=== PATIENT | male | born 1950 | race Caucasian/White ===

== ENCOUNTER 2017-06-26 09:49 | Inpatient (IN) | payer MEDICARE, OTHER ==
[2017-05-31 14:14] VITALS: BMI 41.0
--- NOTE | 2017-05-31 14:45 | PAT Medication Instructions ---
Service Date May 31, 2017. Current Home Medication List Acetaminophen (Tylenol), 2 TABS PO TID PRN for Pain Bupropion Hcl (Wellbutrin Xl), 300 MG PO QAM Cholecalciferol (Vitamin D3), 1 CAP PO BID Losartan Potassium (Cozaar), 50 MG PO BID Metoprolol Succ (Toprol Xl) (Toprol-Xl), 50 MG PO QAM Simvastatin (Zocor), 20 MG PO QPM Tramadol (Ultram), 50 MG PO Q6 PRN for Pain Medication Instructions For Your Scheduled Surgery - Hold the following medications the morning of surgery: Cholecalciferol (Vitamin D3), 1 CAP PO BID Losartan Potassium (Cozaar), 50 MG PO BID - Take the following medications the morning of surgery with a sip of water: Acetaminophen (Tylenol), 2 TABS PO TID PRN for Pain (if needed, can be taken up to four hours before surgery) Bupropion Hcl (Wellbutrin Xl), 300 MG PO QAM Metoprolol Succ (Toprol Xl) (Toprol-Xl), 50 MG PO QAM Tramadol (Ultram), 50 MG PO Q6 PRN for Pain (if needed, can be taken up to four hours before surgery) - Take the following medications as scheduled the night before surgery: Cholecalciferol (Vitamin D3), 1 CAP PO BID Losartan Potassium (Cozaar), 50 MG PO BID Simvastatin (Zocor), 20 MG PO QPM (if needed) Tramadol (Ultram), 50 MG PO Q6 PRN for Pain (if needed) If you have any questions please call us at [phone] or [phone] or [phone]
--- NOTE | 2017-05-31 15:22 | DIAGNOSTIC IMAGING REPORT ---
CHEST 2 VIEWS ROUTINE CLINICAL HISTORY: 66 years-old Male presenting with preoperative assessment. TECHNIQUE: PA and lateral views of the chest were obtained. COMPARISON: 06/16/2014. FINDINGS: Atherosclerosis of the aortic arch. Tortuosity of the descending thoracic aorta. Cardiac silhouette normal in size. Minimal basilar opacities. No pleural effusion or pneumothorax. Partially visualized right shoulder arthroplasty. Posterior lumbar fusion hardware also partially visualized with focal kyphotic deformity at the thoracolumbar junction. Cholecystectomy clips noted. IMPRESSION: 1. Minimal bibasilar atelectasis suspected. Otherwise no acute cardiopulmonary disease. Electronically signed by: Cody Alcala M.D. 05/31/2017 3:20 PM Dictated Date/Time: 05/31/2017 3:19 PM
[2017-05-31 17:01] LABS: BASO % 0.5 %; BASO ABS # 0.03 K/uL (0-0.2); EOS % 6.2 %; EOS ABS # 0.35 K/uL (0-0.5); HEMATOCRIT 42.1 % (42-52); HEMOGLOBIN 14.4 g/dL (14.0-18.0); IG# 0.01 K/uL (0.00-0.02); LYMPH % 23.7 %; LYMPH ABS # 1.35 K/uL (1.2-3.4); MEAN CELL VOLUME 87.3 fL (80-100); MEAN CORPUSCULAR HEMOGLOBIN 29.9 pg (25-34); MEAN CORPUSCULAR HGB CONC 34.2 g/dl (32-36); MEAN PLATELET VOLUME 9.1 fL (7.4-10.4); MONO % 7.6 %; MONO ABS # 0.43 K/uL (0.11-0.59); NEUT % 61.8 %; NEUT ABS # 3.52 K/uL (1.4-6.5); PLATELET COUNT 180 K/uL (130-400); RED CELL DISTRIBUTION WIDTH CV 13.6 % (11.5-14.5); RED CELL DISTRIBUTION WIDTH SD 43.2 fL (36.4-46.3); WHITE BLOOD COUNT 5.69 K/uL (4.8-10.8)
[2017-05-31 17:11] LABS: PTT PATIENT 25.6 SECONDS (21.0-31.0)
[2017-05-31 17:18] LABS: ALBUMIN 3.7 gm/dl (3.4-5.0); CALCIUM 9.3 mg/dl (8.5-10.1); CREATININE 1.17 mg/dl (0.60-1.40); POTASSIUM 3.9 mmol/L (3.5-5.1)
[2017-06-01 07:57] LABS: HEMOGLOBIN A1C 5.3 % (4.5-5.6)
--- NOTE | 2017-06-25 22:05 | HISTORY & PHYSICAL EXAMINATION ---
DATE OF ADMISSION: 06/26/2017 CHIEF COMPLAINT: Chronic left shoulder pain. HISTORY OF PRESENT ILLNESS: This is a 66-year-old male patient of Dr. Thomas'grey complaining of chronic left shoulder pain, longstanding, now progressively getting worse. The patient has failed conservative treatment. He has been diagnosed with end-stage osteoarthritis in his shoulder joint, rotator cuff tear, impingement and AC arthritis. The patient wished to proceed with a left total shoulder arthroplasty, rotator cuff repair, subacromial decompression and distal clavicle excision. PAST MEDICAL HISTORY: Hypertension, hypercholesterolemia, osteoarthritis, spine problems, sciatica, hiatal hernia, obesity. SOCIAL HISTORY: Nonsmoker, occasional drinker. PAST SURGICAL HISTORY: Hip replacement x2, right shoulder surgery, lower spine surgery, hernia and neck surgery. REVIEW OF SYSTEMS: The patient complains of chronic left shoulder pain. Otherwise, denies any shortness of breath, chest pain, nausea, vomiting or any other joint complaints. MEDICATIONS: 1. Bupropion 300 mg daily. 2. Simvastatin 20 mg daily. 3. Losartan 50 mg every other day. 4. Tylenol Arthritis as needed. 5. Metoprolol 50 mg daily. 6. Tylenol again as needed. 7. Metoprolol 25 mg daily. 8. Ultram 50 mg daily. ALLERGIES: No known drug allergies. PHYSICAL EXAMINATION: GENERAL: Well-developed, well-nourished 66-year-old male in no acute distress. He is alert and oriented x3 and pleasant. HEENT: Normocephalic, atraumatic. Extraocular motions are intact. Pupils are equal, reactive to light. HEART: Regular rate and rhythm. No murmurs appreciated. LUNGS: Clear. ABDOMEN: Soft, nontender, bowel sounds present. EXTREMITIES: Left shoulder reveals full range of motion with pain. He has 4/5 strength with pain. He has crepitation with passive range of motion. NEUROLOGIC: Neurovascularly he is intact in his left upper extremity. DIAGNOSES: Left shoulder end-stage osteoarthritis with a rotator cuff tear, acromioclavicular arthritis and impingement. He also has a history of hypertension, hypercholesterolemia, osteoarthritis, spine problems, sciatica, hiatal hernia, obesity. PLAN: The patient was advised of his diagnosis. Indications, risks, benefits, postop course have all been reviewed. The patient wished to proceed with a left total shoulder arthroplasty, rotator cuff repair, subacromial decompression and distal clavicle excision. Necessary consent forms, preoperative testing and clearances will be obtained.
[~2017-06-26] VITALS: Ht 182.9 cm; Wt 136.9 kg
[2017-06-26] VITALS (7 sets, daily range): BP systolic 109–146; BP diastolic 67–88; PULSE 59–95; TEMP 36.5–36.9; O2SAT 91–94; Ht 182.9 cm; Wt 136.9 kg
[~2017-06-26 09:49] MED LIST: ACET650S10 PO; ACETAMINOPHEN 500 MG TAB PO SCH; BUPRTAB51 PO; CEFAZOLIN 3000MG IV PUSH 22.5 ML IV SCH; CHOL2000 PO; CeleBREX 200 MG CAP PO SCH; DEXAMETHASONE 4 MG TAB PO SCH; FAMOTIDINE 20 MG TAB PO SCH; GABAPENTIN 300 MG CAP PO SCH; LACTATED RINGER'S 1000ML 1,000 ML IV SCH; LOSA50TA6 PO; METO50TA8 PO; METOCLOPRAMIDE HCL 10 MG TAB PO SCH; ROPIVACAINE 0.5% 5 MG/ML 30 ML VIAL ONE; SIMV20TA2 PO; TRAM-10 PO
--- NOTE | 2017-06-26 11:07 | History & Physical Bridge Note ---
H&P Re-Evaluation Bridge Note: I have examined the patient, reviewed the History & Physical and in the interval since the performance of the History & Physical I have noted the following changes of clinical significance: No changes noted
[2017-06-26] MEDS ORDERED: MIDAZOLAM HCL 1 MG/ML 2ML VIAL ONE (11:29)
[2017-06-26] MEDS ORDERED: FENTANYL CITRATE INJ 50 MCG/1 ML 2 ML VIAL ONE (11:30)
[2017-06-26] MEDS ORDERED: EpINEphrine HCL INJ 1 MG/ML 1ML SYRINGE ONE (11:43)
[2017-06-26] MEDS ORDERED: BACITRACIN 50000 UNIT VIAL ONE (11:43)
[2017-06-26] MEDS ORDERED: ROCURONIUM BROMIDE 10 MG/ML 5 ML VIAL IV ONE (15:24)
[2017-06-26] MEDS ORDERED: DEXAMETHASONE SOD INJ 4 MG/ML VIAL ONE (15:24)
[2017-06-26] MEDS ORDERED: EpHEDrine SULFATE INJ 50 MG/ML AMP ONE (15:24)
[2017-06-26] MEDS ORDERED: PROPOFOL IV EMULSION 10 MG/ML 20 ML VIAL IV ONE (15:24)
[2017-06-26] MEDS ORDERED: ONDANSETRON INJ 2 MG/ML 2 ML VIAL ONE (15:24)
[2017-06-26] MEDS ORDERED: EpHEDrine SULFATE 50MG/5ML SYR ONE (15:24)
[2017-06-26] MEDS ORDERED: BISACODYL 10 MG SUPP PR PRN (17:15)
[2017-06-26] MEDS ORDERED: ALUMINUM/MAGNESIUM SUSP 30 ML UDC PO PRN (17:15)
[2017-06-26] MEDS ORDERED: MoRPHine SULFATE 4 MG/ML 1 ML CARP\\VIAL IV PRN (17:15)
[2017-06-26] MEDS ORDERED: ONDANSETRON INJ 2 MG/ML 2 ML VIAL IV PRN (17:15)
[2017-06-26] MEDS ORDERED: MAGNESIUM HYDROXIDE SUSP 30 ML UDC PO PRN (17:15)
--- NOTE | 2017-06-26 17:18 | [facility] Post Operative Brief Note ---
Immediate Operative Summary Operative Date Jun 26, 2017. Pre-Operative Diagnosis Left shoulder end stage osteoarthritis with rotator cuff tear, acrominoclavicular arthritis,biceps tenosynovitis and multiple loose bodies biceps tendon sheath,possible impingent. Post-Operative Diagnosis end stage osteoarthritis with rotator cuff tendinopathy without tear and no impingement, biceps tendinopathy tenosynovitis marked with multiple loose bodies. Procedure(s) Performed Total Shoulder arthroplasty,bicep tenodesis, removal multiple loose bodies, left shoulder Surgeon Dr Thomas Bonus Clerk Surgeon(s) Harry Kidd PA-C Estimated Blood Loss 250ml Findings Consistent with Post-Op Diagnosis Specimens A. left humeral head and loose bodies left shoulder Drains 2 hemovac Anesthesia Type General Regional Complication(s) none Disposition Disposition: Recovery Room / PACU
--- NOTE | 2017-06-26 17:40 | DIAGNOSTIC IMAGING REPORT ---
L SHOULDER MIN 2 VIEWS ROUTINE CLINICAL HISTORY: Post shoulder surgery COMPARISON: None. FINDINGS: Alignment of the left shoulder arthroplasty is anatomic. Drains and skin jerry are present. There is no periprosthetic fracture or unexpected radiopaque foreign body. IMPRESSION: Expected findings following left shoulder arthroplasty. Electronically signed by: Roderick Armas M.D. 06/26/2017 5:39 PM Dictated Date/Time: 06/26/2017 5:38 PM
--- NOTE | 2017-06-26 18:04 | Anesthesiology Progress Note ---
Anesthesia Post Op Note Date & Time Jun 26, 2017 at 18:01 Vital Signs Pain Intensity: 0 Vital Signs Past 12 Hours Date Time Temp Pulse Resp B/P (MAP) Pulse Ox O2 Delivery O2 Flow Rate FiO2 06/26/17 17:48 85 18 06/26/17 17:48 85 18 92 06/26/17 17:46 111/83 06/26/17 17:43 88 14 06/26/17 17:43 88 14 93 06/26/17 17:41 122/75 06/26/17 17:38 90 24 06/26/17 17:38 89 24 92 06/26/17 17:37 87 14 93 06/26/17 17:37 88 14 06/26/17 17:36 117/76 06/26/17 17:32 83 21 06/26/17 17:32 84 21 94 06/26/17 17:31 116/77 06/26/17 17:27 86 15 06/26/17 17:27 15 06/26/17 17:26 12 06/26/17 17:26 85 12 119/80 06/26/17 17:21 12 06/26/17 17:21 86 12 96/77 06/26/17 17:16 85 15 94 06/26/17 17:16 84 15 06/26/17 17:11 88 15 06/26/17 17:11 36.5 88 16 101/60 94 Oxymask 10 06/26/17 17:11 88 15 101/60 94 06/26/17 10:30 36.5 59 20 139/88 93 Room Air Notes Mental Status: alert / awake / arousable, participated in evaluation Pt Amnestic to Procedure: Yes Nausea / Vomiting: adequately controlled Pain: adequately controlled Airway Patency, RR, SpO2: stable & adequate BP & HR: stable & adequate Hydration State: stable & adequate Anesthetic Complications: no major complications apparent Block working well in PACU. Patient has dense block with ptosis and some diaphagmatic block, oxygen saturations maintaining low 90s with supplemental O2 by nasal cannula. Encouraged ISB and cough and patient will be monitored on the floor with continuous pulse oxymetry.
[2017-06-26] MEDS: D5W AND 1/2NSS + 20MEQ KCL 1,000 ML IV SCH (19:02)
--- NOTE | 2017-06-26 21:09 | Medical Consult ---
Consultation Date of Consultation: Jun 26, 2017. Attending Physician: Marcel Thomas M.D. History of Present Illness 66 y/o M hx HTN, HPL, obese, DJD - presented for elective L shoulder replacement. Post-op the pt is recovering well. denies excessive pain at the surgical site. Denies CP, SOP, N/V, dysuria, fevers. Past Medical/Surgical History 1) HTN 2) Osteoarthritis 3) HPL 4) Obese Family History Noncontributory Social History Does not smoke - occasional ETOH Smoking Status: Never Smoker Marital Status: Housing Status: lives with family Occupation Status: retired Allergies Coded Allergies: Cat Dander (Verified Allergy, Unknown, difficulty breathing, 06/26/17) Dog Dander (Verified Allergy, Unknown, difficulty breathing, 06/26/17) Shrimp (Verified Allergy, Unknown, difficulty breathing, 06/26/17) Current Inpatient Medications Current Inpatient Medications Medications (Trade) Dose Ordered Sig/Esha Route Start Time Stop Time Status Last Admin Dose Admin Lactated Ringer's 1,000 ml @ 15 mls/hr Q24H IV 06/26/17 06:00 06/27/17 05:59 06/26/17 10:34 15 MLS/HR Bupropion HCl (Wellbutrin-Xl Tab) 300 mg QAM PO 06/27/17 09:00 07/27/17 08:59 Losartan Potassium (coZAAR TAB) 50 mg BID PO 06/26/17 21:00 07/26/17 20:59 Metoprolol Succinate (Toprol Xl Tab) 50 mg QAM PO 06/27/17 09:00 07/27/17 08:59 Simvastatin (Zocor Tab) 20 mg QPM PO 06/26/17 21:00 07/26/17 20:59 Morphine Sulfate (MoRPHine SULFATE INJ) 4 mg Q4HWA PRN IV 06/26/17 17:15 07/10/17 17:14 Ondansetron HCl (Zofran Inj) 4 mg Q6H PRN IV 06/26/17 17:15 07/26/17 17:14 Al Hydroxide/Mg Hydroxide (Maalox Susp) 30 ml Q4H PRN PO 06/26/17 17:15 07/26/17 17:14 Potassium Chloride/Dextrose/ Sod Cl 1,000 ml @ 100 mls/hr Q10H IV 06/26/17 18:45 07/26/17 18:44 06/26/17 19:02 100 MLS/HR Celecoxib (CeleBREX CAP) 200 mg BID PO 06/26/17 21:00 07/26/17 20:59 Oxycodone HCl (Roxicodone Immediate Rel Tab) `1-2 TABS FOR PAIN `1 TAB... Q4H PRN PO 06/26/17 17:15 07/10/17 17:14 Acetaminophen (Tylenol Tab) 1,000 mg Q8 PO 06/26/17 22:00 07/26/17 21:59 Magnesium Hydroxide (Milk Of Magnesia Susp) 30 ml Q6H PRN PO 06/26/17 17:15 07/26/17 17:14 Bisacodyl (Dulcolax Supp) 10 mg DAILY PRN ID 06/26/17 17:15 07/26/17 17:14 Senna (Senokot Tab) 17.2 mg HS PO 06/26/17 21:00 07/26/17 20:59 Docusate Sodium (coLACE CAP) 100 mg BID PO 06/26/17 21:00 07/26/17 20:59 Multivitamins (Multivitamin Tab) 1 tab DAILY PO 06/27/17 09:00 07/27/17 08:59 Cefazolin Sodium 2000 mg/Syringe 15 ml @ 3.75 mls/ min Q8H IV 06/26/17 22:00 06/27/17 06:03 Review of Systems Constitutional: No fever, No chills, No sweats Eyes: No worsening of vision ENT: No hearing loss, No unusual epistaxis, No nasal symptoms Respiratory: No cough, No sputum, No wheezing Cardiovascular: No chest pain, No orthopnea, No PND Abdomen: No pain, No nausea, No vomiting Musculoskeletal: + joint pain (L shoulder pain) Genitourinary - Male: No hematuria, No dysuria, No urinary frequency Neurologic: No memory loss, No weakness Psychiatric: No depression symptoms Endocrine: No fatigue Hematologic / Lymphatic: No abnormal bleeding/bruising Physical Exam Date Time Temp Pulse Resp B/P (MAP) Pulse Ox O2 Delivery O2 Flow Rate FiO2 06/26/17 20:10 36.6 92 17 137/82 (100) 91 Nasal Cannula 4.0 06/26/17 19:10 36.9 92 14 121/76 (91) 93 Nasal Cannula 4.0 18 18:40 36.7 89 14 146/88 (107) 93 Nasal Cannula 4.0 18 18:24 Nasal Cannula 4.0 18 18:10 Nasal Cannula 4.0 18 18:10 36.8 87 14 110/69 (83) 94 Nasal Cannula 4.0 06/26/17 18:01 36.5 06/26/17 17:59 88 16 06/26/17 17:59 89 16 93 06/26/17 17:56 103/68 06/26/17 17:54 85 13 92 06/26/17 17:54 86 13 06/26/17 17:51 103/76 06/26/17 17:49 86 15 06/26/17 17:49 86 15 92 06/26/17 17:48 85 18 06/26/17 17:48 85 18 92 06/26/17 17:46 111/83 06/26/17 17:43 88 14 06/26/17 17:43 88 14 93 06/26/17 17:41 122/75 06/26/17 17:38 90 24 06/26/17 17:38 89 24 92 06/26/17 17:37 87 14 93 06/26/17 17:37 88 14 06/26/17 17:36 117/76 06/26/17 17:32 83 21 06/26/17 17:32 84 21 94 18 17:31 116/77 18 17:27 86 15 06/26/17 17:27 15 06/26/17 17:26 12 18 17:26 85 12 119/80 18 17:21 12 18 17:21 86 12 96/77 06/26/17 17:16 85 15 94 06/26/17 17:16 84 15 18 17:11 88 15 18 17:11 36.5 88 16 101/60 94 Oxymask 10 06/26/17 17:11 88 15 101/60 94 06/26/17 10:30 36.5 59 20 139/88 93 Room Air General Appearance: WD/WN Head: normocephalic Eyes: normal inspection ENT: normal ENT inspection, pharynx normal Neck: supple, no JVD Respiratory/Chest: chest non-tender, lungs clear, normal breath sounds Cardiovascular: regular rate, rhythm, no edema, no gallop Abdomen/GI: normal bowel sounds, non tender, soft Back: normal inspection, no CVA tenderness Extremities/Musculoskelatal: normal inspection, no calf tenderness, normal capillary refill, + pertinent finding (L shoulder splinted - pulses (+) distally ) Neurologic/Psych: resident director II-XII nml as tested, no motor/sensory deficits, alert, oriented x 3 Skin: normal color Laboratory Results Last 24 Hours Test 06/26/17 10:41 Hepatitis C Antibody Screen NEG Assessment & Plan 66 y/o M hx HTN, HPL, obese, DJD - presented for elective L shoulder replacement. Post-op the pt is recovering well. denies excessive pain at the surgical site. Denies CP, SOP, N/V, dysuria, fevers. 1) Post-op - PT/OT , anticoagulation to discretion of ortho. Pain is currently well managed. 2) HTN - cont Metoprolol - Losartan can be resumed following AM evaluation. 3) HPL - cont Zocor Total time for this admit including review of labs, meds, imaging, records, ortho notes - discussion/exam of pt - 30 min The med service will sign off - we are in class special education teacher for any acute issues at all times
[2017-06-26] MEDS: LOSARTAN POTASSIUM 50 MG TAB PO SCH (21:19)
[2017-06-26] MEDS: CeleBREX 200 MG CAP PO SCH (21:19)
[2017-06-26] MEDS: DOCUSATE SODIUM 100 MG CAP PO SCH (21:19)
[2017-06-26] MEDS: SIMVASTATIN 20 MG TAB PO SCH (21:20)
[2017-06-26] MEDS: SENNA 8.6 MG TAB PO SCH (21:20)
[2017-06-26] MEDS: ACETAMINOPHEN 500 MG TAB PO SCH (21:22)
[2017-06-26] MEDS: CEFAZOLIN IV 2,000 MG in SYRINGE 0 ML IV SCH (21:23)
--- NOTE | 2017-06-26 22:13 | OPERATIVE REPORT ---
DATE OF OPERATION: 06/26/2017 INDICATION FOR PROCEDURE: A 66-year-old male with chronic pain in his left shoulder. He was diagnosed with osteoarthritis. His radiographs demonstrate [id number] in the glenohumeral joint with some glenoid bone loss due to chronic wear. He has some mild AC joint arthritis with a slightly low lying clavicle and had an MRI demonstrating some rotator cuff tendinopathy, partial tear of the rotator cuff, so that possibly may have impingement. The patient also has multiple calcified loose bodies which appear to be in the biceps tendon sheath that are outside of the joint. 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 POSTOPERATIVE DIAGNOSES: End-stage glenohumeral degenerative joint disease due to osteoarthritis with some bone loss and biceps tendon tenosynovitis with multiple loose bodies and biceps tendinopathy with largest loose bodies being seen 7 x 12 and 5 x 8 mm and rotator cuff tendinopathy with no evidence of a tear and no clear evidence of significant impingement. PROCEDURE: Left total shoulder arthroplasty, biceps tenodesis, biceps tendon tenosynovectomy and excision multiple loose bodies of biceps tendon sheath. SURGEON: Marcel Thomas MD. JOB PRINTER: AYAN Bay. ANESTHESIA: Regional block and general. OPERATIVE PROCEDURE: The patient was taken to the operating room, anesthetized with regional block and general anesthetic. The patient is a large individual about 300 pounds. He was positioned on the operating room table with a towel roll in the medial border of his left scapula. He was translated to left side of the bed so his shoulder could be manipulated off the bed as necessary. He had protective eyewear, headrest made of foam. He had TEDs and SCDs. He had a Servin catheter placed. His left shoulder exam demonstrated he had about 140 degrees of forward elevation and 90 degrees of abduction and external rotation to about 45 degrees. He had [id number] crepitation. He had moderately obese arm. The left shoulder was sterilely prepped and draped with ChloraPrep. An anterior deltopectoral approach was performed. The skin was incised longitudinally in deltopectoral interval. Subcutaneous flaps were elevated. The patient did not have a normal appearing cephalic vein. He had a very large vein across the deltopectoral interval obliquely coming from the subcutaneous tissues. He had some smaller veins and crossing veins in the deltopectoral interval, but no clear cephalic vein. So these veins had to be tied off with silk ties and divided. Deltoid retracted laterally with the pectoralis retracted medially. The upper centimeter of the pectoralis was released for inferior exposure. There was a very large fluid collection around the biceps tendon sheath extending up into the shoulder and down below the pack. We identified the conjoined tendon and the clavipectoral fascia which was divided in the lateral margin of the strap muscle and extended up to the CA ligament which was preserved. Retracted the conjoined tendon medially with a conjoined tendon retractor and then cauterized several bleeders around the area of the biceps tendon sheath. The sheath was opened up and there was a large amount of fluid evacuated. Two large loose bodies were removed. Then we dissected higher up in the bicipital groove area and there were more loose bodies which were more bone spur fragments and a different appearance in the typical cartilaginous cap loose bodies that removed previously. All these were removed from the biceps tendon sheath area. The biceps tendon was tenodesed to the pectoralis tendon with [id number] #2 FiberWire sutures. We did release the upper centimeter of the pectoralis for inferior exposure. Reminder of the biceps proximal to the tenodesis site was resected. The subscapularis bursa and subacromial bursa was resected and there was really no major subacromial bursitis and the rotator cuff looked normal and there was no sharp spurs on palpation under the subacromial space so I did not go ahead and perform any decompression type procedure. The circumflex vessels were then tied off with silk ties and divided laterally. The subscapularis muscle fibers were split at the level of the circumflex vessels down to the capsule and a Kitner elevator was used to reflect the inferior fibers of the subscapularis off the capsule and we palpated the axillary nerve and protected with a blunt Hohmann retractor. Then we placed a blunt Hohmann retractor superiorly. Rotator interval was opened up and the large joint effusion was evacuated. Incision was carried laterally and then a transtendinous incision was made leaving a cuff tissue of the subscapularis for repair on the lesser tuberosity. This incision was divided down to the bone and then a subperiosteal dissection performed to the articular surface and then traction suture of #1 Vicryl placed into the subscapularis tendon and then the release was gradually performed off the neck of the humerus to expose the large inferior humeral osteophyte. We readjusted retractors. Externally rotated the humerus to expose the osteophytes and then they removed with an artist chisel and a rongeur and a neck capsular release was performed off the inferior neck of the humerus using electrocautery on bone and a Powell elevator. The patient had very massive humeral head. He had eburnated bone on the humeral head. The humeral head was then retracted posterior to the glenoid, which had large inferior posterior and superior osteophytes. The capsule was released down to the 5 o'clock position under direct visualization, released off the anterior glenoid and rotator interval release was continued down to meet the capsular release with a 360 degree release of the subscapularis. We did a partial capsulectomy. The subscapularis was retracted anteriorly with a Bankart retractor and then the remainder of the degenerative labrum was resected and the anterior inferior, posterior inferior capsular release was performed using electrocautery on bone and a Powell elevator with the axillary nerve safely retracted inferiorly with the blunt Nova. The large posterior superior osteophytes were resected with a curved osteotome. I removed it with an angled curette. At this time, attention was taken to the humeral head. Humerus was exposed with extension, external rotation, and anatomic neck cut was made with an oscillating saw removing the articular surface. This was sized for a 54 mm diameter component. After the cut was made, we went ahead and placed retractors to retract the humeral head posterior to the glenoid to get glenoid exposure. We used the Bankart retractor anteriorly and the glenoid was fully exposed this time. Glenoid had eburnated bone concentric wear. The glenoid was sized for a 56 glenoid component. I used the Tornier Affiniti CortiLoc glenoid component and the Ascend Flex standard stem humeral component. The drill hole was made centrally for the reamer. The reamer was used for the glenoid component. Then the central drill hole was widened for the central peg of the implant and then the guide for the peripheral pegs was placed and the peripheral peg holes were drilled. Then the glenoid trial was placed and had good fit. That was removed and the glenoid was irrigated with antibiotic solution and bacitracin. Then, the epinephrine soaked tampon sponges were packed into the holes. The Palacos G cement was vacuum mixed. Then the glenoid component was cemented pressurizing the peripheral holes with cement and then cementing the base of the central peg, but the main central peg was press fit and peripheral pegs cemented back of components cemented. The implant was impacted into the glenoid with a tight fit. All excess cement was cleared. After cement cured, the attention was taken to the humeral preparation. Humerus was exposed with extension and external rotation. A centering awl was used followed by broaches to size the humeral component. We chose a 5 stem. The box osteotome was used to open up the canal and then we used sequential broaches up to a 5. Then we used the 54 x 23 mm high offset head which had the best fit. We did a trial reduction to the glenoid and there was good stability, full range of motion, good soft tissue tension on the subscap tendon. The trial was removed and 3 drill holes were made transosseously around the lesser tuberosity for repair of the subscap. #5 FiberWire sutures were passed. The final component was then assembled, it was the 54 x 23 high offset head assembled to the 5b standard stem. After irrigation with antibiotic solution, the implant was impacted into the stem. Then this was reduced to the glenoid component. We verified stability. Then subscapularis was repaired with the #5 FiberWire sutures using Hermilo-Conrad suture technique. Lateral row soft tissue fixation with ewdgyf-xk-ndwcd #2 FiberWire sutures. Rotator interval was closed in maximal external rotation with clminp-kq-fmiit #2 FiberWire sutures. The pectoralis was repaired with [id number]-vn-amezs #2 FiberWire sutures passing the sutures back through the biceps tendon to reinforce tenodesis there. Shoulder range of motion was 160 degrees forward elevation, 100 degrees of abduction and external rotation to 60 without any tension on the repair. Shoulder was stable. The wound was copiously irrigated. Two drains were brought out laterally, placed deep into the deltopectoral interval. Deltopectoral interval was repaired with ncbijz-ls-gaktb #1 Vicryl sutures. Subcutaneous tissues closed with interrupted 2-0 Vicryl sutures. Skin was closed with jerry and sterile dressings were applied and a shoulder immobilizer. AYAN Bay was my veterinary technician assistant. He functioned as veterinary technician assistant for the entire procedure including patient positioning, prepping, draping, arm positioning, soft tissue retraction, instrument management and performed the subcutaneous and skin closure and will participate in postoperative care of the patient. I attest to the content of the Intraoperative Record and any orders documented therein. Any exception s are noted below.
[2017-06-27] VITALS (7 sets, daily range): BP systolic 113–176; BP diastolic 66–104; PULSE 68–84; TEMP 36.6–37.1; O2SAT 90–94
[2017-06-27] MEDS: D5W AND 1/2NSS + 20MEQ KCL 1,000 ML IV SCH ×2 (03:26→13:34)
[2017-06-27] MEDS: OXYCODONE HCL IR 5 MG TAB (IMMEDIATE RELEASE) PO PRN ×5 (03:27→21:29)
[2017-06-27] MEDS: CEFAZOLIN IV 2,000 MG in SYRINGE 0 ML IV SCH (05:10)
[2017-06-27] MEDS: ACETAMINOPHEN 500 MG TAB PO SCH ×3 (05:11→22:07)
[2017-06-27 06:28] LABS: HEMATOCRIT 41.2 % (42-52); HEMOGLOBIN 13.8 g/dL (14.0-18.0); MEAN CELL VOLUME 87.5 fL (80-100); MEAN CORPUSCULAR HEMOGLOBIN 29.3 pg (25-34); MEAN CORPUSCULAR HGB CONC 33.5 g/dl (32-36); MEAN PLATELET VOLUME 9.1 fL (7.4-10.4); PLATELET COUNT 203 K/uL (130-400); RED CELL DISTRIBUTION WIDTH CV 13.3 % (11.5-14.5); RED CELL DISTRIBUTION WIDTH SD 42.5 fL (36.4-46.3); WHITE BLOOD COUNT 13.56 K/uL (4.8-10.8)
[2017-06-27 06:54] LABS: CALCIUM 8.9 mg/dl (8.5-10.1); CREATININE 1.24 mg/dl (0.60-1.40); POTASSIUM 3.9 mmol/L (3.5-5.1)
--- NOTE | 2017-06-27 08:20 | Orthopedic Progress Note ---
Orthopedic Progress Note Date of Service Jun 27, 2017. Subjective Post OP Day: 1 Reports: feeling well, pain controlled w PO medications, Denies: complaints, chest pain, SOB, nausea / vomiting, light headedness, calf pain Objective calves soft nontender, N/V intact, capillary refill less than 2 sec., dressing C /D/I, A&O x3, toes mobile Date Time Temp Pulse Resp B/P (MAP) Pulse Ox O2 Delivery O2 Flow Rate FiO2 06/27/17 07:40 36.7 74 18 126/66 (86) 94 Nasal Cannula 4.0 Humidified Oxygen 06/27/17 03:18 36.6 84 17 113/75 (88) 93 Nasal Cannula 4.0 Humidified Oxygen 06/27/17 00:39 Nasal Cannula 4.0 Humidified Oxygen 06/26/17 23:00 36.6 91 19 112/67 (82) 91 Nasal Cannula 4.0 06/26/17 21:09 36.7 95 17 109/77 (88) 91 Nasal Cannula 4.0 06/26/17 20:10 36.6 92 17 137/82 (100) 91 Nasal Cannula 4.0 06/26/17 19:10 36.9 92 14 121/76 (91) 93 Nasal Cannula 4.0 06/26/17 18:40 36.7 89 14 146/88 (107) 93 Nasal Cannula 4.0 06/26/17 18:24 Nasal Cannula 4.0 06/26/17 18:10 Nasal Cannula 4.0 06/26/17 18:10 36.8 87 14 110/69 (83) 94 Nasal Cannula 4.0 06/26/17 18:01 36.5 06/26/17 17:59 88 16 06/26/17 17:59 89 16 93 06/26/17 17:56 103/68 06/26/17 17:54 85 13 92 06/26/17 17:54 86 13 06/26/17 17:51 103/76 06/26/17 17:49 86 15 06/26/17 17:49 86 15 92 06/26/17 17:48 85 18 06/26/17 17:48 85 18 92 06/26/17 17:46 111/83 06/26/17 17:43 88 14 06/26/17 17:43 88 14 93 06/26/17 17:41 122/75 06/26/17 17:38 90 24 06/26/17 17:38 89 24 92 06/26/17 17:37 87 14 93 06/26/17 17:37 88 14 06/26/17 17:36 117/76 06/26/17 17:32 83 21 06/26/17 17:32 84 21 94 06/26/17 17:31 116/77 06/26/17 17:27 86 15 06/26/17 17:27 15 06/26/17 17:26 12 06/26/17 17:26 85 12 119/80 06/26/17 17:21 12 06/26/17 17:21 86 12 96/77 06/26/17 17:16 85 15 94 06/26/17 17:16 84 15 06/26/17 17:11 88 15 06/26/17 17:11 36.5 88 16 101/60 94 Oxymask 10 06/26/17 17:11 88 15 101/60 94 06/26/17 10:30 36.5 59 20 139/88 93 Room Air Laboratory Results 24 Hours: Test 06/27/17 05:52 Hematocrit 41.2 % Hemoglobin 13.8 g/dL Assessment & Plan Assessment: POD #1, Left TSA, biceps tenodesis Plan: PT/ OT D/C planning- Home w OPPT Inhouse Planning Pain Management: Morphine, PO Tylenol, Oxy IR DVT Prophylaxis: SCDs Discharge Planning Discharge Planning: home with oppt
[2017-06-27] MEDS: METOPROLOL SUCC 50MG EXT REL TAB PO SCH (08:59)
[2017-06-27] MEDS: BuPROPion XL 300 MG TABCR PO SCH (08:59)
[2017-06-27] MEDS: DOCUSATE SODIUM 100 MG CAP PO SCH ×2 (09:00→20:37)
[2017-06-27] MEDS: LOSARTAN POTASSIUM 50 MG TAB PO SCH ×2 (09:00→20:37)
[2017-06-27] MEDS: MULTIVITAMIN TAB PO SCH (09:00)
[2017-06-27] MEDS: CeleBREX 200 MG CAP PO SCH ×2 (09:03→20:37)
--- NOTE | 2017-06-27 09:58 | Anesthesiology Progress Note ---
Anesthesia Post Op Note Date & Time Jun 27, 2017 at 09:58 Vital Signs Vital Signs Past 12 Hours Date Time Temp Pulse Resp B/P (MAP) Pulse Ox O2 Delivery O2 Flow Rate FiO2 06/27/17 07:40 36.7 74 18 126/66 (86) 94 Nasal Cannula 4.0 Humidified Oxygen 06/27/17 03:18 36.6 84 17 113/75 (88) 93 Nasal Cannula 4.0 Humidified Oxygen 06/27/17 00:39 Nasal Cannula 4.0 Humidified Oxygen 06/26/17 23:00 36.6 91 19 112/67 (82) 91 Nasal Cannula 4.0 Notes Mental Status: alert / awake / arousable, participated in evaluation Pt Amnestic to Procedure: Yes Nausea / Vomiting: adequately controlled Pain: adequately controlled Airway Patency, RR, SpO2: stable & adequate BP & HR: stable & adequate Hydration State: stable & adequate Anesthetic Complications: no major complications apparent
[2017-06-27] MEDS ORDERED: NURSING VERBAL MED ORDER ONE (20:30)
[2017-06-27] MEDS: SIMVASTATIN 20 MG TAB PO SCH (20:37)
[2017-06-27] MEDS: SENNA 8.6 MG TAB PO SCH (20:37)
[2017-06-28] MEDS: OXYCODONE HCL IR 5 MG TAB (IMMEDIATE RELEASE) PO PRN ×3 (01:10→11:30)
[2017-06-28 04:05] VITALS: BP 112/71; PULSE 70; TEMP 36.7; O2SAT 94
[2017-06-28] MEDS: ACETAMINOPHEN 500 MG TAB PO SCH (05:12)
[2017-06-28 06:42] LABS: HEMATOCRIT 35.4 % (42-52); MEAN CELL VOLUME 88.1 fL (80-100); MEAN CORPUSCULAR HEMOGLOBIN 29.9 pg (25-34); MEAN CORPUSCULAR HGB CONC 33.9 g/dl (32-36); MEAN PLATELET VOLUME 8.6 fL (7.4-10.4); PLATELET COUNT 139 K/uL (130-400); RED CELL DISTRIBUTION WIDTH CV 13.8 % (11.5-14.5); RED CELL DISTRIBUTION WIDTH SD 44.5 fL (36.4-46.3); WHITE BLOOD COUNT 7.78 K/uL (4.8-10.8)
[2017-06-28 06:48] VITALS: BP 111/68; PULSE 67; TEMP 37.1; O2SAT 91
[2017-06-28 07:12] LABS: CALCIUM 8.4 mg/dl (8.5-10.1); CREATININE 1.03 mg/dl (0.60-1.40); POTASSIUM 3.9 mmol/L (3.5-5.1)
[2017-06-28] MEDS: BuPROPion XL 300 MG TABCR PO SCH (07:36)
[2017-06-28] MEDS: LOSARTAN POTASSIUM 50 MG TAB PO SCH (07:36)
[2017-06-28] MEDS: MULTIVITAMIN TAB PO SCH (07:36)
[2017-06-28] MEDS: METOPROLOL SUCC 50MG EXT REL TAB PO SCH (07:36)
[2017-06-28] MEDS: DOCUSATE SODIUM 100 MG CAP PO SCH (07:36)
[2017-06-28] MEDS: CeleBREX 200 MG CAP PO SCH (07:37)
[2017-06-28 07:45] VITALS: BP 162/98; PULSE 66; TEMP 36.8; O2SAT 90
--- NOTE | 2017-06-28 08:10 | Orthopedic Progress Note ---
Orthopedic Progress Note Date of Service Jun 28, 2017. Subjective Post OP Day: 2 Reports: feeling well, pain controlled w PO medications, Denies: complaints, chest pain, SOB, nausea / vomiting, light headedness, calf pain Objective N/V intact, capillary refill less than 2 sec., dressing C/D/I, A&O x3 SLING IN TACT, FINGERS MOBILE Date Time Temp Pulse Resp B/P (MAP) Pulse Ox O2 Delivery O2 Flow Rate FiO2 06/28/17 06:48 37.1 67 18 111/68 (82) 91 Room Air 06/28/17 00:03 Room Air 06/27/17 23:15 37.1 68 18 144/86 (105) 90 Room Air 06/27/17 15:52 Room Air 06/27/17 15:41 134/78 (96) 06/27/17 15:37 37.1 68 18 176/104 (128) 93 Room Air 06/27/17 11:27 78 93 06/27/17 11:03 36.9 76 18 135/71 (92) 92 Room Air 06/27/17 08:15 Nasal Cannula 4.0 Humidified Oxygen Laboratory Results 24 Hours: Test 06/28/17 06:10 Hematocrit 35.4 % Hemoglobin 12.0 g/dL Assessment & Plan Assessment: POD 2, Left TSA, biceps tenodesis Plan: PT/ OT D/C planning- Home w OPPT TODAY Inhouse Planning Pain Management: Morphine, PO Tylenol, Oxy IR DVT Prophylaxis: SCDs Discharge Planning Discharge Planning: home with oppt
[2017-06-28] MEDS ORDERED: RXC5 PO (08:13)
[2017-06-28] MEDS ORDERED: ACET-24 PO (08:13)
--- NOTE | 2017-06-28 08:15 | Discharge Instructions ---
Discharge Instructions Date of Service Jun 28, 2017. Admission Reason for Admission: Left Shoulder Degenerative Joint Disease Discharge Discharge Diagnosis / Problem: LEFT TSA, BICEPS TENODESIS Discharge Goals Goal(s): Improve function Activity Recommendations Activity Limitations: as noted below . Instructions / Follow-Up Instructions / Follow-Up ACTIVITY RECOMMENDATIONS: SELF CARE INSTRUCTIONS AFTER TOTAL SHOULDER ARTHROPLASTY A. You may do daily exercises as taught in physical therapy while in hospital. No lifting with the operative arm. Please schedule your outpatient physical therapy appointment to begin within 2-3 days after leaving the hospital. Specific restrictions will be written on your physical therapy prescription that is provided to you. B. You are to wear your sling/immobilizer at all times EXCEPT when performing your daily exercises, participating in physical therapy and for hygiene purposes. C. You may perform dry, daily dressing changes. Please keep your incision covered. You may shower 48 hours after surgery. Do not apply soap or any ointment/ lotions directly over incision. Do not soak incision in bath tub/swimming pool. D. You may use ice as needed to operative shoulder. SPECIAL CARE INSTRUCTIONS: MEDICATION INSTRUCTIONS: *It is recommended you take Aspirin 325mg daily for four weeks post-op. VERY IMPORTANT TO READ AND REVIEW A. There are a few signs you need to watch for after you are home. Call [facility] at [phone] if you experience any of the followin. Increased severe shoulder pain. Some pain is expected especially when you exercise. 2. Increased swelling in you shoulder or arm; pain or swelling in either upper extremity. 3. Any fluid drainage from the incision. 4. Shortness of breath or chest pain. B. Please call [facility] at [phone] if you have any questions or concerns about your operation or recovery. C. Call your physician if: 1. Temperature is greater than 101 degrees (F). 2. Pain is not relieved by prescribed pain medications. 3. Increase drainage or redness from incision. 4. Unanswered questions or concerns. FOLLOW UP VISIT: Please call [facility] at [phone] to schedule a follow up appointment with Dr. Thomas or his PA in 12-14 days from your surgery date. Current Hospital Diet Patient's current hospital diet: Regular Diet Discharge Diet Recommended Diet: Regular Diet Procedures Procedures Performed: Total Shoulder arthroplasty,bicep tenodesis, removal multiple loose bodies, left shoulder Pending Studies Studies pending at discharge: no Laboratory Results Hemoglobin A1c Test 05/31/17 14:42 Range/Units Estimated Average Glucose 105 mg/dl Hemoglobin A1c 5.3 4.5-5.6 % Medical Emergencies . Who to Call and When: Medical Emergencies: If at any time you feel your situation is an emergency, please call 911 immediately. . Non-Emergent Contact Non-Emergency issues call your: Primary Care Provider . "Provider Documentation" section prepared by Jeffy Cline. . [place] Drug Monitoring Program Search Results: patient reviewed within database, no issues identified
[2017-06-28 08:23] VITALS: BP 162/98; PULSE 66; TEMP 36.8; O2SAT 90
[2017-06-28 09:58] VITALS: O2SAT 90
--- NOTE | 2017-07-05 10:44 | Discharge Summary ---
Orthopedic Discharge Summary Admission Date/Reason Jun 26, 2017 at 17:16 Left Shoulder Degenerative Joint Disease. Discharge Date/Disposition Jun 28, 2017 Home Diagnosis Principal Diagnosis: Left Shoulder Djd Secondary Diagnoses/Problems: Hypertension, hypercholesterolemia, osteoarthritis, spine problems, sciatica, hiatal hernia, obesity. Procedure(s) Performed Left TSA; Biceps Tenodesis Medication Reconciliation New Medications: Acetaminophen (Sb Non-Aspirin Extra Stre) 500 Mg Tab 1000 MG PO Q8 for 21 Days, #126 TAB Oxycodone HCl (Oxycodone HCl) 5 Mg Tab 5-10 MG PO Q4H PRN for Pain, #60 TAB Continued Medications: Bupropion Hcl (Wellbutrin Xl) 300 Mg Tab 300 MG PO QAM, TAB Cholecalciferol (Vitamin D3) 2,000 Unit Cap 1 CAP PO BID for 30 Days, #60 CAP 3 Refills Losartan Potassium (Cozaar) 50 Mg Tab 50 MG PO BID, TAB Metoprolol Succ (Toprol Xl) (Toprol-Xl) 50 Mg Tabcr 50 MG PO QAM, #30 TAB Simvastatin (Zocor) 20 Mg Tab 20 MG PO QPM, TAB Discontinued Medications: Acetaminophen (Tylenol) 650 Mg Supp 2 TABS PO TID PRN for Pain Tramadol (Ultram) 50 Mg Tab 50 MG PO Q6 PRN for Pain, TAB Admission Physical Exam As per Admitting History & Physical. Hospital Course 66-year-old white male who underwent left total shoulder arthroplasty and biceps tenodesis on the above-noted date. Patient tolerated procedure well and was taken to recovery room in stable condition. First postoperative day the patient was remaining stable. Vital signs are stable and he was afebrile. Pain was controlled. Dressings are clean dry and intact. Patient was started PT protocol and continued on pain management and medical management per [facility] physician group hospitalist service. By second postoperative day, he was continuing to remain medically stable and orthopedically stable. Dressings are intact, and CMS was intact. Patient was remaining stable and it was felt he could be discharged home. For further review, please see chart. Lab and x-ray data as per chart. Discharge Instructions Please refer to the electronic Patient Visit Report (Discharge Instructions) for additional information.
== END 2017-06-28 11:50 | disposition home or self-care (01) | DRG 483 ==
LOC: C.ACU 09:49 → C.3E 17:16 → ENRESERV 17:38
PROVIDERS: ADMIT Orthopaedic Surgery Sports Medicine; ATTEND Orthopaedic Surgery Sports Medicine
PROC: 0RRK0JZ Replacement of Left Shoulder Joint with Synthetic Substitute, Open Approach (ICD-10-PCS; principal; 2017-06-26 12:30)
DX: M19.012 Primary osteoarthritis, left shoulder (principal); I10 Essential (primary) hypertension; E78.5 Hyperlipidemia, unspecified; E66.9 Obesity, unspecified; Z96.643 Presence of artificial hip joint, bilateral

== ENCOUNTER 2019-05-04 07:39 | Inpatient (IN) ==
--- NOTE | 2019-04-20 12:49 | PAT Medication Instructions ---
Medication Instructions Date of Service April 20, 2019 Home Medications acetaminophen 325 mg PO Q6H PRN 04/10/19 [History Confirmed 04/10/19] albuterol sulfate [Ventolin HFA] 1 puff INHALATION Q6H PRN 04/10/19 [History Confirmed 04/10/19] bupropion HCl 300 mg PO QAM 04/10/19 [History Confirmed 04/10/19] cholecalciferol (vitamin D3) [Vitamin D3] 2,000 unit PO QAM 04/10/19 [History Confirmed 04/10/19] ciclesonide [Alvesco] 1 puff INHALATION BID 04/10/19 [History Confirmed 04/10/19] losartan-hydrochlorothiazide 1 tab PO QAM 04/10/19 [History Confirmed 04/10/19] metoprolol succinate 50 mg PO HS 04/10/19 [History Confirmed 04/10/19] multivitamin 1 tab PO QAM 04/10/19 [History Confirmed 04/10/19] simvastatin 20 mg PO HS 04/10/19 [History Confirmed 04/10/19] DO NOT take the morning of surgery cholecalciferol (vitamin D3) [Vitamin D3] 2,000 unit PO QAM 04/10/19 [History Confirmed 04/10/19] losartan-hydrochlorothiazide 1 tab PO QAM 04/10/19 [History Confirmed 04/10/19] multivitamin 1 tab PO QAM 04/10/19 [History Confirmed 04/10/19] Take morning of surgery With a small sip of water, OTHERWISE NOTHING TO EAT OR DRINK AFTER MIDNIGHT: acetaminophen 325 mg PO Q6H PRN (okay to take up to 4 hours prior to surgery if needed) albuterol sulfate [Ventolin HFA] 1 puff INHALATION Q6H PRN (use if needed; please bring with you to hospital day of surgery if possible) bupropion HCl 300 mg PO QAM 04/10/19 [History Confirmed 04/10/19] ciclesonide [Alvesco] 1 puff INHALATION BID 04/10/19 [History Confirmed ] Take evening before surgery acetaminophen 325 mg PO Q6H PRN (if needed) albuterol sulfate [Ventolin HFA] 1 puff INHALATION Q6H PRN (if needed) ciclesonide [Alvesco] 1 puff INHALATION BID 04/10/19 [History Confirmed 04/10/19] metoprolol succinate 50 mg PO HS 04/10/19 [History Confirmed 04/10/19] simvastatin 20 mg PO HS 04/10/19 [History Confirmed 04/10/19] Other Notes If you have any questions please call us at [phone] or [phone] or [phone] or [phone]
--- NOTE | 2019-04-21 10:29 | Anesthesiology Consultation ---
Date of Service April 21, 2019 Assessment & Plan (1) Encounter for pre-operative examination: Hx post-op hypotension: S/P Left VICKEY (04/2013 at [facility]) had postoperatively become moderately hypotensive with systolic blood pressures in the 80s and 90s. Cardiology was consulted during admission (reviewed 2010 DSE). Hypotension resolved- felt most likely secondary to antihypertensive meds, epidural anesthesia and sedative medications/opiates. Treated conservatively/discharged without issue. Chart Review Chart Review: Acceptable Risk for Surgery and Patient seen in Pre Admission Testing Teaching & Discussion Pre-Anesthesia Teaching/Discussion Notes: Instructed NPO after midnight before surgery,except medications with 15 cc of water. Medication instructions provided according to the PAT guidelines. History Surgery Operation Date: 05/04/19 12:55 Proposed Procedures p Right Total Knee Arthroplasty - Marcel Thomas MD Height/Weight Height: 6 ft Weight: 136.3 kg Allergies Allergy/AdvReac Type Severity Reaction Status Date / Time cat dander Allergy Unknown difficulty Verified 04/10/19 10:47 breathing dog dander Allergy Unknown difficulty Verified 04/10/19 10:47 breathing shrimp Allergy Unknown difficulty Verified 04/10/19 10:47 breathing Medications Home Medications Medication Instructions Recorded Confirmed Last Taken acetaminophen 325 mg PO Q6H PRN 04/10/19 04/10/19 Unknown albuterol sulfate [Ventolin HFA] 1 puff INHALATION Q6H PRN 04/10/19 04/10/19 Unknown bupropion HCl 300 mg PO QAM 04/10/19 04/10/19 Unknown cholecalciferol (vitamin D3) 2,000 unit PO QAM 04/10/19 04/10/19 Unknown [Vitamin D3] ciclesonide [Alvesco] 1 puff INHALATION BID 04/10/19 04/10/19 Unknown losartan-hydrochlorothiazide 1 tab PO QAM 04/10/19 04/10/19 Unknown metoprolol succinate 50 mg PO HS 04/10/19 04/10/19 Unknown multivitamin 1 tab PO QAM 04/10/19 04/10/19 Unknown simvastatin 20 mg PO HS 04/10/19 04/10/19 Unknown Past Medical History Medical History Asthma controlled History of kidney stones History of sleep apnea (Inactive) "resolved"-- retesting was negative Hyperlipidemia Hypertension Morbid obesity Osteoarthritis Exercise / Class Metabolic Activity III < 4 Walking/Shop/Light housework Past Surgical History Surgical History History of cholecystectomy History of colonoscopy History of esophagogastroduodenoscopy (EGD) History of laminectomy "thoracic" History of left hip replacement History of left shoulder replacement Left TSA: 06/26/17: Grade 3 view, MAC#4, ETT 8.0 + PNB at [facility] History of lithotripsy History of neck surgery ?laminectomy (1985) History of pituitary surgery (Inactive) "tumor removed and radiation therapy" History of prostate biopsy History of right hip replacement History of right inguinal hernia repair History of right shoulder replacement History of spinal fusion S/P tonsillectomy and adenoidectomy Past Anesthesia History No Family Hx of Anesthesia Complications and Other S/P Left VICKEY (04/2013 at [facility]) had postoperatively become moderately hypotensive with systolic blood pressures in the 80s and 90s. Cardiology was consulted during admission (reviewed 2010 DSE). Hypotension resolved- felt most likely secondary to antihypertensive meds, epidural anesthesia and sedative medications/opiates. Treated conservatively/discharged without issue. History of PONV No Hx of PONV and No Hx of Motion Sickness Social History Smoking Status: Never smoker Do You Dip or Chew Tobacco: No Hx Alcohol Use: Yes Alcohol type: beer and wine alcohol intake frequency: a few times a month Hx Substance Use: No substance use type: does not use Review of Systems Patient denies chest pain, shortness of breath, cough, wheezing, palpitations. Physical Exam Vital Signs VITALS BP 109/72 P 58 TEMP 98.2 SP02 92%RA RESP 20 PHYSICAL Full neck and c-spine range of motion. Full TMJ range of motion. TMD 4 finger breaths Mallampati Score 3 Dentition: missing sides, several crowns/implants on sides/molars Lungs: clear throughout to auscultation Cardiac: regular rate and rhythm, no murmurs noted Spine: normal Carotid arteries: negative bruit Extremities: no edema Testing Laboratory Results 04/21/19 10:54 04/21/19 10:54 PT 10.7 Seconds (9.0-12.0) 04/21/19 10:54 INR 1.0 (0.9-1.1) 04/21/19 10:54 APTT 26.2 Seconds (21.0-31.0) 04/21/19 10:54 Hemoglobin A1c 5.5 % (4.5-5.6) 04/21/19 10:54 Urine Color Dark Yellow 04/21/19 10:54 Urine Appearance Clear (Clear) 04/21/19 10:54 Urine pH 5.0 (4.5-7.5) 04/21/19 10:54 Ur Specific Tennyson 1.030 (1.000-1.030) 04/21/19 10:54 Urine Protein Negative (Negative) 04/21/19 10:54 Urine Glucose (UA) Negative (Negative) 04/21/19 10:54 Urine Ketones Negative (Negative) 04/21/19 10:54 Urine Nitrite Negative (Negative) 04/21/19 10:54 Ur Leukocyte Esterase Negative (Negative) 04/21/19 10:54 Blood Type O Positive 04/21/19 10:54 Antibody Screen NEGATIVE 04/21/19 10:54 Electrocardiogram Date: 04/21/19 SR with first degree AVB at 60bpm. Otherwise "normal" ECG. Chest X-Ray Date: 04/21/19 The cardiac and mediastinal contours remain stable. There is a retrocardiac opa city likely representing a hiatal hernia. There are linear basilar parenchymal opacities consistent with subsegmental atelectatic change. There are relatively low lung volumes. There is no lobar consolidation. There is no failure. There are no significant pleural effusions.
--- NOTE | 2019-04-21 11:27 | XRay Report ---
XR chest Pre-admission PA/Lat CLINICAL HISTORY: Preoperative chest COMPARISON STUDY: 06/16/2014 FINDINGS: The cardiac and mediastinal contours remain stable. There is a retrocardiac opacity likely representing a hiatal hernia. There are linear basilar parenchymal opacities consistent with subsegme ntal atelectatic change. There are relatively low lung volumes. There is no lobar consolidation. Ther e is no failure. There are no significant pleural effusions.[ IMPRESSION: Low lung volumes with subsegmental lower lobe atelectatic change. ACT 112: Negative or not required by law. Electronically signed by: Emil Simmons M.D. 04/21/2019 11:26 AM
--- NOTE | 2019-04-21 13:55 | Electrocardiogram Report ---
Test Reason : Blood Pressure : / mmHG Vent. Rate : 060 BPM Atrial Rate : 060 BPM P-R Int : 258 ms QRS Dur : 090 ms QT Int : 444 ms P-R-T Axes : 077 049 041 degrees QTc Int : 444 ms Sinus rhythm with 1st degree A-V block Otherwise normal ECG When compared with ECG of 16-JUN-2014 12:42, IN interval has increased Confirmed by Shaggy Centeno ([id number]) on 04/21/2019 1:55:19 PM Referred By: Marcel Thomas Confirmed By:Shaggy Centeno
[2019-04-21 13:59] LABS: Basophils # (auto) 0.03 K/uL (0-0.2); Basophils % (auto) 0.5 %; Eosinophils # (auto) 0.25 K/uL (0-0.5); Eosinophils % (auto) 4.4 %; Hematocrit (blood only) 43.6 % (42-52); Hemoglobin 14.5 g/dL (14.0-18.0); Immature Granulocytes # (auto) 0.01 K/uL (0.00-0.02); Immature Granulocytes % (auto) 0.2 %; Lymphocytes # (auto) 1.21 K/uL (1.2-3.4); Lymphocytes % (auto) 21.3 %; Mean Corpuscular Hemoglobin 30.1 pg (25-34); Mean Corpuscular Hgb Conc 33.3 g/dL (32-36); Mean Corpuscular Volume 90.6 fL (80-100); Mean Platelet Volume 9.4 fL (7.4-10.4); Monocytes % (auto) 8.8 %; Neutrophils # (auto) 3.68 K/uL (1.4-6.5); Neutrophils % (auto) 64.8 %; Platelet Count 182 K/uL (130-400); RDW Coefficient of Variation 13.7 % (11.5-14.5); RDW Standard Deviation 44.9 fL (36.4-46.3); Red Blood Count 4.81 M/uL (4.7-6.1); White Blood Count 5.68 K/uL (4.8-10.8)
[2019-04-21 14:16] LABS: Partial Thromboplastin Time 26.2 Seconds (21.0-31.0); Prothrombin Time 10.7 Seconds (9.0-12.0)
[2019-04-21 14:24] LABS: Appearance Urine Clear (Clear); Bilirubin Urine Negative (Negative); Blood Urine Negative (Negative); Color Urine Dark Yellow; Glucose Urine UA Negative (Negative); Ketones Urine Negative (Negative); Leukocyte Esterase Urine Negative (Negative); Nitrite Urine Negative (Negative); Protein Urine Negative (Negative); Urobilinogen Urine Negative (Negative)
[2019-04-21 14:27] LABS: Albumin Level 3.6 gm/dl (3.4-5.0); BUN Creatinine Ratio 15.5 (10-20); Calcium 9.4 mg/dl (8.5-10.1); Est GFR (African American) 77.3; Est GFR (Non-African American) 66.7; Potassium 3.8 mmol/L (3.5-5.1)
[2019-04-21 14:33] LABS: Estimated Average Glucose 111 mg/dl; Hemoglobin A1C 5.5 % (4.5-5.6)
--- NOTE | 2019-05-03 15:33 | History and Physical Report ---
DATE OF ADMISSION: 05/04/2019 CHIEF COMPLAINT: Chronic right knee pain. HISTORY OF PRESENT ILLNESS: This is a 68-year-old male patient of Dr. Thomas'grey complaining of chronic right knee pain, longstanding, now progressively getting worse. The patient has failed conservative treatment including anti-inflammatories, home exercise program and the use of a cane. The patient has increased pain with weightbearing activities and his pain does interfere with his activities of daily living. The patient has been diagnosed with end-stage osteoarthritis per clinical and radiographic exams. The patient wished to proceed with a right total knee arthroplasty. PAST MEDICAL HISTORY: Hypertension, hypercholesterolemia, asthma, osteoarthritis, spine problems, sciatica, obesity, history of kidney stones. SOCIAL HISTORY: Nonsmoker, nondrinker. PAST SURGICAL HISTORY: Bilateral shoulders, bilateral total hip replacements, lumbar spine surgery, cholecystectomy, hernia, C-spine surgery and right foot surgery. FAMILY HISTORY: Noncontributory. REVIEW OF SYSTEMS: Chronic right knee pain and instability. Otherwise, denies any shortness of breath, chest pain, nausea, vomiting or any other joint complaints. MEDICATIONS: 1. Bupropion 300 mg daily, simvastatin 20 mg daily, losartan 100 mg daily, Tylenol Arthritis 650 mg as needed, metoprolol 50 mg daily, Ventolin inhaler 2 puffs 4 times daily as needed, vitamin D3 2000 units daily, Spiriva inhaler 60 /act/2.5 mcg 2 puffs q. 8:00 a.m. ALLERGIES: No known drug allergies. PHYSICAL EXAMINATION: GENERAL: Well-developed, well-nourished 68-year-old male in no acute distress. He is alert and oriented x3 and pleasant. HEENT: Normocephalic, atraumatic. Extraocular motions are intact. Pupils are equal and reactive to light. HEART: Regular rate and rhythm, no murmurs. LUNGS: Clear. ABDOMEN: Soft, nontender, bowel sounds present. EXTREMITIES: Right lower extremity limited range of motion at the knee of 0-115 with a valgus deformity. He has lateral joint line tenderness. He has a mild effusion. Positive crepitation 4/5 strength. Neurologically and neurovascularly intact in the right lower extremity. DIAGNOSES: Right knee end-stage osteoarthritis, hypertension, hypercholesterolemia, asthma, osteoarthritis, spine problems, sciatica, history of kidney stones, and obesity. PLAN: The patient was advised of his diagnosis. Indications, risks, benefits, postop course have all been reviewed. The patient wished to proceed with a right total knee arthroplasty. Necessary consent forms, preoperative testing and clearances will be obtained. DENIS
[~2019-05-04 07:39] MED LIST changes: -ACET650S10 PO; +BUPIVACAINE 0.25% 30 ML VIAL ONE; +BUPIVACAINE 0.5 % 5 MG/1 ML PF 10ML VIAL ONE; -BUPRTAB51 PO; +CEFAZOLIN 3000MG 72.5 ML IV SCH; -CEFAZOLIN 3000MG IV PUSH 22.5 ML IV SCH; -CHOL2000 PO; -DEXAMETHASONE 4 MG TAB PO SCH; -LACTATED RINGER'S 1000ML 1,000 ML IV SCH; -LOSA50TA6 PO; +LR 500ML BOLUS, THEN 15ML/HR IV SCH; -METO50TA8 PO; -METOCLOPRAMIDE HCL 10 MG TAB PO SCH; +METOCLOPRAMIDE HCL 10 MG TABLET PO SCH; -ROPIVACAINE 0.5% 5 MG/ML 30 ML VIAL ONE; +ROPIVACAINE 0.5% HCL/PF 150 MG, BUPIVACAINE 0.5% MPF 30 ML, EPINEPHrine 30MG/30ML (OR U... INFIL SCH; -SIMV20TA2 PO; -TRAM-10 PO; +TRANEXAMIC ACID 1,000 MG **IV Intra-op IV SCH; +TRANEXAMIC ACID 1,000 MG **IV Pre-op IV SCH; +dexAMETHasone 4 MG TAB PO SCH
--- OUTSIDE RECORDS SUMMARY | 2019-05-04 07:45 | External Medical Summary | Continuity of Care Document ---
:1950 Author Name Luc Neville, Provider Address Unavailable Unavailable , Care Team Providers Name Role Phone Unavailable Unavailable Unavailable JAZMÍN CARVER II Unavailable Unavailable Unavailable Unavailable Unavailable Problems Elevated prostate specific antigen (PSA) (790.93) (R97.20) Arthritis (716.90) (M19.90) Benign prostatic hypertrophy with urinary obstruction (600.0 1) (N40.1) Dyslipidemia (272.4) (E78.5) BPH with obstruction/lower urinary tract symptoms (600.01) ( N40.1) Benign hypertensive heart disease withou t congestive heart failure (402.10) (I11.9) Hypercholesterolemia (272.0) (E78.00) Hypertension (401.9) (I10) Allergies and Adverse Reactions No Known Drug Allergies (Allergy) No Known Allergies (Allergy) Medications Losartan Potassium TABS , M.D. Refills: 0 Simvastatin TABS , M.D. Refills: 0 Metoprolol Succinate ER TB24 , M.D. Refills: 0 Ibuprofen TABS , M.D. Refills: 0 buPROPion HCl ER (XL) 300 MG Oral Tablet Extended Release 24 Hour; TAKE 1 TABLET DAILY. , M.D. Refills: 0 Procedures History of Hip Replacement Status: Compl eted History of Shoulder Surgery Status: Comp leted Immunizations Immunizations not documented Family History Mother Family history of Bladder Cancer (V16.52) Status: Active Social History - Smoking Status Never smoker Plan of Treatment Planned Observations Planned Goals not documented Results No Known Results Results not documented
[2019-05-04] MEDS ORDERED: MIDAZOLAM HCL 1 MG/ML 2ML VIAL ONE ×2 (08:29)
[2019-05-04] MEDS ORDERED: fentaNYL citrate 100 MCG/2 ML VIAL ONE ×3 (08:30→12:02)
[2019-05-04] MEDS ORDERED: TRANEXAMIC ACID / 0.7% NACL 1000MG/100ML BAG IV ONE (08:41)
--- NOTE | 2019-05-04 08:55 | History & Physical Bridge Note ---
Date of Service May 04, 2019 History & Physical Bridge Note I have examined the patient, reviewed the History & Physical and in the interval since the performance of the History & Physical I have noted the following changes of clinical significance: no changes noted
[2019-05-04] MEDS ORDERED: ORTHO JOINT ANESTHETIC ONE (09:28)
[2019-05-04] MEDS ORDERED: BACITRACIN INJ 50,000 UNIT VIAL ONE (09:28)
[2019-05-04] MEDS ORDERED: ePHEDrine sulfate 50 MG/ML AMP IV PRN (10:38)
[2019-05-04] MEDS ORDERED: fentaNYL citrate 100 MCG/2 ML VIAL IV PRN (10:38)
[2019-05-04] MEDS ORDERED: ONDANSETRON INJ 2 MG/ML 2 ML VIAL IV PRN ×2 (10:38→14:13)
[2019-05-04] MEDS ORDERED: ATROPINE SULFATE 0.1 MG/ML 10ML SYR IV PRN (10:38)
[2019-05-04] MEDS ORDERED: PROPOFOL IV EMULSION 10 MG/ML 20 ML VIAL IV ONE (11:01)
[2019-05-04] MEDS ORDERED: KETAMINE HCL INJ 50 MG/ML 10 ML VIAL ONE (12:22)
--- NOTE | 2019-05-04 12:36 | Post Operative Brief Note ---
Immediate Post Op Note v1 Date of Surgery May 04, 2019 Pre & Post Diagnosis Operation Date: 05/04/19 10:10 Pre-Op Diagnosis: Right Knee Osteoarthritis Post-Op Diagnosis: Right Knee Osteoarthritis I identified the patient and participated in the time-out.: Yes Procedure Operation Date: 05/04/19 10:10 Actual Procedures p Right Total Knee Arthroplasty(Right) - Marcel Thomas MD Surgeon Marcel Thomas MD Line Erector Apprentice AYAN Lemon Estimated Blood Loss 5 Findings Consistent with Post-Op Diagnosis Specimens Bone cuts Drains Hemovac Drain Anesthesia Type MAC Spinal Regional Complications none Disposition Accompanied Patient To Recovery: No Overlapping Procedure I was present for: the critical portions of procedure. Back up surgeon: was not required during procedure.
--- NOTE | 2019-05-04 13:29 | Anesthesiology Progress Note ---
Date of Service May 04, 2019 Anesthesia Post Procedure Vital Signs Vital Signs: Temp Pulse Pulse Resp BP Pulse Ox 05/04/19 13:20 67 16 108/69 99 05/04/19 13:10 67 16 106/73 99 05/04/19 13:00 36.5 C 67 16 97/66 L 97 05/04/19 08:29 36.6 C 60 94 H 138/87 94 Transfer of Care Handoff Completed per policy Notes Mental Status: alert / awake / arousable and participated in evaluation Nausea / Vomiting: adequately controlled Pain: adequately controlled Airway Patency, RR, SpO2: stable & adequate BP & HR: stable & adequate Hydration State: stable & adequate Neuraxial Anesthesia: was administered and sensory block is resolving Anesthetic Complications: no major complications apparent and Pt Satisfied with anesthetic care
--- NOTE | 2019-05-04 13:34 | XRay Report ---
XR knee RT 1 or 2V routine CLINICAL HISTORY: Surgical Post Op COMPARISON: None. DISCUSSION: There are postsurgical changes of a total right knee arthroplasty and patellar resurfacin g. The femoral tibial components appear well seated. Overlying skin jerry and surgical drains are e vident. There is air within the soft tissues consistent with recent surgery. IMPRESSION: Postsurgical changes of a total right knee arthroplasty. ACT 112: Negative or not required by law. Electronically signed by: Emil Simmons M.D. 05/04/2019 1:33 PM
[2019-05-04] MEDS ORDERED: ALBUTEROL HFA 8 GM INHALER INH PRN (14:13)
[2019-05-04] MEDS ORDERED: bisacodyL 10 MG SUPP PR PRN (14:13)
[2019-05-04] MEDS ORDERED: MAGNESIUM HYDROXIDE SUSP 30 ML UDC PO PRN (14:13)
[2019-05-04] MEDS ORDERED: HYDROmorphone INJ 0.5 MG/0.5 ML SYR IV PRN (14:13)
[2019-05-04] MEDS ORDERED: NALOXONE HCL 0.4 MG/1 ML VIAL/CARP IV PRN (14:13)
[2019-05-04] MEDS ORDERED: OXYCODONE HCL IR 5 MG TAB (IMMEDIATE RELEASE) PO PRN (14:13)
[2019-05-04] MEDS: SODIUM CHLORIDE 0.9% 1000ML 1,000 ML IV SCH (14:45)
[2019-05-04] MEDS: ACETAMINOPHEN 500 MG TAB PO SCH ×2 (14:45→21:17)
--- NOTE | 2019-05-04 15:31 | Operative Report ---
Post Operative Report Pre & Post Diagnosis Operation Date: 05/04/19 10:10 Pre-Op Diagnosis: Right Knee Osteoarthritis obesity BMI 39.9 Post-Op Diagnosis: Right Knee Osteoarthritis obesity BMI 39.9 I identified the patient and participated in the time-out.: Yes Procedure Operation Date: 05/04/19 10:10 Actual Procedures p Right Total Knee Arthroplasty(Right), increased difficulty obesity BMI 39.9- Marcel Thomas MD Surgeon Marcel Thomas MD Color Print Inspector AYAN Lemon Estimated Blood Loss 5 Findings Consistent with Post-Op Diagnosis Specimens Bone cuts Drains 2 Hemovac Anesthesia Type MAC Spinal Regional Complications none Disposition Accompanied Patient To Recovery: No Disposition: Recovery Room Indications 68-year-old male with bilateral knee pain. He has end-stage bilateral knee osteoarthritis with a valgus right knee varus left knee [id number] both knees has had previous joint replacements of other joints including right hip replacement. Patient is obese BMI 39.9 Description of Procedure Patient taken to the operating room the size under spinal MAC regional anesthesia. Patient was placed supine on the operating table. A pneumatic tourniquet was placed about the right upper thigh. The right lower extremity was prepped and draped in sterile fashion. Knee exam demonstrated large heavy leg 15 degree flexion contracture flexion to 125 degrees with a valgus knee mild valgus around 5 to 10 degrees. The leg was elevated exsanguinated with an Esmarch bandage and pneumatic tourniquet was raised to 325 millimeters of mercury. Skin incised sharply in longitudinal fashion. Subcutaneous flaps elevated. Incision was made through the medial retinaculum extending up in the mid third of the quadriceps tendon and down to the medial tibial tubercle. Intra-articular findings demonstrated severe tricompartmental osteoarthritis with tricompartmental osteophytes grade 4 osteoarthritis and patellofemoral joint grade 4 lateral compartment osteoarthritis chronic lateral meniscus tear. The timeplazzan total knee arthroplasty system was used. To expose the knee the infrapatellar fat pad was resected. The meniscal remnants and cruciate ligaments were resected. The anterior fat pad over the femur in the area of the anterior flange of the femoral component was resected. Lateral synovial bands release. The femur was exposed. An intramedullary drill hole was made into the canal. A guide chanelle was placed. Distal femoral cutting guide was adjusted to resect a 6 degree valgus cut with 10 millimeters distal femur resected. The knee was extended and a subperiosteal peel lateral release was performed around the patella. Patella width was measured and width was reproduced using a freehand cut technique and a 36 x 10 symmetrical patella component. The 3 drill holes were made and the excess lateral facet was beveled off to prevent any impingement. Attention was taken back to the femur which was exposed with retractors and the femoral sizing guide was pinned in position. The drill holes were placed in 3 of external rotation to match epicondylar axis. Femur sized for a 8 component. First we use a block to change the drill holes up +1.5 mm in order to prevent notching with our anterior cut. The 4-in-1 cutting block was placed and then the anterior posterior and chamfer cuts are made. The tibia was then subluxed. The external tibial cutting guide was just to make a perpendicular cut to the long axis of the tibia below the most deficient bone loss side. A lamina embossing press operator molded goods was used and the flexion extension gaps were balanced. I did perform a subperiosteal release of the IT band lateral posterior lateral capsule release to balance ligaments. All posterior osteophytes removed. All meniscal remnants were resected. The tibia exposed and the trial tibial component size 8 was externally rotated in line with the tibial tubercle and pinned in position. The drill and punch for universal baseplate 12 by 50 mm stem was used. The notch cutting device was centered appropriately and the femoral notch cut was made. The femoral trial was inserted. Trial tibial inserts were placed and size 13 tibial trial gave balanced ligaments through flexion and extension. Patella tracking was assessed. The patella tracked centrally. The trial components were then removed and the orthomix anesthetic cocktail was injected per protocol. The knee was then copiously irrigated with pulsatile lavage antibiotic solution. Final components were then cemented with Simplex cement. Final components were triathlon size a right posterior stabilized femoral component with cement fixation pegs, universal size 8 tibial baseplate with a 12 x 50 mm cemented stem , 8 x 13 mm axial polyethylene insert and S 36 x 10 mm X3 poly-patella. While the cement cured the Betadine soak was used per protocol. After cement cured further pulsatile lavage irrigation performed and 2 Hemovac drains were brought out laterally. The quadriceps tendon and medial retinaculum were closed with figure of 8 #1 Vicryl sutures. The knee was taken through full range of motion and the repair was secure. The subcutaneous tissues were closed with 2-0 Vicryl sutures. Skin was closed with jerry. Sterile dressings were applied. Due to his large size and compromised his obesity there was increased level of difficulty during the procedure and the OR time was increased by 20 minutes. Patient procedure well with no complications noted. Jeffy BOTELLO was my physician admissions assistant who assisted in patient positioning prepping and draping,leg positioning ,soft tissue retraction and instrument management and participated in the closing and will participate in postoperative care of the patient. The patient tolerated the procedure well. I attest to the content of the Intraoperative Record and any orders documented therein. Any exceptions are noted below.
--- NOTE | 2019-05-04 15:48 | Consultation ---
Date of Consultation May 04, 2019 Assessment & Plan (1) Osteoarthritis: severe, right knee s/p TKA on 05/04/19, tolerated well pain control, DVT prophylaxis and d/c planning per ortho already off of oxygen, using bedside incentive spirometer will watch for bowel function check labs in the morning (2) Hypertension: BP stable continue home regimen check BMP in the AM (3) Hyperlipidemia: continue Zocor (4) BPH (benign prostatic hypertrophy): no current LUTS (5) Asthma: no wheezing, no distress uses Alvesco BID which has kept symptoms under control History of Present Illness Requesting Physician: Dr. Thomas Reason for Consultation: medical management Attending Physician: Marcel Thomas MD History of Present Illness 68 yo male with h/o HTN, asthma, kidney stones as well as ongoing right knee pain due to osteoarthritis. After failing conservative measures, the patient presented for elective right TKA today. No complications with the procedure, tolerated well, minimal blood loss. Transferred to the floor in stable condition. At the time of my visit he is breathing well, no chest pain or pressure, no fever, no nausea. He tolerated a diet. Right knee with some mild pain but the nerve block still in effect. His HTN is well controlled at home. He had some asthma last year but he uses Alvesco twice a day and has not had any further asthma flares. Allergies Allergy/AdvReac Type Severity Reaction Status Date / Time cat dander Allergy Unknown difficulty Verified 05/04/19 08:25 breathing dog dander Allergy Unknown difficulty Verified 05/04/19 08:25 breathing shrimp Allergy Unknown difficulty Verified 05/04/19 08:25 breathing Home Medications Home Medications Medication Instructions Recorded Confirmed Type acetaminophen 325 mg PO Q6H PRN 04/10/19 05/04/19 History albuterol sulfate [Ventolin HFA] 1 puff INHALATION Q6H PRN 04/10/19 05/04/19 History bupropion HCl 300 mg PO QAM 04/10/19 05/04/19 History cholecalciferol (vitamin D3) 2,000 unit PO QAM 04/10/19 05/04/19 History [Vitamin D3] ciclesonide [Alvesco] 1 puff INHALATION BID 04/10/19 05/04/19 History losartan-hydrochlorothiazide 1 tab PO QAM 04/10/19 05/04/19 History metoprolol succinate 50 mg PO HS 04/10/19 05/04/19 History multivitamin 1 tab PO QAM 04/10/19 05/04/19 History simvastatin 20 mg PO HS 04/10/19 05/04/19 History Patient History Medical History Asthma controlled History of kidney stones History of sleep apnea (Inactive) "resolved"-- retesting was negative Hyperlipidemia Hypertension Morbid obesity Osteoarthritis Surgical History History of cholecystectomy History of colonoscopy History of esophagogastroduodenoscopy (EGD) History of laminectomy "thoracic" History of left hip replacement History of left shoulder replacement Left TSA: 06/26/17: Grade 3 view, MAC#4, ETT 8.0 + PNB at [facility] History of lithotripsy History of neck surgery ?laminectomy (1985) History of pituitary surgery (Inactive) "tumor removed and radiation therapy" History of prostate biopsy History of right hip replacement History of right inguinal hernia repair History of right shoulder replacement History of spinal fusion S/P tonsillectomy and adenoidectomy Family History (Updated 05/04/19 @ 16:44 by Kameron Katz DO) Other Hypertension Social History Preferred Language: Kiswahili Communication Ability: Effective Sprinkler Inspector Required: No Beliefs That Will Affect Care: None Current Living Situation: Spouse Other Information That Helps Us Care for You: No Feels Safe at Home: Yes Safety Concerns: Feels Safe At This Time Smoking Status: Never smoker Do You Dip or Chew Tobacco: No ; Second Hand Exposure: No ; Hx Alcohol Use: Yes Alcohol type: beer and wine Hx Substance Use: No Review of Systems Review of Systems: All systems reviewed & are unremarkable except as noted in HPI & below Musculoskeletal: + joint pain (right knee, mild) Physical Exam Constitutional: WD/WN, vitals as above + overweight Eyes: PERRL, conjunctivae normal, anicteric sclerae ENMT: external ear and nose normal, oropharynx normal Neck: trachea midline, no thyromegaly Respiratory: normal respiratory effort, lungs clear to auscultation Cardiovascular: RRR, no murmur, no edema Gastrointestinal (Abdomen): normal bowel sounds, soft, nontender, no hepatosplenomegaly Musculoskeletal: no cyanosis or clubbing, extremities motor strength 5/5 Knee: + knee abnormal to inspection (right knee, swollen, tender), + surgical incision (right) and + limited ROM of knee (right) Skin: no rashes, warm and dry Neurologic: patellar DTR's 2+ bilat, sensation intact and PERRL, EOMI, accommodation nl, no face palsy, no dysarthria Psychiatric: A+Ox3, euthymic affect Lymphatic: no cervical or axillary lymphadenopathy Results & Data Vital Signs (Past 12 Hours) Vital Signs Temp Pulse Pulse Resp BP Pulse Ox 05/04/19 15:18 36.5 C 69 17 119/80 94 05/04/19 14:34 64 16 112/69 90 05/04/19 14:00 36.5 C 70 16 109/68 93 05/04/19 13:39 36.5 C 70 16 104/74 94 05/04/19 13:30 36.5 C 64 16 103/61 97 05/04/19 13:20 67 16 108/69 99 05/04/19 13:10 67 16 106/73 99 05/04/19 13:00 36.5 C 67 16 97/66 L 97 05/04/19 08:29 36.6 C 60 94 H 138/87 94 Medications Administered Current Inpatient Medications Acetaminophen (Tylenol) 1,000 mg PO Q8 MATI Stop: 06/03/19 14:29 Last Admin: 05/04/19 14:45 Dose: 1,000 mg Documented by: Albuterol (Ventolin Hfa) 1 puffs INH Q6H PRN PRN Reason: Wheezing Stop: 06/03/19 14:12 Bisacodyl (Dulcolax) 10 mg [place] DAILY PRN PRN Reason: Constipation Stop: 06/03/19 14:12 Bupropion HCl (Wellbutrin-Xl) 300 mg PO QAM MATI Stop: 06/04/19 08:59 Celecoxib (Celebrex) 200 mg PO BID MATI Stop: 06/03/19 20:59 Diphenhydramine HCl (Benadryl Capsule) 25 mg PO Q8H PRN PRN Reason: Itching Stop: 06/03/19 14:12 Docusate Sodium (Colace) 100 mg PO BID MATI Stop: 06/03/19 20:59 Fluticasone Furoate (Arnuity Ellipta 100mcg) [facility] Stop: 06/04/19 08:59 Hydrochlorothiazide (Hctz) 12.[facility] Stop: 06/04/19 08:59 Hydromorphone HCl (Dilaudid) 0.5 mg IV Q4H PRN PRN Reason: Pain Stop: 05/18/19 14:12 Sodium Chloride (Nss 1000ml) 1,000 mls @ 100 mls/hr IV .Q10H MATI Stop: 05/05/19 06:00 Last Admin: 05/04/19 14:45 Dose: 100 mls/hr Documented by: Cefazolin Sodium (Ancef 2000mg) 2,000 mg in 15 mls @ 3.75 mls/min IV Q8H [facility]; Protocol Stop: 05/05/19 02:03 Losartan Potassium (Cozaar) 100 mg PO [facility] Stop: 06/04/19 08:59 Magnesium Hydroxide (Milk Of Magnesia) 30 ml PO Q6H PRN PRN Reason: Constipation Stop: 06/03/19 14:12 Metoprolol Succinate (Toprol Xl) 50 mg PO [facility] Stop: 06/03/19 20:59 Multivitamins (Multivitamin Tab) 1 tab PO [facility] Stop: 06/04/19 08:59 Naloxone HCl (Narcan) 0.1 mg IV Q5M PRN PRN Reason: Oversedation/Resp Depression Stop: 06/03/19 14:12 Ondansetron HCl (Zofran) 4 mg IV Q6H PRN PRN Reason: Nausea And Vomiting Stop: 06/03/19 14:12 Oxycodone HCl (Roxicodone Immediate Rel) 5 - 10 mg PO Q4H PRN PRN Reason: Pain Stop: 05/18/19 14:12 Rivaroxaban (Xarelto) 10 mg PO DAILY [facility] Stop: 06/04/19 08:59 Sennosides (Senokot) 17.2 mg PO [facility] Stop: 06/03/19 20:59 Simvastatin (Zocor) 20 mg PO [facility] Stop: 06/03/19 20:59 Vitamin D (Vitamin D3) 2,000 [facility] Stop: 06/04/19 08:59 PG Care Time/CCT Total # of Minutes Spent Total Time Spent with Patient: Total time spent is greater than 50% in coordination of care (as documented) at patient's floor/unit and/or counseling patient:
[2019-05-04] MEDS: CEFAZOLIN 2000MG 2,000 MG/15 ML SYR IV SCH (17:49)
[2019-05-04] MEDS ORDERED: SENNA 8.6 MG TAB PO SCH (21:00)
[2019-05-04] MEDS ORDERED: SIMVASTATIN 20 MG TAB PO SCH (21:00)
[2019-05-04] MEDS ORDERED: METOPROLOL SUCC 50MG EXT REL TAB PO SCH (21:00)
[2019-05-04] MEDS: CeleBREX 200 MG CAP PO SCH (21:17)
[2019-05-04] MEDS: DOCUSATE SODIUM 100 MG CAP PO SCH (21:17)
[2019-05-05] MEDS: SODIUM CHLORIDE 0.9% 1000ML 1,000 ML IV SCH (00:23)
[2019-05-05] MEDS: CEFAZOLIN 2000MG 2,000 MG/15 ML SYR IV SCH (01:28)
[2019-05-05] MEDS: ACETAMINOPHEN 500 MG TAB PO SCH ×2 (05:35→13:54)
[2019-05-05 05:47] LABS: Hematocrit (blood only) 36.7 % (42-52); Hemoglobin 12.8 g/dL (14.0-18.0); Mean Corpuscular Hemoglobin 30.3 pg (25-34); Mean Corpuscular Hgb Conc 34.9 g/dL (32-36); Mean Platelet Volume 9.6 fL (7.4-10.4); Platelet Count 188 K/uL (130-400); RDW Coefficient of Variation 13.3 % (11.5-14.5); RDW Standard Deviation 42.3 fL (36.4-46.3); Red Blood Count 4.22 M/uL (4.7-6.1); White Blood Count 13.07 K/uL (4.8-10.8)
[2019-05-05 06:17] LABS: BUN Creatinine Ratio 15.2 (10-20); Calcium 8.6 mg/dl (8.5-10.1); Creatinine Clr Calc Pharmacy 80.8 ml/min; Est GFR (African American) 69.7; Est GFR (Non-African American) 60.1; Potassium 3.9 mmol/L (3.5-5.1)
--- NOTE | 2019-05-05 08:13 | Anesthesiology Progress Note ---
Date of Service May 05, 2019 Anesthesia Post Procedure Vital Signs Vital Signs: Temp Pulse Pulse Pulse Resp BP Pulse Ox 05/05/19 07:46 36.4 C L 64 16 110/73 92 05/05/19 03:20 36.6 C 71 18 105/68 92 05/04/19 23:05 36.9 C 86 16 102/65 94 05/04/19 21:14 89 92/54 L 05/04/19 20:25 36.7 C 86 18 100/65 92 05/04/19 17:09 36.4 C L 71 17 111/73 94 05/04/19 16:05 36.4 C L 69 17 115/78 93 05/04/19 15:18 36.5 C 69 17 119/80 94 05/04/19 14:34 64 16 112/69 90 05/04/19 14:00 36.5 C 70 16 109/68 93 05/04/19 13:39 36.5 C 70 16 104/74 94 05/04/19 13:30 36.5 C 64 16 103/61 97 05/04/19 13:20 67 16 108/69 99 05/04/19 13:10 67 16 106/73 99 05/04/19 13:00 36.5 C 67 16 97/66 L 97 05/04/19 08:29 36.6 C 60 94 H 138/87 94 Notes Mental Status: alert / awake / arousable and participated in evaluation Patient Amnestic to Procedure: Yes Nausea / Vomiting: adequately controlled Pain: adequately controlled Airway Patency, RR, SpO2: stable & adequate BP & HR: stable & adequate Hydration State: stable & adequate Neuraxial Anesthesia: was administered and sensory block resolved Anesthetic Complications: no major complications apparent and Pt Satisfied with anesthetic care
[2019-05-05] MEDS: CeleBREX 200 MG CAP PO SCH (08:46)
[2019-05-05] MEDS: DOCUSATE SODIUM 100 MG CAP PO SCH (08:46)
[2019-05-05] MEDS ORDERED: FLUTICASONE FUROATE 100MCG 14 PUFFS/INHALER INH SCH (09:00)
[2019-05-05] MEDS ORDERED: hydroCHLOROthiazide 25 MG TAB PO SCH (09:00)
[2019-05-05] MEDS ORDERED: MULTIVITAMIN TAB PO SCH (09:00)
[2019-05-05] MEDS ORDERED: RIVAROXABAN 10 MG TABLET PO SCH (09:00)
[2019-05-05] MEDS ORDERED: LOSARTAN POTASSIUM 50 MG TAB PO SCH (09:00)
[2019-05-05] MEDS ORDERED: CHOLECALCIFEROL 1,000 UNITS 25 MCG TAB PO SCH (09:00)
[2019-05-05] MEDS ORDERED: BuPROPion XL 300 MG TABCR PO SCH (09:00)
[2019-05-05] MEDS ORDERED: NON-FORMULARY MEDICATION (Losartan-Hydrochlorothiazide 1 TAB) PO SCH (09:00)
--- NOTE | 2019-05-05 09:39 | Orthopedic Progress Note ---
Date of Service May 05, 2019 Assessment & Plan (1) History of total right knee replacement: POD #1 s/p Right TKA pt/ot dvt proph with PERRY/SCD/Xarelto plan for d/c home with HHPT when stable, recheck after PT today for poss d/c appreciate medical consult input hemovac lost suction, will d/c and change dressing prior to discharge. Subjective POD #1 s/p Right TKA Review of Systems Constitutional: no fever, no chills and no sweats Respiratory: no cough and no dyspnea Cardiovascular: no chest pain and no dyspnea Gastrointestinal: no abdominal pain, no nausea and no vomiting Physical Exam Physical Exam: Vital Signs Temp 36.4 C L 05/05/19 07:46 Pulse 64 05/05/19 07:46 Resp 16 05/05/19 07:46 BP 110/73 05/05/19 07:46 Pulse Ox 92 05/05/19 07:46 Intake & Output 05/04/19 05/05/19 05/05/19 18:59 06:59 18:59 Intake Total 2372.5 / 3859.167 1486.667 / 3859.16 7 Output Total 240 / 1280 1040 / 1280 150 / 150 Balance 2132.5 / 2579.167 446.667 / 2579.167 -150 / -150 Weight 133.578 kg Intake: IV 972.5 / 2459.167 1486.667 / 2459.16 7 Ancef 3000MG 7 2.5 ml @ 130 mls/ 72.5 / 72.5 hr IV PREOP SC H Rx#:[id number] Lr 1,000 ml @ 15 mls/hr IV . 800 / 800 Q24H [facility] Rx#:[id number] Nss 1000ML 1,0 00 ml @ 100 mls/ 1486.667 / 1486.66 7 hr IV .Q10H SC H Rx#:[id number] TRANEXAMIC ACI D / 0.7% NACL 1, 100 / 100 000 mg In 100 ml @ 600 mls/hr IV TODAY@0600 [facility] Rx#:[id number] IV Perioperative 1400 / 1400 Output: Urine 225 / 925 700 / 925 150 / 150 Estimated Blood Loss 5 / 5 Drain Output 10 350 340 / 350 Right Knee Hem ovac 10 350 340 / 350 Constitutional: WD/WN, vitals as above no acute distress Musculoskeletal: Right Leg: NVDI, calf SNT, negative griffin sign. DP palpable, able to wiggle toes/ankle movement without difficulty. dressing clean dry and intact. Results & Data Vital Signs (Past 12 Hours) Vital Signs Temp Pulse Pulse Resp BP Pulse Ox 05/05/19 07:46 36.4 C L 64 16 110/73 92 05/05/19 03:20 36.6 C 71 18 105/68 92 05/04/19 23:05 36.9 C 86 16 102/65 94 Laboratory Results Laboratory Results WBC 13.07 K/uL (4.8-10.8) H 05/05/19 05:04 RBC 4.22 M/uL (4.7-6.1) L 05/05/19 05:04 Hgb 12.8 g/dL (14.0-18.0) L 05/05/19 05:04 Hct 36.7 % (42-52) L 05/05/19 05:04 MCV 87.0 fL (80-100) 05/05/19 05:04 MCH 30.3 pg (25-34) 05/05/19 05:04 MCHC 34.9 g/dL (32-36) 05/05/19 05:04 RDW Std Deviation 42.3 fL (36.4-46.3) 05/05/19 05:04 RDW Coeff of Ketty 13.3 % (11.5-14.5) 05/05/19 05:04 Plt Count 188 K/uL (130-400) 05/05/19 05:04 MPV 9.6 fL (7.4-10.4) 05/05/19 05:04 Immature Gran % (Auto) 0.2 % 04/21/19 10:54 Neut % (Auto) 64.8 % 04/21/19 10:54 Lymph % (Auto) 21.3 % 04/21/19 10:54 Snyder % (Auto) 8.8 % 04/21/19 10:54 Eos % (Auto) 4.4 % 04/21/19 10:54 Baso % (Auto) 0.5 % 04/21/19 10:54 Immature Gran # (Auto) 0.01 K/uL (0.00-0.02) 04/21/19 10:54 Neut # (Auto) 3.68 K/uL (1.4-6.5) 04/21/19 10:54 Lymph # (Auto) 1.21 K/uL (1.2-3.4) 04/21/19 10:54 Snyder # (Auto) 0.50 K/uL (0.11-0.59) 04/21/19 10:54 Eos # (Auto) 0.25 K/uL (0-0.5) 04/21/19 10:54 Baso # (Auto) 0.03 K/uL (0-0.2) 04/21/19 10:54 PT 10.7 Seconds (9.0-12.0) 04/21/19 10:54 INR 1.0 (0.9-1.1) 04/21/19 10:54 APTT 26.2 Seconds (21.0-31.0) 04/21/19 10:54 PTT Ratio 1.0 04/21/19 10:54 Sodium 142 mmol/L (136-145) 05/05/19 05:04 Potassium 3.9 mmol/L (3.5-5.1) 05/05/19 05:04 Chloride 112 mmol/L (98-107) H 05/05/19 05:04 Carbon Dioxide 23 mmol/L (21-32) 05/05/19 05:04 Anion Gap 7.0 (3-11) 05/05/19 05:04 BUN 19 mg/dl (7-18) H 05/05/19 05:04 Creatinine 1.22 mg/dl (0.6-1.4) 05/05/19 05:04 Est Cr Clr Drug Dosing 80.8 ml/min 05/05/19 05:04 Est GFR ( Amer) 69.7 05/05/19 05:04 Est GFR (Non-Af Amer) 60.1 05/05/19 05:04 BUN/Creatinine Ratio 15.2 (10-20) 05/05/19 05:04 Glucose 125 mg/dl (70-99) H 05/05/19 05:04 Estimat Average Glucose 111 mg/dl 04/21/19 10:54 Hemoglobin A1c 5.5 % (4.5-5.6) 04/21/19 10:54 Calcium 8.6 mg/dl (8.5-10.1) 05/05/19 05:04 Albumin 3.6 gm/dl (3.4-5.0) 04/21/19 10:54 Urine Color Dark Yellow 04/21/19 10:54 Urine Appearance Clear (Clear) 04/21/19 10:54 Urine pH 5.0 (4.5-7.5) 04/21/19 10:54 Ur Specific [place] 1.030 (1.000-1.030) 04/21/19 10:54 Urine Protein Negative (Negative) 04/21/19 10:54 Urine Glucose (UA) Negative (Negative) 04/21/19 10:54 Urine Ketones Negative (Negative) 04/21/19 10:54 Urine Blood Negative (Negative) 04/21/19 10:54 Urine Nitrite Negative (Negative) 04/21/19 10:54 Urine Bilirubin Negative (Negative) 04/21/19 10:54 Urine Urobilinogen Negative (Negative) 04/21/19 10:54 Ur Leukocyte Esterase Negative (Negative) 04/21/19 10:54 Hepatitis C Ab Screen Neg (Neg) 05/05/19 05:04 Blood Type O Positive 04/21/19 10:54 Antibody Screen NEGATIVE 04/21/19 10:54 Diagnostic Findings XR knee RT 1 or 2V routine CLINICAL HISTORY: Surgical Post Op COMPARISON: None. DISCUSSION: There are postsurgical changes of a total right knee arthroplasty and patellar resurfacing. The femoral tibial components appear well seated. Overlying skin jerry and surgical drains are evident. There is air within the soft tissues consistent with recent surgery. IMPRESSION: Postsurgical changes of a total right knee arthroplasty.
--- NOTE | 2019-05-05 17:21 | Hospitalist Progress Note ---
Date of Service May 05, 2019 Assessment & Plan (1) Osteoarthritis: severe, right knee s/p TKA on 05/04/19, tolerated well pain control, DVT prophylaxis and d/c planning per ortho eating well, vitals stable labs are stable, Hb down slightly at 12.8 but not concerning, Cr stable stable for d/c to home from medical perspective, continue all home medications (2) Hypertension: BP stable continue home regimen (3) Hyperlipidemia: continue Zocor (4) BPH (benign prostatic hypertrophy): no current LUTS (5) Asthma: no wheezing, no distress uses Alvesco BID which has kept symptoms under control Subjective patient doing well, pain in knee is well controlled eating well, no dyspnea, no chest pain, no fever, no nausea reviewed labs, Hb 12.8, Cr 1.22, electrolytes stable plans to go home today Review of Systems Review of Systems: All systems reviewed & are unremarkable except as noted in HPI & below Musculoskeletal: + joint pain (right knee) Physical Exam Constitutional: WD/WN, vitals as above + overweight Eyes: PERRL, conjunctivae normal, anicteric sclerae ENMT: external ear and nose normal, oropharynx normal Neck: trachea midline, no thyromegaly Respiratory: normal respiratory effort, lungs clear to auscultation Cardiovascular: RRR, no murmur, no edema Gastrointestinal (Abdomen): normal bowel sounds, soft, nontender, no hepatosplenomegaly Musculoskeletal: no cyanosis or clubbing, extremities motor strength 5/5 Knee: + knee abnormal to inspection (right knee, swollen, tender), + surgical incision (right) and + limited ROM of knee (right) Skin: no rashes, warm and dry Neurologic: patellar DTR's 2+ bilat, sensation intact and PERRL, EOMI, accommodation nl, no face palsy, no dysarthria Psychiatric: A+Ox3, euthymic affect Lymphatic: no cervical or axillary lymphadenopathy Results & Data Vital Signs (Past 12 Hours) Vital Signs Temp Pulse Resp BP Pulse Ox 05/05/19 07:46 36.4 C L 64 16 110/73 92 Laboratory Results Laboratory Results - last 24 hr 05/05/19 05/05/19 05/05/19 05:04 05:04 05:04 WBC 13.07 H RBC 4.22 L Hgb 12.8 L Hct 36.7 L MCV 87.0 MCH 30.3 MCHC 34.9 RDW Std Deviation 42.3 RDW Coeff of Ketty 13.3 Plt Count 188 MPV 9.6 Sodium 142 Potassium 3.9 Chloride 112 H Carbon Dioxide 23 Anion Gap 7.0 BUN 19 H Creatinine 1.22 Est Cr Clr Drug Dosing 80.8 Est GFR ( Amer) 69.7 Est GFR (Non-Af Amer) 60.1 BUN/Creatinine Ratio 15.2 Glucose 125 H Calcium 8.6 Hepatitis C Ab Screen Neg PG Care Time/CCT Total # of Minutes Spent Total Time Spent with Patient: Total time spent is greater than 50% in coordination of care (as documented) at patient's floor/unit and/or counseling patient:
--- NOTE | 2019-05-17 23:20 | Discharge Summary ---
HISTORY OF PRESENT ILLNESS: This is a 68-year-old male patient of Dr. Thomas'grey complaining of chronic right knee pain, longstanding now, progressively getting worse. The patient failed conservative treatment and elected to proceed with a right total knee arthroplasty. PAST MEDICAL HISTORY: Hypertension, hypercholesterolemia, asthma, osteoarthritis, spine problems, sciatica, obesity, history of kidney stones. POSTOPERATIVE COURSE: The patient underwent a right total knee arthroplasty on 05/04/2019. He was followed closely with medical consultation, DVT prophylaxis in the form of Xarelto, physical therapy, and pain control. The patient did very well postoperatively and was discharged home on postoperative day #1. PHYSICAL EXAMINATION: On discharge, right knee dressings were clean, dry, and intact. There was no redness or drainage. He had no calf tenderness. Negative Homans sign. Toes and ankles were mobile. Alert and oriented x3. Neurologically and neurovascularly was intact in his right lower extremity. DIAGNOSES: Status post right total knee arthroplasty, hypertension, hypercholesterolemia, asthma, osteoarthritis, spine problems, sciatica, obesity, kidney stones. PLAN: The patient was advised of his diagnosis. The patient was discharged home on his preadmission medications. He will continue his Xarelto for DVT prophylaxis with the addition of pain medications. The patient will follow up as an outpatient as scheduled.
== END 2019-05-05 15:41 | disposition home health service (06) | DRG 470 ==
LOC: ASU 07:39 → 3E 13:09

== ENCOUNTER 2019-05-29 14:21 | Inpatient (IN) ==
[2019-05-29] MEDS ORDERED: ZOLPIDEM TARTRATE 5 MG TAB PO PRN (14:39)
[2019-05-29] MEDS ORDERED: ONDANSETRON INJ 2 MG/ML 2 ML VIAL IV PRN (14:39)
[2019-05-29] MEDS ORDERED: VANCOMYCIN CONSULT ACTIVE PRN (14:44)
[2019-05-29] MEDS ORDERED: VANCOMYCIN HCL 1,000 MG in SODIUM CHLORIDE 0.9% 250 ML IV SCH (14:45)
[2019-05-29] MEDS ORDERED: PATIENT'S HEIGHT AND/OR WEIGHT NEEDED SCH (16:00)
--- NOTE | 2019-05-29 17:13 | XRay Report ---
XR chest 2V PA/lateral CLINICAL HISTORY: pre op COMPARISON STUDY: 04/21/2019 FINDINGS: The cardiac and mediastinal contours remain stable. There is stable bibasilar atelectasis. There is no acute lobar consolidation. There is no failure.[ IMPRESSION: No change from the prior study. Low lung volumes with stable basilar atelectasis. ACT 112: Negative or not required by law. Electronically signed by: Emil Simmons M.D. 05/29/2019 5:11 PM
[2019-05-29 17:24] LABS: Appearance Synovial Fluid Cloudy; Color Synovial Fluid AMBER; Mononuclear WBC Synovial 5.2 %; Polynuclear WBC Synovial 94.8 %; RBC Synovial Fluid (A) 36000 /uL; Source Synovial Fluid KNEE; WBC Synovial Fluid (A) 21516 /ul (0-200)
[2019-05-29] MEDS ORDERED: ALBUT/IPRATROP 3MG/0.5MG NEB 3 ML VIAL NEB STA (17:44)
[2019-05-29] MEDS ORDERED: ALBUT/IPRATROP 3MG/0.5MG NEB 3 ML VIAL NEB PRN (18:00)
--- NOTE | 2019-05-29 18:10 | Hospitalist Consultation ---
Date of Consultation May 29, 2019 Assessment & Plan (1) Postoperative infection of knee: - S/P R TKA on 05/04 - was doing well post-operatively but recently developed drainage, worsening erythema, swelling - Had joint aspiration today with studies pending - gram stain already revealing gram + cocci and will await culture -- Possibly strep vs staph - Vancomycin initiated - await culture and sensitivities to hopefully narrow down treatment - Recently stopped Xarelto as his DVT prophylaxis - unlikely DVT component given Xarelto therapy but venous doppler could be considered - ID consulted - appreciate input on antibiotic and duration - Surgical management per primary service (2) Asthma: - Mild exacerbation - C/O some SOB upon arrival and had audible wheezing and mid-lung expiratory wheeze - Supplemental O2 placed for comfort but no desaturation noted - Reports having some URI symptoms over the past couple days - CXR without infiltrates but low lung volumes and suggested atelectasis - Duoneb x 1 then PRN; Continue home inhalers - Encourage incentive spirometry - Will try and avoid systemic steroids unless needed (3) Hypertension: - Continue Metoprolol 50 mg HS; hold Lisinopril/HCTZ pre-op to prevent NIELS/dehydration can likely resume post-operatively pending labs (4) Hyperlipidemia: - Continue Simvastatin 20 mg daily (5) DVT prophylaxis: Add SCD to left leg Dispo-Admitted to Ortho service Hospital Medicine will follow along Supervising Physician Co-Signing Physician Notes PA Supervision Note: I personally saw and examined the patient. I verified all kumari points and agree with AYAN Sellers with the following exceptions and/or additions: Pt presents as a direct admission from Ortho for an infected right total knee with cellulitis. He reports leg started becoming more red and swollen the last f ew days, had chills at home. Denies CP or SOB. History and ROS reviewed VSS Obese, NAD RRR no mgr Lungs with mild exp wheezing, just finished neb treatment, otherwise clear, no rhonchi or rales ABd +BS soft NT ND Ext: RLE with significant erythema of ankle and leg but NETO wrap not removed over knee, warmth, 1+ pitting edema, NETO wrap in place over knee not removed, 2+ DP pulses Labs reviewed 68 yo male with HTN, HL, GERD< oobesity, here with recent right TKA now with infection and cellulitis of RLE/knee Admit for IV abx with Vanco FOllow cultures-blood and knee aspirate SUpportive care nebs for asthma, replace Alvesco with Arnuity ELlipta Add SCD to [facility] Holding Xarelto for surgical washout on Saturday History of Present Illness Reason for Consultation: Medical Management Attending Physician: Marcel Thomas MD History of Present Illness Mr. Maria is a 68 y/o male with PMHx of Asthma, HTN, HLD, and S/P TKA on 05/04. Patient reports he has been doing really well post-operatively. However over the past couple days he has noticed an opening in the one area of the incision and started experiencing drainage. He also notes increased swelling and redness to this area. Associated chills and "teeth chattering". He was at a follow-up appointment today and states copious amounts of pus-like drainage came from his knee. He also reports having a joint aspiration in the office. Lab called that he does have moderate gram + cocci on gram stain with culture pending. In regards to his chronic conditions, he reports stable BP and HLD. He utilizes inhalers for his asthma. He feels like he is coming down with a cold over the past couple days which is worsening his asthma. Will treat with a nebulizer x 1. States he normally does not need to utilize these and does not have them at home. He is audibly wheezing but no stridor. Able to talk in full sentences. Allergies Allergy/AdvReac Type Severity Reaction Status Date / Time cat dander Allergy Unknown difficulty Verified 05/04/19 08:25 breathing dog dander Allergy Unknown difficulty Verified 05/04/19 08:25 breathing shrimp Allergy Unknown difficulty Verified 05/04/19 08:25 breathing Home Medications Home Medications Medication Instructions Recorded Confirmed Type Alvesco 1 puff INHALATION BID 04/10/19 05/04/19 History albuterol sulfate [Ventolin HFA] 1 puff INHALATION Q6H PRN 04/10/19 05/04/19 History bupropion HCl 300 mg PO QAM 04/10/19 05/04/19 History cholecalciferol (vitamin D3) 2,000 unit PO QAM 04/10/19 05/04/19 History [Vitamin D3] losartan-hydrochlorothiazide 1 tab PO QAM 04/10/19 05/04/19 History metoprolol succinate 50 mg PO HS 04/10/19 05/04/19 History multivitamin 1 tab PO QAM 04/10/19 05/04/19 History simvastatin 20 mg PO HS 04/10/19 05/04/19 History celecoxib [Celebrex] 200 mg PO BID 30 Days #60 cap 05/05/19 Rx oxycodone 5 - 10 mg PO Q6H PRN #18 tab 05/05/19 Rx rivaroxaban [Xarelto] 10 mg PO DAILY 28 Days #28 tab 05/05/19 Rx Patient History Medical History Asthma controlled History of kidney stones History of sleep apnea (Inactive) "resolved"-- retesting was negative Hyperlipidemia Hypertension Morbid obesity Osteoarthritis Surgical History History of cholecystectomy History of colonoscopy History of esophagogastroduodenoscopy (EGD) History of laminectomy "thoracic" History of left hip replacement History of left shoulder replacement Left TSA: 06/26/17: Grade 3 view, MAC#4, ETT 8.0 + PNB at 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" History of prostate biopsy History of right hip replacement History of right inguinal hernia repair History of right shoulder replacement History of spinal fusion S/P tonsillectomy and adenoidectomy Family History Other Hypertension Social History Preferred Language: Thai Communication Ability: Effective Provisioning Analyst Required: No Beliefs That Will Affect Care: None marital status: Current Living Situation: Spouse Other Information That Helps Us Care for You: No Feels Safe at Home: Yes Safety Concerns: Feels Safe At This Time Smoking Status: Never smoker Second Hand Exposure: No ; Hx Alcohol Use: Yes Alcohol type: wine Hx Substance Use: No Review of Systems Constitutional: + chills; no fever Eyes: no worsening vision Ear, Nose, Mouth, Throat: + nasal congestion; no sore throat Respiratory: + dyspnea and + wheezing; no cough and no pain on inspiration Cardiovascular: + edema (RLE); no chest pain, no palpitations and no lightheadedness Gastrointestinal: no abdominal pain, no nausea, no vomiting, no constipation and no diarrhea/loose stools Genitourinary: no dysuria Musculoskeletal: increased knee pain, swelling redness, drainage Integumentary: + erythema and + skin swelling Physical Exam Constitutional: WD/WN, vitals as above Eyes: + anicteric sclerae ENMT: Ears: no hearing impairment Neck: trachea midline Respiratory: normal respiratory effort; no respiratory distress, does not use accessory muscles and no stridor Auscultation: + wheezes (audible; also mid- lung expiratory) Cardiovascular: Rate/Rhythm: regular rate and regular rhythm Heart Sounds: no murmur Gastrointestinal (Abdomen): Inspection/Auscultation: normal bowel sounds Percussion/Palpation: abdomen soft; abdomen nontender Musculoskeletal: Head/Neck/Chest: normocephalic and head atraumatic R knee with dressing/NETO wrap applied (applied in office prior to coming to hospital and did not remove); distal to dressing some mild erythema a 1+ pitting edema, lower extremity warm to touch Skin: no rashes, warm and dry (other than mentioned in MS section) Neurologic: moves all extremities Psychiatric: A+Ox3, euthymic affect Results & Data ([facility]) Vital Signs (Past 12 Hours) Vital Signs Temp Pulse Resp BP Pulse Ox 05/29/19 16:41 37.2 C 82 18 129/50 L 94 PG Care Time/CCT Total # of Minutes Spent Total Time Spent with Patient: Total time spent is greater than 50% in coordination of care (as documented) at patient's floor/unit and/or counseling patient: Coding Level of Care Code 51280 Inpt Consult Level 3 Diagnoses Postoperative infection of knee T81.49XA; M00.9 Asthma J45.909 Hypertension I10 Hyperlipidemia E78.5 DVT prophylaxis Z29.9
[2019-05-29] MEDS ORDERED: VANCOMYCIN HCL 2,000 MG in SODIUM CHLORIDE 0.9% 500 ML IV ONE (18:30)
[2019-05-29 18:32] LABS: Basophils # (auto) 0.03 K/uL (0-0.2); Basophils % (auto) 0.3 %; Eosinophils # (auto) 0.14 K/uL (0-0.5); Eosinophils % (auto) 1.4 %; Hematocrit (blood only) 35.2 % (42-52); Immature Granulocytes # (auto) 0.03 K/uL (0.00-0.02); Immature Granulocytes % (auto) 0.3 %; Lymphocytes # (auto) 0.55 K/uL (1.2-3.4); Lymphocytes % (auto) 5.4 %; Mean Corpuscular Hemoglobin 29.7 pg (25-34); Mean Corpuscular Volume 87.1 fL (80-100); Mean Platelet Volume 8.6 fL (7.4-10.4); Monocytes % (auto) 12.7 %; Neutrophils # (auto) 8.16 K/uL (1.4-6.5); Neutrophils % (auto) 79.9 %; Platelet Count 237 K/uL (130-400); RDW Coefficient of Variation 13.9 % (11.5-14.5); RDW Standard Deviation 44.6 fL (36.4-46.3); Red Blood Count 4.04 M/uL (4.7-6.1); White Blood Count 10.21 K/uL (4.8-10.8)
[2019-05-29 18:33] LABS: Mean Corpuscular Hgb Conc 34.1 g/dL (32-36)
[2019-05-29 18:48] LABS: BUN Creatinine Ratio 18.4 (10-20); Calcium 9.5 mg/dl (8.5-10.1); Creatinine Clr Calc Pharmacy 83.8 ml/min; Est GFR (African American) 74.1; Est GFR (Non-African American) 63.9; Potassium 3.6 mmol/L (3.5-5.1)
[2019-05-29] MEDS ORDERED: ALBUT/IPRATROP 3MG/0.5MG NEB 3 ML VIAL NEB SCH (19:00)
[2019-05-29] MEDS: SODIUM CHLORIDE 0.9% 1000ML 1,000 ML IV SCH (19:18)
[2019-05-29] MEDS: ACETAMINOPHEN 325 MG TAB PO PRN (19:30)
--- NOTE | 2019-05-29 19:45 | Pharmacy Report ---
Pharmacy Abx Dose Short Note - Date of Service May 29, 2019 - Assessment & Plan A/P Vancomycin is being started for bone and joint infection. Recent hospital admission, 05/04. Pt's habitus is strongly indicative of vancomycin accumulation. Renal fxn looks to be at baseline. Vancomycin 2000mg (15mg/kg) x1 then vancomycin 1750mg (13mg/kg) q10 trough ordered for 05/31 @0130, prior to Css. Pharmacy will continue to follow and will adjust dose/frequency as necessary. Thank you.
[2019-05-29] MEDS: SIMVASTATIN 20 MG TAB PO SCH (21:22)
[2019-05-29] MEDS: METOPROLOL SUCC 50MG EXT REL TAB PO SCH (21:33)
[2019-05-29] MEDS ORDERED: SODIUM CHLORIDE 0.9% 1000ML 500 ML IV ONE (21:35)
--- NOTE | 2019-05-29 23:20 | History and Physical Report ---
DATE OF ADMISSION: 05/29/2019 CHIEF COMPLAINT: Right knee pain, swelling and drainage. HISTORY OF PRESENT ILLNESS: This is a 68-year-old male patient of Dr. Brar who underwent a right total knee replacement approximately 1 month ago. He has been complaining of redness and drainage for approximately 48 hours. The patient complains of no fevers or chills. The patient presented to the office today on 05/29/2019 with incisional drainage proximally as well as erythema in his leg. The patient was felt to have a likely infection, so we will proceed with direct admission to the hospital with antibiotics and a likely right knee incision and drainage and poly exchange. PAST MEDICAL HISTORY: Hypertension, hypercholesterolemia, asthma, osteoarthritis, spine problems, sciatica, obesity, kidney stones. SOCIAL HISTORY: Nonsmoker, nondrinker. REVIEW OF SYSTEMS: Acute right knee pain, swelling and drainage. Otherwise, denies any shortness of breath, chest pain, nausea, vomiting or any other joint complaints. FAMILY HISTORY: Noncontributory. MEDICATIONS: 1. Losartan 100 mg daily. 2. Metoprolol 50 mg daily. 3. Simvastatin 20 mg daily. 4. Bupropion 300 mg daily. 5. Omeprazole 20 mg daily. 6. Albuterol 90 mcg 2 puffs every 4 hours as needed. 7. Alvesco 1 puff twice daily. 8. Ciclesonide 80 mcg 1 puff twice daily. 9. Montelukast 10 mg daily. 10. Spiriva 18 mcg 2 puffs daily. 11. Vitamin D3 2000 units twice daily. 12. Multivitamin daily. 13. Vitamin B complex daily. 14. Celebrex twice daily. 15. Xarelto 10 mg daily. ALLERGIES: INCLUDE PET DANDER. PHYSICAL EXAMINATION: GENERAL: Well-developed, well-nourished, 68-year-old male in no acute distress. He is alert and oriented x3 and pleasant. HEENT: Normocephalic, atraumatic. Extraocular motions are intact. Pupils are equal and reactive to light. HEART: Regular rate and rhythm, no murmurs. LUNGS: Clear. ABDOMEN: Soft, nontender, bowel sounds present. EXTREMITIES: Right knee reveals erythema and cellulitis from the knee down on the right lower extremity. Incision is dehisced proximally with purulent drainage. He has no calf tenderness. Negative Homans sign. NEUROLOGIC: Neurovascularly he is intact in the right lower extremity. DIAGNOSES: Right knee status post total knee arthroplasty with drainage and erythema, likely infection. He has a history of hypertension, hypercholesterolemia, asthma, osteoarthritis, neck problems, sciatica, obesity, kidney stones. PLAN: The patient will be direct admitted to the hospital. He will undergo a right total knee arthroplasty, I and D with poly exchange with possible revision. Infectious disease will be consulted. Medical consultation will be consulted. Postop vancomycin every 12 hours as directed per pharmacy. He will be n.p.o. for surgery on Saturday since he stopped his Xarelto about 24 hours ago. The patient has agreed to proceed with a right total knee arthroplasty, I and D, poly exchange, possible revision. Necessary consent forms, preoperative testing, and clearances will be obtained.
[2019-05-30 00:05] LABS: Appearance Urine Clear (Clear); Bacteria Urine Automated Negative (Negative); Bilirubin Urine Negative (Negative); Blood Urine Negative (Negative); Color Urine Dark Yellow; Epithelial Cell Urine Auto 0-5 /lpf (0-5); Glucose Urine UA Negative (Negative); Ketones Urine Trace (Negative); Leukocyte Esterase Urine Negative (Negative); Nitrite Urine Negative (Negative); Protein Urine Trace (Negative); RBC Urine Automated 0-4 /hpf (0-4); Specific Gravity Urine 1.031 (1.000-1.030); Urobilinogen Urine Negative (Negative); pH Urine 5.5 (4.5-7.5)
[2019-05-30] MEDS: ACETAMINOPHEN 325 MG TAB PO PRN ×3 (04:43→18:58)
[2019-05-30] MEDS: HYDROmorphone INJ 0.5 MG/0.5 ML SYR IV PRN (04:48)
[2019-05-30] MEDS: VANCOMYCIN HCL 1,750 MG in SODIUM CHLORIDE 0.9% 500 ML IV SCH ×2 (05:28→15:37)
[2019-05-30] MEDS: SODIUM CHLORIDE 0.9% 1000ML 1,000 ML IV SCH ×2 (05:30→14:04)
[2019-05-30 07:49] LABS: Hematocrit (blood only) 31.6 % (42-52); Hemoglobin 10.5 g/dL (14.0-18.0); Mean Corpuscular Hemoglobin 29.2 pg (25-34); Mean Corpuscular Hgb Conc 33.2 g/dL (32-36); Mean Corpuscular Volume 87.8 fL (80-100); Mean Platelet Volume 8.3 fL (7.4-10.4); Platelet Count 191 K/uL (130-400); RDW Coefficient of Variation 13.9 % (11.5-14.5); RDW Standard Deviation 45.3 fL (36.4-46.3); White Blood Count 8.08 K/uL (4.8-10.8)
[2019-05-30] MEDS: CHOLECALCIFEROL 1,000 UNITS 25 MCG TAB PO SCH (08:19)
[2019-05-30] MEDS: PANTOprazole 40 MG TAB PO SCH (08:19)
[2019-05-30] MEDS: BuPROPion XL 300 MG TABCR PO SCH (08:19)
[2019-05-30] MEDS: FLUTICASONE FUROATE 200MCG 14 PUFFS/INHALER INH SCH (08:19)
[2019-05-30 08:21] LABS: BUN Creatinine Ratio 14.3 (10-20); Calcium 8.9 mg/dl (8.5-10.1); Creatinine Clr Calc Pharmacy 93.5 ml/min; Est GFR (African American) 84.5; Est GFR (Non-African American) 72.9; Potassium 3.5 mmol/L (3.5-5.1)
--- NOTE | 2019-05-30 10:23 | Orthopedic Progress Note ---
Date of Service May 30, 2019 Assessment & Plan (1) Infection of total right knee replacement: Dressing changes prn. Discussed I & D and poly exchange scheduled for tomorrow. Jonerelto is now on hold. Continue IV Vanco. Medicine and ID input appreciated. NPO after midnight tonight with plan for OR in the AM tomorrow. Admission and Anticipated Discharge Date Admission Date: May 29, 2019 Supervising Physician Co-Signing Physician Notes Patient seen and examined. Agree with AYAN Luciano's note. Patient of Dr. Thomas's who had right TKA 05/04/19 and was doing well until about 5 days ago when he developed worsening pain, swelling, redness, and drainage along his incision line starting 05/25. Cultures pending, but Gram stain shows Gm + cocci. Plan for right knee I&D and poly exchange tomorrow by Dr. Thomas for this acutely infected TKA to attempt to salvage components. Briefly discussed with patient about the possible need for 2-stage revision TKA if this infection is not cleared. NPO after midnight tonight. Subjective Doing well. Pain controlled at this time. States a fair amount of drainage from the incision. Physical Exam Constitutional: WD/WN, vitals as above Musculoskeletal: Knee: + effusion (right knee), + skin erythema (Mild to moderate ) and + surgical incision (Right anterior knee with moderate serosanguinous drainage from incision.) Moderate RLE edema. NV intact but RLE parasthesias since TKA. Dorsiflexion and plantarflexion intact right ankle. Neurologic: normal touch/pain/proprioception (parasthesias RLE distally) Psychiatric: A+Ox3, euthymic affect Speech: normal rate/rhythm/volume of speech Results & Data ([facility]) Vital Signs (Past 12 Hours) Vital Signs Temp Pulse Pulse Resp BP Pulse Ox Pulse Ox 05/30/19 08:10 91 05/30/19 07:19 37.1 C 84 18 120/71 91 05/29/19 23:19 37.4 C 79 16 112/66 92
[2019-05-30] MEDS: guaiFENesin 600 MG TABCR PO SCH ×2 (10:59→20:06)
--- NOTE | 2019-05-30 11:01 | Hospitalist Progress Note ---
Date of Service May 30, 2019 Assessment & Plan (1) Postoperative infection of knee: - S/P R TKA on 05/04 - was doing well post-operatively but recently developed drainage, worsening erythema, swelling - Had joint aspiration on 05/29 with studies pending - gram stain already revealing gram + cocci and will await culture -- Possibly strep vs staph/MRSA - Vancomycin initiated - await culture and sensitivities to hopefully narrow down treatment - Recently stopped Xarelto as his DVT prophylaxis - unlikely DVT component given Xarelto therapy but venous doppler could be considered - ID consulted - appreciate input on antibiotic and duration - Surgical management per primary service (2) Asthma: - Mild exacerbation - improving with less wheezing today and on RA - did use supplemental O2 yesterday to assist with SOB but did not have desaturations - Reports having some URI symptoms over the past couple days - CXR without infiltrates but low lung volumes and suggested atelectasis - Will MATI Johnson as he feels this really helped; Add Mucinex BID; continue home inhalers - Encourage incentive spirometry - Given improvement in symptoms and exam will defer systemic steroids at this time (3) Hypertension: - Continue Metoprolol 50 mg HS; hold Lisinopril/HCTZ pre-op to prevent NIELS/dehydration can likely resume post-operatively pending labs (4) Hyperlipidemia: - Continue Simvastatin 20 mg daily (5) DVT prophylaxis: Add SCD to left leg Dispo-Admitted to Ortho service Hospital Medicine will follow along Admission and Anticipated Discharge Date Admission Date: May 29, 2019 Supervising Physician Co-Signing Physician Notes PA Supervision Note: I did not personally see or examine the patient today, but I verified all kumari points of AYAN Sellers's assessment and plan with the following exceptions/additions: None Subjective Reports doing well today. Breathing is better then yesterday but still some SOB. He also reports sinus congestion. No audible wheezing and only a small exp. wheeze b/l lower lung spaulding. He does not increased drainage of the knee which is visible on the dressing. Pain is controlled. Review of Systems Constitutional: + sweats; no fever and no chills Ear, Nose, Mouth, Throat: + nasal congestion; no sore throat Respiratory: + dyspnea (improving) and + wheezing (improving); no cough, no pain on inspiration and no sputum production Cardiovascular: + edema (RLE); no chest pain, no palpitations and no lightheadedness Gastrointestinal: no abdominal pain, no nausea, no vomiting, no constipation and no diarrhea/loose stools Genitourinary: no dysuria Musculoskeletal: + joint pain (R knee - controlled) increased knee pain, swelling redness, drainage Integumentary: + erythema and + skin swelling Neurologic: no tingling and no numbness Physical Exam Constitutional: WD/WN, vitals as above Eyes: + anicteric sclerae ENMT: Ears: no hearing impairment Neck: trachea midline Respiratory: normal respiratory effort; no respiratory distress and does not use accessory muscles Auscultation: + wheezes (minimal exp b/l lower lung spaulding) Cardiovascular: Rate/Rhythm: regular rate and regular rhythm Heart Sounds: no murmur Gastrointestinal (Abdomen): Inspection/Auscultation: normal bowel sounds Percussion/Palpation: abdomen soft; abdomen nontender Musculoskeletal: Head/Neck/Chest: normocephalic and head atraumatic R knee with wrap in place with visible drainage; lower leg still warm to touch with 1+ pitting edema and skin firm Skin: no rashes, warm and dry (other than mentioned in MS section) Neurologic: moves all extremities Psychiatric: A+Ox3, euthymic affect Results & Data ([facility]) Vital Signs (Past 12 Hours) Vital Signs Temp Pulse Pulse Resp BP Pulse Ox Pulse Ox 05/30/19 08:10 91 05/30/19 07:19 37.1 C 84 18 120/71 91 05/29/19 23:19 37.4 C 79 16 112/66 92 PG Care Time/CCT Total # of Minutes Spent Total Time Spent with Patient: Total time spent is greater than 50% in coordination of care (as documented) at patient's floor/unit and/or counseling patient: Coding Level of Care Code 32243 Subseq Hosp Care Lvl 3 Diagnoses Postoperative infection of knee T81.49XA; M00.9 Asthma J45.909 Hypertension I10 Hyperlipidemia E78.5 DVT prophylaxis Z29.9
[2019-05-30] MEDS: ALBUT/IPRATROP 3MG/0.5MG NEB 3 ML VIAL NEB SCH ×3 (11:15→19:10)
[2019-05-30] MEDS: ALBUTEROL HFA 8 GM INHALER INH PRN (17:15)
[2019-05-30] MEDS: SIMVASTATIN 20 MG TAB PO SCH (20:04)
[2019-05-30] MEDS: METOPROLOL SUCC 50MG EXT REL TAB PO SCH (20:04)
[2019-05-31] MEDS ORDERED: VANCOMYCIN TROUGH ONE (01:30)
[2019-05-31] MEDS: VANCOMYCIN HCL 1,750 MG in SODIUM CHLORIDE 0.9% 500 ML IV SCH (01:37)
[2019-05-31] MEDS: SODIUM CHLORIDE 0.9% 1000ML 1,000 ML IV SCH ×5 (01:37→23:52)
[2019-05-31 02:07] LABS: Creatinine Clr Calc Pharmacy 95.3 ml/min; Est GFR (African American) 86.5; Est GFR (Non-African American) 74.6
[2019-05-31] MEDS ORDERED: DEXAMETHASONE SOD INJ 4 MG/ML VIAL ONE (07:07)
[2019-05-31] MEDS ORDERED: MIDAZOLAM HCL 1 MG/ML 2ML VIAL ONE (07:07)
[2019-05-31] MEDS ORDERED: fentaNYL citrate 100 MCG/2 ML VIAL ONE ×2 (07:07→08:56)
[2019-05-31] MEDS ORDERED: ROCURONIUM BROMIDE 10 MG/ML 5 ML VIAL ONE (07:07)
[2019-05-31] MEDS ORDERED: LIDOCAINE HCL 2% 2 ML VIAL/AMP(20MG/ML) INFIL ONE (07:07)
[2019-05-31] MEDS ORDERED: PROPOFOL IV EMULSION 10 MG/ML 20 ML VIAL IV ONE ×2 (07:07→09:00)
[2019-05-31] MEDS ORDERED: ONDANSETRON INJ 2 MG/ML 2 ML VIAL ONE (07:07)
[2019-05-31] MEDS: ALBUT/IPRATROP 3MG/0.5MG NEB 3 ML VIAL NEB SCH ×2 (07:12→11:24)
[2019-05-31] MEDS ORDERED: ROPIVACAINE 0.5% 5 MG/ML 30 ML VIAL ONE (07:22)
--- NOTE | 2019-05-31 07:22 | Infectious Disease Consult ---
Date of Consultation May 31, 2019 Assessment & Plan (1) Postoperative infection of knee: continue abx, for OR today, please send deep cultures, follow aspirate culture, growing Staph species. blood cultures negative to date. will likely need prolonged IV abx, final cultures will determine course. (2) Infection of total right knee replacement: History of Present Illness Attending Physician: Marcel Thomas MD pt admitted with right knee pain, h/o tkr. aspirate done, >21,000 wbc, 95% neutrophils. afebrile. wbc initially 13, now 10. aspirate culture growing Staph species, final pending. for OR today for wash out and poly exchange. he states min pain in leg but c/o swelling. states he feels fatigued. no f.c, no abd pain, on vanco, tolerating well. blood cultures negative to date. Allergies Allergy/AdvReac Type Severity Reaction Status Date / Time cat dander Allergy Unknown difficulty Verified 05/04/19 08:25 breathing dog dander Allergy Unknown difficulty Verified 05/04/19 08:25 breathing shrimp Allergy Unknown difficulty Verified 05/04/19 08:25 breathing Home Medications Home Medications Medication Instructions Recorded Confirmed Type Alvesco 1 puff INHALATION BID 04/10/19 05/04/19 History albuterol sulfate [Ventolin HFA] 1 puff INHALATION Q6H PRN 04/10/19 05/04/19 History bupropion HCl 300 mg PO QAM 04/10/19 05/04/19 History cholecalciferol (vitamin D3) 2,000 unit PO QAM 04/10/19 05/04/19 History [Vitamin D3] losartan-hydrochlorothiazide 1 tab PO QAM 04/10/19 05/04/19 History metoprolol succinate 50 mg PO HS 04/10/19 05/04/19 History multivitamin 1 tab PO QAM 04/10/19 05/04/19 History simvastatin 20 mg PO HS 04/10/19 05/04/19 History celecoxib [Celebrex] 200 mg PO BID 30 Days #60 cap 05/05/19 Rx oxycodone 5 - 10 mg PO Q6H PRN #18 tab 05/05/19 Rx rivaroxaban [Xarelto] 10 mg PO DAILY 28 Days #28 tab 05/05/19 Rx Patient History Medical History Asthma controlled History of kidney stones History of sleep apnea (Inactive) "resolved"-- retesting was negative Hyperlipidemia Hypertension Morbid obesity Osteoarthritis Surgical History History of cholecystectomy History of colonoscopy History of esophagogastroduodenoscopy (EGD) History of laminectomy "thoracic" History of left hip replacement History of left shoulder replacement Left TSA: 06/26/17: Grade 3 view, MAC#4, ETT 8.0 + PNB at [facility] History of lithotripsy History of neck surgery ?laminectomy (1985) History of pituitary surgery (Inactive) "tumor removed and radiation therapy" History of prostate biopsy History of right hip replacement History of right inguinal hernia repair History of right shoulder replacement History of spinal fusion S/P tonsillectomy and adenoidectomy Family History Other Hypertension Social History Preferred Language: Malay Communication Ability: Effective 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 Beliefs That Will Affect Care: None marital status: Current Living Situation: Spouse Other Information That Helps Us Care for You: No Feels Safe at Home: Yes Safety Concerns: Feels Safe At This Time Smoking Status: Never smoker Second Hand Exposure: No ; Hx Alcohol Use: Yes Alcohol type: wine Hx Substance Use: No Review of Systems Review of Systems: All systems reviewed & are unremarkable except as noted in HPI & below Physical Exam Constitutional: WD/WN, vitals as above Eyes: PERRL, conjunctivae normal, anicteric sclerae ENMT: external ear and nose normal, oropharynx normal Neck: normal visual inspection Respiratory: normal respiratory effort, lungs clear to auscultation Cardiovascular: RRR, no murmur, no edema Gastrointestinal (Abdomen): normal bowel sounds, soft, nontender, no hepatosplenomegaly Musculoskeletal: no cyanosis or clubbing, extremities motor strength 5/5 Skin: no rashes, warm and dry + wound (right knee dressing intact, +edema, erythema warmth) Psychiatric: A+Ox3, euthymic affect Results & Data ([facility]) Vital Signs (Past 12 Hours) Vital Signs Temp Pulse Pulse Resp BP Pulse Ox 05/31/19 06:47 37.5 C 72 18 132/82 93 05/30/19 23:20 37.5 C 75 18 112/66 93 05/30/19 20:01 104 H 126/71 Laboratory Results Microbiology 05/29/19 18:08 Blood Aerobic Blood Culture - Preliminary No growth in Aerobic bottle after 24 hours. 05/29/19 18:08 Blood Anaerobic Blood Culture - Final 05/29/19 18:15 Blood Aerobic Blood Culture - Preliminary No growth in Aerobic bottle after 24 hours. 05/29/19 18:15 Blood Anaerobic Blood Culture - Preliminary No growth in Anaerobic bottle after 24 hours. 05/29/19 14:30 Knee,Right Gram Stain - Final 05/29/19 14:30 Knee,Right Aerobic and Anaerobic Culture - Preliminary Staphylococcus species PG Care Time/CCT Total # of Minutes Spent Total Time Spent with Patient: Total time spent is greater than 50% in coordination of care (as documented) at patient's floor/unit and/or counseling patient: Coding Level of Care Code 88364 Inpt Consult Level 4 Diagnoses Postoperative infection of knee T81.49XA; M00.9 Infection of total right knee replacement T84.53XA
[2019-05-31] MEDS ORDERED: BACITRACIN INJ 50,000 UNIT VIAL ONE ×3 (07:36→08:59)
--- NOTE | 2019-05-31 07:46 | History & Physical Bridge Note ---
Date of Service May 31, 2019 History & Physical Bridge Note I have examined the patient, reviewed the History & Physical and in the interval since the performance of the History & Physical I have noted the following changes of clinical significance: no changes noted
[2019-05-31] MEDS ORDERED: GENTAMICIN SULFATE 40 MG/ML 2 ML VIAL ONE (08:01)
[2019-05-31] MEDS ORDERED: VANCOMYCIN HCL 1000MG/20ML VIAL ONE (08:01)
--- NOTE | 2019-05-31 08:04 | Anesthesiology Consultation ---
Date of Service May 31, 2019 Assessment & Plan (1) Encounter for pre-operative examination: Chart Review Chart Review: Acceptable Risk for Surgery History Surgery Operation Date: 05/31/19 07:30 Proposed Procedures p Right Knee Incision and Drainage, Poly Exchange, Possible Revision - Marcel Thomas MD Height/Weight Height: 6 ft Weight: 130 kg Allergies Allergy/AdvReac Type Severity Reaction Status Date / Time cat dander Allergy Unknown difficulty Verified 05/04/19 08:25 breathing dog dander Allergy Unknown difficulty Verified 05/04/19 08:25 breathing shrimp Allergy Unknown difficulty Verified 05/04/19 08:25 breathing Medications Home Medications Medication Instructions Recorded Confirmed Last Taken Alvesco 1 puff INHALATION BID 04/10/19 05/04/19 05/03/19 09:00 albuterol sulfate [Ventolin HFA] 1 puff INHALATION Q6H PRN 04/10/19 05/04/19 05/03/19 22:30 bupropion HCl 300 mg PO QAM 04/10/19 05/04/19 05/03/19 09:00 cholecalciferol (vitamin D3) 2,000 unit PO QAM 04/10/19 05/04/19 05/03/19 09:00 [Vitamin D3] losartan-hydrochlorothiazide 1 tab PO QAM 04/10/19 05/04/19 05/03/19 09:00 metoprolol succinate 50 mg PO HS 04/10/19 05/04/19 05/03/19 22:30 multivitamin 1 tab PO QAM 04/10/19 05/04/19 05/03/19 09:00 simvastatin 20 mg PO HS 04/10/19 05/04/19 05/03/19 22:30 celecoxib [Celebrex] 200 mg PO BID 30 Days #60 cap 05/05/19 Unknown oxycodone 5 - 10 mg PO Q6H PRN #18 tab 05/05/19 Unknown rivaroxaban [Xarelto] 10 mg PO DAILY 28 Days #28 tab 05/05/19 Unknown Active Medications Generic Name Dose Route Start Last Admin Trade Name Freq PRN Reason Stop Dose Admin Acetaminophen 650 mg 05/29/19 14:39 05/30/19 18:58 Tylenol PO 06/28/19 14:38 650 mg Q6H PRN Administration Fever or Headache Albuterol 1 puffs 05/29/19 17:50 05/30/19 17:15 Ventolin Hfa INH 06/28/19 17:49 1 puffs Q6H PRN Administration Wheezing Albuterol 3 ml 05/30/19 11:00 05/31/19 07:12 Duoneb NEB 06/29/19 10:59 Not Given QIDR MATI Bupropion HCl 300 mg 05/30/19 09:00 05/30/19 08:19 Wellbutrin-Xl PO 06/29/19 08:59 300 mg QAM MATI Administration Fluticasone Furoate 1 puffs 05/30/19 09:00 05/30/19 08:19 Arnuity Ellipta 200mcg INH 06/29/19 08:59 1 puffs QAM MATI Administration Guaifenesin 1,200 mg 05/30/19 10:05 05/30/19 20:06 Mucinex PO 06/29/19 10:04 1,200 mg Q12 MATI Administration Hydromorphone HCl 0.5 mg 05/29/19 14:44 05/30/19 04:48 Dilaudid IV 06/12/19 14:43 0.5 mg Q4H PRN Administration Pain Sodium Chloride 1,000 mls @ 100 mls/hr 05/29/19 14:45 05/31/19 05:15 Nss 1000ml IV 06/28/19 14:44 0 mls/hr .Q10H MATI Infusion Vancomycin HCl 1,750 mg/ 535 mls @ 200 mls/hr 05/30/19 06:00 05/31/19 04:24 Sodium Chloride IV 07/11/19 05:59 Infused Q10H MATI Infusion Metoprolol Succinate 50 mg 05/29/19 21:00 05/30/19 20:04 Toprol Xl PO 06/28/19 20:59 50 mg HS MATI Administration Pantoprazole Sodium 40 mg 05/30/19 09:00 05/30/19 08:19 Protonix PO 06/29/19 08:59 40 mg QAM MATI Administration Simvastatin 20 mg 05/29/19 21:00 05/30/19 20:04 Zocor PO 06/28/19 20:59 20 mg HS MATI Administration Vitamin D 2,000 units 05/30/19 09:00 05/30/19 08:19 Vitamin D3 PO 06/29/19 08:59 2,000 units QAM MATI Administration NPO Date Last Intake of Fluids: 05/30/19 Time Last Intake of Fluids: 23:00 Date Last Intake of Solids: 05/30/19 Time Last Intake of Solids: 18:00 Past Medical History Medical History Asthma controlled History of kidney stones History of sleep apnea (Inactive) "resolved"-- retesting was negative Hyperlipidemia Hypertension Morbid obesity Osteoarthritis Exercise / Class Metabolic Activity II 4-5 Yardwork/Stairs/Walk up hill Past Family History Family History Other Hypertension Past Surgical History Surgical History History of cholecystectomy History of colonoscopy History of esophagogastroduodenoscopy (EGD) History of laminectomy "thoracic" History of left hip replacement History of left shoulder replacement Left TSA: 06/26/17: Grade 3 view, MAC#4, ETT 8.0 + PNB at [facility] History of lithotripsy History of neck surgery ?laminectomy (1985) History of pituitary surgery (Inactive) "tumor removed and radiation therapy" History of prostate biopsy History of right hip replacement History of right inguinal hernia repair History of right shoulder replacement History of spinal fusion S/P tonsillectomy and adenoidectomy Past Anesthesia History No Hx of Anesthesia Complications History of PONV No Hx of PONV and No Hx of Motion Sickness Social History Smoking Status: Never smoker Hx Alcohol Use: Yes Alcohol type: wine alcohol intake frequency: 0-2 drinks per day Hx Substance Use: No substance use type: does not use Physical Exam Vital Signs Last Vital Signs Temp 37.5 C 05/31/19 06:47 Pulse 72 05/31/19 06:47 Resp 18 05/31/19 06:47 BP 132/82 05/31/19 06:47 Pulse Ox 93 05/31/19 06:47 Testing Laboratory Results 05/30/19 07:35 05/31/19 01:28 Urine Color Dark Yellow 05/29/19 23:44 Urine Appearance Clear (Clear) 05/29/19 23:44 Urine pH 5.5 (4.5-7.5) 05/29/19 23:44 Ur Specific [place] 1.031 (1.000-1.030) H 05/29/19 23:44 Urine Protein Trace (Negative) H 05/29/19 23:44 Urine Glucose (UA) Negative (Negative) 05/29/19 23:44 Urine Ketones Trace (Negative) H 05/29/19 23:44 Urine Nitrite Negative (Negative) 05/29/19 23:44 Ur Leukocyte Esterase Negative (Negative) 05/29/19 23:44 Urine WBC (Auto) 1-5 /hpf (0-5) 05/29/19 23:44 Urine RBC (Auto) 0-4 /hpf (0-4) 05/29/19 23:44 U Hyaline Cast (Auto) 1-5 /lpf (0-5) 05/29/19 23:44 U Epithel Cells (Auto) 0-5 /lpf (0-5) 05/29/19 23:44 Urine Bacteria (Auto) Negative (Negative) 05/29/19 23:44 Blood Type O Positive 05/29/19 18:15 Antibody Screen NEGATIVE 05/29/19 18:15 05/29/19 18:08 Aerobic Blood Culture - Preliminary Blood No growth in Aerobic bottle after 24 hours. Anaerobic Blood Culture - Final 05/29/19 18:15 Aerobic Blood Culture - Preliminary Blood No growth in Aerobic bottle after 24 hours. Anaerobic Blood Culture - Preliminary No growth in Anaerobic bottle after 24 hours. 05/29/19 14:30 Gram Stain - Final Knee,Right Aerobic and Anaerobic Culture - Preliminary Staphylococcus species Electrocardiogram Date: 04/21/19 Findings: + NSR @ (72)
[2019-05-31] MEDS ORDERED: ONDANSETRON INJ 2 MG/ML 2 ML VIAL IV PRN ×2 (08:14→12:13)
[2019-05-31] MEDS ORDERED: ATROPINE SULFATE 0.1 MG/ML 10ML SYR IV PRN (08:14)
[2019-05-31] MEDS ORDERED: LABETALOL HCL IV 5 MG/ML 20ML IV PRN (08:14)
[2019-05-31] MEDS ORDERED: CEFAZOLIN 250 MG/ML 1 GM VIAL ONE ×2 (08:19→08:21)
[2019-05-31] MEDS ORDERED: NEOSTIGMINE METHYLSULFATE 5 MG/5 ML SYR ONE (08:50)
[2019-05-31] MEDS ORDERED: GLYCOPYRROLATE 0.2 MG/ML VIAL ONE (08:50)
--- NOTE | 2019-05-31 08:50 | Pharmacy Report ---
Pharmacy Abx Dose Short Note - Date of Service May 31, 2019 - Assessment & Plan Assessment 68 year old M receiving VANCOMYCIN for treatment of Bone/Joint infection Day # 3 of antimicrobial therapy. Plan Vancomycin * Trough level of 17.5 mcg/mL is therapeutic; however, this level is drawn prior to steady state and further vanco accumulation likely based on BMI >35. * Will empirically reduce dose and lengthen interval to prevent supratherapeutic levels with repeated dosing * Change to 1,500 mg IV every 12 hours * Goal trough level for Bone/Joint : 15 to 20 mcg/mL * Trough level ordered for: 06/02/19 @ 0200 (prior to 4th new maintenance dose) Pharmacy will continue to follow and will adjust dose/frequency as necessary. Thank you.
[2019-05-31] MEDS ORDERED: KETOROLAC TROMETHAMINE 15 MG/ML VIAL IV PRN (08:59)
[2019-05-31] MEDS ORDERED: CEFAZOLIN 3000MG/72.5 ML BAG IV SCH (10:30)
--- NOTE | 2019-05-31 10:48 | Post Operative Brief Note ---
Immediate Post Op Note v1 Date of Surgery May 31, 2019 Pre & Post Diagnosis Operation Date: 05/31/19 07:30 Pre-Op Diagnosis: INFECTED RIGHT TOTAL KNEE Post-Op Diagnosis: INFECTED RIGHT TOTAL KNEE I identified the patient and participated in the time-out.: Yes Procedure Operation Date: 05/31/19 07:30 Actual Procedures p Right Knee Incision and Drainage, Poly Exchange, antibiotic beads(Right) - Marcel Thomas MD Surgeon Marcel Thomas MD Junior Assistant Manager lemuel rodriguez Estimated Blood Loss 20 Findings Consistent with Post-Op Diagnosis Specimens cultures x2 Drains Hemovac Drain (x2) Anesthesia Type General Complications none Disposition Accompanied Patient To Recovery: No Disposition: Recovery Room Overlapping Procedure I was immediately available: during the entire case.
[2019-05-31] MEDS ORDERED: HYDROmorphone INJ 1 MG/ML SYRINGE ONE ×2 (10:54→11:23)
[2019-05-31] MEDS ORDERED: KETOROLAC 30 MG/ML VIAL ONE (10:54)
[2019-05-31] MEDS: HYDROmorphone INJ 1 MG/ML SYRINGE IV PRN ×8 (10:59→11:39)
--- NOTE | 2019-05-31 11:47 | Anesthesiology Progress Note ---
Date of Service May 31, 2019 Anesthesia Post Procedure Vital Signs Vital Signs: Temp Pulse Pulse Pulse Pulse Resp BP 05/31/19 11:44 36.3 C L 69 14 127/85 05/31/19 11:35 36.3 C L 69 14 135/84 05/31/19 11:25 67 12 130/82 05/31/19 11:15 72 16 137/81 05/31/19 11:05 75 14 130/87 05/31/19 10:55 75 14 138/55 L 05/31/19 10:47 36.8 C 74 16 111/85 05/31/19 06:47 37.5 C 72 18 05/30/19 23:20 37.5 C 75 18 05/30/19 20:01 104 H 05/30/19 19:12 103 H 16 05/30/19 15:33 95 H 05/30/19 15:14 78 18 05/30/19 14:51 37.7 C H 97 H 18 BP Pulse Ox 05/31/19 11:44 96 05/31/19 11:35 94 05/31/19 11:25 96 05/31/19 11:15 96 05/31/19 11:05 97 05/31/19 10:55 94 05/31/19 10:47 93 05/31/19 06:47 132/82 93 05/30/19 23:20 112/66 93 05/30/19 20:01 126/71 05/30/19 19:12 92 05/30/19 15:33 05/30/19 15:14 92 05/30/19 14:51 156/77 H 97 Pain Intensity Right Knee: Pain Intensity: 3 Transfer of Care Handoff Completed per policy Notes Mental Status: alert / awake / arousable Patient Amnestic to Procedure: Yes Nausea / Vomiting: adequately controlled Pain: adequately controlled Airway Patency, RR, SpO2: stable & adequate BP & HR: stable & adequate Hydration State: stable & adequate Anesthetic Complications: no major complications apparent
--- NOTE | 2019-05-31 11:58 | Operative Report (OR) ---
DATE OF OPERATION: 05/31/2019 INDICATION FOR PROCEDURE: A 68-year-old male who I performed a primary total knee replacement of his right knee on 05/04/2019. He was doing well until about 3-4 days ago when he started to have fevers, feeling a little ill and noted some redness and drainage from his incision. I presented to the office and the patient clearly had an infected appearing total knee replacement. Did aspirate his knee and get cultures from one of the draining areas in the subcutaneous tissue in the suprapatellar region in the office and admitted him on IV vancomycin pending surgery. Slight delay to surgery due to patient being on Xarelto and had to wait 72 hours to proceed with the procedure. The patient was on IV antibiotics pending the procedure. The patient continues to have drainage from his knee and erythema despite IV antibiotics. The patient had very little pain despite having an infection. PREOPERATIVE DIAGNOSIS: Acute septic right total knee replacement, status post recent right total knee arthroplasty. POSTOPERATIVE DIAGNOSIS: Acute septic right total knee replacement, status post recent right total knee arthroplasty. PROCEDURE: Right knee incision, drainage, irrigation, debridement, tibial polyethylene exchange, placement of antibiotic beads and drains. SURGEON: Marcel Thomas MD ERP CONSULTANT: AYAN Goldstein. ANESTHESIA: General. ESTIMATED BLOOD LOSS: 20 mL. COMPLICATIONS: None. SPECIMENS: Cultures x2. OPERATIVE PROCEDURE: The patient was taken to the operating room, anesthetized under general anesthetic. He was placed supine on the operating room table. A pneumatic tourniquet was placed on the right upper thigh. Right lower extremity was prepped and draped with Betadine, scrub and paint due to the draining wound. Exam demonstrated he had a draining wound from the inferior tibial tubercle area in the suprapatellar region with erythema about the knee. The patient's leg was elevated. We did not use an Esmarch. The tourniquet was raised to 350 mmHg. The previous scar was used for anterior incision to approach the knee. Incision was carried through the subcutaneous tissues and there was cloudy fluid that was cultured. All the subcutaneous sutures were removed. Subcutaneous flaps were elevated. The quadriceps tendon and medial retinacular repair was all intact. I down toward the pes anserine tendon. There was some necrotic tissue there may have had some drainage from within the joint through that area. After cultures were obtained in the space, the subcutaneous tissues and outer fascia were copiously irrigated with antibiotic solution with bacitracin with pulsatile lavage. Then, I used Versajet debridement of the subcutaneous tissue skin edges. Then, we changed the suction tips, irrigation tips and removed individual Vicryl sutures from the quadriceps tendon and medial retinacular repair. We opened up the knee joint culture that separately and sent as specimen. It appeared to be an intra-articular infection as well. There was some cloudy fluid and synovitis consistent with infection. Any fibrinous type material was resected. The knee was again copiously irrigated with more antibiotic solution and bacitracin with pulsatile lavage. I did an electrocautery synovectomy. He has a Versajet for further debridement debriding all the inflamed synovial tissue. Then we removed the tibial polyethylene using a curved osteotome and a tenaculum and that was removed without difficulty. I was able to access posterior joint and we used pituitary rongeur and Versajet to do further debridement of the posterior synovium tissue until all the inflamed synovial tissue was debrided. I used a Betadine scrub brush to scrub the surfaces of the metal. The knee was again copiously irrigated with antibiotic solution with bacitracin. The trial reduction using the Andreas Triathlon size 13 mm thick 8 tibial trial. The knee was stable through full range of motion. Trials were removed. After further irrigation with antibiotic solution with bacitracin, the final implant was placed, which was the size 8, 13 mm thick triathlon X3 polyethylene tibial bearing posterior stabilized component. I did a 3-minute Betadine soak. Then, I irrigated the knee again with more antibiotic solution with bacitracin for a total of 16 liters. Antibiotic beads with vancomycin were mixed. Antibiotic beads were placed intraarticularly. The Hemovac drains were placed into the deep joint, brought out laterally. The quadriceps tendon and medial retinaculum were then closed with interrupted [id number] #1 Vicryl bacterial resistant suture material. The knee was taken through full range of motion and repair was secure. The 2 more drains were placed into the subcutaneous space. More antibiotic beads were placed here. Subcutaneous tissues were closed with interrupted 2-0 Vicryl bacterial resistant suture. Skin was closed with jerry. A Prevena wound VAC was applied. The tourniquet was let down. Tourniquet time was just over 2 hours. The patient tolerated the procedure well. There were no complications. Aravind Luciano was my physician purchasing assistant who assisted me as sampler first through the entire procedure. Assisted in patient prepping, draping, soft tissue retraction, leg position, assisted in closure and who participated in postoperative care of the patient. I attest to the content of the Intraoperative Record and any orders documented therein. Any exception s are noted below.
[2019-05-31] MEDS ORDERED: bisacodyL 10 MG SUPP PR PRN (12:13)
[2019-05-31] MEDS ORDERED: NALOXONE HCL 0.4 MG/1 ML VIAL/CARP IV PRN (12:13)
[2019-05-31] MEDS ORDERED: METOCLOPRAMIDE HCL INJ 5 MG/ML 2 ML VIAL IV PRN (12:13)
[2019-05-31] MEDS ORDERED: MAGNESIUM HYDROXIDE SUSP 30 ML UDC PO PRN (12:13)
[2019-05-31] MEDS: BuPROPion XL 300 MG TABCR PO SCH (12:16)
[2019-05-31] MEDS: PANTOprazole 40 MG TAB PO SCH (12:16)
[2019-05-31] MEDS: CHOLECALCIFEROL 1,000 UNITS 25 MCG TAB PO SCH (12:16)
[2019-05-31] MEDS: FLUTICASONE FUROATE 200MCG 14 PUFFS/INHALER INH SCH (12:16)
[2019-05-31] MEDS: guaiFENesin 600 MG TABCR PO SCH ×2 (12:16→20:12)
[2019-05-31] MEDS: VANCOMYCIN HCL 1,500 MG in SODIUM CHLORIDE 0.9% 500 ML IV SCH (13:10)
[2019-05-31] MEDS: KETOROLAC TROMETHAMINE 15 MG/ML VIAL IV SCH ×2 (13:10→20:12)
--- NOTE | 2019-05-31 14:21 | Hospitalist Progress Note ---
Date of Service May 31, 2019 Assessment & Plan (1) Postoperative infection of knee: - S/P R TKA on 05/04 - was doing well post-operatively but recently developed drainage, worsening erythema, swelling - S/P R Knee I&D with poly-exchange and antibiotic bead placement on 05/31 - Had joint aspiration on 05/29 with studies pending - growing staph species and await further identification; deep surgical cultures obtained - Vancomycin - await culture and sensitivities to hopefully narrow down treatment - Recently stopped Xarelto as his DVT prophylaxis - unlikely DVT component given Xarelto therapy but venous doppler could be considered - ID consulted - appreciate input on antibiotic and duration - Surgical management per primary service (2) Asthma: - Mild exacerbation - improving - does use supplemental O2 for comfort but hasnt had desaturations - Reports having some URI symptoms over the past couple days - CXR without infiltrates but low lung volumes and suggested atelectasis - Can change Duonebs to PRN; Continue Mucinex BID; continue home inhalers - Encourage incentive spirometry (3) Hypertension: - Continue Metoprolol 50 mg HS; hold Lisinopril/HCTZ pre-op to prevent NIELS/dehydration can likely resume post-operatively pending labs (4) Hyperlipidemia: - Continue Simvastatin 20 mg daily (5) DVT prophylaxis: - SCD to LLE Disposition - Admitted to Ortho service Hospital Medicine will follow along Admission and Anticipated Discharge Date Admission Date: May 29, 2019 Supervising Physician Co-Signing Physician Notes PA Supervision Note: I did not personally see or examine the patient today, but I verified all kumari points of AYAN Sellers's assessment and plan with the following exceptions/additions: None Subjective Patient was seen after surgery today. States pain is pretty controlled but starting to increase. He was eating lunch on my visit. So far tolerating this. He reports his breathing is better today. Feels that he can stick to just PRN nebs and use his inhalers. Feels that the mucinex is helping as well. He is growing staph species on initial cultures with surgical cultures obtained today. He verbalizes no new complaints at this time Review of Systems Constitutional: no fever and no chills Ear, Nose, Mouth, Throat: + nasal congestion; no sore throat Respiratory: no cough, no dyspnea, no pain on inspiration and no sputum production Cardiovascular: + edema (RLE); no chest pain, no palpitations and no lightheadedness Gastrointestinal: no abdominal pain, no nausea, no vomiting, no constipation and no diarrhea/loose stools Musculoskeletal: + joint pain (R knee slightly increasing pain post-op) increased knee pain, swelling redness, drainage Integumentary: + erythema and + skin swelling Physical Exam Constitutional: WD/WN, vitals as above Eyes: + anicteric sclerae ENMT: Ears: no hearing impairment Neck: trachea midline Respiratory: normal respiratory effort; no respiratory distress and does not use accessory muscles Auscultation: no wheezes Cardiovascular: Rate/Rhythm: regular rate and regular rhythm Heart Sounds: no murmur Gastrointestinal (Abdomen): Inspection/Auscultation: normal bowel sounds Percussion/Palpation: abdomen soft; abdomen nontender Musculoskeletal: Head/Neck/Chest: normocephalic and head atraumatic Skin: no rashes, warm and dry Neurologic: moves all extremities Psychiatric: A+Ox3, euthymic affect Results & Data ([facility]) Vital Signs (Past 12 Hours) Vital Signs Temp Pulse Pulse Pulse Resp BP BP 05/31/19 13:59 36.9 C 76 18 104/66 05/31/19 13:00 69 16 111/70 05/31/19 12:35 71 16 116/75 05/31/19 12:00 36.9 C 76 16 133/77 05/31/19 11:45 36.3 C L 69 14 127/85 05/31/19 11:35 36.3 C L 69 14 135/84 05/31/19 11:25 67 12 130/82 05/31/19 11:15 72 16 137/81 05/31/19 11:05 75 14 130/87 05/31/19 10:55 75 14 138/55 L 05/31/19 10:47 36.8 C 74 16 111/85 05/31/19 06:47 37.5 C 72 18 132/82 Pulse Ox Pulse Ox 05/31/19 13:59 92 05/31/19 13:00 95 05/31/19 12:35 95 05/31/19 12:00 92 92 05/31/19 11:45 96 05/31/19 11:35 94 05/31/19 11:25 96 05/31/19 11:15 96 05/31/19 11:05 97 05/31/19 10:55 94 05/31/19 10:47 93 05/31/19 06:47 93 PG Care Time/CCT Total # of Minutes Spent Total Time Spent with Patient: Total time spent is greater than 50% in co ordination of care (as documented) at patient's floor/unit and/or counseling patient: Coding Level of Care Code 33720 Subseq Hosp Care Lvl 2 Diagnoses Postoperative infection of knee T81.49XA; M00.9 Asthma J45.909 Hypertension I10 Hyperlipidemia E78.5 DVT prophylaxis Z29.9
[2019-05-31] MEDS: HYDROmorphone INJ 0.5 MG/0.5 ML SYR IV PRN (14:40)
[2019-05-31] MEDS: METOPROLOL SUCC 50MG EXT REL TAB PO SCH (20:12)
[2019-05-31] MEDS: DOCUSATE SODIUM 100 MG CAP PO SCH (20:12)
[2019-05-31] MEDS: SENNA 8.6 MG TAB PO SCH (20:12)
[2019-05-31] MEDS: SIMVASTATIN 20 MG TAB PO SCH (20:12)
[2019-05-31] MEDS: ALBUTEROL HFA 8 GM INHALER INH PRN (20:13)
[2019-06-01] MEDS: KETOROLAC TROMETHAMINE 15 MG/ML VIAL IV SCH ×4 (02:55→20:27)
[2019-06-01] MEDS: VANCOMYCIN HCL 1,500 MG in SODIUM CHLORIDE 0.9% 500 ML IV SCH ×2 (02:55→13:20)
[2019-06-01] MEDS: SODIUM CHLORIDE 0.9% 1000ML 1,000 ML IV SCH ×3 (03:48→22:20)
[2019-06-01 05:56] LABS: Hematocrit (blood only) 29.5 % (42-52); Hemoglobin 9.7 g/dL (14.0-18.0); Mean Corpuscular Hemoglobin 29.3 pg (25-34); Mean Corpuscular Hgb Conc 32.9 g/dL (32-36); Mean Corpuscular Volume 89.1 fL (80-100); Mean Platelet Volume 8.6 fL (7.4-10.4); Nucleated RBC # (auto) 0.02 K/uL (0-0); Nucleated RBC % (auto) 0.2 %; Platelet Count 204 K/uL (130-400); Red Blood Count 3.31 M/uL (4.7-6.1); White Blood Count 7.52 K/uL (4.8-10.8)
[2019-06-01 06:21] LABS: BUN Creatinine Ratio 13.9 (10-20); Calcium 9.1 mg/dl (8.5-10.1); Creatinine Clr Calc Pharmacy 87.6 ml/min; Est GFR (African American) 78.1; Est GFR (Non-African American) 67.4; Potassium 3.9 mmol/L (3.5-5.1)
[2019-06-01] MEDS: RIVAROXABAN 10 MG TABLET PO SCH (08:32)
[2019-06-01] MEDS: BuPROPion XL 300 MG TABCR PO SCH (08:32)
[2019-06-01] MEDS: PANTOprazole 40 MG TAB PO SCH (08:32)
[2019-06-01] MEDS: FLUTICASONE FUROATE 200MCG 14 PUFFS/INHALER INH SCH (08:33)
[2019-06-01] MEDS: MULTIVITAMIN TAB PO SCH (08:33)
[2019-06-01] MEDS: DOCUSATE SODIUM 100 MG CAP PO SCH ×2 (08:33→20:22)
[2019-06-01] MEDS: CHOLECALCIFEROL 1,000 UNITS 25 MCG TAB PO SCH (08:33)
[2019-06-01] MEDS: guaiFENesin 600 MG TABCR PO SCH ×2 (08:33→20:22)
[2019-06-01] MEDS: OXYCODONE HCL IR 5 MG TAB (IMMEDIATE RELEASE) PO PRN ×4 (09:23→21:32)
--- NOTE | 2019-06-01 09:25 | Infectious Disease Progress Nt ---
Date of Service June 01, 2019 Assessment & Plan (1) Postoperative infection of knee: continue abx, follow OR and aspirate culture, growing Staph species. blood cultures negative to date. will likely need prolonged IV abx, final cultures will determine course. (2) Infection of total right knee replacement: Admission and Anticipated Discharge Date Admission Date: May 29, 2019 Subjective pt s/p OR ,cultures pending, initial culture growing Staph species, final pending, remains on vanco, tolerating well. blood cultures negative. afebrile. Results & Data ([facility]) Vital Signs (Past 12 Hours) Vital Signs Temp Pulse Pulse Resp BP Pulse Ox Pulse Ox 06/01/19 07:58 91 06/01/19 07:45 36.6 C 60 18 112/67 95 06/01/19 03:15 37.1 C 72 16 123/71 91 05/31/19 23:10 37.1 C 72 18 120/66 92 Laboratory Results Microbiology 05/31/19 09:00 Knee,Right Gram Stain - Final 05/31/19 09:00 Knee,Right Aerobic and Anaerobic Culture - Preliminary Staphylococcus species 05/31/19 08:45 Knee,Right Gram Stain - Final 05/31/19 08:45 Knee,Right Aerobic and Anaerobic Culture - Preliminary Staphylococcus species 05/29/19 18:08 Blood Aerobic Blood Culture - Preliminary No growth in Aerobic bottle after 48 hours. 05/29/19 18:08 Blood Anaerobic Blood Culture - Final 05/29/19 18:15 Blood Aerobic Blood Culture - Preliminary No growth in Aerobic bottle after 48 hours. 05/29/19 18:15 Blood Anaerobic Blood Culture - Preliminary No growth in Anaerobic bottle after 48 hours. 05/29/19 14:30 Knee,Right Gram Stain - Final 05/29/19 14:30 Knee,Right Aerobic and Anaerobic Culture - Preliminary Staphylococcus species PG Care Time/CCT Total # of Minutes Spent Total Time Spent with Patient: Total time spent is greater than 50% in coordination of care (as documented) at patient's floor/unit and/or counseling patient: Coding Level of Care Code 66414 Subseq Hosp Care Lvl 1 Diagnoses Postoperative infection of knee T81.49XA; M00.9 Infection of total right knee replacement T84.53XA
--- NOTE | 2019-06-01 12:51 | Orthopedic Progress Note ---
Date of Service June 01, 2019 Assessment & Plan (1) Infection of total right knee replacement: POD #1, Right TKA I&D, poly exchange, placement antibiotic beads. WBAT w walker. DVT proph- Xarelto D/C plans- Likely rehab As per ID- On vaco for staph species Blood cultures neg to date. As per medicine. Will concent for PICC Admission and Anticipated Discharge Date Admission Date: May 29, 2019 Subjective POD #1, Doing well. Patient is comfortable. Denies SOB, CP, N/V. Pain controlled well. Physical Exam Physical Exam: Right knee dressings/ drains c/d/i. Toes/ ankle mobile. NO calf tenderness. A&Ox3. Results & Data ([facility]) Vital Signs (Past 12 Hours) Vital Signs Temp Pulse Pulse Resp BP BP Pulse Ox 06/01/19 11:39 36.7 C 66 18 153/92 H 96 06/01/19 07:58 06/01/19 07:45 36.6 C 60 18 112/67 95 06/01/19 03:15 37.1 C 72 16 123/71 91 Pulse Ox 06/01/19 11:39 06/01/19 07:58 91 06/01/19 07:45 06/01/19 03:15
--- NOTE | 2019-06-01 13:16 | Hospitalist Progress Note ---
Date of Service June 01, 2019 Assessment & Plan (1) Postoperative infection of knee: - S/P R TKA on 05/04 - was doing well post-operatively but recently developed drainage, worsening erythema, swelling - S/P R Knee I&D with poly-exchange and antibiotic bead placement on 05/31 - Cultures with staph species - awaiting further identification -- BCx - NGTD - Vancomycin - await culture and sensitivities to hopefully narrow down treatment - DVT prophylaxis - Beatriceto - ID consulted - appreciate input on antibiotic and duration - Surgical management per primary service (2) Asthma: - Mild exacerbation - improving - does use supplemental O2 for comfort but hasnt had desaturations - Reports having some URI symptoms over the past couple days - CXR without infiltrates but low lung volumes and suggested atelectasis - Duonebs PRN; Continue Mucinex BID; continue home inhalers - Encourage incentive spirometry (3) Hypertension: - Continue Metoprolol 50 mg HS; can continue Lisinopril/HCTZ (4) Hyperlipidemia: - Continue Simvastatin 20 mg daily (5) DVT prophylaxis: - RAYMONDs; James Disposition - Admitted to [facility] Medicine will follow along Admission and Anticipated Discharge Date Admission Date: May 29, 2019 Subjective Reports weakness and increased pain with attempts at moving today. He feels that his breathing is getting closer to baseline. PRN inhaler and inhaled steroid helping. Awaiting identification of cultures. Review of Systems Constitutional: + weakness (generalized); no fever and no chills Ear, Nose, Mouth, Throat: + nasal congestion (improving) Respiratory: no cough and no dyspnea Cardiovascular: no chest pain, no palpitations and no lightheadedness Gastrointestinal: no abdominal pain, no nausea, no vomiting, no constipation and no diarrhea/loose stools Genitourinary: no dysuria Musculoskeletal: + joint pain (R knee slightly increasing pain with movement) increased knee pain, swelling redness, drainage Integumentary: + erythema and + skin swelling Neurologic: no tingling and no numbness Physical Exam Constitutional: WD/WN, vitals as above Eyes: + anicteric sclerae ENMT: Ears: no hearing impairment Neck: trachea midline Respiratory: normal respiratory effort Auscultation: no wheezes Cardiovascular: Rate/Rhythm: regular rate and regular rhythm Heart Sounds: no murmur Gastrointestinal (Abdomen): Inspection/Auscultation: normal bowel sounds Percussion/Palpation: abdomen soft; abdomen nontender Musculoskeletal: Head/Neck/Chest: normocephalic and head atraumatic RLE with NETO wrap and drains present, movement to toes Skin: no rashes, warm and dry Neurologic: moves all extremities Psychiatric: A+Ox3, euthymic affect Results & Data ([facility]) Vital Signs (Past 12 Hours) Vital Signs Temp Pulse Pulse Resp BP BP Pulse Ox 06/01/19 11:39 36.7 C 66 18 153/92 H 96 06/01/19 07:58 06/01/19 07:45 36.6 C 60 18 112/67 95 06/01/19 03:15 37.1 C 72 16 123/71 91 Pulse Ox 06/01/19 11:39 06/01/19 07:58 91 06/01/19 07:45 06/01/19 03:15 PG Care Time/CCT Total # of Minutes Spent Total Time Spent with Patient: Total time spent is greater than 50% in coordination of care (as documented) at patient's floor/unit and/or counseling patient: Coding Level of Care Code 64075 Inpt Consult Level 2 Diagnoses Postoperative infection of knee T81.49XA; M00.9 Asthma J45.909 Hypertension I10 Hyperlipidemia E78.5 DVT prophylaxis Z29.9
[2019-06-01] MEDS: LOSARTAN POTASSIUM 50 MG TAB PO SCH (16:24)
[2019-06-01] MEDS: LOSARTAN/HCTZ 50/12.5MG TAB PO SCH (16:24)
[2019-06-01] MEDS: SENNA 8.6 MG TAB PO SCH (20:22)
[2019-06-01] MEDS: METOPROLOL SUCC 50MG EXT REL TAB PO SCH (20:22)
[2019-06-01] MEDS: SIMVASTATIN 20 MG TAB PO SCH (20:23)
[2019-06-02] MEDS ORDERED: VANCOMYCIN TROUGH ONE (01:30)
[2019-06-02] MEDS: OXYCODONE HCL IR 5 MG TAB (IMMEDIATE RELEASE) PO PRN ×3 (01:31→20:29)
[2019-06-02] MEDS: VANCOMYCIN HCL 1,500 MG in SODIUM CHLORIDE 0.9% 500 ML IV SCH (01:32)
[2019-06-02] MEDS: ALBUTEROL HFA 8 GM INHALER INH PRN (01:34)
[2019-06-02] MEDS: KETOROLAC TROMETHAMINE 15 MG/ML VIAL IV SCH ×3 (01:35→09:15)
[2019-06-02] MEDS: SODIUM CHLORIDE 0.9% 1000ML 1,000 ML IV SCH (09:08)
[2019-06-02] MEDS: FLUTICASONE FUROATE 200MCG 14 PUFFS/INHALER INH SCH (09:09)
[2019-06-02] MEDS: LOSARTAN/HCTZ 50/12.5MG TAB PO SCH (09:10)
[2019-06-02] MEDS: guaiFENesin 600 MG TABCR PO SCH ×2 (09:10→20:30)
[2019-06-02] MEDS: DOCUSATE SODIUM 100 MG CAP PO SCH ×2 (09:10→20:30)
[2019-06-02] MEDS: LOSARTAN POTASSIUM 50 MG TAB PO SCH (09:10)
[2019-06-02] MEDS: CHOLECALCIFEROL 1,000 UNITS 25 MCG TAB PO SCH (09:11)
[2019-06-02] MEDS: BuPROPion XL 300 MG TABCR PO SCH (09:11)
[2019-06-02] MEDS: PANTOprazole 40 MG TAB PO SCH (09:11)
[2019-06-02] MEDS: MULTIVITAMIN TAB PO SCH (09:11)
[2019-06-02] MEDS: RIVAROXABAN 10 MG TABLET PO SCH (09:12)
[2019-06-02 09:51] LABS: Hematocrit (blood only) 32.4 % (42-52); Hemoglobin 10.4 g/dL (14.0-18.0); Mean Corpuscular Hemoglobin 28.7 pg (25-34); Mean Corpuscular Hgb Conc 32.1 g/dL (32-36); Mean Corpuscular Volume 89.5 fL (80-100); Mean Platelet Volume 8.6 fL (7.4-10.4); Nucleated RBC # (auto) 0.02 K/uL (0-0); Nucleated RBC % (auto) 0.4 %; Platelet Count 219 K/uL (130-400); RDW Coefficient of Variation 13.8 % (11.5-14.5); RDW Standard Deviation 45.6 fL (36.4-46.3); Red Blood Count 3.62 M/uL (4.7-6.1)
[2019-06-02 10:18] LABS: BUN Creatinine Ratio 13.1 (10-20); Calcium 9.5 mg/dl (8.5-10.1); Creatinine Clr Calc Pharmacy 91.7 ml/min; Est GFR (African American) 82.6; Est GFR (Non-African American) 71.3; Potassium 3.8 mmol/L (3.5-5.1)
[2019-06-02 10:20] LABS: Basophils # (auto) 0.03 K/uL (0-0.2); Basophils % (auto) 0.5 %; Eosinophils # (auto) 0.34 K/uL (0-0.5); Eosinophils % (auto) 6.2 %; Immature Granulocytes # (auto) 0.39 K/uL (0.00-0.02); Immature Granulocytes % (auto) 7.1 %; Lymphocytes # (auto) 0.82 K/uL (1.2-3.4); Lymphocytes % (auto) 14.9 %; Monocytes # (auto) 0.51 K/uL (0.11-0.59); Monocytes % (auto) 9.3 %; Neutrophils # (auto) 3.41 K/uL (1.4-6.5)
--- NOTE | 2019-06-02 10:28 | Orthopedic Progress Note ---
Date of Service June 02, 2019 Assessment & Plan (1) Infection of total right knee replacement: POD #2, Right TKA I&D, poly exchange, placement antibiotic beads. WBAT w walker. DVT proph- Xarelto D/C plans- Likely rehab As per ID- On vaco for staph species Blood cultures neg to date. As per medicine. Will concent for PICC Admission and Anticipated Discharge Date Admission Date: May 29, 2019 Subjective POD #2, Doing well. Patient is comfortable, states he is "tired" Denies SOB, CP, N/V. Pain controlled well. VSS, Hgb 10.6 Physical Exam Physical Exam: Right knee prevena wound vac c/d/i. Drains in tact. Toes/ ankle mobile. No calf tenderness. A&Ox3. Results & Data ([facility]) Vital Signs (Past 12 Hours) Vital Signs Temp Pulse Pulse Resp BP Pulse Ox 06/02/19 08:07 37 C 65 16 159/93 H 93 06/01/19 23:12 37.3 C 67 16 138/66 92
--- NOTE | 2019-06-02 13:23 | Infectious Disease Progress Nt ---
Date of Service June 02, 2019 Assessment & Plan (1) Postoperative infection of knee: will change to rocephin 2 g daily, will need prolonged IV abx, range of 6 weeks. will need weekly cbc, cmp, esr while on abx. can follow post d/c (2) Infection of total right knee replacement: Admission and Anticipated Discharge Date Admission Date: May 29, 2019 Subjective Knee cultures growing MSSA, remains on vanco, toleraitng well. vac in place. no f/c. pain well controlled. no am labs. blood cultures remain negative. no complaints. oob to chair. Review of Systems Review of Systems: All systems reviewed & are unremarkable except as noted in HPI & below Physical Exam Constitutional: WD/WN, vitals as above Eyes: PERRL, conjunctivae normal, anicteric sclerae ENMT: external ear and nose normal, oropharynx normal Neck: normal visual inspection Respiratory: normal respiratory effort, lungs clear to auscultation Cardiovascular: RRR, no murmur, no edema Gastrointestinal (Abdomen): normal bowel sounds, soft, nontender, no hepatospl enomegaly Musculoskeletal: no cyanosis or clubbing, extremities motor strength 5/5 Skin: no rashes, warm and dry + wound (right knee dressing intact, +edema, erythema warmth) Psychiatric: A+Ox3, euthymic affect Results & Data ([facility]) Vital Signs (Past 12 Hours) Vital Signs Temp Pulse Pulse Resp BP BP Pulse Ox 06/02/19 11:40 93 06/02/19 10:50 36.8 C 67 16 128/82 93 06/02/19 08:07 37 C 65 16 159/93 H 93 Laboratory Results Microbiology 05/31/19 09:00 Knee,Right Gram Stain - Final 05/31/19 09:00 Knee,Right Aerobic and Anaerobic Culture - Preliminary Staphylococcus aureus 05/31/19 08:45 Knee,Right Gram Stain - Final 05/31/19 08:45 Knee,Right Aerobic and Anaerobic Culture - Preliminary Staphylococcus aureus 05/29/19 14:30 Knee,Right Gram Stain - Final 05/29/19 14:30 Knee,Right Aerobic and Anaerobic Culture - Preliminary Staphylococcus aureus 05/29/19 18:08 Blood Aerobic Blood Culture - Preliminary No growth in Aerobic bottle after 48 hours. 05/29/19 18:08 Blood Anaerobic Blood Culture - Final 05/29/19 18:15 Blood Aerobic Blood Culture - Preliminary No growth in Aerobic bottle after 48 hours. 05/29/19 18:15 Blood Anaerobic Blood Culture - Preliminary No growth in Anaerobic bottle after 48 hours. PG Care Time/CCT Total # of Minutes Spent Total Time Spent with Patient: Total time spent is greater than 50% in coordination of care (as documented) at patient's floor/unit and/or counseling patient: Coding Level of Care Code 20652 Subseq Hosp Care Lvl 3 Diagnoses Postoperative infection of knee T81.49XA; M00.9 Infection of total right knee replacement T84.53XA
[2019-06-02] MEDS: cefTRIAXone SODIUM 2,000 MG in DEXTROSE 5% 50 ML IV SCH (14:33)
--- NOTE | 2019-06-02 15:27 | Hospitalist Progress Note ---
Date of Service June 02, 2019 Assessment & Plan (1) Postoperative infection of knee: - S/P R TKA on 05/04 - was doing well post-operatively but 2 days prior to admission developed drainage, worsening erythema, swelling - S/P R Knee I&D with poly-exchange and antibiotic bead placement on 05/31 - Cultures with MSSA -- BCx - NGTD - Convert to Rocephin 2 g IV daily - looking at possibly 6 weeks IV Abx; PICC line consent obtained - DVT prophylaxis - Xarelto - ID consulted - appreciate input on antibiotic and duration - Surgical management per primary service (2) Asthma: - Mild exacerbation - improving - does use supplemental O2 for comfort but hasnt had desaturations - Reports having some URI symptoms over the past couple days prior to admissin - CXR without infiltrates but low lung volumes and suggested atelectasis - Duonebs PRN; Continue Mucinex BID; continue home inhalers - Encourage incentive spirometry (3) Hypertension: - Continue Metoprolol 50 mg HS; can continue Lisinopril/HCTZ (4) Hyperlipidemia: - Continue Simvastatin 20 mg daily (5) DVT prophylaxis: - SCDs; Xarelto Disposition - Admitted to [facility] Medicine will follow along Admission and Anticipated Discharge Date Admission Date: May 29, 2019 Subjective Patient reports better pain control today. Sitting up in chair and leg looks much better compared to admission. Less edema, no redness, and no warmth to touch. Wound vac is in place and pt is tolerating. Continues to use O2 for comfort. Reports breathing continues to be better each day. Tolerating diet without issue. Hgb improved on AM labs Review of Systems Constitutional: + weakness (generalized - slightly improved); no fever and no chills Respiratory: no dyspnea Cardiovascular: no chest pain Gastrointestinal: no abdominal pain, no nausea, no vomiting, no constipation and no diarrhea/loose stools Musculoskeletal: + joint pain (improved today) and + swelling (RLE - improving) increased knee pain, swelling redness, drainage Integumentary: no rash Physical Exam Constitutional: WD/WN, vitals as above Eyes: + anicteric sclerae ENMT: Ears: no hearing impairment Neck: trachea midline Respiratory: normal respiratory effort Auscultation: + wheezes (minimal scattered exp. wheeze) Cardiovascular: Rate/Rhythm: regular rate and regular rhythm Heart Sounds: no murmur Gastrointestinal (Abdomen): Inspection/Auscultation: normal bowel sounds Percussion/Palpation: abdomen soft; abdomen nontender Musculoskeletal: Head/Neck/Chest: normocephalic and head atraumatic Wound vac placed to R knee; equal temperature; no erythema; slightly toughened skin with trace edema Skin: no rashes, warm and dry Neurologic: moves all extremities Psychiatric: A+Ox3, euthymic affect Results & Data ([facility]) Vital Signs (Past 12 Hours) Vital Signs Temp Pulse Pulse Resp BP BP Pulse Ox 06/02/19 11:40 93 06/02/19 10:50 36.8 C 67 16 128/82 93 06/02/19 08:07 37 C 65 16 159/93 H 93 PG Care Time/CCT Total # of Minutes Spent Total Time Spent with Patient: Total time spent is greater than 50% in sales recruiting coordinator rdination of care (as documented) at patient's floor/unit and/or counseling patient: Coding Level of Care Code 55341 Inpt Consult Level 2 Diagnoses Postoperative infection of knee T81.49XA; M00.9 Asthma J45.909 Hypertension I10 Hyperlipidemia E78.5 DVT prophylaxis Z29.9
[2019-06-02] MEDS: METOPROLOL SUCC 50MG EXT REL TAB PO SCH (20:29)
[2019-06-02] MEDS: SENNA 8.6 MG TAB PO SCH (20:29)
[2019-06-02] MEDS: SIMVASTATIN 20 MG TAB PO SCH (20:30)
[2019-06-03] MEDS: OXYCODONE HCL IR 5 MG TAB (IMMEDIATE RELEASE) PO PRN ×2 (07:34→11:52)
[2019-06-03] MEDS: FLUTICASONE FUROATE 200MCG 14 PUFFS/INHALER INH SCH (07:36)
[2019-06-03] MEDS: DOCUSATE SODIUM 100 MG CAP PO SCH (07:39)
[2019-06-03] MEDS: CHOLECALCIFEROL 1,000 UNITS 25 MCG TAB PO SCH (07:39)
[2019-06-03] MEDS: MULTIVITAMIN TAB PO SCH (07:39)
[2019-06-03] MEDS: BuPROPion XL 300 MG TABCR PO SCH (07:39)
[2019-06-03] MEDS: LOSARTAN/HCTZ 50/12.5MG TAB PO SCH (07:39)
[2019-06-03] MEDS: guaiFENesin 600 MG TABCR PO SCH (07:39)
[2019-06-03] MEDS: RIVAROXABAN 10 MG TABLET PO SCH (07:39)
[2019-06-03] MEDS: PANTOprazole 40 MG TAB PO SCH (07:39)
[2019-06-03] MEDS: LOSARTAN POTASSIUM 50 MG TAB PO SCH (07:39)
--- NOTE | 2019-06-03 09:00 | Orthopedic Progress Note ---
Date of Service June 03, 2019 Assessment & Plan (1) Infection of total right knee replacement: POD #3, Right TKA I&D, poly exchange, placement antibiotic beads. WBAT w walker. DVT proph- Xarelto D/C plans- Home w IV antibx when PICC placed likely today. As per ID- Changed to Rocephin for 6 weeks with labs Blood cultures neg to date. As per medicine. PICC ordered Admission and Anticipated Discharge Date Admission Date: May 29, 2019 Subjective POD #3, Doing well. Denies SOB CP, N/V Pain controlled well. Physical Exam Physical Exam: Right knee wound vac c/d/i. Toes/ ankle mobile. No calf tenderness. A&Ox3. Results & Data ([facility]) Vital Signs (Past 12 Hours) Vital Signs Temp Pulse Pulse Resp BP Pulse Ox 06/03/19 07:32 36.8 C 70 18 145/92 H 90 06/03/19 06:12 36.9 C 69 16 153/83 H 93 06/02/19 23:19 37.4 C 67 16 145/84 H 91
--- NOTE | 2019-06-03 14:57 | XRay Report ---
XR chest 1V portable CLINICAL HISTORY: 68 years-old Male presenting with CONFIRM PICC PLACEMENT - No [place] with VPS. TECHNIQUE: Portable upright AP view of the chest was obtained. COMPARISON: 05/29/2019. FINDINGS: Interval placement of a right upper extremity PICC, which terminates at the superior cavoatrial junct ion. Cardiomediastinal silhouette unchanged and grossly normal. Mildly low lung volumes with elevatio n of the right hemidiaphragm as on prior exam. Minimal bibasilar linear opacities. No pleural effusio n or pneumothorax. Bilateral shoulder arthroplasties. Upper abdomen normal. IMPRESSION: 1. Appropriately positioned PICC terminating at the superior cavoatrial junction. 2. Minimal bibasilar atelectasis as on prior exam. ACT 112: Negative or not required by law. Electronically signed by: Cody Alcala M.D. 06/03/2019 2:56 PM
[2019-06-03] MEDS: cefTRIAXone SODIUM 2,000 MG in DEXTROSE 5% 50 ML IV SCH (15:09)
[2019-06-03 15:12] VITALS: PULSE 80; TEMP 98.4; O2SAT 93
[2019-06-03 16:09] VITALS: BP 133/82
--- NOTE | 2019-06-03 17:36 | Hospitalist Progress Note ---
Date of Service June 03, 2019 Assessment & Plan (1) Postoperative infection of knee: - S/P R TKA on 05/04 - was doing well post-operatively but 2 days prior to admission developed drainage, worsening erythema, swelling - S/P R Knee I&D with poly-exchange and antibiotic bead placement on 05/31 - Cultures with MSSA -- BCx - NGTD - Convert to Rocephin 2 g IV daily - looking at possibly 6 weeks IV Abx; PICC line placed - DVT prophylaxis - Xarelto - ID consulted - appreciate input on antibiotic and duration - Surgical management per primary service (2) Asthma: - Mild exacerbation - resolved - does use supplemental O2 for comfort but hasnt had desaturations - Reports having some URI symptoms over the past couple days prior to admission - CXR without infiltrates but low lung volumes and suggested atelectasis - Duonebs PRN; Continue Mucinex BID; continue home inhalers - Encourage incentive spirometry (3) Hypertension: - Continue Metoprolol 50 mg HS; can continue Lisinopril/HCTZ (4) Hyperlipidemia: - Continue Simvastatin 20 mg daily (5) DVT prophylaxis: - SCDs; Xarelto Disposition - Home with IV Abx and routine lab work Admission and Anticipated Discharge Date Admission Date: May 29, 2019 Subjective Reports better controlled pain today. Drains have been removed and wound vac remains. Feels that breathng is pretty much baseline at this point. On RA during my assessment. A liaison came to teach him how to do home antibiotics. He is tolerating diet and verbalizes no new complaints Review of Systems Constitutional: no fever and no chills Respiratory: no cough and no dyspnea Cardiovascular: no chest pain Gastrointestinal: no abdominal pain, no nausea and no vomiting Genitourinary: no dysuria Musculoskeletal: + joint pain (improving R knee pain) Physical Exam Constitutional: WD/WN, vitals as above Eyes: + anicteric sclerae ENMT: Ears: no hearing impairment Neck: trachea midline Respiratory: normal respiratory effort Auscultation: no wheezes Cardiovascular: Rate/Rhythm: regular rate and regular rhythm Heart Sounds: no murmur Gastrointestinal (Abdomen): Inspection/Auscultation: normal bowel sounds Percussion/Palpation: abdomen soft; abdomen nontender Musculoskeletal: Head/Neck/Chest: normocephalic and head atraumatic wound vac placed to R knee incision; drains removed Skin: no rashes, warm and dry Neurologic: moves all extremities Psychiatric: A+Ox3, euthymic affect Results & Data ([facility]) Vital Signs (Past 12 Hours) Vital Signs Temp Pulse Pulse Pulse Pulse Resp BP 06/03/19 16:08 36.9 C 70 66 65 80 17 127/73 06/03/19 15:11 36.9 C 80 17 127/73 06/03/19 12:31 36.8 C 70 66 65 69 18 128/80 06/03/19 10:12 06/03/19 07:32 36.8 C 70 18 06/03/19 06:12 36.9 C 69 16 BP Pulse Ox 06/03/19 16:08 133/82 93 06/03/19 15:11 93 06/03/19 12:31 133/82 90 06/03/19 10:12 133/82 06/03/19 07:32 145/92 H 90 06/03/19 06:12 153/83 H 93 PG Care Time/CCT Total # of Minutes Spent Total Time Spent with Patient: Total time spent is greater than 50% in coordination of care (as documented) at patient's floor/unit and/or counseling patient: Coding Level of Care Code 33486 Inpt Consult Level 2 Diagnoses Postoperative infection of knee T81.49XA; M00.9 Asthma J45.909 Hypertension I10 Hyperlipidemia E78.5 DVT prophylaxis Z29.9
--- NOTE | 2019-06-04 11:18 | Discharge Summary ---
Date of Service June 04, 2019 Principal Diagnosis right infected TKA Discharge Exam Constitutional WD/WN, vitals as above Musculoskeletal Gait: + antalgic gait (right) Knee: + surgical incision (anterior right knee. Prevena in place and functioning); knee normal to inspection, no effusion, no skin erythema and no ecchymosis Neurologic normal touch/pain/proprioception (parasthesias RLE distally) Psychiatric A+Ox3, euthymic affect Speech: normal rate/rhythm/volume of speech Discharge Data Allergies Allergy/AdvReac Type Severity Reaction Status Date / Time cat dander Allergy Unknown difficulty Verified 05/04/19 08:25 breathing dog dander Allergy Unknown difficulty Verified 05/04/19 08:25 breathing shrimp Allergy Unknown difficulty Verified 05/04/19 08:25 breathing Consultations 05/29/19 14:39 Consult Case Management - Discharge Planning Routine Consult Internal Medicine Routine 05/29/19 14:44 Consult Infectious Diseases Routine 05/31/19 12:13 Consult Case Management - Discharge Planning Routine Procedures Performed Operation Date: 05/31/19 07:30 Actual Procedures s Right Knee Incision and Drainage,(Right) - Marcel Thomas MD p Poly Exchange, antibiotic beads(Right) - Marcel Thomas MD Ordered Studies 05/31/19 07:17 US - OR guided needle placemen Routine Hospital Course (1) Infection of total right knee replacement: The patient was admitted on 05.29.2019 for an infected right TKA done ~4 weeks prior. He was placed on IV Vanco and his Xarelto was held. Surgical I & D and poly exchange was done on 05.31.2019. Cultures and sensitivities were followed and the bacteria grown was MSSA. His antibiotic was changed to 2 gms Rocephin IV daily. He was then discharged on 06.03.2019. POD #3, Right TKA I&D, poly exchange, placement antibiotic beads. WBAT w walker. DVT proph- Xarelto D/C plans- Home w IV antibx when PICC placed likely today. As per ID- Changed to Rocephin for 6 weeks with labs Blood cultures neg to date. As per medicine. PICC ordered Total Time Total Time Spent Total Time Spent (In Minutes): 90 Total Time Includes: Examination of the Patient, Discharge Planning, Medication Reconciliation and Communication With Other Providers Discharge Plan Discharge Items Patient Disposition: Home - Home Health Services Reason For Visit: INFECTED RIGHT TOTAL KNEE Discharge Diagnosis: same Activity: Per Instructions section Non-emergency contact: Surgeon Call non-emergency contact if: you have any medication questions, your pain is concerning for you, your temperature is above 101, your wound has increased redness and your wound has increased drainage Follow-up/Referrals: Rodrigo Kat [Primary Care Provider] - 06/10/19 10:00 am Diet: Regular Addtl Attending Provider Instructions: You have a superficial wound vac over your incision, remove one week from your surgery and discard all parts, replace with dry sterile dressings daily until Follow up visit You will be on an IV medication called Rocephin 2 grams through your IV site for 6 weeks Follow up with infectious disease, call [phone] an appt with Dr. Lares. ACTIVITY RECOMMENDATIONS: SELF CARE INSTRUCTIONS AFTER TOTAL KNEE REPLACEMENT A. You may need to continue a physical therapy program after discharge from the hospital. There are several options available to you. Your doctor will assist you in selecting the best one for you. 1. An out-patient facility 2 to 3 times a week for therapy or home therapy. 2. Continue working on all exercises taught to you in the hospital. Your goals should be to increase bending of your knee to 90 degrees and beyond and to fully straighten your knee. B. You may progress at your own pace from walking with a walker or crutches to a cane; then to no assistive devices. C. Make walking a part of your daily routine. Be up as much as comfortable with rest periods throughout the day. Rest with leg elevation is very important. Use the ice wrap frequently for the first 3-4 weeks. D. There are no restrictions on activities. You may ride in a car, shop, participate in shovel mechanic and all social activities. E. Wear the long elastic stockings (PERRY hose) 20 hours a day for 2 weeks after surgery. They can be removed several times a day for laundering and for a bath. F. You may shower, no tub baths until cleared by your doctor. SPECIAL CARE INSTRUCTIONS: VERY IMPORTANT TO READ AND REVIEW A. There are a few signs you need to watch for after you are home. Call [facility] if you notice any of the followin. Increased severe knee pain. Some pain is expected especially when you exercise. 2. Increased swelling in your leg or knee; pain or swelling of the calf muscle in either lower leg. 3. Any fluid drainage from the incision. 4. Shortness of breath or chest pain. B. Please call [facility] at if you have any concerns or questions about your operation or recovery. The doctor or his nurse will return your call promptly. C. You must take antibiotics before dental work, bladder, bowel or other surgery. Your doctor will provide you with a permanent care to carry describing this precaution. IMPORTANT: * REMEMBER TO TAKE ASPIRIN, 81 MG, TWICE DAILY FOR 4 WEEKS UNLESS OTHERWISE DIRECTED. THIS IS YOUR BLOOD THINNER. * HIGH RISK PATIENTS MAY BE PRESCRIBED A STRONGER BLOOD THINNER. THIS WILL BE PROVIDED AT DISCHARGE. * CALL IF INCREASED PAIN, REDNESS, DRAINAGE OR FEVER GREATER THAT 101. * WEAR PERRY HOSE 20 HOURS PER DAY FOR 2 WEEKS. * YOU MAY HAVE A LARGE BAND-AID LIKE DRESSING (SILVERON). THIS WILL REMAIN ON YOUR INCISION FOR 7 DAYS, THEN CAN BE REMOVED. IF INCISION IS LEAKING THROUGH DRESSING, CALL THE OFFICE . FOLLOW UP VISIT: If appointment is not already scheduled: Please call [facility] to make a follow-up appointment for 2 weeks after your surgery at . Pending Studies at Discharge: No Stand-Alone Forms: My [facility], Opioid Pain Management, Smoking Cessation Medications and DC Order Prescriptions: New Xarelto 10 mg Tablet 10 mg PO DAILY 14 Days Qty: 14 RF: 0 oxycodone 5 mg Tablet 5 mg PO Q4 PRN (Reason: pain) Qty: 30 RF: 0 Continued multivitamin Tablet 1 tab PO QAM RF: 0 metoprolol succinate 50 mg Tablet Extended Release 24 Hr 50 mg PO HS RF: 0 simvastatin 20 mg Tablet 20 mg PO HS RF: 0 albuterol sulfate [Ventolin HFA] 90 mcg/actuation Hfa Aerosol Inhaler 1 puff INHALATION Q6H PRN (Reason: Wheezing) RF: 0 bupropion HCl 300 mg Tablet Extended Release 24 Hr 300 mg PO QAM RF: 0 losartan-hydrochlorothiazide 100-12.5 mg Tablet 1 tab PO QAM RF: 0 cholecalciferol (vitamin D3) [Vitamin D3] 2,000 unit Tablet 2,000 unit PO QAM RF: 0 Alvesco 80 mcg/actuation Hfa Aerosol Inhaler 1 puff INHALATION BID RF: 0 Discontinued celecoxib [Celebrex] 200 mg Capsule 200 mg PO BID 30 Days Qty: 60 RF: 0 oxycodone 5 mg Tablet 5 - 10 mg PO Q6H PRN (Reason: pain) Qty: 18 RF: 0 Xarelto 10 mg Tablet 10 mg PO DAILY 28 Days Qty: 28 RF: 0 Discharge Orders: Discharge Order (Routine); Ordered 06/03/19 Ordered By: Jeffy Lopez/Other Patient Handouts: Knee How Works, PICC, Joint Infec Abx Tx Cath Admission Data Admit Date/Time: 05/29/19 16:05 Attending Provider: Marcel Thomas Admit Provider: Marcel Thomas Primary Care Provider: Rodrigo Kat Other Providers: Allie Lares ; Kameron Katz Other Interventions: Discharge Summary Assessment (RN) Last Done: 06/03/19 16:08 DC Date/Time DO NOT enter until pt leaves facility: 06/03/19 17:25
== END 2019-06-03 17:25 | disposition home health service (06) | DRG 467 ==
LOC: 3W 16:05

== ENCOUNTER 2019-07-15 09:45 | Inpatient (IN) ==
--- NOTE | 2019-07-10 09:36 | Anesthesiology Consultation ---
Date of Service July 10, 2019 Assessment & Plan (1) Encounter for pre-operative examination: R knee I+D 05/31/19 = Rouse #2, ETT 8.0 grade view I. Chart Review Chart Review: Acceptable Risk for Surgery and Patient seen in Pre Admission Testing Teaching & Discussion Instructed NPO after midnight before surgery, except medications with 15 cc of water. Medication instructions provided according to the PAT guidelines. History Surgery Operation Date: 07/15/19 09:55 Proposed Procedures p T10-L1 Decompression and Fusion, Spinal Cord Monitoring - Stanislaw Garrett DO Height/Weight Height: 6 ft Weight: 123.2 kg Allergies Allergy/AdvReac Type Severity Reaction Status Date / Time cat dander Allergy Unknown difficulty Verified 07/09/19 15:12 breathing dog dander Allergy Unknown difficulty Verified 07/09/19 15:12 breathing shrimp Allergy Unknown difficulty Verified 07/09/19 15:12 breathing adhesive tape AdvReac Intermediate Rash/swelling/lesions Verified 07/10/19 09:30 for > 1 month Medications Home Medications Medication Instructions Recorded Confirmed Last Taken Alvesco 1 puff INHALATION BID 04/10/19 07/09/19 05/03/19 09:00 albuterol sulfate [Ventolin HFA] 1 puff INHALATION Q6H PRN 04/10/19 07/09/19 05/03/19 22:30 bupropion HCl 300 mg PO QAM 04/10/19 07/09/19 05/03/19 09:00 cholecalciferol (vitamin D3) 2,000 unit PO QAM 04/10/19 07/09/19 05/03/19 09:00 [Vitamin D3] losartan-hydrochlorothiazide 1 tab PO QAM 04/10/19 07/09/19 05/03/19 09:00 metoprolol succinate 50 mg PO HS 04/10/19 07/09/19 05/03/19 22:30 multivitamin 1 tab PO QAM 04/10/19 07/09/19 05/03/19 09:00 simvastatin 20 mg PO HS 04/10/19 07/09/19 05/03/19 22:30 oxycodone 5 mg PO Q4 PRN #30 tab 06/03/19 07/09/19 Unknown cephalexin 500 mg capsule 500 mg PO BID #60 cap 07/08/19 07/09/19 Unknown Past Medical History Medical History Asthma controlled. Alvesco BID; albuterol a couple times per week. History of kidney stones 11/2018 History of sleep apnea (Inactive) "resolved"-- retesting was negative Hyperlipidemia Controlled on meds Hypertension Controlled on meds. Morbid obesity Osteoarthritis PICC (peripherally inserted central catheter) in place For infected R TKA. To be removed 07/13 and switching to PO Keflex. Surgeon aware. Postoperative infection of knee I+D 05/31/19, discharged 06/04 with PICC; to be removed 07/13. Surgeon aware. Exercise / Class Metabolic Activity III < 4 Walking/Shop/Light housework (Using walker for stability 2/2 neurogenic claudication and LE numbness; denies SOB or CP) Past Family History Family History Other Hypertension Past Surgical History Surgical History H/O total knee replacement R knee 04/2019. Subsequent infection 3 wks later with debridement and antibiotic beads placed. Following with ID, has PICC line (to be removed 07/13) History of cholecystectomy History of colonoscopy History of esophagogastroduodenoscopy (EGD) History of laminectomy "thoracic" History of left hip replacement History of left shoulder replacement Left TSA: 06/26/17: Grade 3 view, MAC#4, ETT 8.0 + PNB at [facility] History of lithotripsy History of neck surgery ?laminectomy (1985) History of pituitary surgery (Inactive) "tumor removed and radiation therapy" History of prostate biopsy History of right hip replacement History of right inguinal hernia repair History of right shoulder replacement History of spinal fusion S/P tonsillectomy and adenoidectomy Past Anesthesia History No Family Hx of Anesthesia Complications Pt reports low BP post-op after one surgery, states was kept in PACU for prolonged period until BP OK. Review of prior anesthesia post-op records show BP at some points 90's/50's post op after several surgeries at [facility], but fluctuated between this and normotensive. No significant complications noted or any intervention. History of PONV No Hx of PONV and No Hx of Motion Sickness Social History Smoking Status: Never smoker Do You Dip or Chew Tobacco: No Hx Alcohol Use: Yes Alcohol type: wine alcohol intake frequency: a few times a month Alcohol Intake Frequency Comment: OCCASIONALLY A GLASS OF WINE WITH DINNER Hx Substance Use: No substance use type: does not use Review of Systems Pt denies any recent chest pain, shortness of breath, palpitations, cough, fever or URI. Physical Exam Vital Signs BP: 111/73 P: 54bpm SPO2: 95% RA T: 98.2 F R: 18 Constitutional + obese ENMT Mouth: + dental restorations (few crowns and implants) and + macroglossia; no chipped teeth and no loose teeth Thyromental Distance: > or= 3.5 Finger Breadths (3.5) Mallampati Class: II Neck normal visual inspection; neck extension not limited Respiratory normal respiratory effort Auscultation: lungs clear to auscultation bilaterally and + diminished lung sounds (B/L) Cardiovascular Rate/Rhythm: regular rhythm and + bradycardic Heart Sounds: no murmur Testing Laboratory Results 07/10/19 09:42 07/10/19 09:42 PT 11.3 Seconds (9.0-12.0) 07/10/19 09:42 INR 1.1 (0.9-1.1) 07/10/19 09:42 APTT 26.7 Seconds (21.0-31.0) 07/10/19 09:42 Urine Color Yellow 07/10/19 09:42 Urine Appearance Clear (Clear) 07/10/19 09:42 Urine pH 5.5 (4.5-7.5) 07/10/19 09:42 Ur Specific [place] 1.032 (1.000-1.030) H 07/10/19 09:42 Urine Protein Negative (Negative) 07/10/19 09:42 Urine Glucose (UA) Negative (Negative) 07/10/19 09:42 Urine Ketones Negative (Negative) 07/10/19 09:42 Urine Nitrite Negative (Negative) 07/10/19 09:42 Ur Leukocyte Esterase Negative (Negative) 07/10/19 09:42 Blood Type O Positive 07/10/19 09:42 Antibody Screen NEGATIVE 07/10/19 09:42 Electrocardiogram Date: 04/21/19 Findings: + NSR @ (60bpm) First degree AV block; otherwise normal EKG. Compared to EKG from 2014, CT interval has increased. Chest X-Ray Date: 06/03/19 FINDINGS: Interval placement of a right upper extremity PICC, which terminates at the superior cavoatrial junction. Cardiomediastinal silhouette unchanged and grossly normal. Mildly low lung volumes with elevation of the right hemidiaphragm as on prior exam. Minimal bibasilar linear opacities. No pleural effusion or pneumothorax. Bilateral shoulder arthroplasties. Upper abdomen normal. IMPRESSION: 1. Appropriately positioned PICC terminating at the superior cavoatrial junction. 2. Minimal bibasilar atelectasis as on prior exam.
--- NOTE | 2019-07-10 09:41 | PAT Medication Instructions ---
Medication Instructions Date of Service July 10, 2019 Home Medications Medication Instructions Recorded oxycodone 5 mg PO Q4 PRN #30 tab 06/03/19 cephalexin 500 mg capsule 500 mg PO BID #60 cap 07/08/19 Alvesco 1 puff INHALATION BID albuterol sulfate [Ventolin HFA] 1 puff INHALATION Q6H PRN bupropion HCl 300 mg PO QAM cholecalciferol (vitamin D3) 2,000 unit PO QAM losartan-hydrochlorothiazide 1 tab PO QAM metoprolol succinate 50 mg PO HS multivitamin 1 tab PO QAM simvastatin 20 mg PO HS oxycodone 5 mg PO Q4 PRN (NOT TAKING) cephalexin 500 mg capsule 500 mg PO BID Tylenol 325mg PO PRN Continue as directed cephalexin 500 mg capsule 500 mg PO BID DO NOT take the morning of surgery cholecalciferol (vitamin D3) 2,000 unit PO QAM losartan-hydrochlorothiazide 1 tab PO QAM multivitamin 1 tab PO QAM Take morning of surgery With a small sip of water, OTHERWISE NOTHING TO EAT OR DRINK AFTER MIDNIGHT: Alvesco 1 puff INHALATION BID albuterol sulfate [Ventolin HFA] 1 puff INHALATION Q6H PRN (if needed) bupropion HCl 300 mg PO QAM Tylenol 325mg PO PRN (if needed, may be taken up to four hours before surgery) Take evening before surgery Alvesco 1 puff INHALATION BID albuterol sulfate [Ventolin HFA] 1 puff INHALATION Q6H PRN (if needed) metoprolol succinate 50 mg PO HS simvastatin 20 mg PO HS Tylenol 325mg PO PRN (if needed) Other Notes If you have any questions please call us at [phone] or [phone] or [phone] or [phone]
[2019-07-10 10:11] LABS: Basophils # (auto) 0.03 K/uL (0-0.2); Basophils % (auto) 0.6 %; Eosinophils # (auto) 0.31 K/uL (0-0.5); Eosinophils % (auto) 5.8 %; Hematocrit (blood only) 41.8 % (42-52); Hemoglobin 13.2 g/dL (14.0-18.0); Immature Granulocytes # (auto) 0.01 K/uL (0.00-0.02); Immature Granulocytes % (auto) 0.2 %; Lymphocytes # (auto) 0.71 K/uL (1.2-3.4); Lymphocytes % (auto) 13.2 %; Mean Corpuscular Hemoglobin 27.9 pg (25-34); Mean Corpuscular Hgb Conc 31.6 g/dL (32-36); Mean Corpuscular Volume 88.4 fL (80-100); Mean Platelet Volume 9.1 fL (7.4-10.4); Monocytes # (auto) 0.56 K/uL (0.11-0.59); Monocytes % (auto) 10.4 %; Neutrophils # (auto) 3.75 K/uL (1.4-6.5); Neutrophils % (auto) 69.8 %; Platelet Count 196 K/uL (130-400); RDW Coefficient of Variation 13.8 % (11.5-14.5); RDW Standard Deviation 44.8 fL (36.4-46.3); Red Blood Count 4.73 M/uL (4.7-6.1); White Blood Count 5.37 K/uL (4.8-10.8)
[2019-07-10 10:13] LABS: Appearance Urine Clear (Clear); Bilirubin Urine Negative (Negative); Blood Urine Negative (Negative); Color Urine Yellow; Glucose Urine UA Negative (Negative); Ketones Urine Negative (Negative); Leukocyte Esterase Urine Negative (Negative); Nitrite Urine Negative (Negative); Protein Urine Negative (Negative); Specific Gravity Urine 1.032 (1.000-1.030); Urobilinogen Urine Negative (Negative); pH Urine 5.5 (4.5-7.5)
[2019-07-10 10:15] LABS: BUN Creatinine Ratio 19.5 (10-20); Calcium 9.7 mg/dl (8.5-10.1); Creatinine Clr Calc Pharmacy 85.9 ml/min; Est GFR (Non-African American) 68.1
[2019-07-10 10:19] LABS: INR 1.1 (0.9-1.1); Partial Thromboplastin Time 26.7 Seconds (21.0-31.0); Prothrombin Time 11.3 Seconds (9.0-12.0)
--- NOTE | 2019-07-14 12:26 | History & Physical Report ---
Date of Service July 14, 2019 Assessment & Plan (1) Thoracic spondylosis with myelopathy: This time the patient presents with a severe decline in status marked inability to ambulate and evidence of myelomalacia within the lower thoracic spinal cord. Subsequently in light of his decline over the past several weeks I am recommending urgent decompression and possible fusion involving T10-T11, T11- T12, T12 and L1. Appreciate he is currently undergoing treatment for a knee infection. We would still recommend urgent decompression of the thoracic spine to halt progression of cord damage. This may require instrumentation for the fusion but at minimum decompression is urgent to avoid long-term permanent neurologic sequela I Present on Admission?: Yes History of Present Illness Chief Complaint: Leg numbness with difficulty walking. Primary Care Provider: Rodrigo Kat This is a 68-year-old male well-known to me that presents for evaluation regarding his inability to ambulate. He is status post total knee arthroplasty earlier this year unfortunately in a postoperative infection is undergoing antibiotic treatment. He notes marked decline in his ability to stand and walk completely dependent on a walker or wheelchair for transport. Denies any specific leg pain. Does describe diffuse numbness. Allergies Allergy/AdvReac Type Severity Reaction Status Date / Time cat dander Allergy Unknown difficulty Verified 07/09/19 15:12 breathing dog dander Allergy Unknown difficulty Verified 07/09/19 15:12 breathing shrimp Allergy Unknown difficulty Verified 07/09/19 15:12 breathing adhesive tape AdvReac Intermediate Rash/swelling/lesions Verified 07/10/19 09:30 for > 1 month Home Medications Home Medications Medication Instructions Recorded Confirmed Type Alvesco 1 puff INHALATION BID 04/10/19 07/09/19 History albuterol sulfate [Ventolin HFA] 1 puff INHALATION Q6H PRN 04/10/19 07/09/19 History bupropion HCl 300 mg PO QAM 04/10/19 07/09/19 History cholecalciferol (vitamin D3) 2,000 unit PO QAM 04/10/19 07/09/19 History [Vitamin D3] losartan-hydrochlorothiazide 1 tab PO QAM 04/10/19 07/09/19 History metoprolol succinate 50 mg PO HS 04/10/19 07/09/19 History multivitamin 1 tab PO QAM 04/10/19 07/09/19 History simvastatin 20 mg PO HS 04/10/19 07/09/19 History oxycodone 5 mg PO Q4 PRN #30 tab 06/03/19 07/09/19 Rx cephalexin 500 mg capsule 500 mg PO BID #60 cap 07/08/19 07/09/19 Rx Past Med/Surg History Medical History (Updated 07/14/19 @ 12:24 by Stanislaw Garrett DO) Asthma controlled. Alvesco BID; albuterol a couple times per week. History of kidney stones 11/2018 History of sleep apnea (Inactive) "resolved"-- retesting was negative Hyperlipidemia Controlled on meds Hypertension Controlled on meds. Obesity Osteoarthritis PICC (peripherally inserted central catheter) in place For infected R TKA. To be removed 07/13 and switching to PO Keflex. Surgeon aware. Postoperative infection of knee I+D 05/31/19, discharged 06/04 with PICC; to be removed 07/13. Surgeon aware. Surgical History H/O total knee replacement R knee 04/2019. Subsequent infection 3 wks later with debridement and antibiotic beads placed. Following with ID, has PICC line (to be removed 07/13) History of cholecystectomy History of colonoscopy History of esophagogastroduodenoscopy (EGD) History of laminectomy "thoracic" History of left hip replacement History of left shoulder replacement Left TSA: 06/26/17: Grade 3 view, MAC#4, ETT 8.0 + PNB at [facility] History of lithotripsy History of neck surgery ?laminectomy (1985) History of pituitary surgery (Inactive) "tumor removed and radiation therapy" History of prostate biopsy History of right hip replacement History of right inguinal hernia repair History of right shoulder replacement History of spinal fusion S/P tonsillectomy and adenoidectomy Family History Other Hypertension Social History Preferred Language: Malagasy Communication Ability: Effective 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 He is unable to take a few steps without use of his walker. He is performing 5 unassisted gait. Bench exam reveals 4+/5 bilateral plantar flexion dorsiflexion quadriceps. He demonstrates of bilateral sustained clonus and brisk reflexes to testing the left knee. They are absent in the right knee which is status post total knee arthroplasty. He has decreased sensation to light touch bilaterally. Results & Data Diagnostic Findings MRI of the thoracic spine dated 07/03/2019 is available for review and able to review it personally. Demonstrates severe spinal stenosis at T10-T11 T11-T12 with evidence of gross myelomalacia within the cord.
[~2019-07-15 09:45] MED LIST changes: -BUPIVACAINE 0.25% 30 ML VIAL ONE; -BUPIVACAINE 0.5 % 5 MG/1 ML PF 10ML VIAL ONE; -FAMOTIDINE 20 MG TAB PO SCH; +LR 15ML/HR IV SCH; -LR 500ML BOLUS, THEN 15ML/HR IV SCH; -METOCLOPRAMIDE HCL 10 MG TABLET PO SCH; -ROPIVACAINE 0.5% HCL/PF 150 MG, BUPIVACAINE 0.5% MPF 30 ML, EPINEPHrine 30MG/30ML (OR U... INFIL SCH; -TRANEXAMIC ACID 1,000 MG **IV Intra-op IV SCH; -TRANEXAMIC ACID 1,000 MG **IV Pre-op IV SCH; -dexAMETHasone 4 MG TAB PO SCH
[2019-07-15] MEDS ORDERED: fentaNYL citrate 100 MCG/2 ML VIAL ONE (10:06)
[2019-07-15] MEDS ORDERED: LIDOCAINE HCL 2% 2 ML VIAL/AMP(20MG/ML) INFIL ONE (10:06)
[2019-07-15] MEDS ORDERED: PROPOFOL IV EMULSION 10 MG/ML 20 ML VIAL IV ONE (10:06)
[2019-07-15] MEDS ORDERED: ONDANSETRON INJ 2 MG/ML 2 ML VIAL ONE (10:06)
[2019-07-15] MEDS ORDERED: MIDAZOLAM HCL 1 MG/ML 2ML VIAL ONE (10:06)
[2019-07-15] MEDS ORDERED: DEXAMETHASONE SOD INJ 4 MG/ML VIAL ONE (10:06)
[2019-07-15] MEDS ORDERED: SUCCINYLCHOLINE 100MG/5ML SYR ONE (10:06)
[2019-07-15] MEDS ORDERED: ROCURONIUM BROMIDE 10 MG/ML 5 ML VIAL ONE (10:06)
[2019-07-15] MEDS ORDERED: LABETALOL HCL IV 5 MG/ML 20ML IV PRN (10:40)
[2019-07-15] MEDS ORDERED: ATROPINE SULFATE 0.1 MG/ML 10ML SYR IV PRN (10:40)
[2019-07-15] MEDS ORDERED: ePHEDrine sulfate 50 MG/ML AMP IV PRN (10:40)
[2019-07-15] MEDS ORDERED: PHENYLEPHRINE 100MCG/ML 5ML SYR IV PRN (10:40)
[2019-07-15] MEDS ORDERED: MEPERIDINE HCL 25 MG/ML CARP/VIAL IV PRN (10:40)
[2019-07-15] MEDS ORDERED: ONDANSETRON INJ 2 MG/ML 2 ML VIAL IV PRN ×2 (10:40→15:10)
[2019-07-15] MEDS ORDERED: HYDROmorphone INJ 1 MG/ML SYRINGE IV PRN ×2 (10:40→15:10)
--- NOTE | 2019-07-15 11:08 | History & Physical Bridge Note ---
Date of Service July 15, 2019 History & Physical Bridge Note I have examined the patient, reviewed the History & Physical and in the interval since the performance of the History & Physical I have noted the following changes of clinical significance: no changes noted
[2019-07-15] MEDS ORDERED: GENTAMICIN SULFATE 40 MG/ML 2 ML VIAL ONE (11:17)
[2019-07-15] MEDS ORDERED: BACITRACIN INJ 50,000 UNIT VIAL ONE (11:18)
[2019-07-15] MEDS ORDERED: VANCOMYCIN HCL 1000MG/20ML VIAL ONE (11:18)
[2019-07-15] MEDS ORDERED: BUPIVACAINE/EPINEPHRINE 0.5% MPF 1:200,000 10 ML VIAL ONE (11:18)
[2019-07-15] MEDS ORDERED: GLYCOPYRROLATE 0.2 MG/ML VIAL ONE ×2 (11:53→12:16)
[2019-07-15] MEDS ORDERED: NEOSTIGMINE METHYLSULFATE 5 MG/5 ML SYR ONE (11:53)
[2019-07-15] MEDS ORDERED: FLOSEAL HEMOSTATIC MATRIX 10ML TOP ONE (12:19)
--- NOTE | 2019-07-15 13:26 | Operative Report ---
Post Operative Report Pre & Post Diagnosis Operation Date: 07/15/19 11:15 Pre-Op Diagnosis: Thoracic spinal stenosis with myelopathy Post-Op Diagnosis: Same with herniated nucleus pulposus T10-T11 on the right. I identified the patient and participated in the time-out.: Yes Procedure Operation Date: 07/15/19 11:15 Actual Procedures #1 lumbar decompression with bilateral medial facetectomies T10-T11, T11-T12. #2 posterior spinal fusion T10-T11, T11-T12. #3 placement of infuse collagen sponge combined with master graft in the posterior lateral gutters. #4 placement of approximately 2 3 cc of stimulan beads impregnated with vancomycin and gentamicin within the incision and posterior gutters. Surgeon Stanislaw Garrett, Batch Trucker Radha Napoles Estimated Blood Loss 100 Findings Consistent with Post-Op Diagnosis Specimens None Indications This is a 68-year-old male that presents to my office with marked decline in ability to ambulate. Imaging demonstrates severe spinal stenosis with myelomalacia between T10 and T12. Subsequently we perform a urgent decompression. Description of Procedure Patient was met with identified informed consent obtained. Patient was then taken to the operative suite underwent intubation placed in a prone position the Krish table on top of the Umesh frame. All bony prominences well-padded eyes inspected to ensure no external pressure placed upon. This point the thoracic spine was prepped and draped in a sterile fashion. Sharp dissection with the assistance of Bovie cautery was performed down to and exposing the lamina and transverse processes of T10-T11 and T11-T12. Then performed a midline decompression complete laminectomy of T11 and T10 including bilateral medial facetectomies addressing severe spinal stenosis. I also identified a large disc herniation at T10-T11 on the right. This was removed from the lateral recess at this level. It was creating significant compression along the side. After this complete the transverse processes and facet joints of T10-T11 and T11-T12 were burred to subcortical being bone. Infuse collagen sponge and master graft was placed in the posterior gutters. 15 round DENI drain inserted. Approximately 2 to 3 cc of stimulan beads were then placed throughout the posterior gutters and the incision site. Incision was then closed with 1 Vicryl the fascia 2-0 Vicryl subcutaneously and 4 Monocryl for final skin closure. Steri-Strips dressings placed. Patient will continue PACU stable condition. Please note Radha Napoles was present at the entire procedure involved in patient positioning complex portions of the surgery and final skin coat closure. Lastly spinal cord monitoring was utilized that the procedure no changes noted. I attest to the content of the Intraoperative Record and any orders documented therein. Any exceptions are noted below.
--- NOTE | 2019-07-15 13:44 | Fluoroscopy Report ---
FL lumbar spine 2-3V CLINICAL HISTORY: 68 years-old Male presenting with T10-L1 DECOMPRESSION/FUSION. TECHNIQUE: 1 fluoroscopic image(s) recorded as part of an intraoperative procedure. COMPARISON: MR from 07/03/2019. FINDINGS/IMPRESSION: Instrumentation projects over the posterior soft tissues of the thoracolumbar junction. Please see surgical report for further details. Fluoroscopy dosage (mGy): 13.02. Fluoroscopy time: 16.7 seconds. Number or time of high level fluoroscopy (HLF), digital spot, or digital subtraction images: 0. ACT 112: Negative or not required by law. Electronically signed by: Cody Alcala M.D. 07/15/2019 1:43 PM
[2019-07-15] MEDS: fentaNYL citrate 100 MCG/2 ML VIAL IV PRN ×2 (14:04→14:10)
--- NOTE | 2019-07-15 14:29 | Anesthesiology Progress Note ---
Date of Service July 15, 2019 Anesthesia Post Procedure Vital Signs Vital Signs: Temp Pulse Pulse Resp BP BP Pulse Ox 07/15/19 14:20 58 L 10 L 107/85 98 07/15/19 14:10 57 L 12 118/81 96 07/15/19 14:00 55 L 16 122/76 93 07/15/19 13:50 64 17 122/86 96 07/15/19 13:41 36.2 C L 78 14 125/78 97 07/15/19 10:30 36.7 C 60 20 142/87 H 95 Pain Intensity Right Leg: Pain Intensity: 1 Back: Pain Intensity: 0 Transfer of Care Handoff Completed per policy Notes Mental Status: alert / awake / arousable Patient Amnestic to Procedure: Yes Nausea / Vomiting: adequately controlled Pain: adequately controlled Airway Patency, RR, SpO2: stable & adequate BP & HR: stable & adequate Hydration State: stable & adequate Anesthetic Complications: no major complications apparent and Pt Satisfied with anesthetic care
[2019-07-15] MEDS ORDERED: HYDROmorphone INJ 0.5 MG/0.5 ML SYR IV PRN (15:10)
[2019-07-15] MEDS ORDERED: ACETAMINOPHEN 500 MG TAB PO PRN (15:10)
[2019-07-15] MEDS ORDERED: LORazepam 0.5 MG TAB PO PRN (15:10)
[2019-07-15] MEDS ORDERED: ACETAMINOPHEN 1,000 MG/100 ML VIAL IV PRN (15:10)
[2019-07-15] MEDS ORDERED: NALOXONE HCL 0.4 MG/1 ML VIAL/CARP IV PRN (15:10)
[2019-07-15] MEDS ORDERED: DO NOT ADMINISTER PNEUMOCOCCAL VACCINE PRN (15:10)
[2019-07-15] MEDS ORDERED: ALBUTEROL HFA 8 GM INHALER INH PRN (15:10)
[2019-07-15] MEDS ORDERED: LORazepam 0.5 MG/1 ML VIAL IV PRN (15:10)
[2019-07-15] MEDS ORDERED: ONDANSETRON 4 MG OD TAB PO PRN (15:10)
[2019-07-15] MEDS ORDERED: FAMOTIDINE 20 MG TAB PO PRN (15:10)
[2019-07-15] MEDS ORDERED: bisacodyL 10 MG SUPP PR PRN (15:10)
[2019-07-15] MEDS ORDERED: PROMETHAZINE HCL 12.5 MG in SODIUM CHLORIDE 0.9% 50 ML IV PRN (15:10)
[2019-07-15] MEDS ORDERED: TRAMADOL HCL 50 MG TABLET PO PRN (15:10)
[2019-07-15] MEDS ORDERED: MAGNESIUM HYDROXIDE SUSP 30 ML UDC PO PRN (15:10)
[2019-07-15] MEDS ORDERED: SOD PHOSPHATE/SOD BIPHOSPHATE ENEMA 132 ML BTL PR PRN (15:10)
[2019-07-15] MEDS ORDERED: METOCLOPRAMIDE HCL INJ 5 MG/ML 2 ML VIAL IV PRN (15:10)
[2019-07-15] MEDS ORDERED: ALUMINUM/MAGNESIUM SUSP 30 ML UDC PO PRN (15:10)
[2019-07-15] MEDS ORDERED: DO NOT ADMINISTER FLU VACCINE PRN (15:10)
[2019-07-15] MEDS: SODIUM CHLORIDE 0.9% 1000ML 1,000 ML IV SCH (15:19)
[2019-07-15] MEDS ORDERED: COUGH DROP (SUGAR FREE) LOZ 24 LOZ/1 BOX BUCCAL ONE (15:23)
[2019-07-15] MEDS: OXYCODONE HCL IR 5 MG TAB (IMMEDIATE RELEASE) PO PRN (15:24)
--- NOTE | 2019-07-15 16:09 | Hospitalist Consultation ---
Date of Consultation July 15, 2019 Assessment & Plan (1) Thoracic spondylosis with myelopathy: S/p thoracic decompression with bilateral medial facetectomies T10-T11, T11-T12 on 07/[address] Garrett. - Post-operative care per primary team - At risk for acute blood loss anemia -> Will monitor CBC and consider iron infusion as needed (2) Postoperative infection of knee: Required I&D and antibiotic bead placement in right knee with orthopedics in 05/2018. Finished abx on 07/14/2019. - Monitor right knee. (3) Asthma: Well-controlled overall. No current shortness of breath. - Continue home inhaler - DuoNebs PRN (4) Hypertension: BP is 120/80 after surgery. - Continue home meds: metoprolol, losartan, & HCTZ - Monitor (5) BPH (benign prostatic hypertrophy): Will monitor for retention after narcotics needed for surgery. - Low threshold for PVRs & straight cath/Servin (6) Hyperlipidemia: - Continue statin (7) DVT prophylaxis: SCDs - Start chemoprophylaxis per primary team History of Present Illness Attending Physician: Stanislaw Garrett DO History of Present Illness 68yo M w/ hx of right TKA with infection requiring incision, drainage, irrigation, debridement, tibial polyethylene exchange, placement of antibiotic beads and drains on 05/31 who presents as a routine medical consult. The patient had thoracic spinal stenosis with myelopathy and required thoracic decompression with bilateral medial facetectomies T10-T11, T11-T12. He is post-op and is doing well overall. No present pain relatively. Allergies Allergy/AdvReac Type Severity Reaction Status Date / Time cat dander Allergy Unknown difficulty Verified 07/15/19 10:26 breathing dog dander Allergy Unknown difficulty Verified 07/15/19 10:26 breathing shrimp Allergy Unknown difficulty Verified 07/15/19 10:26 breathing adhesive tape AdvReac Intermediate Rash/swelling/lesions Verified 07/15/19 10:26 for > 1 month Home Medications Home Medications Medication Instructions Recorded Confirmed Type Alvesco 1 puff INHALATION BID 04/10/19 07/15/19 History albuterol sulfate [Ventolin HFA] 1 puff INHALATION Q6H PRN 04/10/19 07/15/19 History bupropion HCl 300 mg PO QAM 04/10/19 07/15/19 History cholecalciferol (vitamin D3) 2,000 unit PO QAM 04/10/19 07/15/19 History [Vitamin D3] losartan-hydrochlorothiazide 1 tab PO QAM 04/10/19 07/15/19 History metoprolol succinate 50 mg PO HS 04/10/19 07/15/19 History multivitamin 1 tab PO QAM 04/10/19 07/15/19 History simvastatin 20 mg PO HS 04/10/19 07/15/19 History oxycodone 5 mg PO Q4 PRN #30 tab 06/03/19 07/15/19 Rx cephalexin 500 mg capsule 500 mg PO BID #60 cap 07/08/19 07/15/19 Rx oxycodone 5 mg PO Q6H PRN #30 tab 07/16/19 Rx tramadol 50 mg PO Q6H PRN #30 tab 07/16/19 Rx Patient History Family History Other Hypertension Social History Preferred Language: Spanish Communication Ability: Effective 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 Required: No Beliefs That Will Affect Care: None marital status: Current Living Situation: Spouse Other Information That Helps Us Care for You: No Feels Safe at Home: Yes Smoking Status: Never smoker Do You Dip or Chew Tobacco: No ; Second Hand Exposure: No ; Hx Alcohol Use: Yes Alcohol type: wine Hx Substance Use: No Review of Systems Review of Systems: All systems reviewed & are unremarkable except as noted in HPI & below Physical Exam Constitutional: WD/WN, vitals as above Eyes: EOM intact bilaterally; no conjunctival abnormality ENMT: external ear and nose normal, oropharynx normal Neck: trachea midline, no thyromegaly normal visual inspection Respiratory: normal respiratory effort, lungs clear to auscultation no respiratory distress Cardiovascular: RRR, no murmur, no edema Gastrointestinal (Abdomen): Inspection/Auscultation: abdomen normal to inspection; abdomen not distended Musculoskeletal: no cyanosis or clubbing, extremities motor strength 5/5 (Drain present.) Skin: no rashes, warm and dry Neurologic: moves all extremities and awake Psychiatric: Orientation: alert, oriented to person and cooperative Results & Data Results & Data ([place]) Vital Signs (Past 12 Hours) Vital Signs Temp Pulse Pulse Resp BP BP Pulse Ox 07/15/19 15:26 36.0 C L 56 L 16 122/78 90 07/15/19 14:55 36.4 C L 63 16 134/82 92 07/15/19 14:40 57 L 16 138/76 99 07/15/19 14:30 36.3 C L 58 L 13 122/80 98 07/15/19 14:20 58 L 10 L 107/85 98 07/15/19 14:10 57 L 12 118/81 96 07/15/19 14:00 55 L 16 122/76 93 07/15/19 13:50 64 17 122/86 96 07/15/19 13:41 36.2 C L 78 14 125/78 97 07/15/19 10:30 36.7 C 60 20 142/87 H 95 Pulse Ox 07/15/19 15:26 07/15/19 14:55 92 07/15/19 14:40 07/15/19 14:30 07/15/19 14:20 07/15/19 14:10 07/15/19 14:00 07/15/19 13:50 07/15/19 13:41 07/15/19 10:30 PG Care Time/CCT Total # of Minutes Spent Total Time Spent with Patient: Total time spent is greater than 50% in coordination of care (as documented) at patient's floor/unit and/or counseling patient: Coding Level of Care Code 87383 Inpt Consult Level 4 Diagnoses Thoracic spondylosis with myelopathy M47.14 Postoperative infection of knee T81.49XA; M00.9 Asthma J45.909 Hypertension I10 BPH (benign prostatic hypertrophy) N40.0 Hyperlipidemia E78.5 DVT prophylaxis Z29.9
[2019-07-15] MEDS: CEFAZOLIN 2000MG 2,000 MG/15 ML SYR IV SCH (19:58)
[2019-07-15] MEDS: SIMVASTATIN 20 MG TAB PO SCH (20:07)
[2019-07-15] MEDS: METOPROLOL SUCC 50MG EXT REL TAB PO SCH (20:07)
[2019-07-15] MEDS: DOCUSATE SODIUM/SENNA 50/8.6MG TAB PO SCH (20:09)
[2019-07-16] MEDS: SODIUM CHLORIDE 0.9% 1000ML 1,000 ML IV SCH (00:16)
[2019-07-16] MEDS: CEFAZOLIN 2000MG 2,000 MG/15 ML SYR IV SCH (03:44)
[2019-07-16] MEDS: POLYETHYLENE (MIRALAX) 17 GM PACK PO SCH ×3 (05:58→18:28)
[2019-07-16 06:28] LABS: Basophils # (auto) 0.01 K/uL (0-0.2); Basophils % (auto) 0.1 %; Eosinophils # (auto) 0.02 K/uL (0-0.5); Eosinophils % (auto) 0.2 %; Hematocrit (blood only) 36.8 % (42-52); Immature Granulocytes # (auto) 0.03 K/uL (0.00-0.02); Immature Granulocytes % (auto) 0.3 %; Mean Corpuscular Hemoglobin 28.1 pg (25-34); Mean Corpuscular Hgb Conc 32.6 g/dL (32-36); Mean Corpuscular Volume 86.2 fL (80-100); Mean Platelet Volume 8.8 fL (7.4-10.4); Monocytes # (auto) 0.53 K/uL (0.11-0.59); Monocytes % (auto) 5.3 %; Neutrophils # (auto) 8.64 K/uL (1.4-6.5); Neutrophils % (auto) 87.1 %; Platelet Count 160 K/uL (130-400); RDW Coefficient of Variation 13.6 % (11.5-14.5); RDW Standard Deviation 42.8 fL (36.4-46.3); Red Blood Count 4.27 M/uL (4.7-6.1); White Blood Count 9.93 K/uL (4.8-10.8)
[2019-07-16 07:09] LABS: BUN Creatinine Ratio 17.6 (10-20); Calcium 8.9 mg/dl (8.5-10.1); Creatinine Clr Calc Pharmacy 116.1 ml/min; Est GFR (African American) 105.1; Est GFR (Non-African American) 90.7
--- NOTE | 2019-07-16 08:12 | Orthopedic Progress Note ---
Date of Service July 16, 2019 Assessment & Plan (1) Thoracic spondylosis with myelopathy: At this time will initiate physical therapy assess his progress over the next day. He would like to discharge home Saturday if possible. Present on Admission?: Yes Admission and Anticipated Discharge Date Admission Date: July 15, 2019 Subjective Back pain is controlled still has significant lower extremity numbness was ambulating last evening. Physical Exam Physical Exam: On exam he is good strength testing does appear comfortable. Results & Data ([facility]) Vital Signs (Past 12 Hours) Vital Signs Temp Pulse Resp BP Pulse Ox 07/16/19 07:01 36.5 C 60 18 107/69 97 07/16/19 03:00 36.3 C L 71 18 121/69 95 07/16/19 00:06 96 07/16/19 00:05 82 L 07/15/19 23:19 36.4 C L 69 18 95/55 L 91
[2019-07-16] MEDS: FLUTICASONE FUROATE 100MCG 14 PUFFS/INHALER INH SCH (08:40)
[2019-07-16] MEDS: LOSARTAN POTASSIUM 50 MG TAB PO SCH (08:41)
[2019-07-16] MEDS: MULTIVITAMIN TAB PO SCH (08:42)
[2019-07-16] MEDS: CHOLECALCIFEROL 1,000 UNITS 25 MCG TAB PO SCH (08:42)
[2019-07-16] MEDS: hydroCHLOROthiazide 25 MG TAB PO SCH (08:42)
[2019-07-16] MEDS: BuPROPion XL 300 MG TABCR PO SCH (08:42)
[2019-07-16] MEDS: DEXAMETHASONE SOD PHOSPHATE 8 MG in SYRINGE 0 ML IV SCH (08:43)
[2019-07-16] MEDS ORDERED: Nursing to Pharmacy Communication ONE (08:44)
[2019-07-16] MEDS ORDERED: NON-FORMULARY MEDICATION (Losartan-Hydrochlorothiazide 1 TAB) PO SCH (09:00)
[2019-07-16] MEDS: OXYCODONE HCL IR 5 MG TAB (IMMEDIATE RELEASE) PO PRN ×2 (10:14→18:31)
--- NOTE | 2019-07-16 16:09 | Hospitalist Progress Note ---
Date of Service July 16, 2019 Assessment & Plan (1) Thoracic spondylosis with myelopathy: S/p thoracic decompression with bilateral medial facetectomies T10-T11, T11-T12 on 07/[address] Garrett. - Post-operative care per primary team - At risk for acute blood loss anemia -> Will monitor CBC and consider iron infusion as needed. Hgb stable at 12.0 today. (2) Postoperative infection of knee: Required I&D and antibiotic bead placement in right knee with orthopedics in 05/2018. Finished abx on 07/14/2019. - Right knee looks good without any pain, swelling, or erythema. (3) Asthma: Well-controlled overall. No current shortness of breath. No wheezing. - Continue home inhaler - DuoNebs PRN (4) Hypertension: BP is 120/80 after surgery. - Continue home meds: metoprolol, losartan, & HCTZ - Monitor (5) BPH (benign prostatic hypertrophy): Will monitor for retention after narcotics needed for surgery. - Low threshold for PVRs & straight cath/Servin - Presently urinating well. No lower urinary tract symptoms. (6) Hyperlipidemia: - Continue statin (7) DVT prophylaxis: SCDs - Start chemoprophylaxis per primary team Given medical stability, Hospital Medicine team will sign off. Please re-consult with any questions or concerns. Thank you for letting us assist in the care of this patient! Admission and Anticipated Discharge Date Admission Date: July 15, 2019 Subjective Feeling well today. No major concerns. Back pain is very tolerable. Reports no fevers/chills, chest pain, shortness of breath, abdominal pain, nausea, or vomiting. Physical Exam Constitutional: WD/WN, vitals as above Eyes: EOM intact bilaterally; no conjunctival abnormality ENMT: external ear and nose normal, oropharynx normal Neck: trachea midline, no thyromegaly normal visual inspection Respiratory: normal respiratory effort, lungs clear to auscultation no respiratory distress Cardiovascular: RRR, no murmur, no edema Gastrointestinal (Abdomen): Inspection/Auscultation: abdomen normal to inspection; abdomen not distended Musculoskeletal: no cyanosis or clubbing, extremities motor strength 5/5 (Drain present with mild serosanguinous drainage.) Skin: no rashes, warm and dry Neurologic: moves all extremities and awake Psychiatric: Orientation: alert, oriented to person and cooperative Results & Data Results & Data ([facility]) Vital Signs (Past 12 Hours) Vital Signs Temp Pulse Resp BP Pulse Ox 07/16/19 15:17 36.7 C 58 L 18 109/59 L 91 07/16/19 13:45 95 07/16/19 11:02 36.7 C 59 L 18 128/71 90 07/16/19 07:01 36.5 C 60 18 107/69 97 PG Care Time/CCT Total # of Minutes Spent Total Time Spent with Patient: Total time spent is greater than 50% in coordination of care (as documented) at patient's floor/unit and/or counseling patient: Coding Level of Care Code 36474 Subseq Hosp Care Lvl 2 Diagnoses Thoracic spondylosis with myelopathy M47.14 Postoperative infection of knee T81.49XA; M00.9 Asthma J45.909 Hypertension I10 BPH (benign prostatic hypertrophy) N40.0 Hyperlipidemia E78.5 DVT prophylaxis Z29.9
[2019-07-16] MEDS: METOPROLOL SUCC 50MG EXT REL TAB PO SCH (20:26)
[2019-07-16] MEDS: SIMVASTATIN 20 MG TAB PO SCH (20:31)
[2019-07-16] MEDS: DOCUSATE SODIUM/SENNA 50/8.6MG TAB PO SCH (20:31)
[2019-07-17] MEDS: POLYETHYLENE (MIRALAX) 17 GM PACK PO SCH ×3 (00:10→11:45)
[2019-07-17] MEDS: CHOLECALCIFEROL 1,000 UNITS 25 MCG TAB PO SCH (08:26)
[2019-07-17] MEDS: BuPROPion XL 300 MG TABCR PO SCH (08:26)
[2019-07-17] MEDS: LOSARTAN POTASSIUM 50 MG TAB PO SCH (08:26)
[2019-07-17] MEDS: FLUTICASONE FUROATE 100MCG 14 PUFFS/INHALER INH SCH (08:27)
[2019-07-17] MEDS: MULTIVITAMIN TAB PO SCH (08:27)
[2019-07-17] MEDS: hydroCHLOROthiazide 25 MG TAB PO SCH (08:27)
[2019-07-17] MEDS: DEXAMETHASONE SOD PHOSPHATE 8 MG in SYRINGE 0 ML IV SCH (08:28)
[2019-07-17] MEDS: OXYCODONE HCL IR 5 MG TAB (IMMEDIATE RELEASE) PO PRN (10:06)
--- NOTE | 2019-07-17 12:39 | Discharge Summary ---
Date of Service July 17, 2019 Admission HPI Per Admitting Provider This is a 68-year-old male well-known to me that presents for evaluation regarding his inability to ambulate. He is status post total knee arthroplasty earlier this year unfortunately in a postoperative infection is undergoing antibiotic treatment. He notes marked decline in his ability to stand and walk completely dependent on a walker or wheelchair for transport. Denies any specific leg pain. Does describe diffuse numbness. Principal Diagnosis Thoracic spinal stenosis with myelopathy Discharge Data Allergies Allergy/AdvReac Type Severity Reaction Status Date / Time cat dander Allergy Unknown difficulty Verified 07/15/19 10:26 breathing dog dander Allergy Unknown difficulty Verified 07/15/19 10:26 breathing shrimp Allergy Unknown difficulty Verified 07/15/19 10:26 breathing adhesive tape AdvReac Intermediate Rash/swelling/lesions Verified 07/15/19 10:26 for > 1 month Consultations 07/15/19 15:10 Consult Case Management - Discharge Planning Routine Consult Hospitalist Routine Procedures Performed Operation Date: 07/15/19 11:15 Actual Procedures p T10-L1 Decompression, Spinal Cord Monitoring(Not Applicable) - Stanislaw Garrett DO Ordered Studies 07/15/19 11:15 FL fluoroscopy <1hr Routine FL lumbar spine 2-3V Routine Hospital Course (1) Thoracic spondylosis with myelopathy: Patient underwent thoracic decompression fusion tolerated this well was taken to orthopedic for postoperative. Postop day 1 he was up and tolerating physical therapy he progressed to postop day #2. DENI drain decreasing probably. Strength improving. Subsequently discharged home. Discharge orders instructions from the chart for further review. Total Time Total Time Spent Total Time Spent (In Minutes): 20 minutes Discharge Plan Discharge Items Patient Disposition: Home - Self-Care Reason For Visit: Spinal Stenosis, Thoracic Region Discharge Diagnosis: Thoracic spinal stenosis with myelopathy Activity: As commented below Non-emergency contact: Primary Care Provider Call non-emergency contact if: you have any medication questions Follow-up/Referrals: Rodrigo Kat [Primary Care Provider] - Diet: Regular Addtl Attending Provider Instructions: ACTIVITY RECOMMENDATIONS: SELF CARE INSTRUCTIONS AFTER THORACIC/LUMBAR FUSIONS 1. You may walk to your tolerance. It is good exercise for your legs and back. Expect some back and intermittent leg aches and pains. 2. You may perform "counter-top" level activities (make a sandwich, ivana with a project, etc.). 3. No bending or lifting of more than 10 pounds or back twisting of any nature (roll like a log when turning in bed). 4. You may ride in a car for 20-30 minutes at a time. No driving until after your first visit with your doctor. 5. Frequent changes of position and restricting sitting to 30 minutes at a time will help limit the amount of back spasms and stiffness you may experience. 6. You may discontinue the use of ambulatory aids (cane, crutches, etc.) once your strength and confidence allow. 7. You may event marketing intern the shower and let water strike your incision when you arrive home at least once daily. Do not take a tub bath, sit in a hot tub or go into a swimming pool until after your first recheck in the office. SPECIAL CARE INSTRUCTIONS: VERY IMPORTANT TO READ AND REVIEW A. Your surgical incision has been closed with a cosmetic suture under the skin that will dissolve in about 6 weeks. In 14 days, you can use a pair of clean scissors and cut the suture that is left outside of the skin at the ends of your incision. 1. The small skin tapes can be removed 7 days after surgery if they have not fallen off by that point. 2. You may keep the wound open to air as much as possible to promote healing after post-op day number 5 unless told otherwise by your doctor. 3. If you think the wound looks like it is becoming infected (redness or worsening drainage) and/or you are experiencing fever, chill or worsening back pain and muscle spasms, contact the office so that we may evaluate you as soon as possible. B. Complications are uncommon, but please contact us if you have any signs or symptoms of: 1. wound infection (fever higher than 102.5 degrees F, redness, separation of wound, drainage, or increasing pain from the incision) 2. blood clots in legs (pain, swelling, redness and warmth in legs) 3. urinary tract infection (fever higher than 102.5 degrees F, burning upon urination or increased frequency of urination) 4. nerve problems (inability to walk on your toes or heels, numbness, loss of bowel or bladder control) 5. any other symptoms that concern you C. Please call the office at if you have any concerns or questions about your operation or recovery. D. No smoking! Smoking drastically decreases the chance of a solid fusion. E. Do not take any anti-inflammatory medications (Indocin, Advil, Motrin, Aspirin, Naprosyn, etc.) as these may inhibit the chance of a solid fusion. Tylenol is okay to take for pain. MANAGING PAIN AFTER SPINAL SURGERY 1. Narcotic medication is intended for short-term use and will be provided for surgical pain. Surgical pain usually lasts for a period of 4-6 weeks. Narcotic medication includes Percocet, Vicodin, Darvocet, Tylenol #3 or Lortab. 2. Longer-term pain is more appropriately treated with non-narcotic medication such as Tylenol ES. 3. Muscle spasm is not appropriately treated with narcotics. Muscle relaxers such as Soma, Flexeril or Skelaxin can be used along with Tylenol ES. 4. Remember that we all live with some "aches and pains". This is not unusual or uncommon after an injury or as we get older. a. Back pain is expected and may include muscle spasms for 4 to 6 weeks after surgery. The pain should gradually improve. If the pain worsens for no apparent reason, please contact the office. b. Intermittent leg pain may also be experienced and should not be concerned about unless it worsens for no apparent reason. If so, please contact the office. 5. We will provide appropriate medication within the normal guidelines of their prescribed use. We will also be very cautious and aware of potential abuse and extended duration of patients' medication needs. a. Pain medications are for your comfort and to assist with sleep and rest so that the tissue can heal. They are not provided in order to return to normal activity and should not be used through the day. To do so or worsening pain at night can result from ongoing tissue damage and development of tolerance to the prescribed medicine. 6. Please allow 2-3 days to process refills. Prescriptions will not be mailed but must be picked up at the office. FOLLOW UP VISIT: Keep your scheduled follow-up appointment. Any questions, please call the office at . Pending Studies at Discharge: No Stand-Alone Forms: My [employer], Smoking Cessation Medications and DC Order Prescriptions: New tramadol 50 mg tablet 50 mg PO Q6H PRN (Reason: pain, moderate) Qty: 30 RF: 0 oxycodone 5 mg tablet 5 mg PO Q6H PRN (Reason: pain, severe) Qty: 30 RF: 0 Continued cephalexin [Keflex] 500 mg capsule 500 mg PO BID Qty: 60 RF: 2 multivitamin Tablet 1 tab PO QAM RF: 0 metoprolol succinate 50 mg Tablet Extended Release 24 Hr 50 mg PO HS RF: 0 simvastatin 20 mg Tablet 20 mg PO HS RF: 0 albuterol sulfate [Ventolin HFA] 90 mcg/actuation Hfa Aerosol Inhaler 1 puff INHALATION Q6H PRN (Reason: Wheezing) RF: 0 bupropion HCl 300 mg Tablet Extended Release 24 Hr 300 mg PO QAM RF: 0 losartan-hydrochlorothiazide 100-12.5 mg Tablet 1 tab PO QAM RF: 0 cholecalciferol (vitamin D3) [Vitamin D3] 2,000 unit Tablet 2,000 unit PO QAM RF: 0 Alvesco 80 mcg/actuation Hfa Aerosol Inhaler 1 puff INHALATION BID RF: 0 oxycodone 5 mg Tablet 5 mg PO Q4 PRN (Reason: pain) Qty: 30 RF: 0 Discharge Orders: Discharge Order (Routine); Ordered 07/17/19 Ordered By: Stanislaw Garrett Admission Data Admit Date/Time: 07/15/19 13:57 Attending Provider: Stanislaw Garrett Admit Provider: Stanislaw Garrett Primary Care Provider: Rodrigo Kat Other Providers: Mk Rouse Other Interventions: Discharge Summary Assessment (RN) Last Done: 07/17/19 10:54
== END 2019-07-17 13:22 | disposition home or self-care (01) | DRG 460 ==
LOC: ASU 09:45 → 3E 13:57

== ENCOUNTER 2023-02-25 10:57 | Inpatient (IN) ==
--- NOTE | 2023-01-22 14:21 | PAT Medication Instructions ---
Medication Instructions Date of Service January 22, 2023 Home Medications Medication Instructions Recorded tramadol 50 mg tablet 50 mg PO Q6H PRN pain, moderate 07/16/19 #30 tabs albuterol sulfate 90 mcg/actuation aerosol inhaler (Ventolin HFA) 1 puff inhalation Q6H PRN bupropion HCl 300 mg 24 hr tablet, extended release 300 mg PO QAM cholecalciferol (vitamin D3) 50 mcg (2,000 unit) tablet (Vitamin D3) 2,000 unit PO QAM losartan 100 mg-hydrochlorothiazide 12.5 mg tablet 1 tab PO QAM metoprolol succinate 50 mg tablet,extended release 24 hr 50 mg PO HS multivitamin 1 tab PO QAM simvastatin 20 mg tablet 20 mg PO HS tramadol 50 mg tablet 50 mg PO Q6H PRN ascorbic acid (vitamin C) 1,000 mg tablet (Vitamin C) 1 g PO QAM fluticasone furoate 200 mcg-vilanterol 25 mcg/dose inhalation powder (Breo Ellipta) 1 inh inhalation QAM tamsulosin 0.4 mg capsule 0.4 mg PO QAM DO NOT take the morning of surgery cholecalciferol (vitamin D3) 50 mcg (2,000 unit) tablet (Vitamin D3) 2,000 unit PO QAM losartan 100 mg-hydrochlorothiazide 12.5 mg tablet 1 tab PO QAM multivitamin 1 tab PO QAM ascorbic acid (vitamin C) 1,000 mg tablet (Vitamin C) 1 g PO QAM Take morning of surgery With a small sip of water, OTHERWISE NOTHING TO EAT OR DRINK AFTER MIDNIGHT: albuterol sulfate 90 mcg/actuation aerosol inhaler (Ventolin HFA) 1 puff inhalation Q6H PRN(use if needed; please bring with you to hospital day of surgery if possible) bupropion HCl 300 mg 24 hr tablet, extended release 300 mg PO QAM tramadol 50 mg tablet 50 mg PO Q6H PRN(if needed) fluticasone furoate 200 mcg-vilanterol 25 mcg/dose inhalation powder (Breo Ellipta) 1 inh inhalation QAM tamsulosin 0.4 mg capsule 0.4 mg PO QAM Take evening before surgery albuterol sulfate 90 mcg/actuation aerosol inhaler (Ventolin HFA) 1 puff inhalation Q6H PRN(if needed) metoprolol succinate 50 mg tablet,extended release 24 hr 50 mg PO HS simvastatin 20 mg tablet 20 mg PO HS tramadol 50 mg tablet 50 mg PO Q6H PRN(if needed) Other Notes If you have any questions please call us at [phone] or [phone] or [phone] or [phone]
--- NOTE | 2023-01-24 11:27 | Anesthesiology Consultation ---
Date of Service January 24, 2023 Assessment & Plan (1) Encounter for pre-operative examination: Chart Review Chart Review: Pending: Refer to Additional Notes / Consult section (pending PCP clearance and response re: EKG ) and Patient seen in Pre Admission Testing - Awaiting PCP clearance 01/31/23 (Dr Kat)- please fax optimization re: low normal O2 sats and low normal BP; did offer to set patient up for cardio clearance due to abnormal EKG but patient declines and would like PCP to review EKG first and make determination if he is stable from cardiac standpoint- will await response to optimization note; please also fax preop testing Per PAT appt on 01/24/23, no recent illness/disease exposures, illness related symptoms, or recent illness/disease positive tests. Will leave to surgeon's discretion if preop Covid testing needed T10-L1 decompression and fusion 07/15/19= done under [facility] with Grade 1 view with Rouse #2. ETT #7.5. Atraumatic DL x 1. Teaching & Discussion Pre-Anesthesia Teaching/Discussion Notes: Instructed NPO after midnight before surgery,except medications with 15 cc of water. Medication instructions p rovided according to the PAT guidelines. History Surgery Operation Date: 02/07/23 09:35 Proposed Procedures p T9-T11 Decompression and Fusion with Spinal Cord Monitoring - Stanislaw Garrett DO Height/Weight Height: 6 ft Weight: 120.4 kg Allergies Allergy/AdvReac Type Severity Reaction Status Date / Time cat dander Allergy Severe difficulty Verified 01/22/23 12:21 breathing dog dander Allergy Severe difficulty Verified 01/22/23 12:21 breathing shrimp Allergy Severe difficulty Verified 01/22/23 12:21 breathing adhesive tape AdvReac Intermediate Rash/swelling/lesions Verified 01/22/23 12:21 for > 1 month Medications Home Medications Medication Instructions Recorded Confirmed Last Taken albuterol sulfate 90 mcg/actuation 1 puff inhalation Q6H PRN Wheezing 04/10/19 01/22/23 07/15/19 07:00 aerosol inhaler (Ventolin HFA) bupropion HCl 300 mg 24 hr tablet, 300 mg PO QAM 04/10/19 01/22/23 07/20/19 extended release cholecalciferol (vitamin D3) 50 2,000 unit PO QAM 12/01/22/23 07/20/19 mcg (2,000 unit) tablet (Vitamin D3) losartan 100 1 tab PO QAM 04/10/19 01/22/23 07/20/19 mg-hydrochlorothiazide 12.5 mg tablet metoprolol succinate 50 mg 50 mg PO HS 04/10/19 01/22/23 07/20/19 tablet,extended release 24 hr multivitamin 1 tab PO QAM 04/10/19 01/22/23 07/20/19 simvastatin 20 mg tablet 20 mg PO HS 04/10/19 01/22/23 07/20/19 tramadol 50 mg tablet 50 mg PO Q6H PRN pain, moderate 07/16/19 01/22/23 Unknown #30 tabs ascorbic acid (vitamin C) 1,000 mg 1 g PO QAM 01/22/23 01/22/23 Unknown tablet (Vitamin C) fluticasone furoate 200 1 inh inhalation QAM 01/22/23 01/22/23 Unknown mcg-vilanterol 25 mcg/dose inhalation powder (Breo Ellipta) tamsulosin 0.4 mg capsule 0.4 mg PO QAM 01/22/23 01/22/23 Unknown Past Medical History Medical History Asthma controlled uses Breo inhaler daily History of anesthesia reaction pt states that with last back surgery 07/2019 his BP dropped and he had to stay in the recovery room for an extended period - Per review of records- BP stable but O2 decreased (89%) slightly after administration of Fentanyl PACU History of COVID-2019--mild symptoms, no symptoms now History of kidney stones - no recent issues History of sleep apnea "resolved"-- retesting was negative (no surgery) Hyperlipidemia Controlled on meds Hypertension Controlled on meds. Obesity BMI 35.8 Exercise / Class Metabolic Activity II 4-5 Yardwork/Stairs/Walk up hill (uses wheeled walker for short distance/flat surface ambulation - no significant chest pain or SOB; having falls due to LE numbness from back ) Past Family History Family History Other Hypertension No family history of adverse response to anesthesia Past Surgical History Surgical History H/O total knee replacement R knee 04/2019. Subsequent infection 3 wks later with debridement and antibiotic beads placed. 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 Garrett S/P tonsillectomy and adenoidectomy Past Anesthesia History No Hx of Anesthesia Complications (with exception to remote history ) and No Family Hx of Anesthesia Complications History of PONV No Hx of PONV and No Hx of Motion Sickness Social History Smoking Status: Never smoker Do You Dip or Chew Tobacco: No Hx Alcohol Use: Yes Alcohol type: wine alcohol intake frequency: holidays/special occasions only Hx Substance Use: No substance use type: does not use Review of Systems Patient denies chest pain, shortness of breath at rest, reflux, cough, wheezing, palpitations. No hx of seizures, stroke, MT. No hx of blood clots or blood transfusions Physical Exam Vital Signs VITALS BP 103/66 P 52bpm TEMP 97.8 SP02 93% RESP 16 Constitutional no acute distress ENMT Mouth: no TMJ clicking Thyromental Distance: > or= 3.5 Finger Breadths (3.5) Mallampati Class: III Permanent implants- to side teeth and molars Neck + limited neck extension Respiratory normal respiratory effort; no respiratory distress Auscultation: lungs clear to auscultation bilaterally; no wheezes Cardiovascular Rate/Rhythm: regular rate and regular rhythm Heart Sounds: no murmur Vessels: no carotid bruit Heart sounds diminished Musculoskeletal Spine: + pain with cervical ROM Extremities: extremities normal to inspection Psychiatric Orientation: alert Lab Results Anesthesia Preop Results Results Anesthesia Widget: WBC 5.50 K/ul (4.8-10.8) 01/24/23 Hgb 14.3 g/dl (14.0-18.0) 01/24/23 Hct 42.2 % (42.0-52.0) 01/24/23 Plt 192 K/uL (130-400) 01/24/23 Na 141 mmol/L (136-145) 01/24/23 K 3.9 mmol/L (3.5-5.1) 01/24/23 Cl 106 mmol/L (98-107) 01/24/23 CO2 28 mmol/L (21-32) 01/24/23 BUN 15 mg/dl (6-23) 01/24/23 Creat 0.98 mg/dl (0.6-1.4) 01/24/23 Glucose Level 98 mg/dl (70-99(Fasting)) 01/24/23 PT 11.5 Seconds (9.0-12.0) 01/24/23 PTT 27.5 Seconds (21.0-31.0) 01/24/23 INR 1.1 (0.9-1.1) 01/24/23 TSH 1.192 uIu/ml (0.300-4.500) 01/03/23 HA1c 5.5 % (4.5-5.6) 01/03/23 Urine Color Yellow 01/24/23 Urine Appearance Clear (Clear) 01/24/23 Urine pH 6.0 (4.5-7.5) 01/24/23 Urine Specific [place] 1.020 (1.000-1.030) 01/24/23 Urine Protein Negative (Negative) 01/24/23 Urine Glucose (UA) Negative (Negative) 01/24/23 Urine Ketones Negative (Negative) 01/24/23 Urine Blood Negative (Negative) 01/24/23 Urine Nitrite Negative (Negative) 01/24/23 Urine Bilirubin Negative (Negative) 01/24/23 Urine Urobilinogen Negative (Negative) 01/24/23 Urine Leukocyte Esterase Trace (Negative) H 01/24/23 Urine WBC (Auto) 1-5 /hpf (0-5) 01/24/23 Urine RBC (Auto) 0-4 /hpf (0-4) 01/24/23 Urine Hyaline Casts (Auto) 1-5 /lpf (0-5) 01/24/23 Urine Epithelial Cells (Auto) 0-5 /lpf (0-5) 01/24/23 Urine Bacteria (Auto) Negative (Negative) 01/24/23 Blood Type O Positive 01/24/23 Antibody Screen NEGATIVE 01/24/23 Testing Electrocardiogram Date: 01/24/23 SB with 1st degree AVB at 53bpm Nonspecific T wave abnormality When compared to EKG from Apr 21, 2019- inverted T waves have replaced nonspecific T wave abnormality in inferior leads per cardio Chest X-Ray Date: 01/24/23 FINDINGS: There are low lung volumes. Bibasilar linear densities persist and favor subsegmental atelectasis or scarring. This is similar to the prior study. No new focal lung consolidations to suggest a pneumonia. No evidence for pulmonary edema. The heart is top normal in size. There is a tortuous thoracic aorta, unchanged. Partially visualized shoulder arthroplasties are again noted. IMPRESSION: No significant change compared to the prior study. No acute process.
[~2023-02-25 10:57] MED LIST changes: -CEFAZOLIN 3000MG 72.5 ML IV SCH; +KETAMINE HCL 10MG/ML SYR ONE; +LR 60ML/HR IV SCH; +MIDAZOLAM HCL 1 MG/ML 2ML VIAL ONE; +fentaNYL citrate PF 100 MCG/2 ML VIAL ONE
--- NOTE | 2023-02-25 11:47 | History & Physical Bridge Note ---
Date of Service February 25, 2023 History & Physical Bridge Note I have examined the patient, reviewed the History & Physical and in the interval since the performance of the History & Physical I have noted the following changes of clinical significance: no changes noted
--- NOTE | 2023-02-25 11:48 | History & Physical Report ---
Date of Service February 25, 2023 Assessment & Plan (1) Myelopathy concurrent with and due to spinal stenosis of thoracic region: Plan: T9-T11 decompression and fusion History of Present Illness Chief Complaint: Back pain and leg weakness Primary Care Provider: Rodrigo Kat This is a 72-year-old male known to me the presents with above-mentioned diagnosis and is here for surgical intervention. Allergies Allergy/AdvReac Type Severity Reaction Status Date / Time cat dander Allergy Severe difficulty Verified 02/25/23 11:19 breathing dog dander Allergy Severe difficulty Verified 02/25/23 11:19 breathing shrimp Allergy Severe difficulty Verified 02/25/23 11:19 breathing adhesive tape AdvReac Intermediate Rash/swelling/lesions Verified 02/25/23 11:19 for > 1 month Home Medications Medication Instructions Recorded Confirmed Type albuterol sulfate 90 mcg/actuation 1 puff inhalation Q6H PRN Wheezing 04/10/19 02/25/23 History aerosol inhaler (Ventolin HFA) bupropion HCl 300 mg 24 hr tablet, 300 mg PO QAM 04/10/19 02/25/23 History extended release cholecalciferol (vitamin D3) 50 2,000 unit PO QAM 04/10/19 02/25/23 History mcg (2,000 unit) tablet (Vitamin D3) losartan 100 1 tab PO QAM 04/10/19 02/25/23 History mg-hydrochlorothiazide 12.5 mg tablet metoprolol succinate 50 mg 50 mg PO HS 04/10/19 02/25/23 History tablet,extended release 24 hr multivitamin 1 tab PO QAM 04/10/19 02/25/23 History simvastatin 20 mg tablet 20 mg PO HS 04/10/19 02/25/23 History tramadol 50 mg tablet 50 mg PO Q6H PRN pain, moderate 07/16/19 02/25/23 Rx #30 tabs ascorbic acid (vitamin C) 1,000 mg 1 g PO QAM 01/22/23 02/25/23 History tablet (Vitamin C) fluticasone furoate 200 1 inh inhalation QAM 01/22/23 02/25/23 History mcg-vilanterol 25 mcg/dose inhalation powder (Breo Ellipta) tamsulosin 0.4 mg capsule 0.4 mg PO QAM 01/22/23 02/25/23 History Past Med/Surg History Medical History Asthma controlled uses Breo inhaler daily History of anesthesia reaction pt states that with last back surgery 07/2019 his BP dropped and he had to stay in the recovery room for an extended period - Per review of records- BP stable but O2 decreased (89%) slightly after administration of Fentanyl PACU History of COVID-2019--mild symptoms, no symptoms now History of kidney stones - no recent issues History of sleep apnea "resolved"-- retesting was negative (no surgery) Hyperlipidemia Controlled on meds Hypertension Controlled on meds. Obesity BMI 35.8 Surgical History H/O total knee replacement R knee 04/2019. Subsequent infection 3 wks later with debridement and antibiotic beads placed. 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 Garrett S/P tonsillectomy and adenoidectomy Family History Other Hypertension No family history of adverse response to anesthesia Social History Smoking Status: Never smoker Second Hand Exposure: No; Do You Dip or Chew Tobacco: No; Tobacco Cessation Education Requested by Patient: No Hx Alcohol Use: Yes Alcohol type: wine Hx Substance Use: No Preferred Language: Italian Communication Ability: Effective Director Of Retail Marketing Required: No Beliefs That Will Affect Care: None marital status: Current Living Situation: Spouse Other Information That Helps Us Care for You: No Feels Safe at Home: Yes Safety Concerns: Feels Safe At This Time Assistive Devices: Glasses and Walker Physical Exam Physical Exam: Patient is alert and oriented heart regular rhythm Lungs clear Results & Data Results & Data Vital Signs (Past 12 Hours) Vital Signs Temp Pulse Resp BP Pulse Ox O2 Del Method 02/25/23 11:14 36.6 C 53 L 20 113/73 98 Room Air
[2023-02-25] MEDS ORDERED: fentaNYL citrate PF 100 MCG/2 ML VIAL IV PRN (12:02)
[2023-02-25] MEDS ORDERED: ONDANSETRON INJ 2 MG/ML 2 ML VIAL IV PRN (12:02)
[2023-02-25] MEDS ORDERED: ATROPINE SULFATE 0.1 MG/ML 10ML SYR IV PRN (12:02)
[2023-02-25] MEDS ORDERED: ceFAZolin 330 MG/ML 1 GM VIAL ONE (12:07)
[2023-02-25] MEDS ORDERED: BUPIVACAINE/EPINEPHRINE 0.25% 1:200,000 30 ML VIAL ONE (12:07)
[2023-02-25] MEDS ORDERED: ePHEDrine sulfate 50 MG/ML AMP ONE (12:46)
[2023-02-25] MEDS ORDERED: DEXAMETHASONE SOD INJ 4 MG/ML VIAL ONE (12:46)
[2023-02-25] MEDS ORDERED: GLYCOPYRROLATE 0.2 MG/ML VIAL ONE (12:46)
[2023-02-25] MEDS ORDERED: ROCURONIUM BROMIDE 10 MG/ML 5 ML VIAL IV ONE ×2 (12:46→13:00)
[2023-02-25] MEDS ORDERED: PROPOFOL IV EMULSION 10 MG/ML 20 ML VIAL IV ONE (12:46)
[2023-02-25] MEDS ORDERED: ONDANSETRON INJ 2 MG/ML 2 ML VIAL ONE (12:46)
[2023-02-25] MEDS ORDERED: SUGAMMADEX SODIUM 200 MG/2 ML VIAL IV ONE (12:47)
[2023-02-25] MEDS ORDERED: fentaNYL citrate PF 100 MCG/2 ML VIAL ONE (12:51)
[2023-02-25] MEDS ORDERED: FLOSEAL HEMOSTATIC MATRIX 10ML TOP ONE (13:32)
--- NOTE | 2023-02-25 14:07 | Operative Report ---
Post Operative Report Pre & Post Diagnosis Operation Date: 02/25/23 12:25 Pre-Op Diagnosis: Myelopathy concurrent with and due to spinal stenosis of thoracic region Post-Op Diagnosis: Myelopathy concurrent with and due to spinal stenosis of thoracic region I identified the patient and participated in the time-out.: Yes Procedure Operation Date: 02/25/23 12:25 Actual Procedures #1 thoracic decompression T8-T9, T9-T10, T10-T11. #2 posterior spinal fusion T8-T9, T9-T10. #3 placement posterior instrumentation T9-T10. #4 placement of locally harvested morselized autograft in the posterior gutters. #5 placement of infuse combined with master graft in the posterior gutters T8-T10. Surgeon Stanislaw Garrett, DO Wood Fence Installer Radha Napoles Estimated Blood Loss 300 Findings See Below The patient is 6 foot tall weighing over 116 kg with a BMI in excess of 34. Patient's body was to contribute to significant technical difficulty with positioning exposure and procedure itself at least 50% increased operative time. Specimens None Indications This is a 72-year-old male well-known to the presents with evidence of myelopathy and severe cord compression subsequently is here for surgical invention. Description of Procedure Patient was met with identified informed consent obtained. Patient was then taken to the operative suite underwent patient placed in a prone position the Krish table top of the Umesh frame. All bony promises well-padded eyes inspected to ensure no external pressure placed upon the. This point the thoracolumbar spine was prepped and draped in a sterile fashion. Sharp dissection with assistance of Bovie cards from down to and exposing the lamina and transverse processes of T8 T9-T10-T11. I then performed a laminectomy of T9, T10 and T11. Significant facet hypertrophy was noted particularly to the 9 T10 with severe cord compression. Pedicle screws were then placed in T9-T10 bilaterally with assistance of fluoroscopy and process chanelle locked into position. The transverse processes of T8 8 T9-T10 and T11 were then burred to subcortical bleeding bone. Infuse collagen sponge for mass graft and local autograft was placed in the posterior gutters. 15 round DENI drain inserted. The incision was then closed with 1 Vicryl fascia 2-0 Vicryl subcutaneously and Fortical for final skin closure. Steri-Strips sterile dressing placed. Patient waken taken to PACU in stable condition. Please note spinal cord monitoring was utilized at the procedure no changes noted. Lastly Radha Napoles was present at the entire surgeon while the patient positioning complex portions of the surgery and final skin closure. I attest to the content of the Intraoperative Record and any orders documented therein. Any exceptions are noted below.
[2023-02-25] MEDS ORDERED: PHENYLEPHRINE HCL 10 MG/ML VIAL ONE (14:35)
--- NOTE | 2023-02-25 14:40 | Anesthesiology Progress Note ---
Date of Service February 25, 2023 Anesthesia Post Procedure Vital Signs Vital Signs: Temp Pulse Resp BP Pulse Ox O2 Del Method 02/25/23 11:14 36.6 C 53 L 20 113/73 98 Room Air Pain Intensity Bilateral Lower Back: Pain Intensity: 3 Transfer of Care Handoff Completed per policy Notes Mental Status: alert / awake / arousable Patient Amnestic to Procedure: Yes Nausea / Vomiting: adequately controlled Pain: adequately controlled Airway Patency, RR, SpO2: stable & adequate BP & HR: stable & adequate Hydration State: stable & adequate Anesthetic Complications: no major complications apparent and Pt Satisfied with anesthetic care
[2023-02-25] MEDS: ePHEDrine sulfate 50 MG/ML AMP IV PRN ×3 (15:17→16:07)
--- NOTE | 2023-02-25 16:27 | Anesthesiology Progress Note ---
Date of Service February 25, 2023 Anesthesia Post Procedure Vital Signs Vital Signs: Temp Pulse Pulse Resp BP Pulse Ox O2 Del Method 02/25/23 16:15 59 L 15 96/69 L 92 Nasal Cannula 02/25/23 16:05 57 L 15 96/65 L 93 Nasal Cannula 02/25/23 15:55 64 15 91/62 L 93 Nasal Cannula 02/25/23 15:45 56 L 16 88/61 L 93 Oxymask 02/25/23 15:35 57 L 18 94/57 L 92 Oxymask 02/25/23 15:25 57 L 18 99/62 L 93 Oxymask 02/25/23 15:15 59 L 17 101/73 96 Oxymask 02/25/23 15:05 60 16 78/51 L 94 Oxymask 02/25/23 14:55 58 L 19 86/60 L 92 Oxymask 02/25/23 14:45 60 19 86/60 L 92 Oxymask 02/25/23 14:35 62 11 L 77/52 L 91 Oxymask 02/25/23 14:25 96.8 F L 69 21 98/66 L 90 Oxymask 02/25/23 11:14 97.9 F 53 L 20 113/73 98 Room Air O2 Flow Rate 02/25/23 16:15 2 02/25/23 16:05 2 02/25/23 15:55 2 02/25/23 15:45 2 02/25/23 15:35 2 02/25/23 15:25 4 02/25/23 15:15 6 02/25/23 15:05 10 02/25/23 14:55 15 02/25/23 14:45 15 02/25/23 14:35 15 02/25/23 14:25 10 02/25/23 11:14 Pain Intensity Bilateral Lower Back: Pain Intensity: 3 Back: Pain Intensity: 7 Transfer of Care Handoff Completed per policy Notes Mental Status: alert / awake / arousable and participated in evaluation Patient Amnestic to Procedure: Yes Nausea / Vomiting: adequately controlled Pain: adequately controlled Airway Patency, RR, SpO2: stable & adequate BP & HR: stable & adequate Hydration State: stable & adequate Anesthetic Complications: no major complications apparent and Pt Satisfied with anesthetic care Notes: BP borderline low, ephedrine given x2 with appropriate effect, 500ml LR bolus given. Pt asymptomatic, UOP appropriate
--- NOTE | 2023-02-25 16:29 | Fluoroscopy Report ---
FL thoracic spine 2V CLINICAL HISTORY: T9-T11 DECOMP/FUSION TECHNIQUE: 2 views were obtained with the C-arm in the OR with the above procedure. Total fluoroscopy time was 40.7 seconds. Radiation dose was 26.57 mGy. Comparison: Comparison is made to MRI of the thoracic spine 01/18/2023 FINDINGS/IMPRESSION: Intraoperative images were obtained of T9-T11 decompression and fusion. Please correlate with intraoperative fluoroscopy and operative report. ACT 112: Negative or not required by law. Electronically signed by: Kameron Hassan M.D. 02/25/2023 4:28 PM
[2023-02-25] MEDS ORDERED: LORazepam 0.5 MG in SYRINGE 0.25 ML IV PRN (17:55)
[2023-02-25] MEDS ORDERED: NALOXONE HCL 0.4 MG/1 ML VIAL/CARP IV PRN (17:55)
[2023-02-25] MEDS ORDERED: MAGNESIUM HYDROXIDE SUSP 30 ML UDC PO PRN (17:55)
[2023-02-25] MEDS ORDERED: ONDANSETRON 4 MG OD TAB PO PRN (17:55)
[2023-02-25] MEDS ORDERED: PROMETHAZINE HCL 12.5 MG in SODIUM CHLORIDE 0.9% 50 ML IV PRN (17:55)
[2023-02-25] MEDS ORDERED: ACETAMINOPHEN 1,000 MG/100 ML VIAL IV PRN (17:55)
[2023-02-25] MEDS ORDERED: bisacodyL 10 MG SUPP PR PRN (17:55)
[2023-02-25] MEDS ORDERED: METOCLOPRAMIDE HCL INJ 5 MG/ML 2 ML VIAL IV PRN (17:55)
[2023-02-25] MEDS ORDERED: ALUMINUM/MAGNESIUM SUSP 30 ML UDC PO PRN (17:55)
[2023-02-25] MEDS ORDERED: hydrOXYzine HCl 25 MG TAB PO PRN (17:55)
[2023-02-25] MEDS ORDERED: SOD PHOSPHATE/SOD BIPHOSPHATE ENEMA 132 ML BTL PR PRN (17:55)
[2023-02-25] MEDS ORDERED: LORazepam 0.5 MG TAB PO PRN (17:55)
[2023-02-25] MEDS ORDERED: FAMOTIDINE 20 MG TAB PO PRN (17:55)
[2023-02-25] MEDS ORDERED: DO NOT ADMINISTER FLU VACCINE PRN (17:55)
[2023-02-25] MEDS ORDERED: DO NOT ADMINISTER PNEUMOCOCCAL VACCINE PRN (17:55)
[2023-02-25] MEDS ORDERED: ALBUTEROL HFA 8 GM INHALER INH PRN (17:55)
[2023-02-25] MEDS: LACTATED RINGER'S 1,000 ML IV SCH (18:41)
--- NOTE | 2023-02-25 20:05 | Consultation ---
Date of Consultation February 25, 2023 Assessment & Plan (1) Lumbar stenosis with neurogenic claudication: (2) Hypertension: (3) Hyperlipidemia: (4) BPH (benign prostatic hypertrophy): (5) Asthma: Plan Mr. Maria is a 72 year old male that presents to the ED for an elective T9-T11 decompression and fusion surgery under the care of Dr. 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 Patient has a history back surgery from 07/2019 for which he had hypotension post anesthesia. Post op he has a soft blood pressure systolic 104; SpO2 92% on 4LNC. He has a history of MARY ANN; that is documented as 'resolved' Due to his increased body habitus; suggested continuous pulse oximetry overnight. Additional PMH includes: HTN, HLD, depression, BPH, and MARY ANN. Pt lying comfortably on his right side when I visited with him. He was AAOx4 and able to answer all questions appropriately. He had just received IV Tylenol for incisional discomfort. Discussed that his blood pressure was on the lower side so want to avoid narcotics. Lumbar Stenosis with neurogenic claudication: Myelopathy concurrent d/t spinal stenosis POD# 0 s/p decompression and fusion T9-T11 under the care of Dr. Garrett. EBL 300mL Per ortho for pain control, wound care, anticoagulation and activities. Monitor H&H, pre op Hgb 01/24/23 14.3; trend in AM DENI drain x1 with lopez red bloody output continue incentive spirometry PT/OT when appropriate SpO2 92% on 2LNC post op; He has a history of MARY ANN; that is documented as 'resolved' Due to his increased body habitus; suggested continuous pulse oximetry overnight HTN: Chronic stable Takes Losartan/HCTZ and Metoprolol;continue HLD: Chronic stable Takes Simvastatin;continue BPH: Chronic stable Takes Tamsulosin;continue Asthma: chronic stable Takes Breo; continue Disposition: PCP: Dr. Kat Code status: Full VTE Prophylaxis: TEDS/SCDs I spent a total of 60 minutes coordinating, documenting, and providing care for this patient excluding time spent in the performance of separately billed services. All of the aforementioned completed while collaborating with the assigned attending physician for a full treatment plan. Please see their addendum for further details. Supervising Physician Co-Signing Physician Notes I have seen and examined the patient and have discussed the case with the provider above. I agree with the assessment and plan as stated. DO Samuel History of Present Illness Requesting Physician: Dr. Garrett Reason for Consultation: post operative medical management Attending Physician: Stanislaw Garrett DO History of Present Illness Mr. Maria is a 72 year old male that presents to the ED for an elective T9-T11 decompression and fusion surgery under the care of Dr. 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 Patient has a history back surgery from 07/2019 for which he had hypotension post anesthesia. Post op he has a soft blood pressure systolic 104; SpO2 92% on 4LNC. He has a history of MARY ANN; that is documented as 'resolved' Due to his increased body habitus; suggested continuous pulse oximetry overnight. Additional PMH includes: HTN, HLD, depression, BPH, and MARY ANN. Pt lying comfortably on his right side when I visited with him. He was AAOx4 and able to answer all questions appropriately. He had just received IV Tylenol for incisional discomfort. Discussed that his blood pressure was on the lower side so want to avoid narcotics. [facility] were consulted for post operative medical management. Thank you kindly for the consultation. We are available via [place] [facility] 05/11. Allergies Allergy/AdvReac Type Severity Reaction Status Date / Time cat dander Allergy Severe difficulty Verified 02/25/23 11:19 breathing dog dander Allergy Severe difficulty Verified 02/25/23 11:19 breathing shrimp Allergy Severe difficulty Verified 02/25/23 11:19 breathing adhesive tape AdvReac Intermediate Rash/swelling/lesions Verified 02/25/23 11:19 for > 1 month Home Medications Medication Instructions Recorded Confirmed Type albuterol sulfate 90 mcg/actuation 1 puff inhalation Q6H PRN Wheezing 04/10/19 02/25/23 History aerosol inhaler (Ventolin HFA) bupropion HCl 300 mg 24 hr tablet, 300 mg PO QAM 04/10/19 02/25/23 History extended release cholecalciferol (vitamin D3) 50 2,000 unit PO QAM 04/10/19 02/25/23 History mcg (2,000 unit) tablet (Vitamin D3) losartan 100 1 tab PO QAM 04/10/19 02/25/23 History mg-hydrochlorothiazide 12.5 mg tablet metoprolol succinate 50 mg 50 mg PO HS 04/10/19 02/25/23 History tablet,extended release 24 hr multivitamin 1 tab PO QAM 04/10/19 02/25/23 History simvastatin 20 mg tablet 20 mg PO HS 04/10/19 02/25/23 History tramadol 50 mg tablet 50 mg PO Q6H PRN pain, moderate 07/16/19 02/25/23 Rx #30 tabs ascorbic acid (vitamin C) 1,000 mg 1 g PO QAM 01/22/23 02/25/23 History tablet (Vitamin C) fluticasone furoate 200 1 inh inhalation QAM 01/22/23 02/25/23 History mcg-vilanterol 25 mcg/dose inhalation powder (Breo Ellipta) tamsulosin 0.4 mg capsule 0.4 mg PO QAM 01/22/23 02/25/23 History Patient History Medical History History of COVID-2019--mild symptoms, no symptoms now History of anesthesia reaction pt states that with last back surgery 07/2019 his BP dropped and he had to stay in the recovery room for an extended period - Per review of records- BP stable but O2 decreased (89%) slightly after administration of Fentanyl PACU Obesity BMI 35.8 History of kidney stones - no recent issues Hyperlipidemia Controlled on meds Hypertension Controlled on meds. Asthma controlled uses Breo inhaler daily History of sleep apnea "resolved"-- retesting was negative (no surgery) Surgical History H/O total knee replacement R knee 04/2019. Subsequent infection 3 wks later with debridement and antibiotic beads placed. History of spinal fusion multiple---last 07/[address] [facility] T10-L1 Decompression/Fusion by Dr. Garrett History of right inguinal hernia repair History of prostate biopsy History of right shoulder replacement History of left shoulder replacement Left TSA: 06/26/17: Grade 3 view, MAC#4, ETT 8.0 + PNB at 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" S/P tonsillectomy and adenoidectomy Family History Other Hypertension No family history of adverse response to anesthesia Social History Smoking Status: Never smoker Second Hand Exposure: No; Do You Dip or Chew Tobacco: No; Tobacco Cessation Education Requested by Patient: No Hx Alcohol Use: Yes Alcohol type: wine Hx Substance Use: No Preferred Language: Serbian Communication Ability: Effective Vessel Scrapper Helper Required: No Beliefs That Will Affect Care: None marital status: Current Living Situation: Spouse Other Information That Helps Us Care for You: No Feels Safe at Home: Yes Safety Concerns: Feels Safe At This Time Assistive Devices: Glasses and Walker Review of Systems Review of Systems: Neuro: (-) Falls, trauma, slurred speech HEENT: (-) MACHADO, dizziness, dysphagia, visual or auditory changes CV: (-) CP, palpitations, swelling Resp: (-) SOB GI: (-) appetite changes, N/V/D, bowel changes : (-) urinary changes Skin: (-) rashes Psych: (-) anxiety, depression Physical Exam Physical Exam: Neuro: AAOx4, PERRLA, no aphagia, memory changes, CNII-XII grossly intact HEENT: head normocephalic, moist mucus membranes CV: S1/S2, (-) M/G/R, (-) edema, cap refill < 3 seconds DENI drain x1 with lopez red bloody output Resp: Lungs CTA in all spaulding. On 2LNC GI: Abdomen S/NT/ND, Ax4 bowel sounds, (-) CVA tenderness Musculoskeletal: 5/5 B/L UE strength, 5/5 B/L LE strength. No gait disturbance Skin: (-) rashes , (-) erythema. vertical incision on mid back. Dressing C/D/I Psych: euthymic mood Results & Data Vital Signs (Past 12 Hours) Vital Signs Temp Pulse Pulse Resp BP Pulse Ox O2 Del Method 02/25/23 19:11 36.3 C L 77 18 104/64 93 Nasal Cannula 02/25/23 18:31 Nasal Cannula 02/25/23 18:09 36.6 C 66 16 106/65 93 Nasal Cannula 02/25/23 17:40 64 12 90/59 L 93 Nasal Cannula 02/25/23 17:10 60 16 99/65 L 92 Nasal Cannula 02/25/23 16:55 64 14 92/71 L 93 Nasal Cannula 02/25/23 16:40 63 19 99/66 L 93 Nasal Cannula 02/25/23 16:25 36.4 C L 60 18 92/65 L 96 Nasal Cannula 02/25/23 16:15 59 L 15 96/69 L 92 Nasal Cannula 02/25/23 16:05 57 L 15 96/65 L 93 Nasal Cannula 02/25/23 15:55 64 15 91/62 L 93 Nasal Cannula 02/25/23 15:45 56 L 16 88/61 L 93 Oxymask 02/25/23 15:35 57 L 18 94/57 L 92 Oxymask 02/25/23 15:25 57 L 18 99/62 L 93 Oxymask 02/25/23 15:15 59 L 17 101/73 96 Oxymask 02/25/23 15:05 60 16 78/51 L 94 Oxymask 02/25/23 14:55 58 L 19 86/60 L 92 Oxymask 02/25/23 14:45 60 19 86/60 L 92 Oxymask 02/25/23 14:35 62 11 L 77/52 L 91 Oxymask 02/25/23 14:25 36.0 C L 69 21 98/66 L 90 Oxymask 02/25/23 11:14 36.6 C 53 L 20 113/73 98 Room Air O2 Flow Rate 02/25/23 19:11 4.0 02/25/23 18:31 4 02/25/23 18:09 4 02/25/23 17:40 4 02/25/23 17:10 3 02/25/23 16:55 3 02/25/23 16:40 2 02/25/23 16:25 2 02/25/23 16:15 2 02/25/23 16:05 2 02/25/23 15:55 2 02/25/23 15:45 2 02/25/23 15:35 2 02/25/23 15:25 4 02/25/23 15:15 6 02/25/23 15:05 10 02/25/23 14:55 15 02/25/23 14:45 15 02/25/23 14:35 15 02/25/23 14:25 10 02/25/23 11:14 Diagnostic Findings Thoracic Spine X-Ray 02/25/23 00:00 [place] thoracic spine 2V CLINICAL HISTORY: T9-T11 DECOMP/FUSION TECHNIQUE: 2 views were obtained with the C-arm in the OR with the above procedure. Total fluoroscopy time was 40.7 seconds. Radiation dose was 26.57 mGy. Comparison: Comparison is made to MRI of the thoracic spine 01/18/2023 FINDINGS/IMPRESSION: Intraoperative images were obtained of T9-T11 decompression and fusion. Please correlate with intraoperative fluoroscopy and operative report. ACT 112: Negative or not required by law. Electronically signed by: Kameron Hassan M.D. 02/25/2023 4:28 PM
[2023-02-25] MEDS: DOCUSATE SODIUM/SENNA 50/8.6MG TAB PO SCH (20:31)
[2023-02-25] MEDS: ceFAZolin 2000MG 2,000 MG/15 ML SYR IV SCH (20:31)
[2023-02-25] MEDS: SIMVASTATIN 20 MG TAB PO SCH (20:31)
[2023-02-25] MEDS: METOPROLOL SUCC 50MG EXT REL TAB PO SCH (20:32)
[2023-02-25] MEDS ORDERED: oxyCODONE HCL IR 5 MG TAB (IMMEDIATE RELEASE) PO STA (20:51)
[2023-02-26] MEDS: oxyCODONE HCL IR 5 MG TAB (IMMEDIATE RELEASE) PO PRN ×4 (01:17→16:43)
[2023-02-26] MEDS: LACTATED RINGER'S 1,000 ML IV SCH ×4 (02:20→16:15)
[2023-02-26] MEDS: POLYETHYLENE (MIRALAX) 17 GM PACK PO SCH ×3 (05:25→17:10)
[2023-02-26] MEDS: ceFAZolin 2000MG 2,000 MG/15 ML SYR IV SCH (05:25)
[2023-02-26 06:23] LABS: Basophils # (auto) 0.01 K/uL (0.00-0.20); Basophils % (auto) 0.1 %; Hematocrit (blood only) 36.2 % (42.0-52.0); Hemoglobin 12.2 g/dl (14.0-18.0); Immature Granulocytes # (auto) 0.04 K/uL (0.01-0.20); Immature Granulocytes % (auto) 0.4 %; Lymphocytes # (auto) 0.67 K/uL (1.20-3.40); Lymphocytes % (auto) 6.4 %; Mean Corpuscular Hemoglobin 29.7 pg (25.0-34.0); Mean Corpuscular Hgb Conc 33.7 g/dL (32.0-36.0); Mean Corpuscular Volume 88.1 fL (80.0-100.0); Mean Platelet Volume 9.2 fL (9.4-12.4); Monocytes # (auto) 0.57 K/uL (0.11-0.59); Monocytes % (auto) 5.4 %; Neutrophils # (auto) 9.19 K/uL (1.40-6.50); Neutrophils % (auto) 87.7 %; Platelet Count 136 K/uL (130-400); RDW Coefficient of Variation 13.2 % (11.5-14.5); RDW Standard Deviation 42.9 fL (36.4-46.3); Red Blood Count 4.11 M/uL (4.70-6.10); White Blood Count 10.48 K/ul (4.8-10.8)
[2023-02-26 06:41] LABS: BUN Creatinine Ratio 16.8 (10-20); Calcium 9.1 mg/dl (8.6-10.3); Creatinine Clr Calc Pharmacy 81.1 ml/min; Est GFR (African American) 79.4 ml/min; Est GFR (Non-African American) 68.5 ml/min; Potassium 4.5 mmol/L (3.5-5.1)
[2023-02-26] MEDS: dexAMETHasone 8 MG in SYRINGE 0 ML IV SCH (08:16)
[2023-02-26] MEDS: buPROPion XL 300 MG TABCR PO SCH (08:18)
[2023-02-26] MEDS: FLUTICASONE/VILANTEROL 200/25MCG 14 PUFFS/INHALER INH SCH (08:18)
[2023-02-26] MEDS: TAMSULOSIN HCL 0.4 MG CAP PO SCH (08:19)
[2023-02-26] MEDS: MULTIVITAMIN TAB PO SCH (08:19)
[2023-02-26] MEDS: CHOLECALCIFEROL 1,000 UNITS 25 MCG TAB PO SCH (08:20)
[2023-02-26] MEDS ORDERED: NON-FORMULARY MEDICATION (Losartan-Hydrochlorothiazide 100-12.5 mg Tablet) PO SCH (09:00)
[2023-02-26] MEDS: hydroCHLOROthiazide 25 MG TAB PO SCH (09:28)
--- NOTE | 2023-02-26 09:41 | Orthopedic Progress Note ---
Date of Service February 26, 2023 Assessment & Plan (1) Myelopathy concurrent with and due to spinal stenosis of thoracic region: Plan: At this time we will initiate physical therapy and see how he progresses over the next few days. He would like to go home if possible. We will make further patient's after reviewing his progress with therapy. Admission and Anticipated Discharge Date Admission Date: February 25, 2023 Subjective Back pain controlled. Leg symptoms stable. Physical Exam Physical Exam: Patient is in bed at this time. Is constricted testing lower extremities. Results & Data Vital Signs (Past 12 Hours) Vital Signs Temp Pulse Resp BP Pulse Ox O2 Del Method O2 Flow Rate 02/26/23 09:34 112/68 02/26/23 06:59 36.9 C 68 16 95/50 L 94 Nasal Cannula 2 02/26/23 06:00 36.6 C 72 20 110/62 96 Nasal Cannula 3 02/26/23 02:43 36.6 C 71 18 107/67 95 Nasal Cannula 4.0 02/25/23 23:10 37.0 C 72 18 111/56 L 95 Nasal Cannula 4.0
--- NOTE | 2023-02-26 10:37 | Hospitalist Progress Note ---
Date of Service February 26, 2023 Assessment & Plan (1) Lumbar stenosis with neurogenic claudication: (2) Hypertension: (3) Hyperlipidemia: (4) BPH (benign prostatic hypertrophy): (5) Asthma: Plan 72 year old male that presents to the ED for an elective T9-T11 decompression and fusion surgery under the care of Dr. 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 Lumbar Stenosis with neurogenic claudication: Myelopathy concurrent d/t spinal stenosis POD# 1 s/p decompression and fusion T9-T11 under the care of Dr. Garrett. EBL 300mL Per ortho for pain control, wound care, anticoagulation and activities. Monitor H&H, pre op Hgb 01/24/23 14.3; currently >12 DENI drain x1 with lopez red bloody output continue incentive spirometry PT/OT when appropriate SpO2 92% on #LNC post op; He has a history of MARY ANN; that is documented as 'resolved' Due to his increased body habitus; suggested continuous pulse oximetry overnight Nausea and Vomitting Increasing episodes Antiemetics as needed KUB ordered- less likely SBO CT abd/pelvis ordered for follow up Hypotension Persistent Holding home antihypertensives (NETO and HCTZ) Home metoprolol with parameters Continue IV fluids HTN: Currently hypotensive now As above HLD: Chronic stable Takes Simvastatin;continue BPH: Chronic stable Takes Tamsulosin;continue Asthma: chronic stable Takes Breo; continue Disposition: PCP: Dr. Kat Code status: Full VTE Prophylaxis: TEDS/SCDs Admission and Anticipated Discharge Date Admission Date: February 25, 2023 Results & Data Results & Data Vital Signs (Past 12 Hours) Vital Signs Temp Pulse Resp BP Pulse Ox O2 Del Method O2 Flow Rate 02/26/23 09:34 112/68 02/26/23 06:59 36.9 C 68 16 95/50 L 94 Nasal Cannula 2 02/26/23 06:00 36.6 C 72 20 110/62 96 Nasal Cannula 3 02/26/23 02:43 36.6 C 71 18 107/67 95 Nasal Cannula 4.0 02/25/23 23:10 37.0 C 72 18 111/56 L 95 Nasal Cannula 4.0
[2023-02-26] MEDS: ONDANSETRON INJ 2 MG/ML 2 ML VIAL IV PRN ×2 (16:55→23:11)
--- NOTE | 2023-02-26 19:12 | XRay Report ---
KUB CLINICAL HISTORY: N/V, postop, r/o SBO COMPARISON STUDY: None. FINDINGS: Bilateral hip arthroplasties and postoperative findings within the spine are incidentally n oted. A surgical drain within the thoracic spine is in place. Posterior bowel gas is noted. Loop of m ildly dilated small bowel within the the right lower quadrant measuring 3.6 cm in caliber is noted. IMPRESSION: Single loop of mildly dilated small bowel. Although nonspecific, the findings are not st rongly suggestive of a small bowel obstruction. ACT 112: Negative or not required by law. Electronically signed by: Roderick Armas M.D. 02/26/2023 7:11 PM
[2023-02-26] MEDS: SIMVASTATIN 20 MG TAB PO SCH (20:51)
[2023-02-26] MEDS: METOPROLOL SUCC 50MG EXT REL TAB PO SCH (20:51)
[2023-02-26] MEDS: DOCUSATE SODIUM/SENNA 50/8.6MG TAB PO SCH (20:51)
[2023-02-27] MEDS: HYDROmorphone INJ 0.5 MG/0.5 ML SYR IV PRN ×6 (00:38→22:39)
[2023-02-27] MEDS: POLYETHYLENE (MIRALAX) 17 GM PACK PO SCH ×4 (00:56→20:49)
[2023-02-27 06:39] LABS: Basophils # (auto) 0.02 K/uL (0.00-0.20); Basophils % (auto) 0.2 %; Eosinophils # (auto) 0.01 K/uL (0.00-0.50); Eosinophils % (auto) 0.1 %; Hematocrit (blood only) 37.1 % (42.0-52.0); Hemoglobin 12.2 g/dl (14.0-18.0); Immature Granulocytes # (auto) 0.06 K/uL (0.01-0.20); Immature Granulocytes % (auto) 0.6 %; Lymphocytes # (auto) 0.68 K/uL (1.20-3.40); Lymphocytes % (auto) 7.2 %; Mean Corpuscular Hemoglobin 29.3 pg (25.0-34.0); Mean Corpuscular Hgb Conc 32.9 g/dL (32.0-36.0); Mean Corpuscular Volume 89.2 fL (80.0-100.0); Mean Platelet Volume 9.2 fL (9.4-12.4); Monocytes # (auto) 0.93 K/uL (0.11-0.59); Monocytes % (auto) 9.8 %; Neutrophils # (auto) 7.76 K/uL (1.40-6.50); Neutrophils % (auto) 82.1 %; Platelet Count 135 K/uL (130-400); RDW Coefficient of Variation 13.5 % (11.5-14.5); RDW Standard Deviation 43.7 fL (36.4-46.3); Red Blood Count 4.16 M/uL (4.70-6.10); White Blood Count 9.46 K/ul (4.8-10.8)
[2023-02-27 06:57] LABS: Albumin Globulin Ratio 1.8 (0.9-2); Albumin Level 3.7 gm/dl (3.4-5.0); BUN Creatinine Ratio 15.8 (10-20); Bilirubin,Total 0.7 mg/dl (0.2-1.0); Calcium 9.4 mg/dl (8.6-10.3); Creatinine Clr Calc Pharmacy 91.4 ml/min; Est GFR (African American) 91.7 ml/min; Est GFR (Non-African American) 79.1 ml/min; Globulin 2.1 gm/dl (2.5-4.0); Potassium 3.9 mmol/L (3.5-5.1); Total Protein 5.8 gm/dl (6.0-8.3)
--- NOTE | 2023-02-27 08:51 | Orthopedic Progress Note ---
Date of Service February 27, 2023 Assessment & Plan (1) Myelopathy concurrent with and due to spinal stenosis of thoracic region: Plan: Christi is postoperative day 2 status post thoracic decompression and fusion T9- T10. Now with nausea. CT scan results pending. Maintain DENI drain. Ambulate ad varun. Cautious use of narcotics. Continue working on aggressive bowel regimen Admission and Anticipated Discharge Date Admission Date: February 25, 2023 Subjective Christi is postoperative day 2 status post T9-T10 decompression and fusion. Yesterday walked 19 feet in physical therapy. Walked the length of the hallway last evening. DENI drain output last shift was 50 cc. Unfortunately yesterday started with nausea and vomiting. KUB was ordered. He is currently going down for abdominal CT scan this morning. No flatus or bowel movement yet. Review of Systems Review of Systems: All systems reviewed & are unremarkable except as noted in HPI & below Physical Exam Physical Exam: He sitting in a wheelchair alert and oriented x3 Nauseous Vital signs are stable Dressing is clean dry and intact with functioning DENI drain calf soft nontender bilateral lower extremities Strength intact bilateral lower extremities Results & Data Vital Signs (Past 12 Hours) Vital Signs Temp Pulse Resp BP Pulse Ox O2 Del Method O2 Flow Rate 02/27/23 07:34 Nasal Cannula 3 02/27/23 07:17 37.2 C 62 18 117/69 93 Nasal Cannula 4 02/27/23 04:00 37.0 C 68 18 118/68 94 Nasal Cannula 3 02/27/23 00:00 36.9 C 71 18 122/64 96 Nasal Cannula 3 Diagnostic Findings [place], [place] [phone] XRay Report Patient: CHRISTI ROBERTS Admit Date: 02/25/23 MR#: [id number] Address1: [address] [place] [address] Acct ID:[id number] Address2: Date: 1950 [facility] Zip: [place] [address] Age: 72 Location: 3W Sex: M [facility] Att Phy: Stanislaw Garrett D.O. Diagnosis: Spinal Stenosis, Thoracic Region Josee Phy: Rodrigo Kat M.D. Service Date: 02/26/23 Fam Phy: Interpreting Phy: Roderick Armas [facility] Phy: Stanislaw Garrett D.O. Ordering Phy: Danii Cannon MD cc: ~ BRONWYN CLINICAL HISTORY: N/V, postop, r/o SBO COMPARISON STUDY: None. FINDINGS: Bilateral hip arthroplasties and postoperative findings within the spine are incidentally noted. A surgical drain within the thoracic spine is in place. Posterior bowel gas is noted. Loop of mildly dilated small bowel within the the right lower quadrant measuring 3.6 cm in caliber is noted. IMPRESSION: Single loop of mildly dilated small bowel. Although nonspecific, the findings are not strongly suggestive of a small bowel obstruction. ACT 112: Negative or not required by law. Electronically signed by: Roderick Armas M.D. 02/26/2023 7:11 PM Dictated: 02/26/231908 Transcribed: 02/26/231908
[2023-02-27] MEDS ORDERED: OPTIRAY 320 100ml IV ONE (09:09)
[2023-02-27] MEDS: dexAMETHasone 8 MG in SYRINGE 0 ML IV SCH (09:25)
[2023-02-27] MEDS: FLUTICASONE/VILANTEROL 200/25MCG 14 PUFFS/INHALER INH SCH (09:27)
[2023-02-27] MEDS: hydroCHLOROthiazide 25 MG TAB PO SCH (10:30)
[2023-02-27] MEDS: TAMSULOSIN HCL 0.4 MG CAP PO SCH (10:30)
[2023-02-27] MEDS: buPROPion XL 300 MG TABCR PO SCH (10:32)
[2023-02-27] MEDS: CHOLECALCIFEROL 1,000 UNITS 25 MCG TAB PO SCH (10:32)
[2023-02-27] MEDS: MULTIVITAMIN TAB PO SCH (10:32)
[2023-02-27] MEDS: ONDANSETRON INJ 2 MG/ML 2 ML VIAL IV PRN (10:42)
--- NOTE | 2023-02-27 12:24 | CT Scan Report ---
ABDOMEN AND PELVIS CT WITH IV CONTRAST CT DOSE: 1479.25 mGy.cm HISTORY: Acute nausea and vomiting. KUB equivocal, N/V TECHNIQUE: Multiaxial CT images of the abdomen and pelvis were performed following the IV administrat ion of 93 cc of Optiray, A dose lowering technique was utilized adhering to the principles of ALARA. COMPARISON STUDY: KUB 02/26/2023, MRI lumbar spine 01/18/2023. FINDINGS: Extensive coronary artery calcifications. Limited exam secondary to respiratory motion giorgio fact and upper extremity positioning. Bibasilar linear consolidations suggestive of atelectasis. No f ree air. Unremarkable spleen, mildly atrophic pancreas and adrenal glands. Cholecystectomy. Visualize d liver is unremarkable. Subcentimeter cyst of the caudate lobe. Cortical thinning of the kidneys. 2.2 cm hypodense lesion within the interpolar right kidney with ind eterminate, possibly a cyst. Three nonobstructing calculi of the right kidney measure up to 6 mm. No ureteral calculi or hydronephrosis. Partially decompressed urinary bladder. Prostatomegaly. Small fat filled left inguinal hernia. Pelvic structures are suboptimally evaluated secondary to streak artifa ct from the hip arthroplasties. No abdominal aortic aneurysm or lymphadenopathy. Right inguinal surgi rico clips. Mild fluid distention of the distal esophagus. 2.5 cm hypodense focus noted within the region of the gastroesophageal junction which may be postoperative or represent ingested material. No bowel obstruc tion or bowel wall thickening. Colonic diverticulosis. No CT evidence of acute appendicitis. Degenera tive and postoperative changes of the spine. No acute fracture identified. IMPRESSION: 1. No bowel obstruction or bowel wall thickening. 2. Nonobstructing right nephrolithiasis. No ureteral calculi or hydronephrosis. 3. Colonic diverticulosis. 4. Additional findings as above. ACT 112: Negative or not required by law. The above report was generated using voice recognition software. It may contain grammatical, syntax o r spelling errors. Dictated: 02/27/2023 10:18 AM Transcribed: 02/27/2023 11:51 AM Roberto [id number] ERICKA_Kirby [id number] Electronically signed by: Lex Cross M.D. 02/27/2023 12:23 PM
--- NOTE | 2023-02-27 13:05 | Gastrointestinal Consultation ---
Date of Consultation February 27, 2023 Assessment & Plan (1) Food impaction of esophagus: 72 year old male with foreign body sensation since eating lunch yesterday now unable to tolerate PO intake, liquids, medications or saliva, imaging concerning for a 2.5 cm hypodensity at the gastroesophageal junction NPO Urgent EGD evaluation Aspiration precautions discussed We appreciate assistance in the management of any serological abnormality and corrections to include: hemoglobin >7, INR <2, platelets >50,000, potassium levels >3.5 but <5.3, and sodium levels within 5 points of the reference range prior to endoscopic evaluation. Thank you for allowing us to participate in the care of this patient. Please call with any acute changes, questions or concerns. Please see addendum below with additional recommendation from my supervising physician. Supervising Physician Co-Signing Physician Notes I saw and evaluated the patient. We are planning to do upper endoscopy today as he had a food impaction yesterday at lunchtime. Patient reports that he has had difficulty with swallowing both solids and liquids for the last 24 hours. Interestingly he underwent a CT this morning which shows evidence of an impacted food bolus in the distal esophagus. The patient reports no history of heartburn nor prior history of difficulty with swallowing. Plan Upper endoscopy today Risks discussed include bleeding infection perforation pain aspiration and need for follow-up studies History of Present Illness Reason for Consultation: persistent N/V postop, unable to eat, CT w/GE path Requesting Physician: Kassandra Attending Physician: Stanislaw Garrett, DO History of Present Illness 72 year old male s/p POD #2 t T9-T10 decompression and fusion - GI asked to evaluate for postoperative nausea/vomiting and inability to tolerate PO intake. Pt was seen and evaluated, chart reviewed. Notes yesterday while eating lunch, felt something stick and notes inability to tolerate PO ever since. Any attempt of liquids, medications, or solids result in regurgitation and emesis. Suggests that even saliva has regurgitation up. Persistent discomfort noted at the epigastric region. CTAP 2022: Mild fluid distention of the distal esophagus. 2.5 cm hypodense focus noted within the region of the gastroesophageal junction which may be postoperative or represent ingested material. EGD: none previous Colonoscopy: none previous Allergies Allergy/AdvReac Type Severity Reaction Status Date / Time cat dander Allergy Severe difficulty Verified 02/25/23 11:19 breathing dog dander Allergy Severe difficulty Verified 02/25/23 11:19 breathing shrimp Allergy Severe difficulty Verified 02/25/23 11:19 breathing adhesive tape AdvReac Intermediate Rash/swelling/lesions Verified 02/25/23 11:19 for > 1 month Home Medications Medication Instructions Recorded Confirmed Type albuterol sulfate 90 mcg/actuation 1 puff inhalation Q6H PRN Wheezing 04/10/19 02/25/23 History aerosol inhaler (Ventolin HFA) bupropion HCl 300 mg 24 hr tablet, 300 mg PO QAM 04/10/19 02/25/23 History extended release cholecalciferol (vitamin D3) 50 2,000 unit PO QAM 04/10/19 02/25/23 History mcg (2,000 unit) tablet (Vitamin D3) losartan 100 1 tab PO QAM 04/10/19 02/25/23 History mg-hydrochlorothiazide 12.5 mg tablet metoprolol succinate 50 mg 50 mg PO HS 04/10/19 02/25/23 History tablet,extended release 24 hr multivitamin 1 tab PO QAM 04/10/19 02/25/23 History simvastatin 20 mg tablet 20 mg PO HS 04/10/19 02/25/23 History tramadol 50 mg tablet 50 mg PO Q6H PRN pain, moderate 07/16/19 02/25/23 Rx #30 tabs ascorbic acid (vitamin C) 1,000 mg 1 g PO QAM 01/22/23 02/25/23 History tablet (Vitamin C) fluticasone furoate 200 1 inh inhalation QAM 01/22/23 02/25/23 History mcg-vilanterol 25 mcg/dose inhalation powder (Breo Ellipta) tamsulosin 0.4 mg capsule 0.4 mg PO QAM 01/22/23 02/25/23 History oxycodone 5 mg tablet 5 mg PO Q6H PRN pain #30 tabs 02/26/23 Rx tramadol 50 mg tablet 50 mg PO Q6H PRN pain, moderate 02/26/23 Rx #30 tabs Patient History Medical History History of COVID-2019--mild symptoms, no symptoms now History of anesthesia reaction pt states that with last back surgery 07/2019 his BP dropped and he had to stay in the recovery room for an extended period - Per review of records- BP stable but O2 decreased (89%) slightly after administration of Fentanyl PACU Obesity BMI 35.8 History of kidney stones - no recent issues Hyperlipidemia Controlled on meds Hypertension Controlled on meds. Asthma controlled uses Breo inhaler daily History of sleep apnea "resolved"-- retesting was negative (no surgery) Surgical History H/O total knee replacement R knee 04/2019. Subsequent infection 3 wks later with debridement and antibiotic beads placed. History of spinal fusion multiple---last 07/2019 @ [facility] T10-L1 Decompression/Fusion by Dr. 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" S/P tonsillectomy and adenoidectomy Family History Other Hypertension No family history of adverse response to anesthesia Social History Smoking Status: Never smoker Second Hand Exposure: No; Do You Dip or Chew Tobacco: No; Tobacco Cessation Education Requested by Patient: No Hx Alcohol Use: Yes Alcohol type: wine Hx Substance Use: No Preferred Language: Thai Communication Ability: Effective Earth Burner Required: No Beliefs That Will Affect Care: None marital status: Current Living Situation: Spouse Other Information That Helps Us Care for You: No Feels Safe at Home: Yes Safety Concerns: Feels Safe At This Time Assistive Devices: Walker Review of Systems Review of Systems: All systems reviewed & are unremarkable except as noted in HPI & below Physical Exam Constitutional: WD/WN, vitals as above Respiratory: normal respiratory effort Cardiovascular: Rate/Rhythm: regular rate Gastrointestinal (Abdomen): normal bowel sounds, soft, nontender, no hepatosplenomegaly Skin: no rashes, warm and dry Results & Data Vital Signs (Past 12 Hours) Vital Signs Temp Pulse Resp BP Pulse Ox O2 Del Method O2 Flow Rate 02/27/23 07:34 Nasal Cannula 3 02/27/23 07:17 37.2 C 62 18 117/69 93 Nasal Cannula 4 02/27/23 04:00 37.0 C 68 18 118/68 94 Nasal Cannula 3 Laboratory Results 02/27/23 Range/Units 05:57 WBC 9.46 (4.8-10.8) K/ul RBC 4.16 L (4.70-6.10) M/uL Hgb 12.2 L (14.0-18.0) g/dl Hct 37.1 L (42.0-52.0) % MCV 89.2 (80.0-100.0) fL MCH 29.3 (25.0-34.0) pg MCHC 32.9 (32.0-36.0) g/dL RDW Std Deviation 43.7 (36.4-46.3) fL RDW Coeff of Ketty 13.5 (11.5-14.5) % Plt Count 135 (130-400) K/uL MPV 9.2 L (9.4-12.4) fL Immature Gran % (Auto) 0.6 % Neut % (Auto) 82.1 % Lymph % (Auto) 7.2 % [place] % (Auto) 9.8 % Eos % (Auto) 0.1 % Baso % (Auto) 0.2 % Neut # (Auto) 7.76 H (1.40-6.50) K/uL Lymph # (Auto) 0.68 L (1.20-3.40) K/uL [place] # (Auto) 0.93 H (0.11-0.59) K/uL Eos # (Auto) 0.01 (0.00-0.50) K/uL Baso # (Auto) 0.02 (0.00-0.20) K/uL Immature Gran # (Auto) 0.06 (0.01-0.20) K/uL Sodium 142 (136-145) mmol/L Potassium 3.9 (3.5-5.1) mmol/L Chloride 107 (98-107) mmol/L Carbon Dioxide 29 (21-32) mmol/L Anion Gap 6 (3-11) BUN 15 (6-23) mg/dl Creatinine 0.95 (0.6-1.4) mg/dl Est Cr Clr Drug Dosing 91.4 ml/min Est GFR ( Amer) 91.7 ml/min Est GFR (Non-Af Amer) 79.1 ml/min BUN/Creatinine Ratio 15.8 (10-20) Glucose 106 H (70-99(Fasting)) mg/dl Calcium 9.4 (8.6-10.3) mg/dl Phosphorus 3.0 (2.5-4.9) mg/dl Magnesium 2.0 (1.7-2.4) mg/dl Total Bilirubin 0.7 (0.2-1.0) mg/dl AST 14 (13-39) U/L ALT 9 (7-52) U/L Alkaline Phosphatase 57 (34-104) U/L Total Protein 5.8 L (6.0-8.3) gm/dl Albumin 3.7 (3.4-5.0) gm/dl Globulin 2.1 L (2.5-4.0) gm/dl Albumin/Globulin Ratio 1.8 (0.9-2)
[2023-02-27] MEDS ORDERED: PROPOFOL IV EMULSION 10 MG/ML 20 ML VIAL IV ONE (13:49)
[2023-02-27] MEDS ORDERED: fentaNYL citrate PF 100 MCG/2 ML VIAL ONE (13:52)
[2023-02-27] MEDS ORDERED: LIDOCAINE 2% 2 ML VIAL/AMP(20MG/ML) INFIL ONE (13:53)
[2023-02-27] MEDS ORDERED: SUCCINYLCHOLINE CHLORIDE 20 MG/ML 10 ML VIAL IV ONE (13:53)
--- NOTE | 2023-02-27 13:59 | Anesthesiology Consultation ---
Date of Service February 27, 2023 Assessment & Plan (1) Encounter for pre-operative examination: Chart Review Chart Review: Acceptable Risk for Surgery - Awaiting PCP clearance 01/31/23 (Dr Kat)- please fax optimization re: low normal O2 sats and low normal BP; did offer to set patient up for cardio clearance due to abnormal EKG but patient declines and would like PCP to review EKG first and make determination if he is stable from cardiac standpoint- will await response to optimization note; please also fax preop testing Per PAT appt on 01/24/23, no recent illness/disease exposures, illness related symptoms, or recent illness/disease positive tests. Will leave to surgeon's discretion if preop Covid testing needed T10-L1 decompression and fusion 07/15/19= done under [facility] with Grade 1 view with Rouse #2. ETT #7.5. Atraumatic DL x 1. Consults Requested none Teaching & Discussion Pre-Anesthesia Teaching/Discussion Notes: Instructed NPO after midnight before surgery,except medications with 15 cc of water. Medication instructions provided according to the PAT guidelines. History Surgery Operation Date: 02/25/23 12:25 Proposed Procedures p T9-T11 Decompression and Fusion with Spinal Cord Monitoring - Stanislaw Garrett DO Operation Date: 02/27/23 13:00 Proposed Procedures p Esophagogastroduodenoscopy - Prosper Cosby, Height/Weight Height: 6 ft Weight: 116.8 kg Allergies Allergy/AdvReac Type Severity Reaction Status Date / Time cat dander Allergy Severe difficulty Verified 02/25/23 11:19 breathing dog dander Allergy Severe difficulty Verified 02/25/23 11:19 breathing shrimp Allergy Severe difficulty Verified 02/25/23 11:19 breathing adhesive tape AdvReac Intermediate Rash/swelling/lesions Verified 02/25/23 11:19 for > 1 month Medications Home Medications Medication Instructions Recorded Confirmed Last Taken albuterol sulfate 90 mcg/actuation 1 puff inhalation Q6H PRN Wheezing 04/10/19 02/25/23 02/23/23 16:00 aerosol inhaler (Ventolin HFA) bupropion HCl 300 mg 24 hr tablet, 300 mg PO QAM 04/10/19 02/25/23 02/25/23 09:00 extended release cholecalciferol (vitamin D3) 50 2,000 unit PO QAM 04/10/19 02/25/23 04 mcg (2,000 unit) tablet (Vitamin D3) losartan 100 1 tab PO QAM 04/10/19 02/25/23 02/24/23 10:00 mg-hydrochlorothiazide 12.5 mg tablet metoprolol succinate 50 mg 50 mg PO HS 04/10/19 02/25/23 02/24/23 22:00 tablet,extended release 24 hr multivitamin 1 tab PO QAM 04/10/19 02/25/23 02/24/23 10:00 simvastatin 20 mg tablet 20 mg PO HS 04/10/19 02/25/23 02/24/23 22:00 tramadol 50 mg tablet 50 mg PO Q6H PRN pain, moderate 07/16/19 02/25/23 02/25/23 09:00 #30 tabs ascorbic acid (vitamin C) 1,000 mg 1 g PO QAM 01/22/23 02/25/23 Unknown tablet (Vitamin C) fluticasone furoate 200 1 inh inhalation QAM 01/22/23 02/25/23 02/25/23 09:00 mcg-vilanterol 25 mcg/dose inhalation powder (Breo Ellipta) tamsulosin 0.4 mg capsule 0.4 mg PO QAM 01/22/23 02/25/23 02/25/23 09:00 oxycodone 5 mg tablet 5 mg PO Q6H PRN pain #30 tabs 02/26/23 Unknown tramadol 50 mg tablet 50 mg PO Q6H PRN pain, moderate 02/26/23 Unknown #30 tabs Active Medications Generic Name Dose Route Start Last Admin Trade Name Freq PRN Reason Stop Dose Admin Bupropion HCl 300 mg 02/26/23 09:00 02/27/23 10:32 Bupropion Xl 300 Mg Tabcr PO 03/28/23 08:59 300 mg QAM MATI Administration Fluticasone/Vilanterol 1 puffs 02/26/23 09:00 02/27/23 09:27 Fluticasone/Vilanterol 200/25mcg 14 Puffs/Inhaler INH 03/28/23 08:59 1 puffs QAM MATI Administration Hydrochlorothiazide 12.5 mg 02/26/23 09:00 02/27/23 10:30 Hydrochlorothiazide 25 Mg Tab PO 03/28/23 08:59 12.5 mg DAILY MATI Administration Hydromorphone HCl 0.5 mg 02/25/23 17:55 02/27/23 12:48 Hydromorphone Inj 0.5 Mg/0.5 Ml Syr IV 03/11/23 17:54 0.5 mg Q3H PRN Administration MODERATE Pain (Scale 4,5,6) & Pre PT Dexamethasone 8 mg/ Syringe 2 mls @ 1 mls/min 02/26/23 09:00 02/27/23 09:25 IV 02/28/23 09:01 1 mls/min DAILY MATI Administration Lactated Ringer's 1,000 mls @ 15 mls/hr 02/27/23 14:00 02/27/23 13:50 Lr IV 03/29/23 13:59 15 mls/hr .Q24H MATI Administration Metoprolol Succinate 50 mg 02/25/23 21:00 02/26/23 20:51 Metoprolol Succ 50mg Ext Rel Tab PO 03/27/23 20:59 50 mg HS MATI Administration Multivitamins 1 tab 02/26/23 09:00 02/27/23 10:32 Multivitamin Tab PO 03/28/23 08:59 1 tab QAM MATI Administration Ondansetron HCl 4 mg 02/25/23 17:55 02/27/23 10:42 Ondansetron Inj 2 Mg/Ml 2 Ml Vial IV 03/27/23 17:54 4 mg Q6H PRN Administration Nausea &/or Vomiting Oxycodone HCl 5 - 10 mg 02/25/23 17:55 02/26/23 16:43 Oxycodone Hcl Ir 5 Mg Tab (Immediate Release) PO 03/11/23 17:54 10 mg Q4H PRN Administration Pain & Pre PT Polyethylene Glycol 17 gm 02/26/23 06:00 02/27/23 12:16 Polyethylene (Miralax) 17 Gm Pack PO 03/28/23 05:59 Not Given Q6 MATI Senna/Docusate Sodium 2 tab 02/25/23 21:00 02/26/23 20:51 Docusate Sodium/Senna 50/8.6mg Tab PO 03/27/23 20:59 2 tab HS MATI Administration Simvastatin 20 mg 02/25/23 21:00 02/26/23 20:51 Simvastatin 20 Mg Tab PO 03/27/23 20:59 20 mg HS MATI Administration Tamsulosin HCl 0.4 mg 02/26/23 09:00 02/27/23 10:30 Tamsulosin Hcl 0.4 Mg Cap PO 03/28/23 08:59 0.4 mg QAM MATI Administration Vitamin D 2,000 units 02/26/23 09:00 02/27/23 10:32 Cholecalciferol 1,000 Units 25 Mcg Tab PO 03/28/23 08:59 2,000 units QAM MATI Administration NPO Date Last Intake of Fluids: 02/27/23 Time Last Intake of Fluids: 12:00 Last Intake of Fluids Comment: attempted hebrew ice. Dr. Ayon aware. Date Last Intake of Solids: 02/27/23 Time Last Intake of Solids: 08:00 Last Intake of Solids Comment: Attempted few bites of toast. Vomited after per pt & nurse. Dr. Ayon awar Past Medical History Medical History History of COVID-2019--mild symptoms, no symptoms now History of anesthesia reaction pt states that with last back surgery 07/2019 his BP dropped and he had to stay in the recovery room for an extended period - Per review of records- BP stable but O2 decreased (89%) slightly after administration of Fentanyl PACU Obesity BMI 35.8 History of kidney stones - no recent issues Hyperlipidemia Controlled on meds Hypertension Controlled on meds. Asthma controlled uses Breo inhaler daily History of sleep apnea "resolved"-- retesting was negative (no surgery) Past Family History Family History Other Hypertension No family history of adverse response to anesthesia Past Surgical History Surgical History H/O total knee replacement R knee 04/2019. Subsequent infection 3 wks later with debridement and antibiotic beads placed. History of spinal fusion multiple---last 07/2019 @ [facility] T10-L1 Decompression/Fusion by Dr. Garrett History of right inguinal hernia repair History of prostate biopsy History of right shoulder replacement History of left shoulder replacement Left TSA: 06/26/17: Grade 3 view, MAC#4, ETT 8.0 + PNB at [facility] History of right hip replacement History of left hip replacement History of cholecystectomy History of esophagogastroduodenoscopy (EGD) History of colonoscopy History of lithotripsy History of laminectomy "thoracic" History of neck surgery ?laminectomy (1985) History of pituitary surgery "tumor removed and radiation therapy" S/P tonsillectomy and adenoidectomy Social History Smoking Status: Never smoker Do You Dip or Chew Tobacco: No Hx Alcohol Use: Yes Alcohol type: wine alcohol intake frequency: holidays/special occasions only Hx Substance Use: No substance use type: does not use Physical Exam Vital Signs Last Vital Signs Temp 37.3 C 02/27/23 13:52 Pulse 77 02/27/23 13:52 Resp 20 02/27/23 13:52 BP 119/79 02/27/23 13:52 Pulse Ox 94 02/27/23 13:52 O2 Del Method Room Air 02/27/23 13:52 O2 Flow Rate 3 02/27/23 07:34 Testing Laboratory Results 02/27/23 05:57 02/27/23 05:57
[2023-02-27] MEDS ORDERED: LACTATED RINGER'S 1,000 ML IV SCH (14:00)
[2023-02-27] MEDS ORDERED: ONDANSETRON INJ 2 MG/ML 2 ML VIAL IV PRN (14:03)
[2023-02-27] MEDS ORDERED: HYDROmorphone INJ 2 MG/ML SYR/VIAL IV PRN (14:03)
[2023-02-27] MEDS ORDERED: PROMETHAZINE HCL 12.5 MG in SODIUM CHLORIDE 0.9% 50 ML IV PRN (14:03)
[2023-02-27] MEDS ORDERED: ePHEDrine sulfate 50 MG/ML AMP IV PRN (14:03)
[2023-02-27] MEDS ORDERED: fentaNYL citrate PF 100 MCG/2 ML VIAL IV PRN (14:03)
[2023-02-27] MEDS ORDERED: ATROPINE SULFATE 0.1 MG/ML 10ML SYR IV PRN (14:03)
[2023-02-27] MEDS ORDERED: PHENYLEPHRINE 100MCG/ML 10ML SYR IV ONE (14:25)
[2023-02-27] MEDS ORDERED: ONDANSETRON INJ 2 MG/ML 2 ML VIAL ONE (14:25)
[2023-02-27] MEDS ORDERED: DEXAMETHASONE SOD INJ 4 MG/ML VIAL ONE ×2 (14:27)
--- NOTE | 2023-02-27 14:33 | Post Operative Brief Note ---
Immediate Post Op Note v1 Date of Surgery February 27, 2023 Pre & Post Diagnosis Operation Date: 02/27/23 13:00 Pre-Op Diagnosis: food impaction of esophagus I identified the patient and participated in the time-out.: Yes Procedure Operation Date: 02/27/23 13:00 Food impaction hiatal hernia Surgeon Prosper Cosby DO Insolvency Practitioner Radha Napoles Estimated Blood Loss 300 Findings Consistent with Post-Op Diagnosis Drains Servin Catheter and Krish-Ryder Drain
--- NOTE | 2023-02-27 14:34 | Communication Note ---
Date of Service: February 27, 2023 The patient underwent upper endoscopy today for suspected food bolus. He was found to have a 5 cm hiatal hernia, and a large bolus in the distal esophagus. This was removed with scope suction in addition to gentle pressure which allowed passage of the bolus. The esophagus was quite inflamed as a result of the the bolus being in place for over 24 hours. Recommendations Protonix 40 mg twice daily for 2 weeks then 1 time daily thereafter Clear liquids today, full liquid on 02/28/23 then advance to a soft diet Repeat upper endoscopy for esophageal dilation in 2 to 4 weeks Pleaes call with any questions GI to sign off.
--- NOTE | 2023-02-27 14:43 | GI REPORT ---
Patient Name: J Carlos Maria Procedure Date: 02/27/2023 1:11 PM Date of : 1950 Admit Type: Inpatient Age: 72 Gender: Male Attending MD: Prosper Cosby DO, Procedure: Upper GI endoscopy Providers: Prosper Cosby DO Referring MD: Stanislaw Garrett Indications: Foreign body in the esophagus Medicines: General Anesthesia Complications: No immediate complications. Estimated blood loss: Minimal. Estimated Blood Loss: Estimated blood loss was minimal. Procedure: Pre-Anesthesia Assessment: - Prior to the procedure, a History and Physical was performed, and patient medications, allergies and sensitivities were reviewed. The patient's tolerance of previous anesthesia was reviewed. - The risks and benefits of the procedure and the sedation options and risks were discussed with the patient. All questions were answered and informed consent was obtained. - Patient identification and proposed procedure were verified prior to the procedure by the physician, the nurse and the braille coder. The procedure was verified in the procedure room. - Pre-procedure physical examination revealed no contraindications to sedation. - ASA Grade Assessment: III - A patient with severe systemic disease. - After reviewing the risks and benefits, the patient was deemed in satisfactory condition to undergo the procedure. - The anesthesia plan was to use general anesthesia. - Immediately prior to administration of medications, the patient was re-assessed for adequacy to receive sedatives. - The heart rate, respiratory rate, oxygen saturations, blood pressure, adequacy of pulmonary ventilation, and response to care were monitored throughout the procedure. - The physical status of the patient was re-assessed after the procedure. After obtaining informed consent, the endoscope was passed under direct vision. Throughout the procedure, the patient's blood pressure, pulse, and oxygen saturations were monitored continuously. The Endoscope was introduced through the mouth, and advanced to the second part of duodenum. The upper GI endoscopy was accomplished without difficulty. The patient tolerated the procedure well. Findings: Esophagitis with no bleeding was found in the entire esophagus. Food was found at the gastroesophageal junction. Removal was accomplished with suction and gentle pressure of the food bolus, the bolus was passed into the stomach without difficulty. The mucosa at the GE junction was quite inflamed and edematous, consistent with a prolonged fluid bolus impaction. A medium-sized hiatal hernia was found. The proximal extent of the gastric folds (end of tubular esophagus) was 35 cm from the incisors. The hiatal narrowing was 41 cm from the incisors. The Z-line was 35 cm from the incisors. The gastric fundus, gastric body, incisura and gastric antrum were normal. The examined duodenum was normal. Impression: - Reflux esophagitis with no bleeding. - Food at the gastroesophageal junction. Removal was successful. - Medium-sized hiatal hernia. - Normal gastric fundus, gastric body, incisura and antrum. - Normal examined duodenum. Recommendation: - Return patient to [facility] for ongoing care. - Use Protonix (pantoprazole) 40 mg PO BID for 2 weeks. The 1 time daily thereafter - Clear liquid diet today the full liquids on 02/28/23, then soft foods only on 03/01/23.. - Repeat upper endoscopy in 2 weeks to check healing. Prosper Cosby D.O. Prosper Cosby, 02/27/2023 2:43:21 PM This report has been signed electronically. Note Initiated On: 02/27/2023 1:11 PM Number of Addenda: 0 I attest to the content of the Intraoperative Record and orders documented therein, exceptions below {[id number]}
[2023-02-27] MEDS ORDERED: ALBUTEROL 0.083% NEBU SOLN 3 ML VIAL ONE (15:20)
[2023-02-27] MEDS ORDERED: ALBUTEROL 0.083% NEBU SOLN 3 ML VIAL INH PRN (15:20)
[2023-02-27] MEDS ORDERED: ALBUTEROL 0.083% NEBU SOLN 3 ML VIAL NEB STA (15:21)
--- NOTE | 2023-02-27 15:25 | Hospitalist Progress Note ---
Date of Service February 27, 2023 Assessment & Plan (1) Lumbar stenosis with neurogenic claudication: (2) Hypertension: (3) Hyperlipidemia: (4) BPH (benign prostatic hypertrophy): (5) Asthma: Plan 72 year old male that presents to the ED for an elective T9-T11 decompression and fusion surgery under the care of Dr. 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 Course inpatient has since included impacted food bolus requiring urgent EGD with acute hypoxic respiratory failure postprocedure requiring CPAP use. Acute hypoxic respiratory Failure Pt underwent urgent EGD on for impacted food bolus Hypoxic in the PACU in the low 80s post procedure even with oxymask oxygen supplementation and breathing treatment Stat chest xray concerning for infectious process on the right, suspicious for aspiration pneumonia. Will rule out PE post-op with CT chest PE protocol Started on Zosyn, Vanc. MRSA nares pending. If MRSA nares negative, d/c Vanc Started on CPAP with noted improvement in oxygenation to the 90s. Transfer to PCU/tele Speech eval placed, pulmonology consulted- appreciate further recs Nausea/Vomiting Impacted Food Bolus Esophagitis Increasing episodes, could not eat KUB ordered-less likely SBO CT abd pelvis ordered- noted possible retained food at GE junction GI consult placed- Urgent EGD with course noted above. Appreciate GI recs -noted 5cm hiatal hernia with impacted food bolus, esophagitis -pantoprazole 40mg BID for 2 weeks, then daily -clear liquid diet today, then full liquids on 02/28, soft foods on 03/01 -repeat upper endoscopy in 2-4 weeks for esophageal dilation and to check healing Speech consult as above. Lumbar Stenosis with neurogenic claudication: Myelopathy concurrent d/t spinal stenosis POD# 1 s/p decompression and fusion T9-T11 under the care of Dr. Garrett. EBL 300mL Per ortho for pain control, wound care, anticoagulation and activities. Monitor H&H, pre op Hgb 01/24/23 14.3; currently >12 DENI drain x1 with lopez red bloody output continue incentive spirometry PT/OT when appropriate SpO2 92% on #LNC post op; He has a history of MARY ANN; that is documented as 'resolv ed' Due to his increased body habitus; suggested continuous pulse oximetry overnight Hypotension Persistent Holding home antihypertensives (NETO and HCTZ) Home metoprolol with parameters Holding IV fluids Currently in acceptable range HTN: Currently hypotensive now As above HLD: Chronic stable Takes Simvastatin;continue BPH: Chronic stable Takes Tamsulosin;continue Asthma: chronic stable Takes Breo; continue Disposition: PCP: Dr. Kat Code status: Full VTE Prophylaxis: Lovenox started Admission and Anticipated Discharge Date Admission Date: February 25, 2023 Subjective pt seen in the AM, sitting at bedside. Stated that he had not been able to eat or drink anything since yesterday. Still with nausea and episodes of emesis. CT scan of abd/pelvis had been done and was pending. GI consult was placed after results and pt taken for urgent EGD. Later called to the PACU as pt had desaturated and was persistently in the 80s on oxymask. Pt AAOx3, mentating well. Denied dizziness, chest pain, chest tightness Stat chest xray and labs including VBG, cbc and bmp ordered Review of Systems Review of Systems: All systems reviewed & are unremarkable except as noted in Subjective Physical Exam Physical Exam: General: Alert, oriented. No acute distress initially, later with oxymask in PACU Skin: No noted rashes or bruises Psych: Appropriate mood and affect Neuro: No gross deficits, mentating well HEENT: NC/AT Chest: Nontender to palpation. CV: RRR, Normal s1, s2. No murmurs appreciated Resp: Breath sounds with scattered wheezing and rhonchi Abdomen: Soft, nontender, nondistended. Extremities: No edema in lower extremities bilaterally. Results & Data Results & Data Vital Signs (Past 12 Hours) Vital Signs Temp Pulse Pulse Resp BP BP Pulse Ox 02/27/23 15:20 93 H 21 111/74 83 L 02/27/23 15:10 90 14 107/68 86 L 02/27/23 15:00 95 H 17 111/72 93 02/27/23 14:50 94 H 23 104/64 85 L 02/27/23 14:42 37.2 C 99 H 16 118/77 88 L 02/27/23 13:52 37.3 C 77 20 119/79 94 02/27/23 07:34 02/27/23 07:17 37.2 C 62 18 117/69 93 02/27/23 04:00 37.0 C 68 18 118/68 94 O2 Del Method O2 Flow Rate 02/27/23 15:20 Oxymask 6 02/27/23 15:10 Oxymask 6 02/27/23 15:00 Oxymask 9 02/27/23 14:50 Oxymask 12 02/27/23 14:42 Oxymask 12 02/27/23 13:52 Room Air 02/27/23 07:34 Nasal Cannula 3 02/27/23 07:17 Nasal Cannula 4 02/27/23 04:00 Nasal Cannula 3
--- NOTE | 2023-02-27 16:28 | XRay Report ---
XR chest 1V portable CLINICAL HISTORY: Hypoxia. COMPARISON STUDY: Chest radiograph January 24, 2023. FINDINGS: Bilateral shoulder arthroplasties are incidentally noted. There are postoperative findings within the proximal lumbar spine. Lung volumes are diminished. This is unchanged. There is no pneumot horax or pleural effusion. Cardiomediastinal silhouette is stable. There is no evidence for pulmonary edema. Linear bibasilar opacities favor atelectasis. A few additional right lower lung opacities are new since prior exam. IMPRESSION: A few patchy right lower lung opacities which may reflect an infectious process. Additional linear bi basilar densities represent atelectasis. ACT 112: Negative or not required by law. Electronically signed by: Roderick Armas M.D. 02/27/2023 4:26 PM
[2023-02-27] MEDS ORDERED: PIPER/TAZO 4.5g in D5W MINI-B 100 ML IV STA (16:33)
[2023-02-27 16:40] LABS: Base Excess VBG 2.8 mEq/L; HCO3 VBG 29 mmol/L; Oxygen Saturation VBG 63.5 %; PCO2 VBG 47 mmHg (38-50); PO2 VBG 35 mmHg; pH VBG 7.39 (7.36-7.41)
[2023-02-27 16:42] LABS: Hematocrit (blood only) 40.6 % (42.0-52.0); Hemoglobin 13.4 g/dl (14.0-18.0); Mean Corpuscular Hemoglobin 29.7 pg (25.0-34.0); Platelet Count 141 K/uL (130-400); RDW Coefficient of Variation 13.4 % (11.5-14.5); RDW Standard Deviation 44.1 fL (36.4-46.3); Red Blood Count 4.51 M/uL (4.70-6.10); White Blood Count 8.67 K/ul (4.8-10.8)
--- NOTE | 2023-02-27 16:50 | Anesthesiology Progress Note ---
Date of Service February 27, 2023 Anesthesia Post Procedure Vital Signs Vital Signs: Temp Pulse Pulse Pulse Resp BP BP 02/27/23 16:40 102 H 22 123/90 02/27/23 16:30 100 H 19 109/84 02/27/23 16:28 103 H 18 02/27/23 16:20 101 H 24 121/79 02/27/23 16:10 102 H 24 110/70 02/27/23 16:00 99 H 15 94/74 L 02/27/23 15:50 94 H 12 107/65 02/27/23 15:40 94 H 12 90/63 L 02/27/23 15:30 91 H 12 102/66 02/27/23 15:20 93 H 21 111/74 02/27/23 15:10 90 14 107/68 02/27/23 15:00 95 H 17 111/72 02/27/23 14:50 94 H 23 104/64 02/27/23 14:42 37.2 C 99 H 16 118/77 02/27/23 13:52 37.3 C 77 20 119/79 02/27/23 07:34 02/27/23 07:17 37.2 C 62 18 117/69 02/27/23 04:00 37.0 C 68 18 118/68 02/27/23 00:00 36.9 C 71 18 122/64 02/26/23 20:49 37.1 C 65 18 114/73 02/26/23 20:00 02/26/23 17:43 37 C 72 18 127/72 Pulse Ox O2 Del Method O2 Flow Rate FiO2 02/27/23 16:40 99 CPAP 100 02/27/23 16:30 95 CPAP 100 02/27/23 16:28 94 100 02/27/23 16:20 85 L Oxymask 9 02/27/23 16:10 85 L Oxymask 9 02/27/23 16:00 89 L Oxymask 9 02/27/23 15:50 87 L Oxymask 9 02/27/23 15:40 86 L Oxymask 6 02/27/23 15:30 88 L Nebulizer 7 02/27/23 15:20 83 L Oxymask 6 02/27/23 15:10 86 L Oxymask 6 02/27/23 15:00 93 Oxymask 9 02/27/23 14:50 85 L Oxymask 12 02/27/23 14:42 88 L Oxymask 12 02/27/23 13:52 94 Room Air 02/27/23 07:34 Nasal Cannula 3 02/27/23 07:17 93 Nasal Cannula 4 02/27/23 04:00 94 Nasal Cannula 3 02/27/23 00:00 96 Nasal Cannula 3 02/26/23 20:49 96 Nasal Cannula 3 02/26/23 20:00 Nasal Cannula 3 02/26/23 17:43 95 Nasal Cannula 3 Pain Intensity Bilateral Lower Back: Pain Intensity: 3 Back: Pain Intensity: 7 Transfer of Care Handoff Completed per policy Notes Mental Status: alert / awake / arousable Patient Amnestic to Procedure: Yes Nausea / Vomiting: adequately controlled Pain: adequately controlled Airway Patency, RR, SpO2: see Notes below BP & HR: stable & adequate Hydration State: stable & adequate Anesthetic Complications: no major complications apparent Notes: patient requiring oxygen preop, now with somewhat increased need - considering obstructed esophagus could certainly have aspirated - spoke with medicine, they put him on BiPAP and will put him in the PCU over night.
[2023-02-27 16:58] LABS: Calcium 9.2 mg/dl (8.6-10.3)
[2023-02-27 17:04] LABS: BUN Creatinine Ratio 15.8 (10-20); Basophils # (auto) 0.01 K/uL (0.00-0.20); Basophils % (auto) 0.1 %; Creatinine Clr Calc Pharmacy 85.9 ml/min; Est GFR (African American) 85.1 ml/min; Est GFR (Non-African American) 73.4 ml/min; Immature Granulocytes # (auto) 0.14 K/uL (0.01-0.20); Immature Granulocytes % (auto) 1.6 %; Lymphocytes # (auto) 0.38 K/uL (1.20-3.40); Lymphocytes % (auto) 4.4 %; Monocytes # (auto) 0.32 K/uL (0.11-0.59); Monocytes % (auto) 3.7 %; Neutrophils # (auto) 7.82 K/uL (1.40-6.50); Neutrophils % (auto) 90.2 %
[2023-02-27] MEDS ORDERED: VANCOMYCIN CONSULT ACTIVE PRN (18:28)
[2023-02-27] MEDS ORDERED: FUROSEMIDE 40 MG/4 ML VIAL IV ONE (18:51)
--- NOTE | 2023-02-27 18:52 | Pharmacy Report ---
Pharmacy PK ABX Note - Date of Service February 27, 2023 - Assessment and Plan Assessment 72 year old M receiving Empiric IV Vancomycin and Zosyn for treatment of possible aspiration pneumonia. Pt underwent urgent EGD on for impacted food bolus. Hypoxic in the PACU in the low 80s post procedure even with oxymask oxygen supplementation and breathing treatment. Stat chest xray concerning for infectious process on the right. Nasal MRSA swab pending. Pulmonology consulted. WBC wnl, Afebrile. Plan Vancomycin * Loading dose: 2750 mg IV x 1 * Maintenance dose: 1250 mg IV every 12 hours * Regimen is predicted to achieve target AUC/LUIS of 400-600 mg/L.hr * Level to be ordered if therapy extended beyond 48 hours Pharmacy will continue to follow and will adjust dose/frequency as necessary. Thank you. Pharmacy has transitioned to AUC monitoring for vancomycin. AUC/LUIS is the preferred PK/PD target and is associated with decreased risk of nephrotoxicity compared to traditional trough targets. Zosyn 4.5g IV x1 over 30 min, then 4.5g IV Q8H extended interval infusion for CrCl > 20ml/min
[2023-02-27] MEDS ORDERED: VANCOMYCIN HCL 2,750 MG in SODIUM CHLORIDE 0.9% 500 ML IV ONE (19:00)
[2023-02-27 19:35] LABS: Base Excess ABG 4.2 mEq/L (-9-1.8); HCO3 ABG 27 mmol/L (19-24); Oxygen Saturation ABG 97.9 % (90-95); PCO2 ABG 35 mmHg (35-46); PO2 ABG 81 mmHg (80-95)
[2023-02-27 19:37] LABS: Allen Test Pos (Pos)
--- NOTE | 2023-02-27 19:53 | Pulmonary Consultation ---
Date of Consultation February 27, 2023 Assessment & Plan (1) Food impaction of esophagus: Encounter type: initial encounter Qualified Code(s): T18.128A - Food in esophagus causing other injury, initial encounter; W44.F3XA - Food enter ing into or through a natural orifice, initial encounter (2) Myelopathy concurrent with and due to spinal stenosis of thoracic region: (3) Asthma: Asthma severity: mild Asthma persistence: intermittent Asthma complication type: unspecified Qualified Code(s): J45.20 - Mild intermittent asthma, uncomplicated (4) MARY ANN (obstructive sleep apnea): (5) Aspiration into lower respiratory tract: Encounter type: initial encounter Qualified Code(s): T17.800A - Unspecified foreign body in other parts of respiratory tract causing asphyxiation, initial encounter Plan 72 year old male with asthma, MARY ANN who was admitted for elective thoracic decompression and spinal fusion, post-op developed food impaction and underwent EGD for removal today. Post procedure he became hypoxic and CXR showing new patchy infiltrates. Suspect aspiration during this period of food impaction. He likely aspiration pneumonia/pneumonitis causing degree of hypoxia. He has been started on empiric broad spectrum antibiotics and we will continue for now. Follow up CTA chest. continue high flow and Titrate oxygen to keep sat >92%. check respiratory viral panel. will add scheduled neb given underlying asthma. Ideally he should use CPAP at night for known MARY ANN however he is reluctant. History of Present Illness Attending Physician: Stanislaw Garrett DO History of Present Illness 72 year old male with spinal stenosis with myelopathy who was admitted on 02/25 for scheduled thoracic decompression and fusion T9-T10. Post op he developed nausea, vomiting with bolus sensation in the chest. Urgent EGD performed today where food at GE junction was vremoved. In the PACU he was noted to be hypoxic. Oxygen saturation mid 90's on oxymask 9-12L. He was subsequently placed on CPAP. At the time of my exam, he looked comfortable but complained of mask discomfort. He was on FiO2 100% satting in the high 90's. He has a history of well controlled asthma on Breo. He is a never smoker. He has a history of MARY ANN not on CPAP. He denied chest pain or cough. Allergies Allergy/AdvReac Type Severity Reaction Status Date / Time cat dander Allergy Severe difficulty Verified 02/25/23 11:19 breathing dog dander Allergy Severe difficulty Verified 02/25/23 11:19 breathing shrimp Allergy Severe difficulty Verified 02/25/23 11:19 breathing adhesive tape AdvReac Intermediate Rash/swelling/lesions Verified 02/25/23 11:19 for > 1 month Home Medications Medication Instructions Recorded Confirmed Type albuterol sulfate 90 mcg/actuation 1 puff inhalation Q6H PRN Wheezing 04/10/19 02/25/23 History aerosol inhaler (Ventolin HFA) bupropion HCl 300 mg 24 hr tablet, 300 mg PO QAM 04/10/19 02/25/23 History extended release cholecalciferol (vitamin D3) 50 2,000 unit PO QAM 04/10/19 02/25/23 History mcg (2,000 unit) tablet (Vitamin D3) losartan 100 1 tab PO QAM 04/10/19 02/25/23 History mg-hydrochlorothiazide 12.5 mg tablet metoprolol succinate 50 mg 50 mg PO HS 04/10/19 02/25/23 History tablet,extended release 24 hr multivitamin 1 tab PO QAM 04/10/19 02/25/23 History simvastatin 20 mg tablet 20 mg PO HS 04/10/19 02/25/23 History tramadol 50 mg tablet 50 mg PO Q6H PRN pain, moderate 07/16/19 02/25/23 Rx #30 tabs ascorbic acid (vitamin C) 1,000 mg 1 g PO QAM 01/22/23 02/25/23 History tablet (Vitamin C) fluticasone furoate 200 1 inh inhalation QAM 01/22/23 02/25/23 History mcg-vilanterol 25 mcg/dose inhalation powder (Breo Ellipta) tamsulosin 0.4 mg capsule 0.4 mg PO QAM 01/22/23 02/25/23 History oxycodone 5 mg tablet 5 mg PO Q6H PRN pain #30 tabs 02/26/23 Rx tramadol 50 mg tablet 50 mg PO Q6H PRN pain, moderate 02/26/23 Rx #30 tabs Patient History Medical History History of COVID-2019--mild symptoms, no symptoms now History of anesthesia reaction pt states that with last back surgery 07/2019 his BP dropped and he had to stay in the recovery room for an extended period - Per review of records- BP stable but O2 decreased (89%) slightly after administration of Fentanyl PACU Obesity BMI 35.8 History of kidney stones - no recent issues Hyperlipidemia Controlled on meds Hypertension Controlled on meds. Asthma controlled uses Breo inhaler daily History of sleep apnea "resolved"-- retesting was negative (no surgery) Surgical History H/O total knee replacement R knee 04/2019. Subsequent infection 3 wks later with debridement and anti biotic beads placed. History of spinal fusion multiple---last 07/2019 @ [facility] T10-L1 Decompression/Fusion by Dr. 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" S/P tonsillectomy and adenoidectomy Family History Other Hypertension No family history of adverse response to anesthesia Social History Smoking Status: Never smoker Second Hand Exposure: No; Do You Dip or Chew Tobacco: No; Tobacco Cessation Education Requested by Patient: No Hx Alcohol Use: Yes Alcohol type: wine Hx Substance Use: No Preferred Language: Citizen [place] Communication Ability: Effective Quality Assurance Qa Lab Analyst Required: No Beliefs That Will Affect Care: None marital status: Current Living Situation: Spouse Other Information That Helps Us Care for You: No Feels Safe at Home: Yes Safety Concerns: Feels Safe At This Time Assistive Devices: Walker Review of Systems Constitutional: as per Subjective / HPI Physical Exam Constitutional: well developed Respiratory: normal respiratory effort Auscultation: + diminished lung sounds; no crackles, no rhonchi and no wheezes Cardiovascular: Rate/Rhythm: regular rate and regular rhythm Gastrointestinal (Abdomen): Inspection/Auscultation: abdomen normal to inspection Skin: no rashes, warm and dry Neurologic: CN's II-XI intact bilaterally and awake Results & Data Results & Data Vital Signs (Past 12 Hours) Vital Signs Temp Pulse Pulse Pulse Resp BP BP 02/27/23 18:29 36.9 C 131 H 16 122/66 02/27/23 17:40 115 H 26 H 123/81 02/27/23 17:25 111 H 29 H 135/87 02/27/23 17:10 106 H 24 125/85 02/27/23 17:00 104 H 22 131/89 02/27/23 16:50 103 H 23 132/83 02/27/23 16:40 102 H 22 123/90 02/27/23 16:30 100 H 19 109/84 02/27/23 16:28 103 H 18 02/27/23 16:20 101 H 24 121/79 02/27/23 16:10 102 H 24 110/70 02/27/23 16:00 99 H 15 94/74 L 02/27/23 15:50 94 H 12 107/65 02/27/23 15:40 94 H 12 90/63 L 02/27/23 15:30 91 H 12 102/66 02/27/23 15:20 93 H 21 111/74 02/27/23 15:10 90 14 107/68 02/27/23 15:00 95 H 17 111/72 02/27/23 14:50 94 H 23 104/64 02/27/23 14:42 37.2 C 99 H 16 118/77 02/27/23 13:52 37.3 C 77 20 119/79 Pulse Ox O2 Del Method O2 Flow Rate FiO2 02/27/23 18:29 88 L High Flow Nasal Cannula 40 100 02/27/23 17:40 97 CPAP 100 02/27/23 17:25 97 CPAP 100 02/27/23 17:10 99 CPAP 100 02/27/23 17:00 99 CPAP 100 02/27/23 16:50 99 CPAP 100 02/27/23 16:40 99 CPAP 100 02/27/23 16:30 95 CPAP 100 02/27/23 16:28 94 100 02/27/23 16:20 85 L Oxymask 9 02/27/23 16:10 85 L Oxymask 9 02/27/23 16:00 89 L Oxymask 9 02/27/23 15:50 87 L Oxymask 9 02/27/23 15:40 86 L Oxymask 6 02/27/23 15:30 88 L Nebulizer 7 02/27/23 15:20 83 L Oxymask 6 02/27/23 15:10 86 L Oxymask 6 02/27/23 15:00 93 Oxymask 9 02/27/23 14:50 85 L Oxymask 12 02/27/23 14:42 88 L Oxymask 12 02/27/23 13:52 94 Room Air PG Care Time/CCT Total # of Minutes Spent Total Time Spent with Patient: Total time spent is greater than 50% in coordination of care (as documented) at patient's floor/unit and/or counseling patient: Coding Level of Care Code 87019 INT INP/OBS CARE 2/55MIN Diagnoses Food impaction of esophagus, initial encounter T18.128A; W44.F3XA Encounter type: initial encounter Myelopathy concurrent with and due to spinal stenosis of thoracic region M48.04; G99.2 Mild intermittent asthma, unspecified whether complicated J45.20 Asthma severity: mild Asthma persistence: intermittent Asthma complication type: unspecified MARY ANN (obstructive sleep apnea) G47.33 Aspiration into lower respiratory tract, initial encounter T17.800A Encounter type: initial encounter
[2023-02-27] MEDS ORDERED: OPTIRAY 320 500ml IV ONE (20:09)
--- NOTE | 2023-02-27 20:28 | Communication Note ---
Date of Service: February 27, 2023 Updated progress note - patient transferred to ICU for concern of hypoxic respiratory failure, evaluated earlier in day by pulmonary. - Patient was originally evaluated following EGD for removal of food bolus and likely aspiration event. he was hypoxic at that time and had improvement initially with CPAP, but reportedly was intolerant of air flow, he was transitioned to HFNC at 40L and 100% Fio2 with Spo2 in the mid to high 90s he was transitioned back to his PCU. Called around 1915 from hospitalist service for reported hypoxia in to the mid to low 90s with previous HFNC settings. Request was made to transfer patient to ICU for monitoring of his respiratory status. Patient will undergo ABG, diuresis as well as CTA to rule/out PE. Patient evaluated on arrival tot he ICU where he is tachycardic with RR 20s without use of accessory muscles and with SPO2 in the mid 90s. Will continue with CPAP/BiPAP as needed for as long as tolerated to assist with recruitment. Avoid oversedation. Continue with SEGUN and LABA, and pulmonary toileting. ABG with respiratory alkalosis likely secondary from hyperventilation Exam: He is without accessory muscle use but is with inspiratory wheezing and scattered rhonchi bilaterally but worse on right side, tachycardia with NSR without ectopy, and trace lower extremity edema. CTA: NEGATIVE for PE Plan: As previously outlined and as above. CODE: FULL Ulices MEYER (ACNP-BC)
--- NOTE | 2023-02-27 20:28 | CT Scan Report ---
Exam(s): CTA CHEST IV Amt: 117 ml opti 320 EXAM: CT Angiography Chest With Intravenous Contrast CLINICAL HISTORY: Reason for exam: PE. TECHNIQUE: Axial computed tomographic angiography images of the chest with intravenous contrast. CTDI is 33.84 mGy and DLP is 1268.07 mGy-cm. Automated exposure control was utilized for the study. A dose lowering technique was utilized adhering to the principles of ALARA. MIP reconstructed images were created and reviewed. COMPARISON: No relevant prior studies available. FINDINGS: Pulmonary arteries: Unremarkable. No acute pulmonary embolism. Aorta: Atherosclerotic changes of the aorta. No thoracic aortic aneurysm. Lungs: Patchy bilateral airspace consolidations in the lower lobes, consistent with multilobar pneumonia. Pleural space: Unremarkable. No significant effusion. No pneumothorax. Heart: Mild cardiomegaly prepared to hepatic steatosis. No significant pericardial effusion. No evidence of RV dysfunction. Bones/joints: Degenerative changes of the spine. Bilateral shoulder arthroplasties. No acute fracture. No dislocation. Soft tissues: Unremarkable. Lymph nodes: Unremarkable. No enlarged lymph nodes. Gallbladder and bile ducts: Cholecystectomy. IMPRESSION: 1. No acute pulmonary embolism. 2. Patchy bilateral airspace consolidations in the lower lobes, consistent with multilobar pneumonia. Electronically signed by: Ramón Patino MD 02/27/23 20:27 PM
[2023-02-27] MEDS: ENOXAPARIN INJ 40 MG/0.4 ML SYR SQ SCH (20:44)
[2023-02-27] MEDS: METOPROLOL SUCC 50MG EXT REL TAB PO SCH (20:49)
[2023-02-27] MEDS: SIMVASTATIN 20 MG TAB PO SCH (20:49)
[2023-02-27] MEDS: PANTOprazole 40 MG TAB PO SCH (20:55)
[2023-02-27] MEDS: DOCUSATE SODIUM/SENNA 50/8.6MG TAB PO SCH (21:02)
[2023-02-27] MEDS: ALBUT/IPRATROP 3MG/0.5MG NEB 3 ML VIAL NEB SCH (21:30)
--- NOTE | 2023-02-27 22:20 | Communication Note ---
Date of Service: February 27, 2023 I spent a total of 70 minutes of critical care time obtaining a history and physical, ordering and reviewing stat chest xray and labs including a VBG, CBC, BMP, managing pneumonia and hypoxia with pt eventually requiring stabilization with cpap and noted saturations stable in the 90s. Discussed events and updated pt's Meredith by phone and later in the surgical suite waiting room, and escorted pt's to the PACU to be with the pt after the events where he was stable on cpap at that time.
[2023-02-27] MEDS: PIPERACILLIN/TAZOBACTAM 4.5 GM in DEXTROSE 5% MINI-B 100 ML IV SCH (22:40)
[2023-02-28] MEDS: POLYETHYLENE (MIRALAX) 17 GM PACK PO SCH ×4 (00:44→18:13)
[2023-02-28 04:21] LABS: Basophils # (auto) 0.02 K/uL (0.00-0.20); Basophils % (auto) 0.2 %; Hematocrit (blood only) 35.7 % (42.0-52.0); Hemoglobin 11.9 g/dl (14.0-18.0); Immature Granulocytes # (auto) 0.03 K/uL (0.01-0.20); Immature Granulocytes % (auto) 0.2 %; Lymphocytes # (auto) 0.53 K/uL (1.20-3.40); Lymphocytes % (auto) 4.1 %; Mean Corpuscular Hemoglobin 29.5 pg (25.0-34.0); Mean Corpuscular Hgb Conc 33.3 g/dL (32.0-36.0); Mean Corpuscular Volume 88.6 fL (80.0-100.0); Mean Platelet Volume 9.3 fL (9.4-12.4); Monocytes # (auto) 0.75 K/uL (0.11-0.59); Monocytes % (auto) 5.8 %; Neutrophils # (auto) 11.55 K/uL (1.40-6.50); Neutrophils % (auto) 89.7 %; Platelet Count 131 K/uL (130-400); RDW Coefficient of Variation 13.2 % (11.5-14.5); RDW Standard Deviation 43.2 fL (36.4-46.3); Red Blood Count 4.03 M/uL (4.70-6.10); White Blood Count 12.88 K/ul (4.8-10.8)
[2023-02-28 04:37] LABS: Albumin Globulin Ratio 1.6 (0.9-2); Albumin Level 3.5 gm/dl (3.4-5.0); BUN Creatinine Ratio 14.9 (10-20); Bilirubin,Total 1.5 mg/dl (0.2-1.0); Calcium 9.2 mg/dl (8.6-10.3); Creatinine Clr Calc Pharmacy 76.1 ml/min; Est GFR (African American) 73.5 ml/min; Est GFR (Non-African American) 63.4 ml/min; Globulin 2.2 gm/dl (2.5-4.0); Magnesium 1.9 mg/dl (1.7-2.4); Phosphorus 3.4 mg/dl (2.5-4.9); Potassium 3.6 mmol/L (3.5-5.1); Total Protein 5.7 gm/dl (6.0-8.3)
[2023-02-28] MEDS: PIPERACILLIN/TAZOBACTAM 4.5 GM in DEXTROSE 5% MINI-B 100 ML IV SCH ×3 (05:41→20:41)
[2023-02-28] MEDS: HYDROmorphone INJ 0.5 MG/0.5 ML SYR IV PRN (05:51)
[2023-02-28] MEDS ORDERED: VANCOMYCIN HCL 1,250 MG in SODIUM CHLORIDE 0.9% 250 ML IV SCH (07:00)
[2023-02-28] MEDS: ALBUT/IPRATROP 3MG/0.5MG NEB 3 ML VIAL NEB SCH ×3 (07:19→19:19)
--- NOTE | 2023-02-28 07:40 | XRay Report ---
XR chest 1V portable CLINICAL HISTORY: hypoxia TECHNIQUE: Single frontal radiograph of the chest was obtained. Comparison: Comparison is made to chest radiograph 02/27/2023 FINDINGS: No lines and tubes are seen. The cardiomediastinal silhouette is normal. Lungs are underinflated but clear. Right lung base airspace opacities are again seen. No evidence of pleural effusion or pneumoth orax. IMPRESSION: Right lung base airspace opacities are stable. ACT 112: Negative or not required by law. Electronically signed by: Kameron Hassan M.D. 02/28/2023 7:39 AM
[2023-02-28] MEDS: buPROPion XL 300 MG TABCR PO SCH (08:32)
[2023-02-28] MEDS: CHOLECALCIFEROL 1,000 UNITS 25 MCG TAB PO SCH (08:32)
[2023-02-28] MEDS: dexAMETHasone 8 MG in SYRINGE 0 ML IV SCH (08:32)
[2023-02-28] MEDS: FLUTICASONE/VILANTEROL 200/25MCG 14 PUFFS/INHALER INH SCH (08:33)
[2023-02-28] MEDS: PANTOprazole 40 MG TAB PO SCH ×2 (08:34→20:40)
[2023-02-28] MEDS: TAMSULOSIN HCL 0.4 MG CAP PO SCH (08:34)
[2023-02-28] MEDS: MULTIVITAMIN TAB PO SCH (08:34)
--- NOTE | 2023-02-28 09:22 | Orthopedic Progress Note ---
Date of Service February 28, 2023 Assessment & Plan (1) Myelopathy concurrent with and due to spinal stenosis of thoracic region: Plan: J Carlos is postoperative day 3 status post T9-T10 decompression and fusion with postoperative aspiration pneumonia. Currently in the ICU. We will do some gentle physical therapy today/ambulation and lower extremity strengthening. DVT prophylaxis is in the form of teds and SCDs. Will DC DENI drain tomorrow. Last output was 25cc. Currently orthopedically stable Admission and Anticipated Discharge Date Admission Date: February 25, 2023 Subjective J Carlos is postoperative day 3 status post T9-T10 decompression and fusion. Unfortunately yesterday he had a food bolus which was removed via EGD. This led to some hypoxia and aspiration pneumonia. He was moved out of the ICU yesterday. This morning has a little bit of increase in his thoracic pain due to being moved on and off the CT scanner a few times. No radicular leg pain. Numbness in his feet is established and unchanged. No other complaints. Review of Systems Review of Systems: All systems reviewed & are unremarkable except as noted in HPI & below Physical Exam Physical Exam: Alert and oriented x3 No acute distress. He is on high flow nasal cannula satting 95% Thoracic dressing is clean dry and intact with functioning DENI drain strength is intact bilateral lower extremities Results & Data Vital Signs (Past 12 Hours) Vital Signs Temp Pulse Pulse Resp BP Pulse Ox O2 Del Method 02/28/23 07:22 63 20 95 High Flow Nasal Cannula 02/28/23 07:22 63 20 95 High Flow Nasal Cannula 02/28/23 05:00 58 L 18 91/57 L 96 High Flow Nasal Cannula 02/28/23 04:00 36.8 C 60 16 106/62 95 High Flow Nasal Cannula 02/28/23 03:00 67 13 109/60 96 High Flow Nasal Cannula 02/28/23 02:49 62 18 94 High Flow Nasal Cannula 02/28/23 02:00 65 20 84/58 L 93 High Flow Nasal Cannula 02/28/23 01:00 37.2 C 68 20 108/58 L 95 High Flow Nasal Cannula 02/28/23 00:47 83 02/28/23 00:00 80 19 98/59 L 93 High Flow Nasal Cannula 02/27/23 23:00 88 22 95/67 L 95 High Flow Nasal Cannula 02/27/23 22:19 99 H 24 94 High Flow Nasal Cannula 02/27/23 22:00 108 H 17 101/68 95 High Flow Nasal Cannula O2 Flow Rate FiO2 02/28/23 07:22 35 80 02/28/23 07:22 35 80 02/28/23 05:00 40 100 02/28/23 04:00 40 100 02/28/23 03:00 40 100 02/28/23 02:49 40 100 02/28/23 02:00 40 100 02/28/23 01:00 40 100 02/28/23 00:47 02/28/23 00:00 40 100 02/27/23 23:00 40 100 02/27/23 22:19 40 100 02/27/23 22:00 40 100 Queries Orthopedic Spine Obesity: Yes
--- NOTE | 2023-02-28 09:25 | Intensivist Progress Note ---
Date of Service February 28, 2023 Assessment & Plan (1) Food impaction of esophagus: (2) Myelopathy concurrent with and due to spinal stenosis of thoracic region: (3) Asthma: (4) MARY ANN (obstructive sleep apnea): (5) Aspiration into lower respiratory tract: Plan 72 year old male with asthma, MARY ANN who was admitted for elective thoracic decompression and spinal fusion, post-op developed food impaction and underwent EGD for removal today. Post procedure he became hypoxic and CXR showing new patchy infiltrates. Suspect aspiration during this period of food impaction. He likely aspiration pneumonia/pneumonitis causing degree of hypoxia. He has been started on empiric broad spectrum antibiotics and we will continue for now. Follow up CTA chest. continue high flow and Titrate oxygen to keep sat >92%. check respiratory viral panel. will add scheduled neb given underlying asthma. Ideally he should use CPAP at night for known MARY ANN however he is reluctant. Admission and Anticipated Discharge Date Admission Date: February 25, 2023 Subjective feeling better. denies dyspnea. on high flow. back pain controlled. Physical Exam Constitutional: well developed Respiratory: normal respiratory effort Auscultation: + diminished lung sounds; no crackles, no rhonchi and no wheezes Cardiovascular: Rate/Rhythm: regular rate and regular rhythm Gastrointestinal (Abdomen): Inspection/Auscultation: abdomen normal to inspection Skin: no rashes, warm and dry Neurologic: CN's II-XI intact bilaterally and awake Results & Data Results & Data Vital Signs (Past 12 Hours) Vital Signs Temp Pulse Pulse Resp BP Pulse Ox O2 Del Method 02/28/23 07:22 63 20 95 High Flow Nasal Cannula 02/28/23 07:22 63 20 95 High Flow Nasal Cannula 02/28/23 05:00 58 L 18 91/57 L 96 High Flow Nasal Cannula 02/28/23 04:00 36.8 C 60 16 106/62 95 High Flow Nasal Cannula 02/28/23 03:00 67 13 109/60 96 High Flow Nasal Cannula 02/28/23 02:49 62 18 94 High Flow Nasal Cannula 02/28/23 02:00 65 20 84/58 L 93 High Flow Nasal Cannula 02/28/23 01:00 37.2 C 68 20 108/58 L 95 High Flow Nasal Cannula 02/28/23 00:47 83 02/28/23 00:00 80 19 98/59 L 93 High Flow Nasal Cannula 02/27/23 23:00 88 22 95/67 L 95 High Flow Nasal Cannula 02/27/23 22:19 99 H 24 94 High Flow Nasal Cannula 02/27/23 22:00 108 H 17 101/68 95 High Flow Nasal Cannula O2 Flow Rate FiO2 02/28/23 07:22 35 80 02/28/23 07:22 35 80 02/28/23 05:00 40 100 02/28/23 04:00 40 100 02/28/23 03:00 40 100 02/28/23 02:49 40 100 02/28/23 02:00 40 100 02/28/23 01:00 40 100 02/28/23 00:47 02/28/23 00:00 40 100 02/27/23 23:00 40 100 02/27/23 22:19 40 100 02/27/23 22:00 40 100 PG Care Time/CCT Total # of Minutes Spent Total Time Spent with Patient: Total time spent is greater than 50% in coordination of care (as documented) at patient's floor/unit and/or counseling patient: Coding Level of Care Code 03563 SUB INP/OBS CARE 3/50MIN Diagnoses Food impaction of esophagus, initial encounter T18.128A; W44.F3XA Encounter type: initial encounter Myelopathy concurrent with and due to spinal stenosis of thoracic region M48.04; G99.2 Mild intermittent asthma, unspecified whether complicated J45.20 Asthma complication type: unspecified Asthma persistence: intermittent Asthma severity: mild MARY ANN (obstructive sleep apnea) G47.33 Aspiration into lower respiratory tract, initial encounter T17.800A Encounter type: initial encounter (1) Food impaction of esophagus Encounter type: initial encounter Qualified Code(s): T18.128A - Food in esophagus causing other injury, initial encounter; W44.F3XA - Food entering into or through a natural orifice, initial encounter (3) Asthma Asthma complication type: unspecified Asthma persistence: intermittent Asthma severity: mild Qualified Code(s): J45.20 - Mild intermittent asthma, uncomplicated (5) Aspiration into lower respiratory tract Encounter type: initial encounter Qualified Code(s): T17.800A - Unspecified foreign body in other parts of respiratory tract causing asphyxiation, initial encounter
[2023-02-28] MEDS: LOSARTAN POTASSIUM 50 MG TAB PO SCH (10:09)
[2023-02-28] MEDS: hydroCHLOROthiazide 25 MG TAB PO SCH (10:09)
[2023-02-28] MEDS ORDERED: POTASSIUM CHLORIDE CRTAB 20 MEQ TABCR PO ONE (10:30)
--- NOTE | 2023-02-28 11:43 | Hospitalist Progress Note ---
Date of Service February 28, 2023 Assessment & Plan (1) Lumbar stenosis with neurogenic claudication: (2) Hypertension: (3) Hyperlipidemia: (4) BPH (benign prostatic hypertrophy): (5) Asthma: Plan 72 year old male that presents to the ED for an elective T9-T11 decompression and fusion surgery under the care of Dr. 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 Course inpatient has since included impacted food bolus requiring urgent EGD on 02/27 with acute hypoxic respiratory failure postprocedure requiring CPAP use. Acute hypoxic respiratory Failure Pt underwent urgent EGD on for impacted food bolus Hypoxic in the PACU in the low 80s post procedure even with oxymask oxygen supplementation and breathing treatment Stat chest xray concerning for infectious process on the right, suspicious for aspiration pneumonia. CT chest PE protocol with no PE Started on Zosyn, Vanc. MRSA nares negative. Vancomycin was discontinued. Pt previously stabilized on CPAP with noted improvement in oxygenation to the 90s. However, states he is not able to tolerate the mask. Currently on high flow oxygen with occasional drops in saturations. Speech eval placed- no further eval as no concerns for chronic aspiration Pulmonology consulted- appreciate further recs Nausea/Vomiting Impacted Food Bolus Esophagitis Increasing episodes, could not eat KUB ordered-less likely SBO CT abd pelvis ordered- noted possible retained food at GE junction GI consult placed- Urgent EGD with course noted above. Appreciate GI recs -noted 5cm hiatal hernia with impacted food bolus, esophagitis -pantoprazole 40mg BID for 2 weeks, then daily -clear liquid diet today, then full liquids on 02/28, soft foods on 03/01 -repeat upper endoscopy in 2-4 weeks for esophageal dilation and to check healing Speech consult as above. Lumbar Stenosis with neurogenic claudication: Myelopathy concurrent d/t spinal stenosis POD# 3 s/p decompression and fusion T9-T11 under the care of Dr. Garrett. EBL 300mL Per ortho for pain control, wound care, anticoagulation and activities. Monitor H&H, pre op Hgb 01/24/23 14.3; currently >12 DENI drain x1 with lopez red bloody output continue incentive spirometry PT/OT when appropriate SpO2 92% on 3LNC post op; He has a history of MARY ANN; that is documented as 'resolved' Due to his increased body habitus; suggested continuous pulse oximetry overnight Hypotension Persistent Holding home antihypertensives (NETO and HCTZ) Home metoprolol with parameters Holding IV fluids Currently in acceptable range HTN: Currently hypotensive now As above HLD: Chronic stable Takes Simvastatin;continue BPH: Chronic stable Takes Tamsulosin;continue Asthma: chronic stable Takes Breo; continue PCP: Dr. Kat Code status: Full VTE Prophylaxis: Lovenox started Dispo: PT recommending inpt rehab Admission and Anticipated Discharge Date Admission Date: February 25, 2023 Subjective Pt seen, sitting at bedside. States that he was not able to tolerate the CPAP. States that he had been up and working with PT, occasional drop in oxygen but states it went back up. Review of Systems Review of Systems: All systems reviewed & are unremarkable except as noted in Subjective Physical Exam Physical Exam: General: Alert, oriented. Skin: No noted rashes or bruises Psych: Appropriate mood and affect Neuro: No gross deficits HEENT: NC/AT Chest: Nontender to palpation. CV: RRR, Normal s1, s2. No murmurs appreciated Resp: Breath sounds decreased bilaterally Abdomen: Soft, nontender, nondistended. Extremities: No edema in lower extremities bilaterally. Results & Data Results & Data Vital Signs (Past 12 Hours) Vital Signs Temp Pulse Pulse Resp BP Pulse Ox O2 Del Method 02/28/23 10:31 63 18 95 Nasal Cannula 02/28/23 08:00 High Flow Nasal Cannula 02/28/23 07:22 63 20 95 High Flow Nasal Cannula 02/28/23 07:22 63 20 95 High Flow Nasal Cannula 02/28/23 05:00 58 L 18 91/57 L 96 High Flow Nasal Cannula 02/28/23 04:00 36.8 C 60 16 106/62 95 High Flow Nasal Cannula 02/28/23 03:00 67 13 109/60 96 High Flow Nasal Cannula 02/28/23 02:49 62 18 94 High Flow Nasal Cannula 02/28/23 02:00 65 20 84/58 L 93 High Flow Nasal Cannula 02/28/23 01:00 37.2 C 68 20 108/58 L 95 High Flow Nasal Cannula 02/28/23 00:47 83 02/28/23 00:00 80 19 98/59 L 93 High Flow Nasal Cannula O2 Flow Rate FiO2 02/28/23 10:31 8 02/28/23 08:00 35 50 02/28/23 07:22 35 80 02/28/23 07:22 35 80 02/28/23 05:00 40 100 02/28/23 04:00 40 100 02/28/23 03:00 40 100 02/28/23 02:49 40 100 02/28/23 02:00 40 100 02/28/23 01:00 40 100 02/28/23 00:47 02/28/23 00:00 40 100 (5) Asthma Asthma complication type: unspecified Asthma persistence: intermittent Asthma severity: mild Qualified Code(s): J45.20 - Mild intermittent asthma, uncomplicated
[2023-02-28] MEDS: HYDROmorphone INJ 1 MG/ML SYRINGE IV PRN ×2 (13:12→18:26)
[2023-02-28] MEDS: ENOXAPARIN INJ 40 MG/0.4 ML SYR SQ SCH (18:26)
[2023-02-28] MEDS: METOPROLOL SUCC 50MG EXT REL TAB PO SCH (20:38)
[2023-02-28] MEDS: SIMVASTATIN 20 MG TAB PO SCH (20:40)
[2023-02-28] MEDS: DOCUSATE SODIUM/SENNA 50/8.6MG TAB PO SCH (20:41)
[2023-03-01] MEDS: POLYETHYLENE (MIRALAX) 17 GM PACK PO SCH ×4 (01:00→15:35)
[2023-03-01 04:22] LABS: Basophils # (auto) 0.01 K/uL (0.00-0.20); Basophils % (auto) 0.1 %; Eosinophils # (auto) 0.01 K/uL (0.00-0.50); Eosinophils % (auto) 0.1 %; Hemoglobin 11.3 g/dl (14.0-18.0); Immature Granulocytes # (auto) 0.05 K/uL (0.01-0.20); Immature Granulocytes % (auto) 0.6 %; Lymphocytes # (auto) 0.55 K/uL (1.20-3.40); Lymphocytes % (auto) 7.1 %; Mean Corpuscular Hgb Conc 34.2 g/dL (32.0-36.0); Mean Corpuscular Volume 87.5 fL (80.0-100.0); Mean Platelet Volume 9.5 fL (9.4-12.4); Monocytes # (auto) 0.58 K/uL (0.11-0.59); Monocytes % (auto) 7.5 %; Neutrophils # (auto) 6.58 K/uL (1.40-6.50); Neutrophils % (auto) 84.6 %; Platelet Count 134 K/uL (130-400); RDW Coefficient of Variation 12.9 % (11.5-14.5); RDW Standard Deviation 41.7 fL (36.4-46.3); Red Blood Count 3.77 M/uL (4.70-6.10); White Blood Count 7.78 K/ul (4.8-10.8)
[2023-03-01 04:37] LABS: Albumin Globulin Ratio 1.4 (0.9-2); Albumin Level 3.4 gm/dl (3.4-5.0); BUN Creatinine Ratio 19.8 (10-20); Bilirubin,Total 1.1 mg/dl (0.2-1.0); Calcium 9.2 mg/dl (8.6-10.3); Creatinine Clr Calc Pharmacy 95.4 ml/min; Est GFR (African American) 96.6 ml/min; Est GFR (Non-African American) 83.3 ml/min; Globulin 2.4 gm/dl (2.5-4.0); Phosphorus 2.7 mg/dl (2.5-4.9); Potassium 3.5 mmol/L (3.5-5.1); Total Protein 5.8 gm/dl (6.0-8.3)
[2023-03-01] MEDS: PIPERACILLIN/TAZOBACTAM 4.5 GM in DEXTROSE 5% MINI-B 100 ML IV SCH ×3 (05:16→21:03)
[2023-03-01] MEDS: HYDROmorphone INJ 0.5 MG/0.5 ML SYR IV PRN ×5 (05:57→21:05)
[2023-03-01] MEDS: ALBUT/IPRATROP 3MG/0.5MG NEB 3 ML VIAL NEB SCH ×3 (07:08→19:20)
[2023-03-01] MEDS: ACETAMINOPHEN 500 MG TAB PO PRN (08:26)
[2023-03-01] MEDS: PANTOprazole 40 MG TAB PO SCH ×2 (08:27→20:57)
[2023-03-01] MEDS: FLUTICASONE/VILANTEROL 200/25MCG 14 PUFFS/INHALER INH SCH (08:27)
[2023-03-01] MEDS: LOSARTAN POTASSIUM 50 MG TAB PO SCH (08:27)
[2023-03-01] MEDS: hydroCHLOROthiazide 25 MG TAB PO SCH (08:28)
[2023-03-01] MEDS: TAMSULOSIN HCL 0.4 MG CAP PO SCH (08:28)
[2023-03-01] MEDS: MULTIVITAMIN TAB PO SCH (08:28)
[2023-03-01] MEDS: buPROPion XL 300 MG TABCR PO SCH (08:31)
[2023-03-01] MEDS: CHOLECALCIFEROL 1,000 UNITS 25 MCG TAB PO SCH (08:31)
--- NOTE | 2023-03-01 10:04 | Orthopedic Progress Note ---
Date of Service March 01, 2023 Assessment & Plan (1) Myelopathy concurrent with and due to spinal stenosis of thoracic region: Plan: At this time encourage activity as tolerated and when medically clear to return to orthopedic floor for increased ability to perform physical therapy. Admission and Anticipated Discharge Date Admission Date: February 25, 2023 Subjective Back pain is controlled leg symptoms improved. He is tolerating a chair without difficulty. He is anxious to begin walking. Physical Exam Physical Exam: Patient is in the chair at the bedside. Is constricted testing. Appears comfortable. Results & Data Vital Signs (Past 12 Hours) Vital Signs Temp Pulse Pulse Resp BP BP Pulse Ox 03/01/23 09:12 03/01/23 09:11 36.8 C 03/01/23 09:00 84 15 91 03/01/23 08:01 88 18 111/72 93 03/01/23 07:08 63 17 91 03/01/23 07:00 59 L 14 129/83 91 03/01/23 05:25 141/90 H 03/01/23 05:25 66 17 77 L 03/01/23 05:00 51 L 16 94 03/01/23 04:00 22 87 L 03/01/23 03:02 134/65 03/01/23 03:02 86 27 H 92 03/01/23 03:00 59 L 17 89 L 03/01/23 02:01 57 L 13 93 03/01/23 02:01 141/90 H 03/01/23 02:00 57 L 17 93 03/01/23 01:00 116/75 03/01/23 01:00 60 17 93 03/01/23 00:00 36.6 C 51 L 14 94 03/01/23 00:00 129/87 03/01/23 00:00 36.6 C 51 L 18 116/75 94 02/28/23 23:00 124/82 02/28/23 23:00 55 L 18 97 O2 Del Method O2 Flow Rate 03/01/23 09:12 Nasal Cannula 7 03/01/23 09:11 03/01/23 09:00 03/01/23 08:01 Nasal Cannula 7 03/01/23 07:08 Nasal Cannula 9 03/01/23 07:00 03/01/23 05:25 03/01/23 05:25 03/01/23 05:00 03/01/23 04:00 03/01/23 03:02 03/01/23 03:02 03/01/23 03:00 03/01/23 02:01 03/01/23 02:01 03/01/23 02:00 03/01/23 01:00 03/01/23 01:00 03/01/23 00:00 03/01/23 00:00 03/01/23 00:00 High Flow Nasal Cannula 9 02/28/23 23:00 02/28/23 23:00 Queries Orthopedic Spine Obesity: Yes
--- NOTE | 2023-03-01 11:34 | Hospitalist Progress Note ---
Date of Service March 01, 2023 Assessment & Plan (1) Lumbar stenosis with neurogenic claudication: (2) Hypertension: (3) Hyperlipidemia: (4) BPH (benign prostatic hypertrophy): (5) Asthma: Plan 72 year old male that presents to the ED for an elective T9-T11 decompression and fusion surgery under the care of Dr. 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 Course inpatient has since included impacted food bolus requiring urgent EGD on 02/27 with acute hypoxic respiratory failure postprocedure requiring CPAP use. Acute hypoxic respiratory Failure Pt underwent urgent EGD on for impacted food bolus Hypoxic in the PACU in the low 80s post procedure even with oxymask oxygen supplementation and breathing treatment Stat chest xray concerning for infectious process on the right, suspicious for aspiration pneumonia. CT chest PE protocol with no PE Started on Zosyn, Vanc. MRSA nares negative. Vancomycin was discontinued. Pt previously stabilized on CPAP with noted improvement in oxygenation to the 90s. However, states he is not able to tolerate the mask. Was on high flow oxygen with occasional drops in saturations- currently on 6L of NC Speech eval placed- no further eval as no concerns for chronic aspiration Pulmonology was consulted 03/01- pt frustrated with progress, would like to be up and moving but believes his need for oxygen hinders him. Would like to go home- consider 2 step in the AM. Nausea/Vomiting Impacted Food Bolus Esophagitis Had increasing episodes, could not eat KUB ordered-less likely SBO CT abd pelvis ordered- noted possible retained food at GE junction GI consult placed- Urgent EGD with course noted above. Appreciate GI recs -noted 5cm hiatal hernia with impacted food bolus, esophagitis -pantoprazole 40mg BID for 2 weeks, then daily -clear liquid diet today, then full liquids on 02/28, soft foods on 03/01 -repeat upper endoscopy in 2-4 weeks for esophageal dilation and to check healing Speech consult as above. improved symptoms Lumbar Stenosis with neurogenic claudication: Myelopathy concurrent d/t spinal stenosis POD# 4 s/p decompression and fusion T9-T11 under the care of Dr. Garrett. EBL 300mL Per ortho for pain control, wound care, anticoagulation and activities. Monitor H&H, pre op Hgb 01/24/23 14.3; currently stable Had DENI drain x1 with lopez red bloody output continue incentive spirometry PT/OT Hypotension Persistent Holding home antihypertensives (NETO and HCTZ) Home metoprolol with parameters Holding IV fluids Currently in acceptable range HTN: Currently hypotensive now As above HLD: Chronic stable Takes Simvastatin;continue BPH: Chronic stable Takes Tamsulosin;continue Asthma: chronic stable Takes Breo; continue PCP: Dr. Kat Code status: Full VTE Prophylaxis: Lovenox started Dispo: PT recommending inpt rehab Admission and Anticipated Discharge Date Admission Date: February 25, 2023 Subjective Extensive discussion with pt this AM. Notified by nursing that pt stated he was told he would be back up to the third floor. Pt refusing PT and OT services as he wanted to be out of the ICU room. On exam in the room pt stated he just wants to be up and moving and the short oxygen tube is restricting him. Would like to go home. Review of Systems Review of Systems: All systems reviewed & are unremarkable except as noted in Subjective Physical Exam Physical Exam: General: Alert, oriented. Skin: No noted rashes or bruises Psych: Frustrated mood and affect Neuro: No gross deficits HEENT: NC/AT Chest: Nontender to palpation. CV: RRR, Normal s1, s2. No murmurs appreciated Resp: Breath sounds decreased bilaterally Abdomen: Soft, nontender, nondistended. Extremities: No edema in lower extremities bilaterally. Results & Data Results & Data Vital Signs (Past 12 Hours) Vital Signs Temp Pulse Pulse Resp BP BP Pulse Ox 03/01/23 11:27 86 03/01/23 09:12 03/01/23 09:11 36.8 C 03/01/23 09:00 84 15 91 03/01/23 08:01 88 18 111/72 93 03/01/23 07:08 63 17 91 03/01/23 07:00 59 L 14 129/83 91 03/01/23 05:25 141/90 H 03/01/23 05:25 66 17 77 L 03/01/23 05:00 51 L 16 94 03/01/23 04:00 22 87 L 03/01/23 03:02 134/65 03/01/23 03:02 86 27 H 92 03/01/23 03:00 59 L 17 89 L 03/01/23 02:01 57 L 13 93 03/01/23 02:01 141/90 H 03/01/23 02:00 57 L 17 93 03/01/23 01:00 116/75 03/01/23 01:00 60 17 93 03/01/23 00:00 36.6 C 51 L 14 94 03/01/23 00:00 129/87 03/01/23 00:00 36.6 C 51 L 18 116/75 94 O2 Del Method O2 Flow Rate 03/01/23 11:27 03/01/23 09:12 Nasal Cannula 7 03/01/23 09:11 03/01/23 09:00 03/01/23 08:01 Nasal Cannula 7 03/01/23 07:08 Nasal Cannula 9 03/01/23 07:00 03/01/23 05:25 03/01/23 05:25 03/01/23 05:00 03/01/23 04:00 03/01/23 03:02 03/01/23 03:02 03/01/23 03:00 03/01/23 02:01 03/01/23 02:01 03/01/23 02:00 03/01/23 01:00 03/01/23 01:00 03/01/23 00:00 03/01/23 00:00 03/01/23 00:00 High Flow Nasal Cannula 9 (5) Asthma Asthma complication type: unspecified Asthma persistence: intermittent Asthma severity: mild Qualified Code(s): J45.20 - Mild intermittent asthma, uncomplicated
[2023-03-01] MEDS ORDERED: Nursing to Pharmacy Communication SCH (15:45)
[2023-03-01] MEDS: oxyCODONE HCL IR 5 MG TAB (IMMEDIATE RELEASE) PO PRN ×2 (17:34→23:13)
[2023-03-01] MEDS: traMADol HCL 50 MG TABLET PO PRN (19:49)
[2023-03-01] MEDS: ENOXAPARIN INJ 40 MG/0.4 ML SYR SQ SCH (19:55)
[2023-03-01] MEDS: METOPROLOL SUCC 50MG EXT REL TAB PO SCH (20:51)
[2023-03-01] MEDS: SIMVASTATIN 20 MG TAB PO SCH (20:56)
[2023-03-01] MEDS: DOCUSATE SODIUM/SENNA 50/8.6MG TAB PO SCH (20:56)
[2023-03-02] MEDS: oxyCODONE HCL IR 5 MG TAB (IMMEDIATE RELEASE) PO PRN (06:15)
[2023-03-02] MEDS: PIPERACILLIN/TAZOBACTAM 4.5 GM in DEXTROSE 5% MINI-B 100 ML IV SCH ×2 (06:16→13:53)
[2023-03-02] MEDS: ALBUT/IPRATROP 3MG/0.5MG NEB 3 ML VIAL NEB SCH ×3 (07:16→19:25)
[2023-03-02] MEDS: PANTOprazole 40 MG TAB PO SCH ×2 (08:28→20:30)
[2023-03-02] MEDS: hydroCHLOROthiazide 25 MG TAB PO SCH (08:29)
[2023-03-02] MEDS: MULTIVITAMIN TAB PO SCH (08:29)
[2023-03-02] MEDS: LOSARTAN POTASSIUM 50 MG TAB PO SCH (08:30)
[2023-03-02] MEDS: buPROPion XL 300 MG TABCR PO SCH (08:31)
[2023-03-02] MEDS: CHOLECALCIFEROL 1,000 UNITS 25 MCG TAB PO SCH (08:31)
[2023-03-02] MEDS: TAMSULOSIN HCL 0.4 MG CAP PO SCH (08:31)
[2023-03-02] MEDS: FLUTICASONE/VILANTEROL 200/25MCG 14 PUFFS/INHALER INH SCH (08:33)
[2023-03-02] MEDS: traMADol HCL 50 MG TABLET PO PRN ×3 (08:38→20:29)
--- NOTE | 2023-03-02 08:48 | Orthopedic Progress Note ---
Date of Service March 02, 2023 Assessment & Plan (1) Myelopathy concurrent with and due to spinal stenosis of thoracic region: Plan: This time encouraged him to undergo therapy as tolerated sit in the chair as tolerated. Hopefully he will be a candidate to return home in the next few days. Admission and Anticipated Discharge Date Admission Date: February 25, 2023 Subjective Back pain controlled. He requires only oral pain medication at this time. He is tolerating therapy. He feels his leg symptoms are improving. Physical Exam Physical Exam: On exam he appears comfortable. Is constricted testing lower extremities. Results & Data Vital Signs (Past 12 Hours) Vital Signs Temp Pulse Pulse Resp BP Pulse Ox O2 Del Method 03/02/23 07:18 36.6 C 64 20 105/63 97 Nasal Cannula 03/02/23 07:16 68 18 93 Nasal Cannula 03/02/23 07:00 62 03/02/23 03:11 36.9 C 61 19 96/64 L 95 Nasal Cannula 03/01/23 22:59 62 03/01/23 22:51 36.8 C 68 18 93/54 L 91 Nasal Cannula O2 Flow Rate 03/02/23 07:18 03/02/23 07:16 7 03/02/23 07:00 03/02/23 03:11 7 03/01/23 22:59 03/01/23 22:51 7 Queries Orthopedic Spine Obesity: Yes
[2023-03-02] MEDS: ACETAMINOPHEN 500 MG TAB PO PRN (10:49)
[2023-03-02] MEDS: HYDROmorphone INJ 1 MG/ML SYRINGE IV PRN (10:49)
--- NOTE | 2023-03-02 14:47 | Hospitalist Progress Note ---
Date of Service March 02, 2023 Assessment & Plan (1) Lumbar stenosis with neurogenic claudication: (2) Hypertension: (3) Hyperlipidemia: (4) BPH (benign prostatic hypertrophy): (5) Asthma: Plan 72 year old male that presents to the ED for an elective T9-T11 decompression and fusion surgery under the care of Dr. 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 Course inpatient has since included impacted food bolus requiring urgent EGD on 02/27 with acute hypoxic respiratory failure postprocedure requiring CPAP use. Acute hypoxic respiratory Failure Pt underwent urgent EGD on for impacted food bolus Hypoxic in the PACU in the low 80s post procedure even with oxymask oxygen supplementation and breathing treatment Stat chest xray concerning for infectious process on the right, suspicious for aspiration pneumonia. CT chest PE protocol with no PE Started on Zosyn, Vanc. MRSA nares negative. Vancomycin was discontinued. Pt previously stabilized on CPAP with noted improvement in oxygenation to the 90s. However, states he is not able to tolerate the mask. Was on high flow oxygen with occasional drops in saturations- currently on 6L of NC Speech eval placed- no further eval as no concerns for chronic aspiration Pulmonology was consulted 03/01- pt frustrated with progress, would like to be up and moving but believes his need for oxygen hinders him. Would like to go home- consider 2 step in the AM. 03/02- Notes that he has been up and walking with PT, denied acute concerns today. Nausea/Vomiting Impacted Food Bolus Esophagitis Had increasing episodes, could not eat KUB ordered-less likely SBO CT abd pelvis ordered- noted possible retained food at GE junction GI consult placed- Urgent EGD with course noted above. Appreciate GI recs -noted 5cm hiatal hernia with impacted food bolus, esophagitis -pantoprazole 40mg BID for 2 weeks, then daily -clear liquid diet today, then full liquids on 02/28, soft foods on 03/01 -repeat upper endoscopy in 2-4 weeks for esophageal dilation and to check healing Speech consult as above. improved symptoms Lumbar Stenosis with neurogenic claudication: Myelopathy concurrent d/t spinal stenosis POD# 5 s/p decompression and fusion T9-T11 on 02/25 under the care of Dr. Garrett. EBL 300mL Per ortho for pain control, wound care, anticoagulation and activities. Monitor H&H, pre op Hgb 01/24/23 14.3; currently stable Had DENI drain x1 with lopez red bloody output continue incentive spirometry PT/OT Hypotension Persistent Holding home antihypertensives (NETO and HCTZ) Home metoprolol with parameters Holding IV fluids Currently in acceptable range HTN: Currently hypotensive now As above HLD: Chronic stable Takes Simvastatin;continue BPH: Chronic stable Takes Tamsulosin;continue Asthma: chronic stable Takes Breo; continue PCP: Dr. Kat Code status: Full VTE Prophylaxis: Lovenox started Dispo: PT recommending inpt rehab Admission and Anticipated Discharge Date Admission Date: February 25, 2023 Subjective Pt seen in the AM. States that he has been up and moving around with PT. Notes he is still getting full fast after eating. Working to get home as soon as possible. Review of Systems Review of Systems: All systems reviewed & are unremarkable except as noted in Subjective Physical Exam Physical Exam: General: Alert, oriented. Skin: No noted rashes or bruises Psych: appropriate mood and affect HEENT: NC/AT Chest: Nontender to palpation. CV: RRR, Normal s1, s2. No murmurs appreciated Resp: Breath sounds decreased bilaterally Abdomen: Soft, nontender, nondistended. Extremities: No edema in lower extremities bilaterally. Results & Data Results & Data Vital Signs (Past 12 Hours) Vital Signs Temp Pulse Pulse Resp BP Pulse Ox O2 Del Method 03/02/23 12:46 72 18 93 Nasal Cannula 03/02/23 11:05 36.7 C 66 20 101/59 L 91 Room Air, Nasal Cannula 03/02/23 09:00 High Flow Nasal Cannula 03/02/23 08:30 High Flow Nasal Cannula 03/02/23 07:18 36.6 C 64 20 105/63 97 Nasal Cannula 03/02/23 07:16 68 18 93 Nasal Cannula 03/02/23 07:00 62 03/02/23 03:11 36.9 C 61 19 96/64 L 95 Nasal Cannula O2 Flow Rate 03/02/23 12:46 6 03/02/23 11:05 6 03/02/23 09:00 7 03/02/23 08:30 7 03/02/23 07:18 03/02/23 07:16 7 03/02/23 07:00 03/02/23 03:11 7 (5) Asthma Asthma complication type: unspecified Asthma persistence: intermittent Asthma severity: mild Qualified Code(s): J45.20 - Mild intermittent asthma, uncomplicated
--- NOTE | 2023-03-02 15:20 | Pulmonology Progress Note ---
Date of Service March 02, 2023 Assessment & Plan (1) Food impaction of esophagus: Encounter type: initial encounter Qualified Code(s): T18.128A - Food in esophagus causing other injury, initial encounter; W44.F3XA - Food ente ring into or through a natural orifice, initial encounter (2) Myelopathy concurrent with and due to spinal stenosis of thoracic region: (3) Asthma: Asthma severity: mild Asthma persistence: intermittent Asthma complication type: unspecified Qualified Code(s): J45.20 - Mild intermittent asthma, uncomplicated (4) MARY ANN (obstructive sleep apnea): (5) Aspiration into lower respiratory tract: Encounter type: initial encounter Qualified Code(s): T17.800A - Unspecified foreign body in other parts of respiratory tract causing asphyxiation, initial encounter Plan 72 year old male with asthma, MARY ANN who was admitted for elective thoracic decompression and spinal fusion, post-op developed food impaction and underwent EGD for removal of food bolus. Post procedure developed aspiration penumonia and acute hypoxic respiratory failure. He has gradually improved now on 4L NC. Empiric zosyn d4, OK to DC. continue scheduled neb given underlying asthma. Ideally he should use CPAP at night for known MARY ANN however he is reluctant because of unpleasant experience with it in the past. Discussed with RN. Admission and Anticipated Discharge Date Admission Date: February 25, 2023 Subjective feeling well. ambulated multiple times in the hallway throughout the day. Still has a little back soreness. Physical Exam Constitutional: well developed Respiratory: normal respiratory effort Auscultation: + diminished lung sounds; no crackles, no rhonchi and no wheezes Cardiovascular: Rate/Rhythm: regular rate and regular rhythm Gastrointestinal (Abdomen): Inspection/Auscultation: abdomen normal to inspection Skin: no rashes, warm and dry Neurologic: CN's II-XI intact bilaterally and awake Results & Data Results & Data Vital Signs (Past 12 Hours) Vital Signs Temp Pulse Pulse Resp BP Pulse Ox O2 Del Method 03/02/23 12:46 72 18 93 Nasal Cannula 03/02/23 11:05 36.7 C 66 20 101/59 L 91 Room Air, Nasal Cannula 03/02/23 09:00 High Flow Nasal Cannula 03/02/23 08:30 High Flow Nasal Cannula 03/02/23 07:18 36.6 C 64 20 105/63 97 Nasal Cannula 03/02/23 07:16 68 18 93 Nasal Cannula 03/02/23 07:00 62 O2 Flow Rate 03/02/23 12:46 6 03/02/23 11:05 6 03/02/23 09:00 7 03/02/23 08:30 7 03/02/23 07:18 03/02/23 07:16 7 03/02/23 07:00 PG Care Time/CCT Total # of Minutes Spent Total Time Spent with Patient: Total time spent is greater than 50% in coordination of care (as documented) at patient's floor/unit and/or counseling patient: Coding Level of Care Code 15119 SUB INP/OBS CARE 2/35MIN Diagnoses Food impaction of esophagus, initial encounter T18.128A; W44.F3XA Encounter type: initial encounter Myelopathy concurrent with and due to spinal stenosis of thoracic region M48.04 ; G99.2 Mild intermittent asthma, unspecified whether complicated J45.20 Asthma severity: mild Asthma persistence: intermittent Asthma complication type: unspecified MARY ANN (obstructive sleep apnea) G47.33 Aspiration into lower respiratory tract, initial encounter T17.800A Encounter type: initial encounter
[2023-03-02] MEDS: ENOXAPARIN INJ 40 MG/0.4 ML SYR SQ SCH (18:21)
[2023-03-02] MEDS: DOCUSATE SODIUM/SENNA 50/8.6MG TAB PO SCH (20:30)
[2023-03-02] MEDS: METOPROLOL SUCC 50MG EXT REL TAB PO SCH (20:30)
[2023-03-02] MEDS: SIMVASTATIN 20 MG TAB PO SCH (20:30)
[2023-03-02] MEDS: diphenhydrAMINE Capsule 25 MG CAP PO PRN (20:31)
[2023-03-03] MEDS: traMADol HCL 50 MG TABLET PO PRN ×3 (05:34→21:02)
[2023-03-03] MEDS ORDERED: OXYMETAZOLINE 0.05% 30 ML BTL NAE ONE (06:09)
[2023-03-03] MEDS: HYDROmorphone INJ 0.5 MG/0.5 ML SYR IV PRN (06:30)
[2023-03-03] MEDS ORDERED: SODIUM CHLORIDE 0.65% NA SOLN 45 ML (OCEAN) PRN (06:36)
--- NOTE | 2023-03-03 06:36 | Communication Note ---
Date of Service: March 03, 2023 Patient with nosebleed coming out of both nostrils as per RN. No headache, SBP currently 120s. AP Epistaxis Possibly from mucosal irritation from nasal cannula Oxymetazoline 1 dose now CBC now Hold Lovenox interim
[2023-03-03] MEDS: ALBUT/IPRATROP 3MG/0.5MG NEB 3 ML VIAL NEB SCH ×3 (07:07→19:26)
--- NOTE | 2023-03-03 07:39 | Orthopedic Progress Note ---
Date of Service March 03, 2023 Assessment & Plan (1) Myelopathy concurrent with and due to spinal stenosis of thoracic region: Plan: Patient is doing well status post T8-T10 decompression and fusion. We will continue with GI DVT prophylaxis as well as pain control measures. We will continue with ambulation and gait training. Hopefully will be safe for discharge in the next few days Admission and Anticipated Discharge Date Admission Date: February 25, 2023 Subjective Patient was seen bedside in room 240. He states he is doing okay at this point. His pain is relatively well controlled. He is still requiring oxygen to keep his saturations up. He is not having lopez radicular complaints. He has had no fevers or chills. He denies any other numbness, tingling, or paresthesias. Physical Exam Physical Exam: On exam he is sitting in a chair. He appears comfortable. Oxygen mask is in place. His sensations intact to light touch. He has full dorsiflexion plantarflexion. His gait was not observed. His abdomen soft and nontender his calves are supple nontender. Results & Data Vital Signs (Past 12 Hours) Vital Signs Temp Pulse Pulse Resp BP Pulse Ox O2 Del Method 03/03/23 07:15 36.7 C 69 18 119/67 95 Nasal Cannula 03/03/23 07:08 66 18 91 Oxymask 03/03/23 04:00 36.8 C 57 L 20 121/82 93 Nasal Cannula 03/02/23 23:00 37.4 C 63 20 108/68 94 Nasal Cannula 03/02/23 22:55 75 03/02/23 20:00 High Flow Nasal Cannula 03/02/23 19:42 36.8 C 61 20 108/71 99 Nasal Cannula O2 Flow Rate 03/03/23 07:15 4 03/03/23 07:08 4 03/03/23 04:00 4 03/02/23 23:00 4 03/02/23 22:55 03/02/23 20:00 5 03/02/23 19:42 4
[2023-03-03 07:54] LABS: Basophils # (auto) 0.03 K/uL (0.00-0.20); Basophils % (auto) 0.4 %; Eosinophils # (auto) 0.26 K/uL (0.00-0.50); Eosinophils % (auto) 3.5 %; Hematocrit (blood only) 34.3 % (42.0-52.0); Hemoglobin 11.8 g/dl (14.0-18.0); Immature Granulocytes % (auto) 1.3 %; Lymphocytes # (auto) 0.66 K/uL (1.20-3.40); Lymphocytes % (auto) 8.9 %; Mean Corpuscular Hemoglobin 29.4 pg (25.0-34.0); Mean Corpuscular Hgb Conc 34.4 g/dL (32.0-36.0); Mean Corpuscular Volume 85.5 fL (80.0-100.0); Mean Platelet Volume 9.4 fL (9.4-12.4); Monocytes # (auto) 0.61 K/uL (0.11-0.59); Monocytes % (auto) 8.2 %; Neutrophils # (auto) 5.76 K/uL (1.40-6.50); Neutrophils % (auto) 77.7 %; Platelet Count 160 K/uL (130-400); RDW Coefficient of Variation 13.2 % (11.5-14.5); RDW Standard Deviation 41.3 fL (36.4-46.3); Red Blood Count 4.01 M/uL (4.70-6.10); White Blood Count 7.42 K/ul (4.8-10.8)
[2023-03-03] MEDS: ACETAMINOPHEN 500 MG TAB PO PRN ×2 (08:29→16:23)
[2023-03-03] MEDS: oxyCODONE HCL IR 5 MG TAB (IMMEDIATE RELEASE) PO PRN ×3 (08:29→22:56)
[2023-03-03] MEDS: MULTIVITAMIN TAB PO SCH (08:30)
[2023-03-03] MEDS: buPROPion XL 300 MG TABCR PO SCH (08:30)
[2023-03-03] MEDS: LOSARTAN POTASSIUM 50 MG TAB PO SCH (08:31)
[2023-03-03] MEDS: CHOLECALCIFEROL 1,000 UNITS 25 MCG TAB PO SCH (08:31)
[2023-03-03] MEDS: TAMSULOSIN HCL 0.4 MG CAP PO SCH (08:32)
[2023-03-03] MEDS: PANTOprazole 40 MG TAB PO SCH ×2 (08:32→21:03)
[2023-03-03] MEDS: hydroCHLOROthiazide 25 MG TAB PO SCH (08:32)
[2023-03-03] MEDS: FLUTICASONE/VILANTEROL 200/25MCG 14 PUFFS/INHALER INH SCH (08:33)
[2023-03-03 09:38] LABS: Albumin Globulin Ratio 1.5 (0.9-2); Albumin Level 3.6 gm/dl (3.4-5.0); BUN Creatinine Ratio 13.5 (10-20); Bilirubin,Total 0.7 mg/dl (0.2-1.0); Calcium 9.3 mg/dl (8.6-10.3); Creatinine Clr Calc Pharmacy 100.5 ml/min; Est GFR (African American) 98.3 ml/min; Est GFR (Non-African American) 84.8 ml/min; Globulin 2.4 gm/dl (2.5-4.0); Phosphorus 2.7 mg/dl (2.5-4.9); Potassium 3.2 mmol/L (3.5-5.1)
[2023-03-03] MEDS: AMOXICILLIN/CLAVULANATE 875 MG TAB PO SCH ×2 (10:59→16:23)
--- NOTE | 2023-03-03 16:40 | Hospitalist Progress Note ---
Date of Service March 03, 2023 Assessment & Plan (1) Lumbar stenosis with neurogenic claudication: (2) Hypertension: (3) Hyperlipidemia: (4) BPH (benign prostatic hypertrophy): (5) Asthma: Plan 72 year old male that presents to the ED for an elective T9-T11 decompression and fusion surgery under the care of Dr. 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 Course inpatient has since included impacted food bolus requiring urgent EGD on 02/27 with acute hypoxic respiratory failure postprocedure requiring CPAP use. Acute hypoxic respiratory Failure Pt underwent urgent EGD on for impacted food bolus Hypoxic in the PACU in the low 80s post procedure even with oxymask oxygen supplementation and breathing treatment Stat chest xray concerning for infectious process on the right, suspicious for aspiration pneumonia. CT chest PE protocol with no PE Started on Zosyn, Vanc. MRSA nares negative. Vancomycin was discontinued. Zosyn switched to Augmentin on 03/03 Pt previously stabilized on CPAP with noted improvement in oxygenation to the 90s. However, states he is not able to tolerate the mask. Was on high flow oxygen with occasional drops in saturations- currently on 6L of [place] Speech eval placed- no further eval as no concerns for chronic aspiration Pulmonology was consulted 03/01- pt frustrated with progress, would like to be up and moving but believes his need for oxygen hinders him. Would like to go home- consider 2 step in the AM. 03/02- Notes that he has been up and walking with PT, denied acute concerns today. transition from Zosyn to Augmentin 03/03- stable, motivated to work with PT, oxygen being weaned, currently on 4L, PT recommending rehab Nausea/Vomiting Impacted Food Bolus Esophagitis Had increasing episodes, could not eat KUB ordered-less likely SBO CT abd pelvis ordered- noted possible retained food at GE junction GI consult placed- Urgent EGD with course noted above. Appreciate GI recs -noted 5cm hiatal hernia with impacted food bolus, esophagitis -pantoprazole 40mg BID for 2 weeks, then daily -clear liquid diet today, then full liquids on 02/28, soft foods on 03/01 -repeat upper endoscopy in 2-4 weeks for esophageal dilation and to check healing Speech consult as above. improved symptoms Lumbar Stenosis with neurogenic claudication: Myelopathy concurrent d/t spinal stenosis POD# 6 s/p decompression and fusion T9-T11 on 02/25 under the care of Dr. Garrett. EBL 300mL Per ortho for pain control, wound care, anticoagulation and activities. Monitor H&H, pre op Hgb 01/24/23 14.3; currently stable Had DENI drain x1 with lopez red bloody output continue incentive spirometry PT/OT Hypotension Persistent Holding home antihypertensives (NETO and HCTZ) Home metoprolol with parameters Holding IV fluids Currently in acceptable range HTN: Currently hypotensive now As above HLD: Chronic stable Takes Simvastatin;continue BPH: Chronic stable Takes Tamsulosin;continue Asthma: chronic stable Takes Breo; continue PCP: Dr. Kat Code status: Full VTE Prophylaxis: Lovenox started Dispo: PT recommending inpt rehab Admission and Anticipated Discharge Date Admission Date: February 25, 2023 Subjective Pt was seen in the AM, about to go walk with PT. Motivated. Had episode of epistaxis overnight that he stated has resolved. Otherwise denied acute concerns. Review of Systems Review of Systems: All systems reviewed & are unremarkable except as noted in Subjective Physical Exam Physical Exam: General: Alert, oriented. Skin: No noted rashes or bruises Psych: appropriate mood and affect HEENT: NC/AT Chest: Nontender to palpation. CV: RRR, Normal s1, s2. No murmurs appreciated Resp: Breath sounds decreased bilaterally Abdomen: Soft, nontender, nondistended. Extremities: No edema in lower extremities bilaterally. Results & Data Results & Data Vital Signs (Past 12 Hours) Vital Signs Temp Pulse Pulse Resp BP Pulse Ox O2 Del Method 03/03/23 14:51 36.6 C 60 18 93/58 L 94 Nasal Cannula 03/03/23 13:41 64 16 91 Nasal Cannula 03/03/23 13:14 92 03/03/23 11:11 36.3 C L 61 18 103/64 92 Nasal Cannula 03/03/23 09:00 64 03/03/23 07:15 36.7 C 69 18 119/67 95 Nasal Cannula 03/03/23 07:08 66 18 91 Oxymask O2 Flow Rate 03/03/23 14:51 3 03/03/23 13:41 3 03/03/23 13:14 03/03/23 11:11 3 03/03/23 09:00 03/03/23 07:15 4 03/03/23 07:08 4 (5) Asthma Asthma complication type: unspecified Asthma persistence: intermittent Asthma severity: mild Qualified Code(s): J45.20 - Mild intermittent asthma, uncomplicated
[2023-03-03] MEDS ORDERED: AMOXICILLIN/CLAVULANATE 875 MG TAB PO SCH (17:15)
--- NOTE | 2023-03-03 17:38 | Pulmonology Progress Note ---
Date of Service March 03, 2023 Assessment & Plan (1) Food impaction of esophagus: Encounter type: initial encounter Qualified Code(s): T18.128A - Food in esophagus causing other injury, initial encounter; W44.F3XA - Food ente ring into or through a natural orifice, initial encounter (2) Myelopathy concurrent with and due to spinal stenosis of thoracic region: (3) Asthma: Asthma severity: mild Asthma persistence: intermittent Asthma complication type: unspecified Qualified Code(s): J45.20 - Mild intermittent asthma, uncomplicated (4) MARY ANN (obstructive sleep apnea): (5) Aspiration into lower respiratory tract: Encounter type: initial encounter Qualified Code(s): T17.800A - Unspecified foreign body in other parts of respiratory tract causing asphyxiation, initial encounter Plan 72 year old male with asthma, MARY ANN who was admitted for elective thoracic decompression and spinal fusion, post-op developed food impaction and underwent EGD for removal of food bolus. Post procedure developed aspiration penumonia and acute hypoxic respiratory failure. He has gradually improved now on 3L NC. IV abx transitioned to augmentin per primary. continue scheduled neb given underlying asthma. Ideally he should use CPAP at night for known MARY ANN however he is reluctant because of unpleasant experience with it in the past. Agree that he can be discharged on home oxygen as needed. Continue weaning to off as outpatient. Follow up with pulmonary as needed. Will sign off. please call if any questions. Admission and Anticipated Discharge Date Admission Date: February 25, 2023 Physical Exam Constitutional: well developed Respiratory: normal respiratory effort Auscultation: lungs clear to auscultation bilaterally; no crackles, no rhonchi and no wheezes Cardiovascular: Rate/Rhythm: regular rate and regular rhythm Gastrointestinal (Abdomen): Inspection/Auscultation: abdomen normal to inspection Skin: no rashes, warm and dry Neurologic: CN's II-XI intact bilaterally and awake Results & Data Results & Data Vital Signs (Past 12 Hours) Vital Signs Temp Pulse Pulse Resp BP Pulse Ox O2 Del Method 03/03/23 14:51 36.6 C 60 18 93/58 L 94 Nasal Cannula 03/03/23 13:41 64 16 91 Nasal Cannula 03/03/23 13:14 92 03/03/23 11:11 36.3 C L 61 18 103/64 92 Nasal Cannula 03/03/23 09:00 64 03/03/23 07:15 36.7 C 69 18 119/67 95 Nasal Cannula 03/03/23 07:08 66 18 91 Oxymask O2 Flow Rate 03/03/23 14:51 3 03/03/23 13:41 3 03/03/23 13:14 03/03/23 11:11 3 03/03/23 09:00 03/03/23 07:15 4 03/03/23 07:08 4 PG Care Time/CCT Total # of Minutes Spent Total Time Spent with Patient: Total time spent is greater than 50% in coordination of care (as documented) at patient's floor/unit and/or counseling patient: Coding Level of Care Code 66478 SUB INP/OBS CARE 2/35MIN Diagnoses Food impaction of esophagus, initial encounter T18.128A; W44.F3XA Encounter type: initial encounter Myelopathy concurrent with and due to spinal stenosis of thoracic region M48.04; G99.2 Mild intermittent asthma, unspecified whether complicated J45.20 Asthma severity: mild Asthma persistence: intermittent Asthma complication type: unspecified MARY ANN (obstructive sleep apnea) G47.33 Aspiration into lower respiratory tract, initial encounter T17.800A Encounter type: initial encounter
[2023-03-03] MEDS: METOPROLOL SUCC 50MG EXT REL TAB PO SCH (20:03)
[2023-03-03] MEDS: SIMVASTATIN 20 MG TAB PO SCH (20:03)
[2023-03-03] MEDS: DOCUSATE SODIUM/SENNA 50/8.6MG TAB PO SCH (21:03)
[2023-03-03] MEDS: diphenhydrAMINE Capsule 25 MG CAP PO PRN (22:56)
[2023-03-04] MEDS: ACETAMINOPHEN 500 MG TAB PO PRN (06:13)
[2023-03-04 06:22] LABS: Basophils # (auto) 0.04 K/uL (0.00-0.20); Basophils % (auto) 0.5 %; Eosinophils # (auto) 0.31 K/uL (0.00-0.50); Eosinophils % (auto) 3.5 %; Hematocrit (blood only) 35.1 % (42.0-52.0); Hemoglobin 11.6 g/dl (14.0-18.0); Immature Granulocytes % (auto) 2.3 %; Lymphocytes # (auto) 0.83 K/uL (1.20-3.40); Lymphocytes % (auto) 9.5 %; Mean Corpuscular Hemoglobin 29.5 pg (25.0-34.0); Mean Corpuscular Volume 89.3 fL (80.0-100.0); Mean Platelet Volume 9.3 fL (9.4-12.4); Monocytes # (auto) 0.72 K/uL (0.11-0.59); Monocytes % (auto) 8.2 %; Neutrophils # (auto) 6.68 K/uL (1.40-6.50); Platelet Count 172 K/uL (130-400); RDW Coefficient of Variation 13.4 % (11.5-14.5); RDW Standard Deviation 44.2 fL (36.4-46.3); Red Blood Count 3.93 M/uL (4.70-6.10); White Blood Count 8.78 K/ul (4.8-10.8)
[2023-03-04] MEDS: ALBUT/IPRATROP 3MG/0.5MG NEB 3 ML VIAL NEB SCH ×2 (07:13→12:39)
[2023-03-04 07:45] LABS: Albumin Level 3.5 gm/dl (3.4-5.0); Bilirubin,Total 0.7 mg/dl (0.2-1.0); Calcium 9.3 mg/dl (8.6-10.3); Magnesium 2.1 mg/dl (1.7-2.4); Potassium 3.4 mmol/L (3.5-5.1)
[2023-03-04 07:51] LABS: Albumin Globulin Ratio 1.4 (0.9-2); BUN Creatinine Ratio 12.9 (10-20); Creatinine Clr Calc Pharmacy 94.6 ml/min; Est GFR (African American) 94.1 ml/min; Est GFR (Non-African American) 81.2 ml/min; Globulin 2.5 gm/dl (2.5-4.0); Phosphorus 3.5 mg/dl (2.5-4.9)
[2023-03-04] MEDS: buPROPion XL 300 MG TABCR PO SCH (08:11)
[2023-03-04] MEDS: PANTOprazole 40 MG TAB PO SCH (08:11)
[2023-03-04] MEDS: oxyCODONE HCL IR 5 MG TAB (IMMEDIATE RELEASE) PO PRN (08:11)
[2023-03-04] MEDS: LOSARTAN POTASSIUM 50 MG TAB PO SCH (08:12)
[2023-03-04] MEDS: AMOXICILLIN/CLAVULANATE 875 MG TAB PO SCH (08:12)
[2023-03-04] MEDS: CHOLECALCIFEROL 1,000 UNITS 25 MCG TAB PO SCH (08:12)
[2023-03-04] MEDS: MULTIVITAMIN TAB PO SCH (08:12)
[2023-03-04] MEDS: TAMSULOSIN HCL 0.4 MG CAP PO SCH (08:12)
[2023-03-04] MEDS: FLUTICASONE/VILANTEROL 200/25MCG 14 PUFFS/INHALER INH SCH (08:13)
[2023-03-04] MEDS: hydroCHLOROthiazide 25 MG TAB PO SCH (08:13)
--- NOTE | 2023-03-04 09:50 | Discharge Summary ---
Date of Service March 04, 2023 Admission HPI Per Admitting Provider This is a 72-year-old male known to me the presents with above-mentioned diagnosis and is here for surgical intervention. Principal Diagnosis Thoracic spinal stenosis with myelopathy Discharge Data Allergies Allergy/AdvReac Type Severity Reaction Status Date / Time cat dander Allergy Severe difficulty Verified 02/25/23 11:19 breathing dog dander Allergy Severe difficulty Verified 02/25/23 11:19 breathing shrimp Allergy Severe difficulty Verified 02/25/23 11:19 breathing adhesive tape AdvReac Intermediate Rash/swelling/lesions Verified 02/25/23 11:19 for > 1 month Consultations 02/25/23 17:55 Consult Hospitalist Routine 02/27/23 12:38 Consult Gastroenterology Routine 02/27/23 16:27 Consult Pulmonology Routine 02/28/23 01:44 Consult Garment Presser Routine Procedures Performed Operation Date: 02/27/23 13:00 Actual Procedures p Esophagogastroduodenoscopy - Prosper Cosby, Ordered Studies 02/25/23 [place] thoracic spine 2V Routine 02/27/23 08:00 CT abd pelvis IV con only Routine 02/27/23 18:28 CT angio chest PE protocol Urgent Hospital Course (1) Myelopathy concurrent with and due to spinal stenosis of thoracic region: Patient underwent thoracic decompression and fusion trial as well as negative orthopedic for postoperative. Unfortunately postoperatively he had an episode of pneumonia secondary to aspiration. He was taken to the unit and progressed appropriately thereafter. \\ His ambulation is improved. He is tolerating physical therapy. Subsequently he is discharged home when cleared by medicine. Total Time Total Time Spent Total Time Spent (In Minutes): 20 minutes Discharge Plan Discharge Items Patient Disposition: Home - Self-Care Reason For Visit: Spinal Stenosis, Thoracic Region Discharge Diagnosis: Thoracic spinal stenosis with myelopathy Activity: As commented below Non-emergency contact: Primary Care Provider Call non-emergency contact if: you have any medication questions Follow-up/Referrals: Rodrigo Kat [Primary Care Provider] - Diet: Regular Addtl Attending Provider Instructions: ACTIVITY RECOMMENDATIONS: SELF CARE INSTRUCTIONS AFTER THORACIC/LUMBAR FUSIONS 1. You may walk to your tolerance. It is good exercise for your legs and back. Expect some back and intermittent leg aches and pains. 2. You may perform "counter-top" level activities (make a sandwich, ivana with a project, etc.). 3. No bending or lifting of more than 10 pounds or back twisting of any nature (roll like a log when turning in bed). 4. You may ride in a car for 20-30 minutes at a time. No driving until after your first visit with your doctor. 5. Frequent changes of position and restricting sitting to 30 minutes at a time will help limit the amount of back spasms and stiffness you may experience. 6. You may discontinue the use of ambulatory aids (cane, crutches, etc.) once your strength and confidence allow. 7. You may mechanical engineering technologist the shower and let water strike your incision when you arrive home at least once daily. Do not take a tub bath, sit in a hot tub or go into a swimming pool until after your first recheck in the office. SPECIAL CARE INSTRUCTIONS: VERY IMPORTANT TO READ AND REVIEW A. Your surgical incision has been closed with a cosmetic suture under the skin that will dissolve in about 6 weeks. In 14 days, you can use a pair of clean scissors and cut the suture that is left outside of the skin at the ends of your incision. 1. The small skin tapes can be removed 7 days after surgery if they have not fallen off by that point. 2. You may keep the wound open to air as much as possible to promote healing after post-op day number 5 unless told otherwise by your doctor. 3. If you think the wound looks like it is becoming infected (redness or worsening drainage) and/or you are experiencing fever, chill or worsening back pain and muscle spasms, contact the office so that we may evaluate you as soon as possible. B. Complications are uncommon, but please contact us if you have any signs or symptoms of: 1. wound infection (fever higher than 102.5 degrees F, redness, separation of wound, drainage, or increasing pain from the incision) 2. blood clots in legs (pain, swelling, redness and warmth in legs) 3. urinary tract infection (fever higher than 102.5 degrees F, burning upon urination or increased frequency of urination) 4. nerve problems (inability to walk on your toes or heels, numbness, loss of bowel or bladder control) 5. any other symptoms that concern you C. Please call the office at if you have any concerns or questions about your operation or recovery. D. No smoking! Smoking drastically decreases the chance of a solid fusion. E. Do not take any anti-inflammatory medications (Indocin, Advil, Motrin, Aspirin, Naprosyn, etc.) as these may inhibit the chance of a solid fusion. Tylenol is okay to take for pain. MANAGING PAIN AFTER SPINAL SURGERY 1. Narcotic medication is intended for short-term use and will be provided for surgical pain. Surgical pain usually lasts for a period of 4-6 weeks. Narcotic medication includes Percocet, Vicodin, Darvocet, Tylenol #3 or Lortab. 2. Longer-term pain is more appropriately treated with non-narcotic medication such as Tylenol ES. 3. Muscle spasm is not appropriately treated with narcotics. Muscle relaxers such as Soma, Flexeril or Skelaxin can be used along with Tylenol ES. 4. Remember that we all live with some "aches and pains". This is not unusual or uncommon after an injury or as we get older. a. Back pain is expected and may include muscle spasms for 4 to 6 weeks after surgery. The pain should gradually improve. If the pain worsens for no apparent reason, please contact the office. b. Intermittent leg pain may also be experienced and should not be concerned about unless it worsens for no apparent reason. If so, please contact the office. 5. We will provide appropriate medication within the normal guidelines of their prescribed use. We will also be very cautious and aware of potential abuse and extended duration of patients' medication needs. a. Pain medications are for your comfort and to assist with sleep and rest so that the tissue can heal. They are not provided in order to return to normal activity and should not be used through the day. To do so or worsening pain at night can result from ongoing tissue damage and development of tolerance to the prescribed medicine. 6. Please allow 2-3 days to process refills. Prescriptions will not be mailed but must be picked up at the office. FOLLOW UP VISIT: Keep your scheduled follow-up appointment. Any questions, please call the office at . Pending Studies at Discharge: No Stand-Alone Forms: [employer], Smoking Cessation Medications and DC Order Prescriptions: New tramadol 50 mg tablet 50 mg PO Q6H PRN (Reason: pain, moderate) Qty: 30 0RF oxycodone 5 mg tablet 5 mg PO Q6H PRN (Reason: pain) Qty: 30 0RF Continued multivitamin Tablet 1 tab PO QAM metoprolol succinate 50 mg Tablet Extended Release 24 Hr 50 mg PO HS simvastatin 20 mg Tablet 20 mg PO HS albuterol sulfate [Ventolin HFA] 90 mcg/actuation Hfa Aerosol Inhaler 1 puff INHALATION Q6H PRN (Reason: Wheezing) bupropion HCl 300 mg Tablet Extended Release 24 Hr 300 mg PO QAM losartan-hydrochlorothiazide 100-12.5 mg Tablet 1 tab PO QAM cholecalciferol (vitamin D3) [Vitamin D3] 2,000 unit Tablet 2,000 unit PO QAM tramadol 50 mg tablet 50 mg PO Q6H PRN (Reason: pain, moderate) Qty: 30 0RF fluticasone furoate-vilanterol [Breo Ellipta] 200-25 mcg/dose Blister With Device 1 inh INHALATION QAM tamsulosin 0.4 mg Capsule 0.4 mg PO QAM ascorbic acid (vitamin C) [Vitamin C] 1,000 mg Tablet 1 g PO QAM Discharge Orders: Discharge Order (Routine); Ordered 03/04/23 Ordered By: Stanislaw Garrett Admission Data Admit Date/Time: 02/25/23 14:11 Attending Provider: Stanislaw Garrett Admit Provider: Stanislaw Garrett Primary Care Provider: Rodrigo Kat Other Providers: Stanislaw Garrett; Danii Cannon; Hailey Farrar; Kasia Baker; Prosper Cosby
[2023-03-04] MEDS ORDERED: POTASSIUM CHLORIDE CRTAB 20 MEQ TABCR PO STA (09:54)
--- NOTE | 2023-03-04 10:07 | Hospitalist Progress Note ---
Date of Service March 04, 2023 Assessment & Plan (1) Lumbar stenosis with neurogenic claudication: (2) Hypertension: (3) Hyperlipidemia: (4) BPH (benign prostatic hypertrophy): (5) Asthma: Plan 72 year old male that presents to the ED for an elective T9-T11 decompression and fusion surgery under the care of Dr. 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 Course inpatient has since included impacted food bolus requiring urgent EGD on 02/27 with acute hypoxic respiratory failure postprocedure requiring CPAP use. Acute hypoxic respiratory Failure Pt underwent urgent EGD on for impacted food bolus Hypoxic in the PACU in the low 80s post procedure even with oxymask oxygen supplementation and breathing treatment Stat chest xray concerning for infectious process on the right, suspicious for aspiration pneumonia. CT chest PE protocol with no PE Started on Zosyn, Vanc. MRSA nares negative. Vancomycin was discontinued. Zosyn switched to Augmentin on 03/03 Pt previously stabilized on CPAP with noted improvement in oxygenation to the 90s. However, states he is not able to tolerate the mask. Was on high flow oxygen with occasional drops in saturations- currently on 6L of NC Speech eval placed- no further eval as no concerns for chronic aspiration Pulmonology was consulted 03/01- pt frustrated with progress, would like to be up and moving but believes his need for oxygen hinders him. Would like to go home- consider 2 step in the AM. 03/02- Notes that he has been up and walking with PT, denied acute concerns today. transition from Zosyn to Augmentin 03/03- stable, motivated to work with PT, oxygen being weaned, currently on 4L, PT recommending rehab Nausea/Vomiting Impacted Food Bolus Esophagitis Had increasing episodes, could not eat KUB ordered-less likely SBO CT abd pelvis ordered- noted possible retained food at GE junction GI consult placed- Urgent EGD with course noted above. Appreciate GI recs -noted 5cm hiatal hernia with impacted food bolus, esophagitis -pantoprazole 40mg BID for 2 weeks, then daily -clear liquid diet today, then full liquids on 02/28, soft foods on 03/01 -repeat upper endoscopy in 2-4 weeks for esophageal dilation and to check healing Speech consult as above. improved symptoms Lumbar Stenosis with neurogenic claudication: Myelopathy concurrent d/t spinal stenosis POD# 6 s/p decompression and fusion T9-T11 on 02/25 under the care of Dr. Garrett. EBL 300mL Per ortho for pain control, wound care, anticoagulation and activities. Monitor H&H, pre op Hgb 01/24/23 14.3; currently stable Had DENI drain x1 with lopez red bloody output continue incentive spirometry PT/OT Hypotension Persistent Holding home antihypertensives (NETO and HCTZ) Home metoprolol with parameters Holding IV fluids Currently in acceptable range HTN: Currently hypotensive now As above HLD: Chronic stable Takes Simvastatin;continue BPH: Chronic stable Takes Tamsulosin;continue Asthma: chronic stable Takes Breo; continue PCP: Dr. Kat Code status: Full VTE Prophylaxis: Lovenox started Dispo: PT recommending inpt rehab Admission and Anticipated Discharge Date Admission Date: February 25, 2023 Physical Exam Physical Exam: General: Alert, oriented. Skin: No noted rashes or bruises Psych: appropriate mood and affect HEENT: NC/AT Chest: Nontender to palpation. CV: RRR, Normal s1, s2. No murmurs appreciated Resp: Breath sounds decreased bilaterally Abdomen: Soft, nontender, nondistended. Extremities: No edema in lower extremities bilaterally. Results & Data Results & Data Vital Signs (Past 12 Hours) Vital Signs Temp Pulse Pulse Pulse Resp BP Pulse Ox 03/04/23 08:00 03/04/23 08:00 54 L 03/04/23 07:22 36.3 C L 52 L 18 105/64 100 03/04/23 07:14 56 L 22 92 03/04/23 02:30 36.9 C 50 L 18 133/87 92 03/03/23 22:53 37.1 C 56 L 18 125/68 91 03/03/23 22:44 55 L O2 Del Method O2 Flow Rate 03/04/23 08:00 Nasal Cannula 2 03/04/23 08:00 03/04/23 07:22 Nasal Cannula 2 03/04/23 07:14 Nasal Cannula 2 03/04/23 02:30 Nasal Cannula 4 03/03/23 22:53 Nasal Cannula 4 03/03/23 22:44 (5) Asthma Asthma severity: mild Asthma persistence: intermittent Asthma complication type: unspecified Qualified Code(s): J45.20 - Mild intermittent asthma, uncomplicated
[2023-03-04] MEDS: traMADol HCL 50 MG TABLET PO PRN (13:22)
== END 2023-03-04 14:14 | disposition home or self-care (01) | DRG 459 ==
LOC: ASU 10:57 → 3W 14:11 → SUATTDRO 14:11 → 4W 02-27 18:53 → 1E 02-27 20:26 → 2S 03-01 14:54